=== PATIENT | female | born 1955 | race Caucasian/White ===

== ENCOUNTER 2020-03-29 10:26 | Observation (INO) ==
[2020-03-29] MEDS ORDERED: HYDROmorphone INJ 1 MG/ML SYRINGE IV STA (11:11)
[2020-03-29] MEDS ORDERED: KETOROLAC TROMETHAMINE 60 MG/2 ML VIAL IM STA (11:11)
[2020-03-29] MEDS ORDERED: ONDANSETRON 4 MG/5 ML UDP PO PRN (11:17)
[2020-03-29] MEDS ORDERED: ONDANSETRON 4 MG OD TAB PO STA (11:21)
[2020-03-29] MEDS ORDERED: HYDROmorphone INJ 1 MG/ML SYRINGE IM ONE (11:31)
[2020-03-29] MEDS ORDERED: DEXAMETHASONE SOD INJ 10 MG/ML VIAL IV ONE (12:38)
--- NOTE | 2020-03-29 13:05 | CT Scan Report ---
CT SCAN OF THE LUMBAR SPINE WITHOUT IV CONTRAST CLINICAL HISTORY: Low back pain. Sciatica. COMPARISON STUDY: No priors. TECHNIQUE: CT scan of the lumbar spine is performed from the lower thoracic spine to the sacrum. Imag es are reviewed in the axial, sagittal, coronal planes. IV contrast was not administered for this exa mination. A dose lowering technique was utilized adhering to the principles of ALARA. The examination is degraded by streak artifact from metallic spinal orthopedic hardware. CT DOSE: 672.99 mGy.cm FINDINGS: The skeletal structures are osteopenic. There is no evidence of fracture or malalignment in volving the lumbar spine. There is postoperative change from discectomy with laminectomy and posterio r fusion at L4 -L5. The orthopedic hardware appears intact. Vertebral body height is maintained thro ughout the lumbar spine. There is 8 mm of retrolisthesis at L2-L3. Minimal anterolisthesis is seen at L3-L4 and L4-L5. There is no spondylolysis. There is hyperlordosis of the lumbar spine. The transver se processes and the remaining spinous processes are intact. No lytic or blastic lesion is seen. The visualized sacrum and bony pelvis appear intact. There is moderate to advanced disc space narrowing a t L2-L3 and L3-L4 with associated endplate sclerosis. Mild to moderate disc space narrowing and endpl ate sclerosis is seen at L5-S1. Posterior disc bulge and possible disc herniation at L5-S1 likely con tributes to spinal stenosis. Facet arthropathy is seen throughout the lumbar spine. This likely contr ibutes to multilevel neural foraminal stenosis, greatest in the lower lumbar region. There is fatty a trophy of the paraspinous musculature. The retroperitoneal structures are normal as imaged. There is no retroperitoneal lymphadenopathy. IMPRESSION: 1. There is no acute bony abnormality identified involving the lumbar spine. 2. Osteopenia with postoperative and spondylotic change as above. 3. A large posterior disc bulge/possible disc herniation at L5-S1 likely contributes to central canal stenosis. ACT 112: Negative or not required by law. Electronically signed by: Larry Chang M.D. 03/29/2020 1:04 PM
[2020-03-29] MEDS ORDERED: LORazepam 1 MG TAB SL STA (13:32)
--- NOTE | 2020-03-29 14:21 | Emergency Department Note ---
History of Present Illness General Chief complaint: Back Injury/Pain Time Seen by Provider: 03/29/20 10:29 Source: patient, EMS, RN notes reviewed and old records reviewed Mode of arrival: EMS Limitations: no limitations History of Present Illness Provider complaint: Backk pain Onset (ago): day(s) 4 Location: back Radiation: extremity Severity: severe Pain Consistency: + intermittent Maximum Pain Intensity: 10 Current Pain Intensity: 10 Quality: + aching Relieved By: + other (Benading knees) Exacerbated By: + movement Associated symptoms: + other (No loss of bowel or bladder; No saddle anesthesia); no cough, no diaphoresis, no fever/chills, no headaches, no loss of appetite, no malaise, no nausea/vomiting, no rash and no seizure Treatments prior to arrival: other (Oxycodone, percocet ) This is a 64-year-old female who presents emergency department with back pain that has been increasing since Wednesday. 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 She reports that the pain has gotten much worse and is only relieved by bending her knees. She has a history of lumbar fusion done in [place] approximately 10 years ago she has been taking oxycodone as well as Percocet which are her 's without relief of the pain. She reports twisting and turning makes the pain much worse. She denies any loss of bowel or bladder control. Home Medications Medication Instructions Recorded Confirmed Type acetaminophen [Tylenol Extra 2,000 mg PO Q6H PRN 03/29/20 03/29/20 History Strength] aspirin 81 mg PO PM 03/29/20 03/29/20 History bumetanide 1 mg PO DIRECTED PRN 03/29/20 03/29/20 History cyclobenzaprine 10 mg PO Q8H #30 tab 03/29/20 Rx docusate sodium [Colace] 100 mg PO BID #60 cap 03/29/20 Rx ibuprofen [Motrin IB] 800 mg PO Q6H PRN 03/29/20 03/29/20 History levothyroxine [Synthroid] 175 mcg PO PM 03/29/20 03/29/20 History lidocaine [Lidoderm] 1 patch TOPICAL DAILY #15 ea 03/29/20 Rx losartan 50 mg PO QAM 03/29/20 03/29/20 History oxycodone 5 mg PO Q6H PRN #14 tab 03/29/20 Rx oxycodone 10 mg PO Q6H PRN 03/29/20 03/29/20 History oxycodone-acetaminophen [Percocet] 1 tab PO Q8H PRN 03/29/20 03/29/20 History sennosides [Senokot] 8.6 mg PO HS #30 tab 03/29/20 Rx sertraline 50 mg PO PM 03/29/20 03/29/20 History Allergies Allergy/AdvReac Type Severity Reaction Status Date / Time No Known Allergies Allergy Unverified 03/29/20 11:32 Past Med/Surg History Social History Smoking Status: Never smoker Second Hand Exposure: No; Hx Alcohol Use: Yes Alcohol type: wine Hx Substance Use: No Preferred Language: Albanian Communication Ability: Effective Abstracter Required: No Beliefs That Will Affect Care: None Current Living Situation: Spouse Feels Safe at Home: Yes Assistive Devices: Glasses and Walker Review of Systems A total of 10 systems reviewed and were otherwise negative Physical Exam Vital Signs Vital Signs - 24 hr 03/29/20 10:36 03/29/20 12:18 03/29/20 12:35 Temperature 36.5 C Temperature Source Oral Pulse Rate 70 Pulse Rate [Apical] 80 Respiratory Rate 18 18 Blood Pressure 185/97 H Blood Pressure [Left Arm] 207/91 H Blood Pressure Mean 126 Blood Pressure Mean [Left Arm] 129 Pulse Oximetry 96 98 87 L Oxygen Delivery Method Room Air Nasal Cannula Room Air Nasal Cannula Oxygen Flow Rate 2 0 Sepsis Recent Fever Within 48 Hours No Sepsis New/Unexplained Change in Mental Status No Sepsis Action Taken by Nursing No Action Required Oxygen Flow Rate - Titration 2 Pulse Oximetry Post Tiitration 98 VITAL SIGNS - Vital signs and nursing notes were reviewed. GENERAL - 64-year-old female appearing stated age who is in no acute distress. Communicates well with provider and answers questions appropriately. SKIN - Without rashes. HEAD - NC/AT. EYES - PERRL with EOMI bilaterally. Sclera anicteric. Palpebral conjunctiva pink and moist with no injection noted. EARS - No deformities of external structures noted on gross examination bilaterally. No pain elicited with palpation of the tragus bilaterally. External auditory canals without discharge or otorrhea. Tympanic membranes pearly castle without retraction or bulging. No fluid or purulent material visualized behind the TM. Handle of malleus, umbo, cone of light, pars tensa/flaccid all easily visualized. NOSE - Midline and without cyanosis. No epistaxis or purulent drainage noted. Septum midline without deviation or septal hematoma noted. MOUTH/OROPHARYNX - Without perioral cyanosis. Buccal mucosa pink and moist and without leukoplakia. Tongue midline with equal elevation of palate bilaterally. No tonsillar hypertrophy, erythema, or exudates noted. dentition noted. NECK - Neck with FROM. Supple to palpation. lymphadenopathy noted. No nuchal rigidity. LUNGS - Chest wall symmetric without accessory muscle use, intercostals retract ions, or central cyanosis. Normal vesicular breath sounds CTA B/L. No wheezes, rales, or rhonchi appreciated. CARDIAC - RRR with S1/S2. No murmur, rubs, or gallops appreciated. ABDOMEN - Abdominal contour without pulsations or visible masses. BS normoactive all four quadrants. No tenderness, palpable masses, hepatosplenomegaly, or ascites noted. EXTREMITIES - No clubbing or peripheral cyanosis. No pretibial edema present. +3/5 radial, posterior tibial, and dorsalis pedis pulses palpated throughout. +5/5 strength noted in UE/LE bilaterally. NEUROLOGIC - Cranial nerves II through XII grossly intact. Sensory intact to light touch throughout. Patellar reflexes +2/4. PSYCH - A&Ox3 and cooperates fully with examiner. Pt is very pleasant and interacts well with examiner. Course Administered Medications Aspirin (Aspirin 81 Mg Ectab) 81 mg PO PM SHADI Stop: 04/28/20 20:59 Last Admin: 03/30/20 22:09 Dose: 81 mg Documented by: [id number] Admin: 03/29/20 20:36 Dose: 81 mg Documented by: [id number] Enoxaparin Sodium (Enoxaparin Inj 40 Mg/0.4 Ml Syr) 40 mg SQ QAM SHADI Stop: 04/30/20 13:59 Last Admin: 03/31/20 14:53 Dose: 40 mg Documented by: [id number] Dexamethasone Sodium Phosphate (10 mg/ Syringe) 2.5 mls @ 1 mls/min IV DAILY SHADI Stop: 04/29/20 08:59 Last Admin: 03/31/20 09:31 Dose: 1 mls/min Documented by: [id number] Admin: 03/30/20 21:02 Dose: Not Given Documented by: [id number] Levothyroxine Sodium (Levothyroxine Sodium 175 Mcg Tablet) 175 mcg PO PM SHADI Stop: 04/28/20 20:59 Last Admin: 03/31/20 20:14 Dose: 175 mcg Documented by: [id number] Admin: 03/30/20 22:08 Dose: 175 mcg Documented by: [id number] Admin: 03/29/20 20:36 Dose: 175 mcg Documented by: [id number] Losartan Potassium (Losartan Potassium 50 Mg Tab) 50 mg PO QAM SHADI Stop: 04/29/20 08:59 Last Admin: 03/31/20 09:31 Dose: 50 mg Documented by: [id number] Admin: 03/30/20 21:01 Dose: Not Given Documented by: [id number] Melatonin (Melatonin 3 Mg Tab) 3 mg PO HS PRN PRN Reason: Sleep Stop: 04/29/20 18:20 Last Admin: 03/30/20 22:16 Dose: 3 mg Documented by: [id number] Oxycodone HCl (Oxycodone Hcl Ir 5 Mg Tab (Immediate Release)) 10 mg PO Q6H PRN PRN Reason: Pain Stop: 04/12/20 19:36 Last Admin: 04/01/20 06:19 Dose: 10 mg Documented by: [id number] Admin: 03/31/20 23:46 Dose: 10 mg Documented by: [id number] Admin: 03/31/20 18:07 Dose: 10 mg Documented by: [id number] Admin: 03/31/20 11:45 Dose: 10 mg Documented by: [id number] Admin: 03/31/20 05:08 Dose: 10 mg Documented by: [id number] Admin: 03/30/20 22:16 Dose: 10 mg Documented by: [id number] Admin: 03/30/20 16:15 Dose: 10 mg Documented by: [id number] Admin: 03/30/20 08:44 Dose: 10 mg Documented by: [id number] Admin: 03/30/20 01:13 Dose: 10 mg Documented by: [id number] Sertraline HCl (Sertraline Hcl 50 Mg Tablet) 50 mg PO PM SHADI Stop: 04/28/20 20:59 Last Admin: 03/31/20 20:15 Dose: 50 mg Documented by: [id number] Admin: 03/30/20 22:08 Dose: 50 mg Documented by: [id number] Admin: 03/29/20 20:37 Dose: 50 mg Documented by: [id number] Discontinued Medications Dexamethasone (Dexamethasone Sod Inj 10 Mg/Ml Vial) 10 mg IV NOW ONE Stop: 03/29/20 12:39 Last Admin: 03/29/20 13:35 Dose: 10 mg Documented by: [id number] Hydromorphone HCl (Hydromorphone Inj 1 Mg/Ml Syringe) 1 mg IV NOW STA Stop: 03/29/20 11:12 Last Admin: 03/29/20 11:43 Dose: Not Given Documented by: [id number] Hydromorphone HCl (Hydromorphone Inj 1 Mg/Ml Syringe) 1 mg IM NOW ONE Stop: 03/29/20 11:32 Last Admin: 03/29/20 11:34 Dose: 1 mg Documented by: [id number] Ketorolac Tromethamine (Ketorolac Tromethamine 60 Mg/2 Ml Vial) 60 mg IM NOW STA Stop: 03/29/20 11:12 Last Admin: 03/29/20 11:33 Dose: 60 mg Documented by: [id number] Lorazepam (Lorazepam 1 Mg Tab) 1 mg SL NOW STA Stop: 03/29/20 13:33 Last Admin: 03/29/20 14:40 Dose: 1 mg Documented by: [id number] Ondansetron HCl (Ondansetron 4 Mg Od Tab) 4 mg PO NOW STA Stop: 03/29/20 11:22 Last Admin: 03/29/20 11:33 Dose: 4 mg Documented by: [id number] Ondansetron HCl (Ondansetron Inj 2 Mg/Ml 2 Ml Vial) 4 mg IV NOW STA Stop: 03/29/20 16:32 Last Admin: 03/30/20 21:09 Dose: Not Given Documented by: [id number] Medical Decision Making Differential Diagnosis Fracture, subluxation, dislocation, contusion, ligamentous injury, neurovascular, compartment syndrome, rhabdomyolysis, as well as other pathologies. Medical Records Attestation: I reviewed the patient's medical records. Home Medications Current Medication List: was personally reviewed by me Laboratory Data Attestation: I reviewed the patient's lab results. Result diagrams: 03/29/20 16:36 03/29/20 16:36 Lab Results 03/29/20 03/29/20 Range/Units 16:36 16:36 WBC 5.36 (4.8-10.8) K/uL RBC 5.09 (4.2-5.4) M/uL Hgb 15.3 (12.0-16.0) g/dL Hct 45.8 (37-47) % MCV 90.0 (80-100) fL MCH 30.1 (25-34) pg MCHC 33.4 (32-36) g/dL RDW Std Deviation 43.8 (36.4-46.3) fL RDW Coeff of Kye 13.2 (11.5-14.5) % Plt Count 182 (130-400) K/uL MPV 9.5 (7.4-10.4) fL Immature Gran % (Auto) 0.2 % Neut % (Auto) 88.8 % Lymph % (Auto) 9.7 % [place] % (Auto) 1.3 % Eos % (Auto) 0.0 % Baso % (Auto) 0.0 % Neut # (Auto) 4.76 (1.4-6.5) K/uL Lymph # (Auto) 0.52 L (1.2-3.4) K/uL H[place] # (Auto) 0.07 L (0.11-0.59) K/uL Eos # (Auto) 0.00 (0-0.5) K/uL Baso # (Auto) 0.00 (0-0.2) K/uL Immature Gran # (Auto) 0.01 (0.00-0.02) K/uL Sodium 137 (136-145) mmol/L Potassium 4.3 (3.5-5.1) mmol/L Chloride 105 (98-107) mmol/L Carbon Dioxide 27 (21-32) mmol/L Anion Gap 5.0 (3-11) BUN 20 H (7-18) mg/dl Creatinine 0.78 (0.6-1.2) mg/dl Est Cr Clr Drug Dosing 96.2 ml/min Est GFR ( Amer) 93.8 Est GFR (Non-Af Amer) 80.9 BUN/Creatinine Ratio 25.1 H (10-20) Glucose 119 H (70-99) mg/dl Calcium 9.9 (8.5-10.1) mg/dl Total Bilirubin 0.5 (0.2-1) mg/dl AST 19 (15-37) U/L ALT 41 (12-78) U/L Alkaline Phosphatase 70 (45-117) U/L Total Protein 8.2 (6.4-8.2) gm/dl Albumin 4.4 (3.4-5.0) gm/dl Globulin 3.8 (2.5-4.0) gm/dl Albumin/Globulin Ratio 1.2 (0.9-2) Lipase 110 (73-393) U/L Imaging Data Radiologist's Impression: [facility], [phone] CT Scan Report Patient: Criss GARCIA Date: 03/29/20#: [id number]: [address] [facility]:[id number]: Date: [address] [place] [address] Zip: [place], [place] [address]Qbl: 64Location: EDSex: FRoom/Bed:Att Phy:Diagnosis: BACK INJRUYPri Phy: PCP,NOService Date: 03/29/20Fa Phy:Interpreting Phy: Larry Chang MDAdmit Phy: Ordering Phy: Ran Leone MD cc: ~ CT SCAN OF THE LUMBAR SPINE WITHOUT IV CONTRAST CLINICAL HISTORY: Low back pain. Sciatica. COMPARISON STUDY: No priors. TECHNIQUE: CT scan of the lumbar spine is performed from the lower thoracic spine to the sacrum. Images are reviewed in the axial, sagittal, coronal planes. IV contrast was not administered for this examination. A dose lowering technique was utilized adhering to the principles of ALARA. The examination is degraded by streak artifact from metallic spinal orthopedic hardware. CT DOSE: 672.99 mGy.cm FINDINGS: The skeletal structures are osteopenic. There is no evidence of fracture or malalignment involving the lumbar spine. There is postoperative change from discectomy with laminectomy and posterior fusion at L4 -L5. The orthopedic hardware appears intact. Vertebral body height is maintained throu ghout the lumbar spine. There is 8 mm of retrolisthesis at L2-L3. Minimal anterolisthesis is seen at L3-L4 and L4-L5. There is no spondylolysis. There is hyperlordosis of the lumbar spine. The transverse processes and the remaining spinous processes are intact. No lytic or blastic lesion is seen. The visualized sacrum and bony pelvis appear intact. There is moderate to advanced disc space narrowing at L2-L3 and L3-L4 with associated endplate sclerosis. Mild to moderate disc space narrowing and endplate sclerosis is seen at L5-S1. Posterior disc bulge and possible disc herniation at L5-S1 likely contributes to spinal stenosis. Facet arthropathy is seen throughout the lumbar spine. This likely contributes to multilevel neural foraminal stenosis, greatest in the lower lumbar region. There is fatty atrophy of the paraspinous musculature. The retroperitoneal structures are normal as imaged. There is no retroperitoneal lymphadenopathy. IMPRESSION: 1. There is no acute bony abnormality identified involving the lumbar spine. 2. Osteopenia with postoperative and spondylotic change as above. 3. A large posterior disc bulge/possible disc herniation at L5-S1 likely contributes to central canal stenosis. ACT 112: Negative or not required by law. Electronically signed by: Larry Chang M.D. 03/29/2020 1:04 PM Dictated: 03/29/20 1213Transcribed: 03/29/20 1213 [facility], [phone] Magnetic Resonance Report Patient: Criss GARCIA Date: 03/29/20#: [id number]: [address] [facility]:[id number]: Date: [address] [place] [address] Zip: [place], [place] [address]Bpv: 64Location: EDSex: FRoom/Bed:Att Phy:Diagnosis: BACK INJRUYPri Phy: PCP,NOService Date: 03/29/20Fa Phy:Interpreting Phy: Arthur Choe MDAdmit Phy: Ordering Phy: Kenny Vargas MD cc: ~ LUMBAR SPINE MRI HISTORY: Severe low back pain. Pt c/o slipped disc TECHNIQUE: Multiplanar multisequence MRI of the lumbar spine was performed without the use of contrast. COMPARISON: Lumbar spine CT 03/29/2020. FINDINGS: For the purpose of the report the L5-S1 disc space will be located on axial image 25 of 28. Mild dextroscoliosis of the lumbar spine. Severe disc space narrowing with fluid signal at L2-L3 and L3-L4. There is L4-L5 posterior decompression fusion with pedicle screws and rods. There is complete fusion of the vertebral bodies. There is mild disc space narrowing at L5-S1. Severe facet osteoarthritis throughout the majority of the lumbar spine. The conus terminates at the L1-L2 disc space level. Mild presacral edema. L1-L2: No significant central canal or neural foraminal narrowing. L2-L3: Moderate to severe central canal narrowing due to a broad-based posterior disc bulge and ligamentum flavum and facet hypertrophy. There is also severe left and moderate right neural foraminal narrowing. There is a small right jonatan inal disc extrusion measuring 8 mm. This abuts the exiting right L2 nerve root. L3-L4: Small broad-based posterior disc bulge with severe facet hypertrophy resulting in severe central canal and severe bilateral neural foraminal narrowing. L4-L5: There is severe central canal narrowing immediately proximal to the posterior decompression. This is posterior to the L4 vertebral body. This is secondary to the severe facet hypertrophy. There is no significant central canal narrowing at the L4-5 disc space level due to the posterior decompression. No significant central canal narrowing. L5-S1: Severe stenosis due to a large central disc extrusion measuring 12 x 10 mm. The central canal measures 2.3 mm in diameter. Therefore, the nerve roots at this location are likely compressed. There is also broad-based posterior disc bulge resulting in severe right and moderate to severe left neural foraminal narrowing. IMPRESSION: 1. There is a large central disc extrusion at L5-S1 resulting in severe central canal narrowing. The nerve roots at this location are likely compressed. 2. There is also severe central canal narrowing at L3-L4 and posterior to the L4 vertebral body. 3. Posterior decompression and fusion at L4-L5 with pedicle screws and rods. 4. No fractures within the lumbar spine. 5. Advanced facet degenerative changes within the lumbar spine. 6. Mild presacral edema. ACT 112: Negative or not required by law. Electronically signed by: Arthur Choe M.D. 03/29/2020 4:14 PM Dictated: 03/29/201558Transcribed: 03/29/201558 [facility] Narrative Patient was seen and evaluated as above in room C8. Review was performed of nurs ing notes and vital signs. I did review pertinent previous visits and patient history. After obtaining a thorough history and physical examination the above work up was performed. This 64-year-old female who presents emergency department complaining of severe back pain that radiates into her legs anytime the patient walks. Patient reports that the pain started Wednesday and became so severe she was unable to walk for the past 2 days. She was given IM Dilaudid here in the emergency department as well as Decadron however she still is not ambulating as well. Based on all these findings she was sent for CAT scan of the lower spine as well as an MRI of the lower spine. I did discuss my findings with the orthopedic surgeon who asked that the patient be admitted to the medicine service. Patient is in agreement with the treatment plan. An order was placed for continuous cardiac monitoring. The monitor shows a rate of 87 with Normal Sinus rhythm. The patient was evaluated during a period of high volume and high acuity while the hospital was at overcapacity during the global COVID-19 pandemic, and that diagnosis was suspected/considered upon their initial presentation. Their evaluation, treatment and testing was consistent with current guidelines for patients who present with complaints or symptoms that may be related to COVID- 19. Impression & Plan Back pain, Slipped intervertebral disc Discharge Plan Visit Data Chief Complaint: Back Injury/Pain ED Provider: Kneny Vargas ED Midlevel Provider: Ran Leone Discharge Problem: Back pain, Slipped intervertebral disc Patient Disposition: Admitted As Inpatient Discharge Instructions Interventions: ED Discharge Assessment Last Done: 03/29/20 18:40 Discharge Problem: Back pain Qualifiers: Back pain location: low back pain Chronicity: acute Back pain laterality: unspecified Sciatica presence: with sciatica Sciatica laterality: bilateral sciatica Qualified Code(s): M54.42 - Lumbago with sciatica, left side Slipped intervertebral disc Qualifiers: Spinal region: lumbosacral Qualified Code(s): M51.27 - Other intervertebral disc displacement, lumbosacral region
--- NOTE | 2020-03-29 14:33 | Emergency Department Note ---
ED Visit Note I saw this patient today and discussed my findings w/ Dr. Vargas who has examined the patient independently. Please see his documentation for assessment and plan. : Back pain Qualifiers: Back pain location: low back pain Chronicity: acute Back pain laterality: unspecified Sciatica presence: with sciatica Sciatica laterality: bilateral sciatica Qualified Code(s): M54.42 - Lumbago with sciatica, left side Slipped intervertebral disc Qualifiers: Spinal region: lumbosacral Qualified Code(s): M51.27 - Other intervertebral disc displacement, lumbosacral region
--- NOTE | 2020-03-29 16:15 | Magnetic Resonance Report ---
LUMBAR SPINE MRI HISTORY: Severe low back pain. Pt c/o slipped disc TECHNIQUE: Multiplanar multisequence MRI of the lumbar spine was performed without the use of contras t. COMPARISON: Lumbar spine CT 03/29/2020. FINDINGS: For the purpose of the report the L5-S1 disc space will be located on axial image 25 of 28. Mild dextroscoliosis of the lumbar spine. Severe disc space narrowing with fluid signal at L2-L3 and L3-L4. There is L4-L5 posterior decompression fusion with pedicle screws and rods. There is complete fusion of the vertebral bodies. There is mild disc space narrowing at L5-S1. Severe facet osteoarthri tis throughout the majority of the lumbar spine. The conus terminates at the L1-L2 disc space level. Mild presacral edema. L1-L2: No significant central canal or neural foraminal narrowing. L2-L3: Moderate to severe central canal narrowing due to a broad-based posterior disc bulge and ligam entum flavum and facet hypertrophy. There is also severe left and moderate right neural foraminal nelly rowing. There is a small right foraminal disc extrusion measuring 8 mm. This abuts the exiting right L2 nerve root. L3-L4: Small broad-based posterior disc bulge with severe facet hypertrophy resulting in severe centr al canal and severe bilateral neural foraminal narrowing. L4-L5: There is severe central canal narrowing immediately proximal to the posterior decompression. T his is posterior to the L4 vertebral body. This is secondary to the severe facet hypertrophy. There i s no significant central canal narrowing at the L4-5 disc space level due to the posterior decompress ion. No significant central canal narrowing. L5-S1: Severe stenosis due to a large central disc extrusion measuring 12 x 10 mm. The central canal measures 2.3 mm in diameter. Therefore, the nerve roots at this location are likely compressed. There is also broad-based posterior disc bulge resulting in severe right and moderate to severe left neura l foraminal narrowing. IMPRESSION: 1. There is a large central disc extrusion at L5-S1 resulting in severe central canal narrowing. The nerve roots at this location are likely compressed. 2. There is also severe central canal narrowing at L3-L4 and posterior to the L4 vertebral body. 3. Posterior decompression and fusion at L4-L5 with pedicle screws and rods. 4. No fractures within the lumbar spine. 5. Advanced facet degenerative changes within the lumbar spine. 6. Mild presacral edema. ACT 112: Negative or not required by law. Electronically signed by: Arthur Choe M.D. 03/29/2020 4:14 PM
[2020-03-29] MEDS ORDERED: ONDANSETRON INJ 2 MG/ML 2 ML VIAL IV STA (16:31)
[2020-03-29] MEDS ORDERED: HYDROmorphone INJ 1 MG/ML SYRINGE IV PRN (16:31)
[2020-03-29 16:48] LABS: Hematocrit (blood only) 45.8 % (37-47); Hemoglobin 15.3 g/dL (12.0-16.0); Immature Granulocytes # (auto) 0.01 K/uL (0.00-0.02); Immature Granulocytes % (auto) 0.2 %; Lymphocytes # (auto) 0.52 K/uL (1.2-3.4); Lymphocytes % (auto) 9.7 %; Mean Corpuscular Hemoglobin 30.1 pg (25-34); Mean Corpuscular Hgb Conc 33.4 g/dL (32-36); Mean Platelet Volume 9.5 fL (7.4-10.4); Monocytes # (auto) 0.07 K/uL (0.11-0.59); Monocytes % (auto) 1.3 %; Neutrophils # (auto) 4.76 K/uL (1.4-6.5); Neutrophils % (auto) 88.8 %; Platelet Count 182 K/uL (130-400); RDW Coefficient of Variation 13.2 % (11.5-14.5); RDW Standard Deviation 43.8 fL (36.4-46.3); Red Blood Count 5.09 M/uL (4.2-5.4); White Blood Count 5.36 K/uL (4.8-10.8)
[2020-03-29 17:06] LABS: Albumin Level 4.4 gm/dl (3.4-5.0); BUN Creatinine Ratio 25.1 (10-20); Calcium 9.9 mg/dl (8.5-10.1); Creatinine Clr Calc Pharmacy 96.2 ml/min; Est GFR (African American) 93.8; Est GFR (Non-African American) 80.9; Potassium 4.3 mmol/L (3.5-5.1)
--- NOTE | 2020-03-29 17:06 | History & Physical Report ---
Date of Service March 29, 2020 Assessment & Plan (1) Lumbar radiculopathy: intractable pain - now appears improved, although with considerable amount of medications -PT/OT eval and treat -decadron -pain control (home meds and a number of prns) -ortho eval -- although hopefully won't need to have surgery but that way if pain remains intractable or if she were to go home and then worsen she is established --->hopefully if continues to do better, home on steroids w outpt pain management eval for ?injections and probable referral for decompression (2) Hypoxia: no symptoms, no lung findings - ?spurious reading follow clinically, wean O2 (3) Hypertension: current readings likely markedly elevated due to uncontrolled pain. continue home meds for now and follow (4) Hyperlipidemia: lipids from february noted - definitely needs outpt management - she ntoes difficulty tolerating meds - this will need to be evaluated further and in more depth as outpt (5) Hypothyroid: synthroid (6) Impaired glucose tolerance: will need educated on lifestyle change as outpt (7) DVT prophylaxis: scds (8) Discharge planning issues: obs medical, home once pain more tolerable and able to ambulate History of Present Illness Chief Complaint: back pain down L leg Primary Care Provider: NO PCP last week or so worsening of back pain going down L leg. last few days barely able to walk. today severity so intense she had to be brought by ambulance due to inability to ambulate and uncontrolled pain. no loss of bowel or bladder, no saddle anesthesia. here in ER got 10mg decadron, 1mg ativan, 1mg dilauded x2 and feels surprisingly better. no sob at all - notes O2 was put on to help with nausea and she notes that it helped a lot. cherelle notes that she's been in her baseline state of health - moved here from [place] about a year ago and has yet to establish w PCP because she's been busy and felt like she was doing well med hx -htn, hyperlipid (can't tolerate meds per pt), hypothyroid surg -lumbar surgery about 10yrs ago fam -CAD but notes that it was heavily lifestyle induced and not till fairly old soc -nonsmoker meds see list Allergies Allergy/AdvReac Type Severity Reaction Status Date / Time No Known Allergies Allergy Unverified 03/29/20 11:32 Home Medications Medication Instructions Recorded Confirmed Type acetaminophen [Tylenol Extra 2,000 mg PO Q6H PRN 03/29/20 03/29/20 History Strength] aspirin 81 mg PO PM 03/29/20 03/29/20 History bumetanide 1 mg PO DIRECTED PRN 03/29/20 03/29/20 History cyclobenzaprine 10 mg PO Q8H #30 tab 03/29/20 Rx docusate sodium [Colace] 100 mg PO BID #60 cap 03/29/20 Rx ibuprofen [Motrin IB] 800 mg PO Q6H PRN 03/29/20 03/29/20 History levothyroxine [Synthroid] 175 mcg PO PM 03/29/20 03/29/20 History lidocaine [Lidoderm] 1 patch TOPICAL DAILY #15 ea 03/29/20 Rx losartan 50 mg PO QAM 03/29/20 03/29/20 History oxycodone 5 mg PO Q6H PRN #14 tab 03/29/20 Rx oxycodone 10 mg PO Q6H PRN 03/29/20 03/29/20 History oxycodone-acetaminophen [Percocet] 1 tab PO Q8H PRN 03/29/20 03/29/20 History sennosides [Senokot] 8.6 mg PO HS #30 tab 03/29/20 Rx sertraline 50 mg PO PM 03/29/20 03/29/20 History Past Med/Surg History Social History Smoking Status: Never smoker Review of Systems Review of Systems: All systems reviewed & are unremarkable except as noted in HPI & below Physical Exam Physical Exam: gen aaox3 pleasant nad heent nc at mmm neck full rom cardio reg no r/m/g lungs cta b/l no r/r/w good effort abd soft nd nt no masses or organomegaly no guarding/rebond ext no c/c/e no calf tenderness neuro - cn 2-12 grossly intact, at the time i see her no focal sensory or motor deficits, neg straight leg raise LLE msk/ost - no tightness L piriformis region skin - no rashes no pallor or icterus mental good recent and remote recall normal mood and affect Results & Data Results & Data ([facility]) Vital Signs (Past 12 Hours) Vital Signs Temp Pulse Pulse Resp BP BP Pulse Ox 03/29/20 12:35 87 L 03/29/20 12:18 80 18 207/91 H 98 03/29/20 10:36 97.7 F 70 18 185/97 H 96 Code Status & VTE Plan VTE Prophylaxis Plan VTE Prophylaxis will be ordered: Yes PG Care Time/CCT Total # of Minutes Spent Total Time Spent with Patient: Total time spent is greater than 50% in coordination of care (as documented) at patient's floor/unit and/or counseling patient: Coding Level of Care Code 96945 OBS Care - Level 3 Diagnoses Lumbar radiculopathy M54.16 Hypoxia R09.02 Hypertension I10 Hyperlipidemia E78.5 Hypothyroid E03.9 Impaired glucose tolerance R73.02 DVT prophylaxis Z29.9 Discharge planning issues Z02.9
[2020-03-29 17:09] LABS: Albumin Globulin Ratio 1.2 (0.9-2); Bilirubin,Total 0.5 mg/dl (0.2-1); Globulin 3.8 gm/dl (2.5-4.0); Total Protein 8.2 gm/dl (6.4-8.2)
[2020-03-29] MEDS ORDERED: ALUMINUM/MAGNESIUM SUSP 30 ML UDC PO PRN (19:37)
[2020-03-29] MEDS ORDERED: oxyCODONE/ACETAMINOPHEN 5mg/325mg TAB PO PRN (19:37)
[2020-03-29] MEDS ORDERED: ONDANSETRON INJ 2 MG/ML 2 ML VIAL IV PRN (19:37)
[2020-03-29] MEDS ORDERED: ACETAMINOPHEN 325 MG TAB PO PRN (19:37)
[2020-03-29] MEDS ORDERED: BUMETANIDE 1 MG TAB PO PRN (19:37)
[2020-03-29] MEDS ORDERED: MoRPHine SULFATE 4 MG/ML 1 ML CARP\\VIAL IV PRN (19:37)
[2020-03-29] MEDS ORDERED: MAGNESIUM HYDROXIDE SUSP 30 ML UDC PO PRN (19:37)
[2020-03-29] MEDS ORDERED: IBUPROFEN 200 MG TAB PO PRN (19:40)
[2020-03-29] MEDS: LEVOTHYROXINE SODIUM 175 MCG TABLET PO SCH (20:36)
[2020-03-29] MEDS: ASPIRIN 81 MG ECTAB PO SCH (20:36)
[2020-03-29] MEDS: SERTRALINE HCL 50 MG TABLET PO SCH (20:37)
[2020-03-30] MEDS: oxyCODONE HCL IR 5 MG TAB (IMMEDIATE RELEASE) PO PRN ×4 (01:13→22:16)
[2020-03-30] MEDS ORDERED: DEXAMETHASONE SOD INJ 10 MG/ML VIAL IV SCH (09:00)
[2020-03-30 17:51] LABS: Appearance Urine Clear (Clear); Bacteria Urine Automated Negative (Negative); Bilirubin Urine Negative (Negative); Blood Urine Negative (Negative); Color Urine Dark Yellow; Epithelial Cell Urine Auto >30 /lpf (0-5); Glucose Urine UA Negative (Negative); Ketones Urine Trace (Negative); Leukocyte Esterase Urine 1+ (Negative); Nitrite Urine Negative (Negative); Protein Urine Trace (Negative); RBC Urine Automated 0-4 /hpf (0-4); Specific Gravity Urine 1.026 (1.000-1.030); Urobilinogen Urine Negative (Negative)
[2020-03-30 17:55] LABS: Renal Epithelial Cells Urine 0-5 /lpf (0-5)
[2020-03-30] MEDS ORDERED: MELATONIN 3 MG TAB PO PRN (18:21)
[2020-03-30 19:24] LABS: Thyroid Stimulating Hormone 0.975 uIu/ml (0.300-4.500)
[2020-03-30] MEDS: LOSARTAN POTASSIUM 50 MG TAB PO SCH (21:01)
[2020-03-30] MEDS: DEXAMETHASONE SOD PHOSPHATE 10 MG in SYRINGE 0 ML IV SCH (21:02)
[2020-03-30] MEDS: SERTRALINE HCL 50 MG TABLET PO SCH (22:08)
[2020-03-30] MEDS: LEVOTHYROXINE SODIUM 175 MCG TABLET PO SCH (22:08)
[2020-03-30] MEDS: ASPIRIN 81 MG ECTAB PO SCH (22:09)
[2020-03-31] MEDS: oxyCODONE HCL IR 5 MG TAB (IMMEDIATE RELEASE) PO PRN ×4 (05:08→23:46)
[2020-03-31 06:54] LABS: Estimated Average Glucose 131 mg/dl; Hemoglobin A1C 6.2 % (4.5-5.6)
[2020-03-31] MEDS: LOSARTAN POTASSIUM 50 MG TAB PO SCH (09:31)
[2020-03-31] MEDS: DEXAMETHASONE SOD PHOSPHATE 10 MG in SYRINGE 0 ML IV SCH (09:31)
--- NOTE | 2020-03-31 11:28 | Orthopedic Consultation ---
Date of Consultation March 31, 2020 Assessment & Plan (1) Spinal stenosis of lumbar region with radiculopathy: A CAT scan and MRI were obtained of the patient's lumbar spine. These demonstrate instrumented fusion L4-L5 with anterolisthesis severe facet appear to be in stenosis L3-4 and 2 some degree L2-3. She exhibits a vacuum phenomenon L5-S1 with a massive central disc herniation with severe spinal stenosis. I reviewed these films with the patient and treatment plan. She has a history of previous existing neurogenic claudication secondary to spinal stenosis now with an acute disc herniation. She is in significant distress would like to consider surgical invention. Would require a lumbar decompression and fusion L5-S1, L3- L4 and L2-L3. It would require removal instrumentation L4-5. Risk benefits pros cons and alternatives were outlined in detail. Risk include but not limited to from anesthesia blindness stroke paralysis nerve damage blood loss requiring transfusion infection requiring reoperation. Benefits marked improvement of her back and leg symptoms and return of her ability to ambulate. This time we will plan for surgery as soon as possible in light of her pain and inability to ambulate. Present on Admission?: Yes History of Present Illness Reason for Consultation: Severe back and bilateral leg pain with weakness Attending Physician: Car Pimentel MD History of Present Illness This is a very pleasant 64-year-old female that presents with severe decline in status to the emergency room on Wednesday. She notes the inability to ambulate. She does have a history of lumbar decompression fusion several years ago at L4- L5. She been doing very nicely but over the past year has noted marked decrease ability to ambulate any distance. She would note significant neurogenic claudicatory complaints. She limited her activity. However the past week the symptoms became markedly severe with pain in the bilateral buttocks posterior thighs. The point that she was unable to walk. She was bedridden for several days before coming to the emergency room. She denies any loss of bowel bladder control. She does have pain and numbness extending down the bilateral lower extremities. She denies any precipitating trauma fall or event. 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 Allergies Allergy/AdvReac Type Severity Reaction Status Date / Time No Known Allergies Allergy Unverified 03/29/20 11:32 Home Medications Medication Instructions Recorded Confirmed Type acetaminophen [Tylenol Extra 2,000 mg PO Q6H PRN 03/29/20 03/29/20 History Strength] aspirin 81 mg PO PM 03/29/20 03/29/20 History bumetanide 1 mg PO DIRECTED PRN 03/29/20 03/29/20 History cyclobenzaprine 10 mg PO Q8H #30 tab 03/29/20 Rx docusate sodium [Colace] 100 mg PO BID #60 cap 03/29/20 Rx ibuprofen [Motrin IB] 800 mg PO Q6H PRN 03/29/20 03/29/20 History levothyroxine [Synthroid] 175 mcg PO PM 03/29/20 03/29/20 History lidocaine [Lidoderm] 1 patch TOPICAL DAILY #15 ea 03/29/20 Rx losartan 50 mg PO QAM 03/29/20 03/29/20 History oxycodone 5 mg PO Q6H PRN #14 tab 03/29/20 Rx oxycodone 10 mg PO Q6H PRN 03/29/20 03/29/20 History oxycodone-acetaminophen [Percocet] 1 tab PO Q8H PRN 03/29/20 03/29/20 History sennosides [Senokot] 8.6 mg PO HS #30 tab 03/29/20 Rx sertraline 50 mg PO PM 03/29/20 03/29/20 History Patient History Social History Smoking Status: Never smoker Second Hand Exposure: No; Hx Alcohol Use: Yes Alcohol type: wine Hx Substance Use: No Preferred Language: Greenlandic Communication Ability: Effective [employer] 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 She exhibits severe bilateral tension signs with straight leg raising. Reasonable strength to bilateral plantar flexion dorsiflexion quadriceps. As she is only able to stand and ambulate for short distance before she must sit down next secondary to excruciating pain. Results & Data ([facility]) Vital Signs (Past 12 Hours) Vital Signs Temp Pulse Resp BP Pulse Ox 03/31/20 07:23 36.8 C 81 16 153/76 H 93 03/30/20 23:30 37.1 C 81 16 149/72 H 93
--- NOTE | 2020-03-31 11:45 | Electrocardiogram Report ---
Test Reason : Blood Pressure : / mmHG Vent. Rate : 061 BPM Atrial Rate : 061 BPM P-R Int : 178 ms QRS Dur : 088 ms QT Int : 442 ms P-R-T Axes : 053 031 096 degrees QTc Int : 444 ms Poor data quality, interpretation may be adversely affected Normal sinus rhythm Nonspecific ST and T wave abnormality Abnormal ECG No previous ECGs available Confirmed by Hayden Avila ([id number]) on 03/31/2020 11:45:04 AM Referred By: REFERRED SELF Confirmed By:Hayden Avila
--- NOTE | 2020-03-31 11:46 | Hospitalist Progress Note ---
Date of Service March 31, 2020 Assessment & Plan (1) Spinal stenosis of lumbar region with radiculopathy: Madelaine is a 64 yo woman with a PMHx of lumbar spinal stenosis, s/p L4-L5 fusion 10 years ago, who presented with worsening low back pain with bilateral radicular symptoms. Orthopedics was consulted and plan to take patient to the OR on 04/01/20 for lumbar decompression and fusion of L2-L3, L3-L4, L5-S1. Primary team to manage pain control and optimize for surgery. - MRI of lumbar spine on admission showing large central disc herniation at L5- S1 with several central canal narrowing; several narrowing also visualized at L3-L4 and posterior to the L4 body; advanced facet degenerative changes within lumbar spine; instrumented fusion L4-L5 with pedicle screws and rods. - pain control regimen with decadron 10mg, IV daily, oxycodone 10mg, q6h, tylenol and ibuprofen prn - ortho consulted, plan for decompression as above. Anticipate surgery date of 04/01/20 pending insurance approval/surgery schedule - RCRI score of 0, placing patient at class I risk - 3.9% 30 day risk of IL/cardiac arrest/. Chavarria score of 0.1% risk of IL/cardiac arrest intraoperatively and up to 30 days post-op - daily baby ASA on hold. Patient not on a blood thinner, beta martin or chroni c steroids - EKG on 03/31 without evidence of prior ischemia, arrhythmia or elongated QTc (patient is on sertraline). - Caprini score for venous thromboembolism is 5, placing her in the high risk category. Will start Lovenox for DVT ppx, recommend continuing for 7-10 days total (2) Hyperlipidemia: - uncontrolled - lipid panel showing total cholesterol of 374, LDL of 301, HDL of 56, ratio of 7 - patient reports longstanding history of statin intolerance (Lipitor, crestor, and at least one other) - recommend patient address this with outpatient PCP- recommend trial with Zetia (3) Hypothyroid: - TSH at 0.9 on admission - continue home dose synthroid (4) Impaired glucose tolerance: - HbA1c elevated to 6.2, placing patient in prediabetic range - patient did not want diet order to be changed to "carb consistent" - we briefly discussed dietary/lifestyle restrictions - recommend continued outpatient follow up for the above (5) Hypertension: - continue home losartan Diet: Heart Healthy, NPO after midnight in anticipation of possible procedure DVT ppx: SCDs, Lovenox 40mg SQ daily Dispo: Med/Surg Code: Full Admission and Anticipated Discharge Date Admission Date: March 29, 2020 Supervising Physician Co-Signing Physician Notes Attending attestation Pt seen and examined in concert with Dr. Alas. In agreement with the documented findings as noted in the resident documentation with any exceptions or additions as noted here. 64 y/o female h/o IFG, HLD, HTN presents w/ bilateral LE neuropathy for decompression and fusion upcoming Pain is well controlled at rest, recurrent with ambulation requiring walker support and significantly limiting activity. On examination, S1/S2 nl RRR no MCG. CTAB. Abd NT/ND BS+ve. b/l foot/ankle str 5/5. Sensation grossly intact Bilateral lower extremity neuropathy - orthopedics consultation - pending OR on modnay. holding ASA. Risk stratification as noted above. HLD - Statin intolerant, likely to require PSK-9, but would benefit from trial of Zetia prior to IFG - A1c 6.2% - counseling and precautions as noted. Else see resident documentation as noted. Subjective No acute events overnight. Patient reports pain increasing overnight in back of left thigh. She is comfortable laying supine, pain is worse when sitting up and with ambulation. She denies any bladder/bowel dysfunction. She denies saddle anesthesia Review of Systems Review of Systems: All systems reviewed & are unremarkable except as noted in HPI & below Physical Exam Constitutional: + obese and cooperative; no acute distress Eyes: + anicteric sclerae ENMT: external ear and nose normal, oropharynx normal Neck: normal visual inspection and trachea midline Respiratory: normal respiratory effort, lungs clear to auscultation Cardiovascular: RRR, no murmur, no edema Heart Sounds: normal S1 and normal S2 Extremities: no pedal edema Gastrointestinal (Abdomen): normal bowel sounds, soft, nontender, no hepatosplenomegaly Musculoskeletal: Back: Lumbar spinous processes non-tender. Paraspinal muscles non-tender. Straight leg raise + on L. Extremities: No IT band tenderness, b/l. Sensate to light touch in saddle region. Strength 5/5 with ankle dorsi and plantarflexion. Skin: no rashes, warm and dry Psychiatric: A+Ox3, euthymic affect Results & Data Results & Data ([facility]) Vital Signs (Past 12 Hours) Vital Signs Temp Pulse Resp BP Pulse Ox 03/31/20 07:23 36.8 C 81 16 153/76 H 93 Resident Activity Tracking Resident Involvement: Resident Care Provided Care Provided: Adult Hospital Medicine
[2020-03-31] MEDS: ENOXAPARIN INJ 40 MG/0.4 ML SYR SQ SCH (14:53)
[2020-03-31] MEDS: LEVOTHYROXINE SODIUM 175 MCG TABLET PO SCH (20:14)
[2020-03-31] MEDS: SERTRALINE HCL 50 MG TABLET PO SCH (20:15)
[2020-04-01] MEDS: oxyCODONE HCL IR 5 MG TAB (IMMEDIATE RELEASE) PO PRN ×3 (06:19→19:40)
--- NOTE | 2020-04-01 08:14 | Anesthesiology Consultation ---
Date of Service April 01, 2020 Covid 19 negative on 03/29/20. Assessment & Plan (1) Encounter for pre-operative examination: Chart Review Chart Review: Acceptable Risk for Surgery and Patient NOT seen in Pre Admission Testing Consults Requested none History Surgery Operation Date: 04/01/20 12:15 Proposed Procedures p Decompression and fusion L2-S1. Removal Hardware L4-5 - Jairon Brice, Height/Weight Height: 5 ft 7 in Weight: 104.95 kg Allergies Allergy/AdvReac Type Severity Reaction Status Date / Time No Known Allergies Allergy Unverified 03/29/20 11:32 Medications Home Medications Medication Instructions Recorded Confirmed Last Taken acetaminophen [Tylenol Extra 2,000 mg PO Q6H PRN 03/29/20 03/29/20 03/29/20 Strength] 2000 mg aspirin 81 mg PO PM 03/29/20 03/29/20 03/28/20 bumetanide 1 mg PO DIRECTED PRN 03/29/20 03/29/20 Unknown cyclobenzaprine 10 mg PO Q8H #30 tab 03/29/20 Unknown docusate sodium [Colace] 100 mg PO BID #60 cap 03/29/20 Unknown ibuprofen [Motrin IB] 800 mg PO Q6H PRN 03/29/20 03/29/20 03/28/20 levothyroxine [Synthroid] 175 mcg PO PM 03/29/20 03/29/20 03/28/20 lidocaine [Lidoderm] 1 patch TOPICAL DAILY #15 ea 03/29/20 Unknown losartan 50 mg PO QAM 03/29/20 03/29/20 03/29/20 oxycodone 5 mg PO Q6H PRN #14 tab 03/29/20 Unknown oxycodone 10 mg PO Q6H PRN 03/29/20 03/29/20 03/28/20 2 tabs oxycodone-acetaminophen [Percocet] 1 tab PO Q8H PRN 03/29/20 03/29/20 03/28/20 sennosides [Senokot] 8.6 mg PO HS #30 tab 03/29/20 Unknown sertraline 50 mg PO PM 03/29/20 03/29/20 03/28/20 Active Medications Generic Name Dose Route Start Last Admin Trade Name Freq PRN Reason Stop Dose Admin Aspirin 81 mg 03/29/20 21:00 03/30/20 22:09 Aspirin 81 Mg Ectab PO 04/28/20 20:59 81 mg PM SHADI Administration Enoxaparin Sodium 40 mg 03/31/20 14:00 03/31/20 14:53 Enoxaparin Inj 40 Mg/0.4 Ml Syr SQ 04/30/20 13:59 40 mg QAM SHADI Administration Dexamethasone Sodium Phosphate 2.5 mls @ 1 mls/min 03/30/20 09:00 03/31/20 09:31 10 mg/ Syringe IV 04/29/20 08:59 1 mls/min DAILY SHADI Administration Levothyroxine Sodium 175 mcg 03/29/20 21:00 03/31/20 20:14 Levothyroxine Sodium 175 Mcg Tablet PO 04/28/20 20:59 175 mcg PM SHADI Administration Losartan Potassium 50 mg 03/30/20 09:00 03/31/20 09:31 Losartan Potassium 50 Mg Tab PO 04/29/20 08:59 50 mg QAM SHADI Administration Melatonin 3 mg 03/30/20 18:21 03/30/20 22:16 Melatonin 3 Mg Tab PO 04/29/20 18:20 3 mg HS PRN Administration Sleep Oxycodone HCl 10 mg 03/29/20 19:37 04/01/20 06:19 Oxycodone Hcl Ir 5 Mg Tab (Immediate Release) PO 04/12/20 19:36 10 mg Q6H PRN Administration Pain Sertraline HCl 50 mg 03/29/20 21:00 03/31/20 20:15 Sertraline Hcl 50 Mg Tablet PO 04/28/20 20:59 50 mg PM SHADI Administration NPO Date Last Intake of Fluids: 03/31/20 Time Last Intake of Fluids: 23:55 Date Last Intake of Solids: 03/31/20 Time Last Intake of Solids: 23:45 Past Medical History Medical History Hyperlipidemia Hypertension Hypothyroid Impaired glucose tolerance Lumbar radiculopathy Obesity Social History Smoking Status: Never smoker Do You Dip or Chew Tobacco: No Hx Alcohol Use: Yes Alcohol type: wine alcohol intake frequency: a few times a month Hx Substance Use: No Physical Exam Vital Signs Last Vital Signs Temp 36.6 C 04/01/20 07:08 Pulse 65 04/01/20 07:08 Resp 16 04/01/20 07:08 BP 159/84 H 04/01/20 07:08 Pulse Ox 92 04/01/20 07:08 Testing Laboratory Results 03/29/20 16:36 03/29/20 16:36 Hemoglobin A1c 6.2 % (4.5-5.6) H 03/30/20 16:01 Urine Color Dark Yellow 03/30/20 04:59 Urine Appearance Clear (Clear) 03/30/20 04:59 Urine pH 5.0 (4.5-7.5) 03/30/20 04:59 Ur Specific [place] 1.026 (1.000-1.030) 03/30/20 04:59 Urine Protein Trace (Negative) H 03/30/20 04:59 Urine Glucose (UA) Negative (Negative) 03/30/20 04:59 Urine Ketones Trace (Negative) H 03/30/20 04:59 Urine Nitrite Negative (Negative) 03/30/20 04:59 Ur Leukocyte Esterase 1+ (Negative) H 03/30/20 04:59 Urine WBC (Auto) 10-30 /hpf (0-5) H 03/30/20 04:59 Urine RBC (Auto) 0-4 /hpf (0-4) 03/30/20 04:59 U Hyaline Cast (Auto) 5-10 /lpf (0-5) H 03/30/20 04:59 U Epithel Cells (Auto) >30 /lpf (0-5) H 03/30/20 04:59 Urine Bacteria (Auto) Negative (Negative) 03/30/20 04:59 Electrocardiogram Date: 03/31/20 Findings: + NSR @ (63)
[2020-04-01] MEDS: LOSARTAN POTASSIUM 50 MG TAB PO SCH (08:17)
[2020-04-01] MEDS: DEXAMETHASONE SOD PHOSPHATE 10 MG in SYRINGE 0 ML IV SCH (08:18)
[2020-04-01] MEDS: ENOXAPARIN INJ 40 MG/0.4 ML SYR SQ SCH (08:18)
--- NOTE | 2020-04-01 09:02 | Electrocardiogram Report ---
Test Reason : Blood Pressure : / mmHG Vent. Rate : 063 BPM Atrial Rate : 063 BPM P-R Int : 158 ms QRS Dur : 106 ms QT Int : 434 ms P-R-T Axes : 056 043 092 degrees QTc Int : 444 ms Normal sinus rhythm Normal ECG When compared with ECG of 31-MAR-2020 10:20, No significant change was found Confirmed by Hayden Avila ([id number]) on 04/01/2020 9:02:17 AM Referred By: REFERRED SELF Confirmed By:Hayden Avila
--- NOTE | 2020-04-01 10:29 | Hospitalist Progress Note ---
Date of Service April 01, 2020 Assessment & Plan (1) Spinal stenosis of lumbar region with radiculopathy: Ms. Pa is a 64y/o female with PMH significant for lumbar spinal stenosis, s/p L4-L5 fusion 10 years ago, who presented with worsening low back pain with bilateral radicular symptoms. Orthopedics was consulted and plan to take patient to the OR on 04/01/20 for lumbar decompression and fusion of L2-L3, L3-L4, L5-S1. Primary team to manage pain control and optimize for chen rgery. Spinal stenosis with radiculopathy: - MRI of lumbar spine on admission showing large central disc herniation at L5- S1 with several central canal narrowing; several narrowing also visualized at L3-L4 and posterior to the L4 body; advanced facet degenerative changes within lumbar spine; instrumented fusion L4-L5 with pedicle screws and rods. - pain control regimen with Decadron 10mg, Oxycodone 10mg q6h, Tylenol and ibuprofen - ortho consulted, plan for decompression; continuing to work with insurance to address the need for surgery Hypertension: - HTN improved since admission, but potentially continually poorly controlled - potential contributions from pain causing elevated blood pressure - potential for need for increase of Cozaar from 50 if no continued improvement Hyperlipidemia: - lipid panel showing total cholesterol of 374, LDL of 301, HDL of 56 - patient reports longstanding history of statin intolerance - recommend trial with Zetia Hypothyroidism: - TSH 0.9 on admission - continue home Synthroid regimen Impaired glucose tolerance: - A1c 6.2 on admission (2) Hyperlipidemia: (3) Hypothyroid: (4) Impaired glucose tolerance: (5) Hypertension: Admission and Anticipated Discharge Date Admission Date: March 29, 2020 Supervising Physician Co-Signing Physician Notes I personally examined the patient and verified all mendoza points of history and exam, discussed case, and agree with decision making with Dr Howard. pain ok when laying, still can barely walk without severe pain / using walker / very limited vitals noted nad heent nc at mmm breathing unlabored no accessory muscles good effort skin no rashes no pallor or icterus acute lumbar radiculopathy/intractable pain - unfortunately did not respond to conservative treatment and appears to require surgery. case management working w insurance. otherwise as above Subjective Patient continues to have large amount of pain in low back, is able to move minimally in bed and around room with assistance prior to increased back pain, with radiation down back of her legs. Has not had any bowel or bladder incontinence at this time. Was set to have surgery today to correct spinal compression generating problem, however, procedure was denied due to concern that this was a prior existing condition despite the patient having an acute development of pain and limited mobility over the last week and this is what ultimately led her to being brought to the hospital. Review of Systems Review of Systems: All systems reviewed & are unremarkable except as noted in Subjective Physical Exam Constitutional: well developed and well nourished Eyes: PERRL, conjunctivae normal, anicteric sclerae Respiratory: normal respiratory effort, lungs clear to auscultation Cardiovascular: Rate/Rhythm: regular rate and regular rhythm Heart Sounds: no gallop, no murmur and no cardiac rub Vessels: normal peripheral pulses Gastrointestinal (Abdomen): normal bowel sounds, soft, nontender, no hepatosplenomegaly Skin: no rashes, warm and dry Neurologic: deep tendon reflexes 2+ bilaterally and moves all extremities Psychiatric: Orientation: alert and oriented x 3 Results & Data Results & Data ([facility]) Vital Signs (Past 12 Hours) Vital Signs Temp Pulse Resp BP Pulse Ox 04/01/20 07:08 36.6 C 65 16 159/84 H 92 03/31/20 23:47 36.8 C 68 16 157/80 H 92 Medications Administered Current Inpatient Medications Acetaminophen (Acetaminophen 325 Mg Tab) 650 mg PO Q6H PRN PRN Reason: Pain Stop: 04/28/20 19:36 Al Hydrox/Mg Hydrox/Simethicone (Aluminum/Magnesium Susp 30 Ml Udc) 30 ml PO Q6H PRN PRN Reason: Dyspepsia Stop: 04/28/20 19:36 Aspirin (Aspirin 81 Mg Ectab) 81 mg PO PM SHADI Stop: 04/28/20 20:59 Last Admin: 03/30/20 22:09 Dose: 81 mg Documented by: Bumetanide (Bumetanide 1 Mg Tab) 1 mg PO DAILY PRN PRN Reason: swelling Stop: 04/28/20 19:36 Enoxaparin Sodium (Enoxaparin Inj 40 Mg/0.4 Ml Syr) 40 mg SQ QAM SHADI Stop: 04/30/20 13:59 Last Admin: 04/01/20 08:18 Dose: 40 mg Documented by: Dexamethasone Sodium Phosphate (10 mg/ Syringe) 2.5 mls @ 1 mls/min IV DAILY SHADI Stop: 04/29/20 08:59 Last Admin: 04/01/20 08:18 Dose: 1 mls/min Documented by: Ibuprofen (Ibuprofen 200 Mg Tab) 800 mg PO Q6H PRN PRN Reason: Pain Stop: 04/28/20 19:39 Levothyroxine Sodium (Levothyroxine Sodium 175 Mcg Tablet) 175 mcg PO PM SHADI Stop: 04/28/20 20:59 Last Admin: 03/31/20 20:14 Dose: 175 mcg Documented by: Losartan Potassium (Losartan Potassium 50 Mg Tab) 50 mg PO QAM SHADI Stop: 04/29/20 08:59 Last Admin: 04/01/20 08:17 Dose: 50 mg Documented by: Magnesium Hydroxide (Magnesium Hydroxide Susp 30 Ml Udc) 30 ml PO Q6H PRN PRN Reason: Constipation Stop: 04/28/20 19:36 Melatonin (Melatonin 3 Mg Tab) 3 mg PO HS PRN PRN Reason: Sleep Stop: 04/29/20 18:20 Last Admin: 03/30/20 22:16 Dose: 3 mg Documented by: Morphine Sulfate (Morphine Sulfate 4 Mg/Ml 1 Ml Carp\Vial) 4 mg IV Q4 PRN PRN Reason: Pain Stop: 04/12/20 19:36 Ondansetron HCl (Ondansetron Inj 2 Mg/Ml 2 Ml Vial) 4 mg IV Q6H PRN PRN Reason: Nausea Stop: 04/28/20 19:36 Oxycodone HCl (Oxycodone Hcl Ir 5 Mg Tab (Immediate Release)) 10 mg PO Q6H PRN PRN Reason: Pain Stop: 04/12/20 19:36 Last Admin: 04/01/20 12:51 Dose: 10 mg Documented by: Polyethylene Glycol (Polyethylene (Miralax) 17 Gm Pack) 17 gm PO DAILY PRN PRN Reason: Constipation Stop: 04/28/20 19:36 Sertraline HCl (Sertraline Hcl 50 Mg Tablet) 50 mg PO PM SHADI Stop: 04/28/20 20:59 Last Admin: 03/31/20 20:15 Dose: 50 mg Documented by: Resident Activity Tracking Resident Involvement: Resident Care Provided Care Provided: Adult [facility] Medicine
--- NOTE | 2020-04-01 13:39 | Orthopedic Progress Note ---
Date of Service April 01, 2020 Assessment & Plan (1) Spinal stenosis of lumbar region with radiculopathy: Admission and Anticipated Discharge Date Admission Date: March 29, 2020 We will plan for surgery today but to have issues with the patient's insurance. She understands this is an extensive procedure and would be unreasonable for her to assume full responsibility. This process is being worked out. We are planning to hopefully pursue surgery as soon as Wednesday or Wednesday pending results of insurance inquiry. Subjective Patient continues to have severe back and bilateral leg pain with inability to ambulate. Physical Exam Physical Exam: On exam she is comfortable lying supine continues to have tension signs bilaterally. Results & Data ([facility]) Vital Signs (Past 12 Hours) Vital Signs Temp Pulse Resp BP Pulse Ox 04/01/20 07:08 36.6 C 65 16 159/84 H 92
--- NOTE | 2020-04-01 18:01 | Billing Data ---
Date of Service April 01, 2020 Coding Level of Care Code 11083 Subseq Obs Care Lvl 2
[2020-04-01] MEDS: SERTRALINE HCL 50 MG TABLET PO SCH (21:19)
[2020-04-01] MEDS: LEVOTHYROXINE SODIUM 175 MCG TABLET PO SCH (21:19)
[2020-04-02] MEDS: oxyCODONE HCL IR 5 MG TAB (IMMEDIATE RELEASE) PO PRN ×4 (01:48→21:19)
[2020-04-02 07:02] LABS: Basophils # (auto) 0.01 K/uL (0-0.2); Basophils % (auto) 0.2 %; Hematocrit (blood only) 43.3 % (37-47); Hemoglobin 13.9 g/dL (12.0-16.0); Immature Granulocytes # (auto) 0.02 K/uL (0.00-0.02); Immature Granulocytes % (auto) 0.3 %; Lymphocytes # (auto) 2.41 K/uL (1.2-3.4); Lymphocytes % (auto) 37.4 %; Mean Corpuscular Hgb Conc 32.1 g/dL (32-36); Mean Corpuscular Volume 90.4 fL (80-100); Mean Platelet Volume 9.8 fL (7.4-10.4); Monocytes # (auto) 0.58 K/uL (0.11-0.59); Neutrophils # (auto) 3.43 K/uL (1.4-6.5); Neutrophils % (auto) 53.1 %; Platelet Count 209 K/uL (130-400); RDW Coefficient of Variation 13.3 % (11.5-14.5); Red Blood Count 4.79 M/uL (4.2-5.4); White Blood Count 6.45 K/uL (4.8-10.8)
[2020-04-02 07:34] LABS: BUN Creatinine Ratio 32.1 (10-20); Calcium 8.6 mg/dl (8.5-10.1); Creatinine Clr Calc Pharmacy 99.7 ml/min; Est GFR (African American) 103.3; Est GFR (Non-African American) 89.1; Potassium 3.8 mmol/L (3.5-5.1)
[2020-04-02] MEDS: LOSARTAN POTASSIUM 50 MG TAB PO SCH (07:45)
[2020-04-02] MEDS: DEXAMETHASONE SOD PHOSPHATE 10 MG in SYRINGE 0 ML IV SCH (07:46)
[2020-04-02] MEDS: ENOXAPARIN INJ 40 MG/0.4 ML SYR SQ SCH (07:46)
--- NOTE | 2020-04-02 08:50 | Orthopedic Progress Note ---
Date of Service April 02, 2020 Assessment & Plan (1) Spinal stenosis of lumbar region with radiculopathy: Admission and Anticipated Discharge Date Admission Date: March 29, 2020 At this time would like to proceed with surgical intervention however there is c onsiderable insurance issues holding up the process. Services are certainly available at any time as soon as we have been given the clearance to go. Subjective Patient continues have severe back and leg pain with any ambulation. She is relatively comfortable in a supine position. Physical Exam Physical Exam: Patient is resolved plantarflexion dorsiflexion and is comfortable in bed. Results & Data ([facility]) Vital Signs (Past 12 Hours) Vital Signs Temp Pulse Resp BP Pulse Ox 04/02/20 07:38 36.9 C 67 18 170/79 H 95 04/01/20 23:05 36.9 C 67 16 159/81 H 92
--- NOTE | 2020-04-02 09:40 | Hospitalist Progress Note ---
Date of Service April 02, 2020 Assessment & Plan (1) Spinal stenosis of lumbar region with radiculopathy: Ms. Pa is a 64y/o female with PMH significant for lumbar spinal stenosis, s/p L4-L5 fusion 10 years ago, who presented with worsening low back pain with bilateral radicular symptoms. Orthopedics was consulted and plan to take patient to the OR on 04/01/20 for lumbar decompression and fusion of L2-L3, L3-L4, L5-S1. Spinal stenosis with radiculopathy: - MRI of lumbar spine on admission showing large central disc herniation at L5- S1 with several central canal narrowing; several narrowing also visualized at L3-L4 and posterior to the L4 body; advanced facet degenerative changes within lumbar spine; instrumented fusion L4-L5 with pedicle screws and rods. - pain control regimen with Decadron 10mg, Oxycodone 10mg q6h, Tylenol and ibuprofen - Patient currently in gap coverage where she will have to be medically optimized to be able to handle outpatient evaluation until surgery can be arranged following insurance authorization - Ortho consulted, plan for decompression; continuing to work with insurance to address the need for surgery - Pain management consulted Hypertension: - HTN improved since admission, but potentially continually poorly controlled - potential contributions from pain causing elevated blood pressure - increase of Cozaar to 100mg Hyperlipidemia: - lipid panel showing total cholesterol of 374, LDL of 301, HDL of 56 - patient reports longstanding history of statin intolerance - recommend trial of Zetia as outpatient Hypothyroidism: - TSH 0.9 on admission - continue home Synthroid regimen Impaired glucose tolerance: - A1c 6.2 on admission Admission and Anticipated Discharge Date Admission Date: March 29, 2020 Supervising Physician Co-Signing Physician Notes I personally examined the patient and verified all mendoza points of history and exam, discussed case, and agree with decision making with Dr Howard. resting. case management still working on issues w insurance. ortho input appreciated and awaiting pain input. vitals noted nad heent nc at mmm breathing unlabored no accessory muscles good effort skin no rashes no pallor or icterus acute lumbar radiculopathy/intractable pain - with costs and coverage issues associated w surgery, may need pain control as best as possible then close outpt f/u until details can be laid out. pain consult pending - while anatomically appears surgery will be needed, it's possible that injections and decompression/traction might still be of help in at least providing some relief until able to have surgery. otherwise as above Subjective Patient continues to have large amount of pain in low back, is able to move minimally in bed and around room with assistance prior to increased back pain, with radiation down back of her legs. Has not had any bowel or bladder incontinence at this time. Continues to be in a very complex insurance situation that is limiting her potential for surgical intervention at this time. Review of Systems Review of Systems: All systems reviewed & are unremarkable except as noted in Subjective Physical Exam Constitutional: well developed and well nourished Eyes: PERRL, conjunctivae normal, anicteric sclerae Respiratory: normal respiratory effort; no respiratory distress and no labored breathing Gastrointestinal (Abdomen): normal bowel sounds, soft, nontender, no hepatosplenomegaly Skin: no rashes, warm and dry Neurologic: deep tendon reflexes 2+ bilaterally and moves all extremities Psychiatric: Orientation: alert and oriented x 3 Results & Data Results & Data ([facility]) Vital Signs (Past 12 Hours) Vital Signs Temp Pulse Resp BP Pulse Ox 04/02/20 07:38 36.9 C 67 18 170/79 H 95 04/01/20 23:05 36.9 C 67 16 159/81 H 92 Laboratory Results 04/02/20 04/02/20 Range/Units 06:26 06:26 WBC 6.45 (4.8-10.8) K/uL RBC 4.79 (4.2-5.4) M/uL Hgb 13.9 (12.0-16.0) g/dL Hct 43.3 (37-47) % MCV 90.4 (80-100) fL MCH 29.0 (25-34) pg MCHC 32.1 (32-36) g/dL RDW Std Deviation 44.0 (36.4-46.3) fL RDW Coeff of Kye 13.3 (11.5-14.5) % Plt Count 209 (130-400) K/uL MPV 9.8 (7.4-10.4) fL Immature Gran % (Auto) 0.3 % Neut % (Auto) 53.1 % Lymph % (Auto) 37.4 % [place] % (Auto) 9.0 % Eos % (Auto) 0.0 % Baso % (Auto) 0.2 % Neut # (Auto) 3.43 (1.4-6.5) K/uL Lymph # (Auto) 2.41 (1.2-3.4) K/uL [place] # (Auto) 0.58 (0.11-0.59) K/uL Eos # (Auto) 0.00 (0-0.5) K/uL Baso # (Auto) 0.01 (0-0.2) K/uL Immature Gran # (Auto) 0.02 (0.00-0.02) K/uL Sodium 136 (136-145) mmol/L Potassium 3.8 (3.5-5.1) mmol/L Chloride 104 (98-107) mmol/L Carbon Dioxide 27 (21-32) mmol/L Anion Gap 5.0 (3-11) BUN 23 H (7-18) mg/dl Creatinine 0.72 (0.6-1.2) mg/dl Est Cr Clr Drug Dosing 99.7 ml/min Est GFR ( Amer) 103.3 Est GFR (Non-Af Amer) 89.1 BUN/Creatinine Ratio 32.1 H (10-20) Glucose 113 H (70-99) mg/dl Calcium 8.6 (8.5-10.1) mg/dl Medications Administered Current Inpatient Medications Acetaminophen (Acetaminophen 325 Mg Tab) 650 mg PO Q6H PRN PRN Reason: Pain Stop: 04/28/20 19:36 Al Hydrox/Mg Hydrox/Simethicone (Aluminum/Magnesium Susp 30 Ml Udc) 30 ml PO Q6H PRN PRN Reason: Dyspepsia Stop: 04/28/20 19:36 Aspirin (Aspirin 81 Mg Ectab) 81 mg PO PM [facility] Stop: 04/28/20 20:59 Last Admin: 03/30/20 22:09 Dose: 81 mg Documented by: Bumetanide (Bumetanide 1 Mg Tab) 1 mg PO DAILY PRN PRN Reason: swelling Stop: 04/28/20 19:36 Enoxaparin Sodium (Enoxaparin Inj 40 Mg/0.4 Ml Syr) 40 mg SQ QAM [facility] Stop: 04/30/20 13:59 Last Admin: 04/02/20 07:46 Dose: 40 mg Documented by: Dexamethasone Sodium Phosphate (10 mg/ Syringe) 2.5 mls @ 1 mls/min IV DAILY [facility] Stop: 04/29/20 08:59 Last Admin: 04/02/20 07:46 Dose: 1 mls/min Documented by: Ibuprofen (Ibuprofen 200 Mg Tab) 800 mg PO Q6H PRN PRN Reason: Pain Stop: 04/28/20 19:39 Levothyroxine Sodium (Levothyroxine Sodium 175 Mcg Tablet) 175 mcg PO PM SHADI Stop: 04/28/20 20:59 Last Admin: 04/01/20 21:19 Dose: 175 mcg Documented by: Losartan Potassium (Losartan Potassium 50 Mg Tab) 50 mg PO QAM SHAID Stop: 04/29/20 08:59 Last Admin: 04/02/20 07:45 Dose: 50 mg Documented by: Magnesium Hydroxide (Magnesium Hydroxide Susp 30 Ml Udc) 30 ml PO Q6H PRN PRN Reason: Constipation Stop: 04/28/20 19:36 Melatonin (Melatonin 3 Mg Tab) 3 mg PO HS PRN PRN Reason: Sleep Stop: 04/29/20 18:20 Last Admin: 03/30/20 22:16 Dose: 3 mg Documented by: Morphine Sulfate (Morphine Sulfate 4 Mg/Ml 1 Ml Carp\Vial) 4 mg IV Q4 PRN PRN Reason: Pain Stop: 04/12/20 19:36 Ondansetron HCl (Ondansetron Inj 2 Mg/Ml 2 Ml Vial) 4 mg IV Q6H PRN PRN Reason: Nausea Stop: 04/28/20 19:36 Oxycodone HCl (Oxycodone Hcl Ir 5 Mg Tab (Immediate Release)) 10 mg PO Q6H PRN PRN Reason: Pain Stop: 04/12/20 19:36 Last Admin: 04/02/20 07:46 Dose: 10 mg Documented by: Polyethylene Glycol (Polyethylene (Miralax) 17 Gm Pack) 17 gm PO DAILY PRN PRN Reason: Constipation Stop: 04/28/20 19:36 Sertraline HCl (Sertraline Hcl 50 Mg Tablet) 50 mg PO PM SHADI Stop: 04/28/20 20:59 Last Admin: 04/01/20 21:19 Dose: 50 mg Documented by: Resident Activity Tracking Resident Involvement: Resident Care Provided Care Provided: Adult [facility] Medicine
[2020-04-02] MEDS ORDERED: LOSARTAN POTASSIUM 50 MG TAB PO ONE (11:45)
[2020-04-02] MEDS: POLYETHYLENE (MIRALAX) 17 GM PACK PO PRN (17:48)
--- NOTE | 2020-04-02 18:38 | Billing Data ---
Date of Service April 02, 2020 Coding Level of Care Code 60802 Subseq Hosp Care Lvl 1
--- NOTE | 2020-04-02 18:38 | Billing Data ---
Date of Service April 02, 2020 Coding Level of Care Code 76282 Subseq Obs Care Lvl 1 Comment disregard 231
[2020-04-02] MEDS: SERTRALINE HCL 50 MG TABLET PO SCH (20:12)
[2020-04-02] MEDS: LEVOTHYROXINE SODIUM 175 MCG TABLET PO SCH (20:12)
[2020-04-03] MEDS: oxyCODONE HCL IR 5 MG TAB (IMMEDIATE RELEASE) PO PRN ×4 (03:18→22:23)
[2020-04-03] MEDS: LOSARTAN POTASSIUM 50 MG TAB PO SCH (08:27)
[2020-04-03] MEDS: ENOXAPARIN INJ 40 MG/0.4 ML SYR SQ SCH (08:28)
[2020-04-03] MEDS: DEXAMETHASONE SOD PHOSPHATE 10 MG in SYRINGE 0 ML IV SCH (08:28)
--- NOTE | 2020-04-03 08:52 | Pain Management Consultation ---
Date of Consultation April 03, 2020 Assessment & Plan (1) Lumbar radiculopathy: Present on Admission?: Yes (2) Extrusion of intervertebral disc: Present on Admission?: Yes (3) Spinal stenosis of lumbar region with radiculopathy: * Patient has severe central canal stenosis secondary to a large central disc extrusion with central canal measuring 2.3 mm in diameter at L5-S1. We discussed safety concerns over pursuing interventional treatment and therefore would not recommend pursuing EULA. It appears that surgical intervention is necessary at this time-defer to primary orthopedic surgical team * We discussed a trial of gabapentin therapy. Patient would like to consider and further discuss with hospitalist team prior to initiation. Would recommend starting gabapentin 300 mg nightly progressing to 3 times daily * Patient may continue with oxycodone 10 mg every 4 hours as needed breakthrough pain * Continue with bowel regimen * Thank you for allowing us to participate in the care of Mrs. Garcia. Please contact pain service for reevaluation as needed. Present on Admission?: Yes History of Present Illness Reason for Consultation: Intractable lumbar radicular pain Requesting Physician: Ricardo Howard MD Attending Physician: Bernardo Blake DO History of Present Illness Mrs. Garcia is a 64-year-old white female who was admitted with a 1 week history of acute onset of low back and lower extremity radicular pain traveling in an S1 distribution to the mid calf and occasionally ankle region. She had no known injury at time of onset. Patient reports her pain is aching, sharp and shooting in characteristic. Pain is 90% radicular and 10% in the gluteal region. Her symptoms are minimal while lying still and supine at a 2/10 but can escalate to a 6-8/10 with any extended standing or minimal ambulatory activities. Upon this admission she been found to have a large central disc herniation at L5-S1 with severe central canal narrowing and surgical intervention has been recommended but denied by her insurance provider. She does have prior history of an L4-5 fusion approximately 12 years ago. She had failed epidural steroid injections at that time as well as conservative management which led to her surgical intervention. Patient is reporting pain relief is effective with oxycodone 10 mg every 4-6 hours upon this admission. She denies any notable side effects and has experienced only 1 bowel movement upon this admission. She denies abdominal pain or fullness. She is passing gas. She denies bowel or bladder incontinence or saddle anesthesias. Patient has no further constitutional complaints at this time. Plan of care discussed with Dr. Emerson. Pain Assessment Full Body Front + Back: 1. S1 radicular pain 2. S1 radicular pain Pain scale - at its best (0-10): 2 Pain scale - at its worst (0-10): 6 Allergies Allergy/AdvReac Type Severity Reaction Status Date / Time No Known Allergies Allergy Unverified 03/29/20 11:32 Home Medications Medication Instructions Recorded Confirmed Type acetaminophen [Tylenol Extra 2,000 mg PO Q6H PRN 03/29/20 03/29/20 History Strength] aspirin 81 mg PO PM 03/29/20 03/29/20 History bumetanide 1 mg PO DIRECTED PRN 03/29/20 03/29/20 History cyclobenzaprine 10 mg PO Q8H #30 tab 03/29/20 Rx docusate sodium [Colace] 100 mg PO BID #60 cap 03/29/20 Rx ibuprofen [Motrin IB] 800 mg PO Q6H PRN 03/29/20 03/29/20 History levothyroxine [Synthroid] 175 mcg PO PM 03/29/20 03/29/20 History lidocaine [Lidoderm] 1 patch TOPICAL DAILY #15 ea 03/29/20 Rx losartan 50 mg PO QAM 03/29/20 03/29/20 History oxycodone 5 mg PO Q6H PRN #14 tab 03/29/20 Rx oxycodone 10 mg PO Q6H PRN 03/29/20 03/29/20 History oxycodone-acetaminophen [Percocet] 1 tab PO Q8H PRN 03/29/20 03/29/20 History sennosides [Senokot] 8.6 mg PO HS #30 tab 03/29/20 Rx sertraline 50 mg PO PM 03/29/20 03/29/20 History Pain History Pain Intensity Pain scale - at its best (0-10): 2 Pain scale - at its worst (0-10): 6 Patient History Medical History Hyperlipidemia Hypertension Hypothyroid Impaired glucose tolerance Lumbar radiculopathy Obesity Social History Smoking Status: Never smoker Second Hand Exposure: No; Hx Alcohol Use: Yes Alcohol type: wine Hx Substance Use: No Preferred Language: Malagasy Communication Ability: Effective Ear Muff Assembler Required: No Beliefs That Will Affect Care: None Current Living Situation: Spouse Feels Safe at Home: Yes Assistive Devices: Walker Physical Exam Physical Exam: General: Patient sitting quietly in exam room in no acute distress. Speech and thought process appropriate. Mood and affect appropriate. Cognition intact. Patient overweight and physically deconditioned. Head: Normocephalic and atraumatic. ENT: No evidence of nasal or oral mucosal lesions. Mucous membranes are moist. Eyes: Pupils equal round reactive to light. Neck: Supple without adenopathy and full range of motion. Chest: Nontender to palpation of the costosternal junction. Abdomen: Soft and nondistended. No organomegaly. Bowel sounds active. Back/spine: Loss of lumbar lordosis. Well-healed midline surgical incision over the mid and lower lumbar spine. Nontender over the midline. No focal facet or SI joint tenderness. Nontender in the paravertebral, quadratus lumborum or gluteal musculature. Patient able to logroll towards her right side for visual inspection. Lower extremities: SLR positive on the left at approximately 10-15 degrees and positive on the right at approximately 45 degrees. Strength testing was 5/5 and equal with dorsi flexion, plantar flexion, EHL testing and hip fle xion/extension. Sensation intact without deficit. No evidence of edema, erythema or skin breakdown. Neurologic: Cranial nerves grossly intact. Ambulatory function not witnessed. Results ([facility]) Diagnostic Review MRI: non enhanced and reports reviewed MRI Findings: [facility], [id number] Magnetic Resonance Report Patient: Criss GARCIA Date: 03/29/20#: [id number]: [address] ID:[id number]: [facility] Zip: [place], [place] [address]Txf: 64Location: EDSex: FRoom/Bed:Att Phy:Diagnosis: BACK INJRUYPri Phy: Cinthya AGUILARrvice Date: 03/29/20Fa Phy:Interpreting Phy: Arthur Choe [facility] Phy: Ordering Phy: Kenny Vargas MD cc: ~ LUMBAR SPINE MRI HISTORY: Severe low back pain. Pt c/o slipped disc TECHNIQUE: Multiplanar multisequence MRI of the lumbar spine was performed without the use of contrast. COMPARISON: Lumbar spine CT 03/29/2020. FINDINGS: For the purpose of the report the L5-S1 disc space will be located on axial image 25 of 28. Mild dextroscoliosis of the lumbar spine. Severe disc space narrowing with fluid signal at L2-L3 and L3-L4. There is L4-L5 posterior decompression fusion with pedicle screws and rods. There is complete fusion of the vertebral bodies. There is mild disc space narrowing at L5-S1. Severe facet osteoarthritis throughout the majority of the lumbar spine. The conus terminates at the L1-L2 disc space level. Mild presacral edema. L1-L2: No significant central canal or neural foraminal narrowing. L2-L3: Moderate to severe central canal narrowing due to a broad-based posterior disc bulge and ligamentum flavum and facet hypertrophy. There is also severe left and moderate right neural foraminal narrowing. There is a small right foraminal disc extrusion measuring 8 mm. This abuts the exiting right L2 nerve root. L3-L4: Small broad-based posterior disc bulge with severe facet hypertrophy resulting in severe central canal and severe bilateral neural foraminal narrowing. L4-L5: There is severe central canal narrowing immediately proximal to the posterior decompression. This is posterior to the L4 vertebral body. This is secondary to the severe facet hypertrophy. There is no significant central canal narrowing at the L4-5 disc space level due to the posterior decompression. No significant central canal narrowing. L5-S1: Severe stenosis due to a large central disc extrusion measuring 12 x 10 mm. The central canal measures 2.3 mm in diameter. Therefore, the nerve roots at this location are likely compressed. There is also broad-based posterior disc bulge resulting in severe right and moderate to severe left neural foraminal narrowing. IMPRESSION: 1. There is a large central disc extrusion at L5-S1 resulting in severe central canal narrowing. The nerve roots at this location are likely compressed. 2. There is also severe central canal narrowing at L3-L4 and posterior to the L4 vertebral body. 3. Posterior decompression and fusion at L4-L5 with pedicle screws and rods. 4. No fractures within the lumbar spine. 5. Advanced facet degenerative changes within the lumbar spine. 6. Mild presacral edema. ACT 112: Negative or not required by law. Electronically signed by: Arthur Choe M.D. 03/29/2020 4:14 PM Dictated: 03/29/201558Transcribed: 03/29/201558 CT: non enhanced and reports reviewed CT Findings: [facility], [phone] CT Scan Report Patient: Criss GARCIA Date: 03/29/20#: [id number]: [address]Ac[address] ID:[id number]: Date: 1955[facility] Zip: [place], [place] [address]Ica: 64Location: EDSex: FRoom/Bed:Att Phy:Diagnosis: BACK INJRUYPri Phy: PCP,NOService Date: 03/29/20Fa Phy:Interpreting Phy: Larry Chang MDAdmit Phy: Ordering Phy: Ran Leone MD cc: ~ CT SCAN OF THE LUMBAR SPINE WITHOUT IV CONTRAST CLINICAL HISTORY: Low back pain. Sciatica. COMPARISON STUDY: No priors. TECHNIQUE: CT scan of the lumbar spine is performed from the lower thoracic spine to the sacrum. Images are reviewed in the axial, sagittal, coronal planes. IV contrast was not administered for this examination. A dose lowering techniqu e was utilized adhering to the principles of ALARA. The examination is degraded by streak artifact from metallic spinal orthopedic hardware. CT DOSE: 672.99 mGy.cm FINDINGS: The skeletal structures are osteopenic. There is no evidence of fracture or malalignment involving the lumbar spine. There is postoperative change from discectomy with laminectomy and posterior fusion at L4 -L5. The orthopedic hardware appears intact. Vertebral body height is maintained throughout the lumbar spine. There is 8 mm of retrolisthesis at L2-L3. Minimal anterolisthesis is seen at L3-L4 and L4-L5. There is no spondylolysis. There is hyperlordosis of the lumbar spine. The transverse processes and the remaining spinous processes are intact. No lytic or blastic lesion is seen. The visualized sacrum and bony pelvis appear intact. There is moderate to advanced disc space narrowing at L2-L3 and L3-L4 with associated endplate sclerosis. Mild to moderate disc space narrowing and endplate sclerosis is seen at L5-S1. Posterior disc bulge and possible disc herniation at L5-S1 likely contributes to spinal stenosis. Facet arthropathy is seen throughout the lumbar spine. This likely contributes to multilevel neural foraminal stenosis, greatest in the lower lumbar region. There is fatty atrophy of the paraspinous musculature. The retroperitoneal structures are normal as imaged. There is no retroperitoneal lym phadenopathy. IMPRESSION: 1. There is no acute bony abnormality identified involving the lumbar spine. 2. Osteopenia with postoperative and spondylotic change as above. 3. A large posterior disc bulge/possible disc herniation at L5-S1 likely contributes to central canal stenosis. ACT 112: Negative or not required by law. Electronically signed by: Larry Chang M.D. 03/29/2020 1:04 PM Dictated: 03/29/20 1213Transcribed: 03/29/20 1213
--- NOTE | 2020-04-03 09:57 | Orthopedic Progress Note ---
Date of Service April 03, 2020 Assessment & Plan (1) Extrusion of intervertebral disc: Admission and Anticipated Discharge Date Admission Date: March 29, 2020 At this time awaiting authorization from her insurance carrier to proceed with a much-needed surgery. Subjective Patient continues to have severe back and bilateral leg pain with limitation of standing and walking. Physical Exam Physical Exam: Patient is reasonable plantar flexion dorsiflexion. Results & Data ([facility]) Vital Signs (Past 12 Hours) Vital Signs Temp Pulse Resp BP Pulse Ox 04/03/20 08:15 37.0 C 69 18 164/78 H 93 04/02/20 23:11 36.6 C 69 16 152/81 H 93
--- NOTE | 2020-04-03 10:50 | Hospitalist Progress Note ---
Date of Service April 03, 2020 Assessment & Plan (1) Spinal stenosis of lumbar region with radiculopathy: Ms. Pa is a 64y/o female with PMH significant for lumbar spinal stenosis, s/p L4-L5 fusion 10 years ago, who presented with worsening low back pain with bilateral radicular symptoms. Orthopedics was consulted and plan to take patient to the OR on 04/01/20 for lumbar decompression and fusion of L2-L3, L3-L4, L5-S1. Spinal stenosis with radiculopathy: - MRI of lumbar spine on admission showing large central disc herniation at L5- S1 with several central canal narrowing; several narrowing also visualized at L3-L4 and posterior to the L4 body; advanced facet degenerative changes within lumbar spine; instrumented fusion L4-L5 with pedicle screws and rods. - pain control regimen with Decadron 10mg, Oxycodone 10mg q6h, Tylenol and ibuprofen - Patient currently in gap coverage where she will have to be medically optimized to be able to handle outpatient evaluation until surgery can be arranged following insurance authorization - Ortho consulted, plan for decompression; continuing to work with insurance to address the need for surgery - started Gabapentin 300mg; tolerated well without sufficient improvement, will increase to 300mg BID Hypertension: - HTN improved since admission, but potentially continually poorly controlled - potential contributions from pain causing elevated blood pressure - increase of Cozaar to 100mg Hyperlipidemia: - lipid panel showing total cholesterol of 374, LDL of 301, HDL of 56 - patient reports longstanding history of statin intolerance - recommend trial of Zetia as outpatient Hypothyroidism: - TSH 0.9 on admission - continue home Synthroid regimen Impaired glucose tolerance: - A1c 6.2 on admission Admission and Anticipated Discharge Date Admission Date: March 29, 2020 Supervising Physician Co-Signing Physician Notes I personally examined the patient and verified all mendoza points of history and exam, discussed case, and agree with decision making with Dr Howard. still getting around poorly. still a lot of pain with much of any movment. fortuntaely minimal pain at rest. vitals noted nad heent nc at mmm breathing unlabored no accessory muscles good effort skin no rashes no pallor or icterus acute lumbar radiculopathy/intractable pain - working on pain control. surgery once possible. no cauda equina sx at this time - red flags outlined to pt. PT/OT eval and treat. escalate gabapentin since no grogginess otherwise as above Subjective Patient continues to have large amount of pain in low back, is able to move minimally in bed and around room with assistance prior to increased back pain, with radiation down back of her legs. Has not had any bowel or bladder incontinence at this time. Continues to be in a very complex insurance situation that is limiting her potential for surgical intervention at this time. Worked with PT and OT today. Tolerated the gabapentin somewhat with improvement in her symptoms but they returned upon standing and trying to move around with assistance of a rolling walker. Review of Systems Review of Systems: All systems reviewed & are unremarkable except as noted in Subjective Physical Exam Constitutional: well developed and well nourished Eyes: PERRL, conjunctivae normal, anicteric sclerae Respiratory: normal respiratory effort; no respiratory distress and no labored breathing Neurologic: moves all extremities Psychiatric: Orientation: alert and oriented x 3 Results & Data Results & Data ([facility]) Vital Signs (Past 12 Hours) Vital Signs Temp Pulse Resp BP Pulse Ox 04/03/20 08:15 37.0 C 69 18 164/78 H 93 04/02/20 23:11 36.6 C 69 16 152/81 H 93 Laboratory Results 04/02/20 04/02/20 Range/Units 16:28 06:26 Blood Type A Positive Blood Type Recheck A Positive Antibody Screen NEGATIVE Crossmatch See Detail Medications Administered Current Inpatient Medications Acetaminophen (Acetaminophen 325 Mg Tab) 650 mg PO Q6H PRN PRN Reason: Pain Stop: 04/28/20 19:36 Al Hydrox/Mg Hydrox/Simethicone (Aluminum/Magnesium Susp 30 Ml Udc) 30 ml PO Q6H PRN PRN Reason: Dyspepsia Stop: 04/28/20 19:36 Aspirin (Aspirin 81 Mg Ectab) 81 mg PO PM SHADI Stop: 04/28/20 20:59 Last Admin: 03/30/20 22:09 Dose: 81 mg Documented by: Bumetanide (Bumetanide 1 Mg Tab) 1 mg PO DAILY PRN PRN Reason: swelling Stop: 04/28/20 19:36 Enoxaparin Sodium (Enoxaparin Inj 40 Mg/0.4 Ml Syr) 40 mg SQ QAM SHADI Stop: 04/30/20 13:59 Last Admin: 04/03/20 08:28 Dose: 40 mg Documented by: Gabapentin (Gabapentin 300 Mg Cap) 300 mg PO DAILY SHADI Stop: 05/03/20 11:59 Dexamethasone Sodium Phosphate (10 mg/ Syringe) 2.5 mls @ 1 mls/min IV DAILY SHADI Stop: 04/29/20 08:59 Last Admin: 04/03/20 08:28 Dose: 1 mls/min Documented by: Ibuprofen (Ibuprofen 200 Mg Tab) 800 mg PO Q6H PRN PRN Reason: Pain Stop: 04/28/20 19:39 Levothyroxine Sodium (Levothyroxine Sodium 175 Mcg Tablet) 175 mcg PO PM SHADI Stop: 04/28/20 20:59 Last Admin: 04/02/20 20:12 Dose: 175 mcg Documented by: Losartan Potassium (Losartan Potassium 50 Mg Tab) 100 mg PO QAM SHADI Stop: 05/03/20 08:59 Last Admin: 04/03/20 08:27 Dose: 100 mg Documented by: Magnesium Hydroxide (Magnesium Hydroxide Susp 30 Ml Udc) 30 ml PO Q6H PRN PRN Reason: Constipation Stop: 04/28/20 19:36 Melatonin (Melatonin 3 Mg Tab) 3 mg PO HS PRN PRN Reason: Sleep Stop: 04/29/20 18:20 Last Admin: 03/30/20 22:16 Dose: 3 mg Documented by: Morphine Sulfate (Morphine Sulfate 4 Mg/Ml 1 Ml Carp\Vial) 4 mg IV Q4 PRN PRN Reason: Pain Stop: 04/12/20 19:36 Ondansetron HCl (Ondansetron Inj 2 Mg/Ml 2 Ml Vial) 4 mg IV Q6H PRN PRN Reason: Nausea Stop: 04/28/20 19:36 Oxycodone HCl (Oxycodone Hcl Ir 5 Mg Tab (Immediate Release)) 10 mg PO Q6H PRN PRN Reason: Pain Stop: 04/12/20 19:36 Last Admin: 04/03/20 09:29 Dose: 10 mg Documented by: Polyethylene Glycol (Polyethylene (Miralax) 17 Gm Pack) 17 gm PO DAILY PRN PRN Reason: Constipation Stop: 04/28/20 19:36 Last Admin: 04/02/20 17:48 Dose: 17 gm Documented by: Sertraline HCl (Sertraline Hcl 50 Mg Tablet) 50 mg PO PM SHADI Stop: 04/28/20 20:59 Last Admin: 04/02/20 20:12 Dose: 50 mg Documented by: Resident Activity Tracking Resident Involvement: Resident Care Provided Care Provided: Adult Hospital Medicine
[2020-04-03] MEDS: GABAPENTIN 300 MG CAP PO SCH ×2 (11:16→21:07)
[2020-04-03] MEDS: POLYETHYLENE (MIRALAX) 17 GM PACK PO PRN (13:40)
--- NOTE | 2020-04-03 18:49 | Billing Data ---
Date of Service April 03, 2020 Coding Level of Care Code 57455 Subseq Hosp Care Lvl 2
[2020-04-03] MEDS: SERTRALINE HCL 50 MG TABLET PO SCH (21:07)
[2020-04-03] MEDS: LEVOTHYROXINE SODIUM 175 MCG TABLET PO SCH (21:07)
[2020-04-04] MEDS: oxyCODONE HCL IR 5 MG TAB (IMMEDIATE RELEASE) PO PRN ×3 (04:28→17:15)
[2020-04-04] MEDS: DEXAMETHASONE SOD PHOSPHATE 10 MG in SYRINGE 0 ML IV SCH (07:17)
[2020-04-04] MEDS: GABAPENTIN 300 MG CAP PO SCH ×3 (09:26→10:05)
[2020-04-04] MEDS: LOSARTAN POTASSIUM 50 MG TAB PO SCH (09:27)
[2020-04-04] MEDS: ENOXAPARIN INJ 40 MG/0.4 ML SYR SQ SCH (09:27)
[2020-04-04] MEDS: POLYETHYLENE (MIRALAX) 17 GM PACK PO PRN (09:27)
[2020-04-04] MEDS ORDERED: GABAPENTIN 300 MG CAP PO SCH (12:00)
--- NOTE | 2020-04-04 13:59 | Discharge Summary ---
Date of Service April 04, 2020 Admission HPI Per Admitting Provider last week or so worsening of back pain going down L leg. last few days barely able to walk. today severity so intense she had to be brought by ambulance due to inability to ambulate and uncontrolled pain. no loss of bowel or bladder, no saddle anesthesia. here in ER got 10mg decadron, 1mg ativan, 1mg dilauded x2 and feels surprisingly better. no sob at all - notes O2 was put on to help with nausea and she notes that it helped a lot. cherelle notes that she's been in her baseline state of health - moved here from [place] about a year ago and has yet to establish w PCP because she's been busy and felt like she was doing well med hx -htn, hyperlipid (can't tolerate meds per pt), hypothyroid surg -lumbar surgery about 10yrs ago fam -CAD but notes that it was heavily lifestyle induced and not till fairly old soc -nonsmoker meds see list Principal Diagnosis Spinal stenosis with radiculopathy Discharge Exam Constitutional well developed and well nourished Eyes PERRL, conjunctivae normal, anicteric sclerae Respiratory normal respiratory effort; no respiratory distress and no labored breathing Neurologic moves all extremities Psychiatric Orientation: alert and oriented x 3 Discharge Data Allergies Allergy/AdvReac Type Severity Reaction Status Date / Time No Known Allergies Allergy Unverified 03/29/20 11:32 Consultations 03/29/20 15:04 Consult Orthopedic Surgery Stat 03/29/20 15:11 ED Decision to Admit Stat 03/29/20 16:35 ED Decision to Admit Stat 03/29/20 19:37 Consult Orthopedic Surgery Routine 04/02/20 11:23 Consult Pain Management Routine Procedures Performed Operation Date: 04/03/20 11:35 <No data on this case meets the specified criteria> Ordered Studies 03/29/20 11:30 CT lumbar spine wo con Stat 03/29/20 13:32 MR lumbar spine wo con Stat Hospital Course (1) Spinal stenosis of lumbar region with radiculopathy: Ms. Pa is a 64y/o female with PMH significant for lumbar spinal stenosis, s/p L4-L5 fusion 10 years ago, who presented with worsening low back pain with bilateral radicular symptoms. Orthopedics was consulted and plan to take patient to the OR on 04/01/20 for lumbar decompression and fusion of L2-L3, L3-L4, L5-S1. Spinal stenosis with radiculopathy: - MRI of lumbar spine on admission showing large central disc herniation at L5- S1 with several central canal narrowing; several narrowing also visualized at L3-L4 and posterior to the L4 body; advanced facet degenerative changes within lumbar spine; instrumented fusion L4-L5 with pedicle screws and rods. - Patient currently in gap coverage where she will have to be medically optimized to be able to handle outpatient evaluation until surgery can be arranged following insurance authorization - Ortho consulted, plan for decompression; continuing to work with insurance to address the need for surgery - continue Gabapentin 300mg TID, Decadron (daily taper), Oxycodone 10mg Q6h PRN Hypertension: - HTN improved since admission, but potentially continually poorly controlled - potential contributions from pain causing elevated blood pressure - continue Cozaar 100mg Hyperlipidemia: - lipid panel showing total cholesterol of 374, LDL of 301, HDL of 56 - patient reports longstanding history of statin intolerance - recommend trial of Zetia as outpatient Hypothyroidism: - TSH 0.9 on admission - continue home Synthroid regimen Impaired glucose tolerance: - A1c 6.2 on admission Total Time Total Time Spent Total Time Spent (In Minutes): <30 Discharge Plan Discharge Items Patient Disposition: Home - Self-Care Reason For Visit: LUMBAR RADICULOPATHY Discharge Diagnosis: spinal stenosis Activity: Per Instructions section Non-emergency contact: Primary Care Provider and Surgeon Call non-emergency contact if: you have any medication questions, your symptoms worsen, your pain is not controlled and your pain is worsening Follow-up/Referrals: Jairon Brice DO [Surgeon] - (within 1 week) Ricardo Bland MD [Resident] - 04/08/20 5:30 pm PCP,NO [Primary Care Provider] - Diet: Regular Addtl Attending Provider Instructions: Now that you are being discharged it is important that you keep your follow-up with your primary care provider (Dr. Ricardo Bland), and your Spine Surgeon (Dr. Royce Brice). Your appointment with Dr. Bland is on 04/08 at 5:30pm at [address] [facility] [address]. You should continue to take the Gabapentin 300mg three times a day consistently; while using the Oxycodone as needed up to four times a day for breakthrough pain. It is important that if you develop concerning symptoms, you should present to the emergency department for evaluation. Concerning symptoms would be development of: numbness or tingling in your groin, loss of bowel or bladder control, inability to move your leg(s). You will have an appointment with Dr. Brice in the coming week; his group will be seeking authorization for the surgery needed to correct the source of your symptoms once your insurance has become active. Pending Studies at Discharge: No Stand-Alone Forms: My [facility], Opioid Pain Management, Smoking Cessation Medications and DC Order Prescriptions: New sennosides [Senokot] 8.6 mg tablet 8.6 mg PO HS Qty: 30 RF: 0 docusate sodium [Colace] 100 mg capsule 100 mg PO BID Qty: 60 RF: 0 lidocaine [Lidoderm] 5 % adhesive patch,medicated 1 patch topical DAILY Qty: 15 RF: 0 losartan 50 mg Tablet 100 mg PO QAM 30 Days Qty: 60 RF: 0 gabapentin 300 mg Capsule 300 mg PO TID 30 Days Qty: 90 RF: 0 dexamethasone [Decadron] 4 mg tablet See Taper mg PO DAILY Qty: 5 RF: 0 oxycodone 5 mg Tablet 10 mg PO Q6H PRN (Reason: pain) Qty: 20 RF: 0 Continued levothyroxine [Synthroid] 175 mcg tablet 175 mcg PO PM RF: 0 aspirin 81 mg Tablet,Delayed Release (Dr/Ec) 81 mg PO PM RF: 0 acetaminophen [Tylenol Extra Strength] 500 mg Tablet 2,000 mg PO Q6H PRN (Reason: Pain) RF: 0 ibuprofen [Motrin IB] 200 mg Tablet 800 mg PO Q6H PRN (Reason: Pain) RF: 0 bumetanide 1 mg tablet 1 mg PO DIRECTED PRN (Reason: swelling) RF: 0 sertraline 50 mg tablet 50 mg PO PM RF: 0 Discontinued losartan 50 mg tablet 50 mg PO QAM RF: 0 oxycodone-acetaminophen [Percocet] 5-325 mg Tablet 1 tab PO Q8H PRN (Reason: Pain) RF: 0 oxycodone 10 mg Tablet 10 mg PO Q6H PRN (Reason: Pain) RF: 0 Discharge Orders: Discharge Order (Routine); Ordered 04/04/20 Ordered By: Ricardo Ramirez/Other Patient Handouts: 5 Steps for Eating Healthier, Oxycodone tablets or capsules, A1C Admission Data Admit Date/Time: 03/29/20 16:54 Attending Provider: Bernardo Blake Admit Provider: Bernardo Blake Primary Care Provider: PCP,NO Other Providers: Jairon Brice ; Marilynn Tellez ; Salvador Agrawal ; Car Pimentel ; Mark Emerson Other Interventions: Discharge Summary Assessment (RN) Last Done: 04/04/20 13:37 Supervising Physician Co-Signing Physician Notes I personally examined the patient and verified all mendoza points of history and exam, discussed case, and agree with decision making with Dr Bland. bad bad and getting around slowly but still well enough that she thinks she can do ok at home. discussed med management and f/u. vitals noted nad heent nc at mmm breathing unlabored no accessory muscles good effort skin no rashes no pallor or icterus acute lumbar radiculopathy/intractable pain - working on pain control. surgery once possible. no cauda equina sx at this time - red flags outlined to pt. home on gabapentin (outpt titration further if needed), tapering decadron, oxycodone prn (discussed risks/benefits and goals to minimize use but that right now appears necessary); has f/u w dr bland wednesday. otherwise as above Resident Activity Tracking Resident Involvement: Resident Care Provided Care Provided: Adult Hospital Medicine
--- NOTE | 2020-04-04 19:50 | Billing Data ---
Date of Service April 04, 2020 Coding Level of Care Code D/C Day Management <30 mins
== END 2020-04-04 19:26 | disposition home or self-care (01) ==
LOC: ED 10:26 → 3W 10:26 → SUATTDRO 16:54 → 3W 18:40

== ENCOUNTER 2020-04-16 13:13 | Inpatient (IN) ==
[2020-04-16] MEDS ORDERED: HYDROmorphone INJ 1 MG/ML SYRINGE IV PRN ×2 (14:11→17:12)
[2020-04-16] MEDS ORDERED: DEXAMETHASONE SOD INJ 10 MG/ML VIAL IV ONE (14:11)
[2020-04-16] MEDS ORDERED: ACETAMINOPHEN 1,000 MG/100 ML VIAL IV STA (14:12)
[2020-04-16] MEDS ORDERED: ONDANSETRON INJ 2 MG/ML 2 ML VIAL IV STA (14:13)
[2020-04-16 14:36] LABS: Basophils # (auto) 0.01 K/uL (0-0.2); Basophils % (auto) 0.2 %; Hematocrit (blood only) 40.2 % (37-47); Hemoglobin 13.2 g/dL (12.0-16.0); Immature Granulocytes # (auto) 0.01 K/uL (0.00-0.02); Immature Granulocytes % (auto) 0.2 %; Lymphocytes # (auto) 1.17 K/uL (1.2-3.4); Mean Corpuscular Hemoglobin 29.9 pg (25-34); Mean Corpuscular Hgb Conc 32.8 g/dL (32-36); Mean Platelet Volume 9.3 fL (7.4-10.4); Monocytes # (auto) 0.38 K/uL (0.11-0.59); Monocytes % (auto) 7.5 %; Neutrophils # (auto) 3.51 K/uL (1.4-6.5); Neutrophils % (auto) 69.1 %; Platelet Count 164 K/uL (130-400); RDW Coefficient of Variation 13.6 % (11.5-14.5); RDW Standard Deviation 45.3 fL (36.4-46.3); Red Blood Count 4.42 M/uL (4.2-5.4); White Blood Count 5.08 K/uL (4.8-10.8)
[2020-04-16 15:01] LABS: Albumin Globulin Ratio 1.1 (0.9-2); Albumin Level 3.5 gm/dl (3.4-5.0); BUN Creatinine Ratio 27.2 (10-20); Bilirubin,Total 0.3 mg/dl (0.2-1); Calcium 9.1 mg/dl (8.5-10.1); Creatinine Clr Calc Pharmacy 94.6 ml/min; Est GFR (African American) 96.1; Est GFR (Non-African American) 82.9; Globulin 3.3 gm/dl (2.5-4.0); Potassium 4.2 mmol/L (3.5-5.1); Total Protein 6.8 gm/dl (6.4-8.2)
--- NOTE | 2020-04-16 15:44 | History & Physical Report ---
Date of Service April 16, 2020 Assessment & Plan (1) Spinal stenosis of lumbar region with radiculopathy: Patient be admitted to our facility for parenteral opiate therapy continuing oral dexamethasone at 4 gabapentin 300 3 times daily scheduled Tylenol 1000 3 times daily oxycodone 10 every 6 as needed and consideration of adding a nonsteroidal to the mix. Concern for GI upset with the steroids will be combative with Pepcid twice daily. Consultation with orthospine surgery once again and assistance of case management would be greatly appreciated will also continue when appropriate with physical therapy and Occupational Therapy (2) Hypertension: Patient to continue her Cozaar 100 (3) Hypothyroid: Patient maintains her Synthroid at 175 mcg (4) DVT prophylaxis: Currently DVT prevention will be SCDs and with surgery is once again ruled out. Patient kept n.p.o. after midnight in case surgery is able to be performed on 17 April. History of Present Illness Primary Care Provider: Ricardo Howard MD 65-year-old female discharged from our facility on 04 April when she was diagnosed with significant lumbar spinal stenosis status post L4-5 fusion 10 years ago MRI of the lumbar spine on admission showing a large central disc herniation at the L5-S1 with several central canal narrowing levels. Severe narrowing also visualized at the L3-4 and posterior to the L4 body, advanced facet degenerative changes within the lumbar spine and previously mentioned pedicle screws and rods. Her last hospital stay there was difficulty with prior authorization for surgical intervention and the patient was discharged with attempted pain control with gabapentin Decadron and oxycodone. This proved to be suboptimal and the patient was unable to perform activities of daily living presents with her family physician referred to the ER and once again is admitted for pain control for lumbar radiculopathy. Allergies Allergy/AdvReac Type Severity Reaction Status Date / Time No Known Allergies Allergy Unverified 04/16/20 16:46 Home Medications Medication Instructions Recorded Confirmed Type aspirin 81 mg PO PM 03/29/20 04/16/20 History bumetanide 1 mg PO DIRECTED PRN 03/29/20 04/16/20 History docusate sodium [Colace] 100 mg PO BID #60 cap 03/29/20 04/16/20 Rx ibuprofen [Motrin IB] 800 mg PO Q6H PRN 03/29/20 04/16/20 History levothyroxine [Synthroid] 175 mcg PO PM 03/29/20 04/16/20 History lidocaine [Lidoderm] 1 patch TOPICAL DAILY #15 ea 03/29/20 04/16/20 Rx sennosides [Senokot] 8.6 mg PO HS #30 tab 03/29/20 04/16/20 Rx sertraline 50 mg PO PM 03/29/20 04/16/20 History losartan 100 mg PO QAM 30 Days #60 tab 04/04/20 04/16/20 Rx oxycodone 10 mg PO Q6H PRN #20 tab 04/04/20 04/16/20 Rx cetirizine [Zyrtec] 10 mg PO DAILY PRN 04/16/20 04/16/20 History gabapentin 600 mg PO TID 04/16/20 04/16/20 History Past Med/Surg History Medical History (Updated 04/16/20 @ 15:42 by Salvador Agrawal MD) Extrusion of intervertebral disc Hyperlipidemia Hypertension Hypothyroid Impaired glucose tolerance Lumbar radiculopathy Obesity Social History Smoking Status: Never smoker Second Hand Exposure: No; Hx Alcohol Use: Yes Alcohol type: wine Hx Substance Use: No Preferred Language: Portuguese Communication Ability: Effective Window Shade Cutter Required: No Beliefs That Will Affect Care: None Current Living Situation: Spouse Other Information That Helps Us Care for You: No Feels Safe at Home: Yes Safety Concerns: Feels Safe At This Time Assistive Devices: Glasses and Walker Review of Systems Review of Systems: Mild distress and fatigue no headache, blurry or double vision no speech or swallowing issues no chest pain, pressure or palpitations no shortness of breath, cough or wheezes no abdominal pain, nausea or vomiting, diarrhea or constipation no dysuria, hematuria or frequency no focal joint pain or swelling no back pain, CVA tenderness or radicular pain no bruising, bleeding or rashes no focal signs of weakness or numbness or altered sensation no complaints of anxiety or depression.. Physical Exam Physical Exam: The patient appeared well nourished and normally developed. Vital signs as documented. Head exam is normocephalic atraumatic no scleral icterus Neck is without JVD, thyromegaly, or carotid bruits. Lungs are clear to auscultation, no focal loss of breath sounds Cardiac exam, Rhythm is regular.. No murmurs, rubs or gallops. Abdominal exam reveals normal bowel sounds, soft non tender, no masses Extremities are nonedematous and both pedal pulses are present Neurologic exam is alert and oriented, no focal loss of strength or sensation Skin is without bruises or rashes Psychologically is without concerns for anxiety or depression. Results & Data Results & Data ([facility]) Vital Signs (Past 12 Hours) Vital Signs Temp Pulse Resp BP Pulse Ox 04/16/20 13:22 98.4 F 102 H 24 151/75 H 93 Code Status & VTE Plan VTE Prophylaxis Plan VTE Prophylaxis will be ordered: Yes PG Care Time/CCT Total # of Minutes Spent Total Time Spent with Patient: Total time spent is greater than 50% in coordination of care (as documented) at patient's floor/unit and/or counseling patient: Coding Level of Care Code 85354 Initial Inpt Care Lvl 3 Diagnoses Spinal stenosis of lumbar region with radiculopathy M48.061; M54.16 Hypertension I10 Hypothyroid E03.9 DVT prophylaxis Z29.9
[2020-04-16] MEDS ORDERED: hydrALAZINE HCL 20 MG/ML VIAL IV PRN (17:12)
[2020-04-16] MEDS ORDERED: HYDROmorphone INJ 0.5 MG/0.5 ML SYR IV PRN (17:12)
[2020-04-16] MEDS ORDERED: LORazepam 0.5 MG TAB PO PRN (17:12)
[2020-04-16 17:45] LABS: Appearance Urine Clear (Clear); Bacteria Urine Automated 1+ (Negative); Bilirubin Urine Negative (Negative); Blood Urine Negative (Negative); Color Urine Yellow; Glucose Urine UA Negative (Negative); Ketones Urine Negative (Negative); Leukocyte Esterase Urine 2+ (Negative); Nitrite Urine Negative (Negative); Protein Urine Negative (Negative); RBC Urine Automated 0-4 /hpf (0-4); Specific Gravity Urine 1.023 (1.000-1.030); Urobilinogen Urine Positive (Negative); WBC Urine Automated >30 /hpf (0-5)
[2020-04-16] MEDS: FAMOTIDINE 40 MG TABLET PO SCH (17:58)
--- NOTE | 2020-04-16 18:48 | Emergency Department Note ---
History of Present Illness General Chief complaint: Back Injury/Pain Stated complaint: SPINE COLLAPSED Time Seen by Provider: 04/16/20 14:04 Source: patient, RN notes reviewed and old records reviewed Mode of arrival: ambulatory Limitations: no limitations History of Present Illness Provider complaint: back pain Onset (ago): week(s) 3 Location: back, lower extremity, left and right Radiation: extremity Severity: moderate Pain Consistency: + intermittent Maximum Pain Intensity: 2 Current Pain Intensity: 7 Quality: + aching Relieved By: + immobilization and + rest Exacerbated By: + movement Associated symptoms: no chest pain, no cough, no fever/chills, no headaches, no loss of appetite, no nausea/vomiting and no shortness of breath Treatments prior to arrival: other (gabapentin, oxycodone) This is a 65-year-old female who presents emergency department complaining of severe back pain. The patient was recently admitted to the hospital and was to have back surgery done but she reports it was not done due to insurance issues. Patient reports her pain in her back is gotten much worse. She only has taken oxycodone as well as gabapentin for the pain however she has been unable to get up off her couch. It takes everything in her effort to go to her doctor's appointment today. She was sent to the emergency department for pain control. Home Medications Medication Instructions Recorded Confirmed Type aspirin 81 mg PO PM 03/29/20 04/16/20 History bumetanide 1 mg PO DIRECTED PRN 03/29/20 04/16/20 History docusate sodium [Colace] 100 mg PO BID #60 cap 03/29/20 04/16/20 Rx ibuprofen [Motrin IB] 800 mg PO Q6H PRN 03/29/20 04/16/20 History levothyroxine [Synthroid] 175 mcg PO PM 03/29/20 04/16/20 History lidocaine [Lidoderm] 1 patch TOPICAL DAILY #15 ea 03/29/20 04/16/20 Rx sennosides [Senokot] 8.6 mg PO HS #30 tab 03/29/20 04/16/20 Rx sertraline 50 mg PO PM 03/29/20 04/16/20 History losartan 100 mg PO QAM 30 Days #60 tab 04/04/20 04/16/20 Rx oxycodone 10 mg PO Q6H PRN #20 tab 04/04/20 04/16/20 Rx cetirizine [Zyrtec] 10 mg PO DAILY PRN 04/16/20 04/16/20 History gabapentin 600 mg PO TID 04/16/20 04/16/20 History Allergies Allergy/AdvReac Type Severity Reaction Status Date / Time No Known Allergies Allergy Unverified 04/16/20 16:46 Past Med/Surg History Medical History Extrusion of intervertebral disc Hyperlipidemia Hypertension Hypothyroid Impaired glucose tolerance Lumbar radiculopathy Obesity Social History Smoking Status: Never smoker Second Hand Exposure: No; Hx Alcohol Use: Yes Alcohol type: wine Hx Substance Use: No Preferred Language: Turkish Communication Ability: Effective Top Frame Fitter Required: No Beliefs That Will Affect Care: None Current Living Situation: Spouse Other Information That Helps Us Care for You: No Feels Safe at Home: Yes Safety Concerns: Feels Safe At This Time Assistive Devices: Glasses and Walker Review of Systems A total of 10 systems reviewed and were otherwise negative Physical Exam Vital Signs Vital Signs - 24 hr 04/16/20 13:22 04/16/20 15:00 Temperature 36.9 C Temperature Source Temporal Artery Scan Pulse Rate 102 H Respiratory Rate 24 Respiratory Effort / Characteristics Non-Labored Spontaneous Respiratory Depth Normal Blood Pressure 151/75 H Blood Pressure Mean 100 Blood Pressure Position Sitting Pulse Oximetry 93 94 Oxygen Delivery Method Room Air Room Air Sepsis Recent Fever Within 48 Hours No Sepsis New/Unexplained Change in Mental Status N/A Sepsis Action Taken by Nursing No Action Required VITAL SIGNS - Vital signs and nursing notes were reviewed. GENERAL - 65-year-old female appearing stated age who is in moderate distress. Communicates well with provider and answers questions appropriately. SKIN - Without rashes. HEAD - NC/AT. EYES - PERRL with EOMI bilaterally. Sclera anicteric. Palpebral conjunctiva pink and moist with no injection noted. EARS - No deformities of external structures noted on gross examination bilaterally. No pain elicited with palpation of the tragus bilaterally. External auditory canals without discharge or otorrhea. Tympanic membranes pearly castle without retraction or bulging. No fluid or purulent material visualized behind the TM. Handle of malleus, umbo, cone of light, pars tensa/flaccid all easily visualized. NOSE - Midline and without cyanosis. No epistaxis or purulent drainage noted. Septum midline without deviation or septal hematoma noted. MOUTH/OROPHARYNX - Without perioral cyanosis. Buccal mucosa pink and moist and without leukoplakia. Tongue midline with equal elevation of palate bilaterally. No tonsillar hypertrophy, erythema, or exudates noted. dentition noted. NECK - Neck with FROM. Supple to palpation. lymphadenopathy noted. No nuchal rigidity. LUNGS - Chest wall symmetric without accessory muscle use, intercostals retractions, or central cyanosis. Normal vesicular breath sounds CTA B/L. No wheezes, rales, or rhonchi appreciated. CARDIAC - RRR with S1/S2. No murmur, rubs, or gallops appreciated. ABDOMEN - Abdominal contour without pulsations or visible masses. BS normoactive all four quadrants. No tenderness, palpable masses, hepatospl enomegaly, or ascites noted. EXTREMITIES - No clubbing or peripheral cyanosis. No pretibial edema present. +3/5 radial, posterior tibial, and dorsalis pedis pulses palpated throughout. +5/5 strength noted in UE/LE bilaterally. NEUROLOGIC - Cranial nerves II through XII grossly intact. Sensory intact to light touch throughout. Patellar reflexes +2/4. PSYCH - A&Ox3 and cooperates fully with examiner. Pt is very pleasant and interacts well with examiner. Course Administered Medications Famotidine (Famotidine 40 Mg Tablet) 40 mg PO QAM SHADI Stop: 05/16/20 17:44 Last Admin: 04/16/20 17:58 Dose: 40 mg Documented by: [id number] Hydromorphone HCl (Hydromorphone Inj 1 Mg/Ml Syringe) 1 mg IV Q15M PRN PRN Reason: Pain Stop: 04/30/20 14:10 Last Admin: 04/16/20 14:31 Dose: 1 mg Documented by: [id number] Discontinued Medications Dexamethasone (Dexamethasone Sod Inj 10 Mg/Ml Vial) 10 mg IV NOW ONE Stop: 04/16/20 14:12 Last Admin: 04/16/20 14:31 Dose: 10 mg Documented by: [id number] Acetaminophen (Ofirmev) 1,000 mg in 100 mls @ 400 mls/hr IV NOW STA Stop: 04/16/20 14:26 Last Infusion: 04/16/20 14:50 Dose: 0 mls/hr Documented by: [id number] Admin: 04/16/20 14:35 Dose: 400 mls/hr Documented by: [id number] Ondansetron HCl (Ondansetron Inj 2 Mg/Ml 2 Ml Vial) 4 mg IV NOW STA Stop: 04/16/20 14:14 Last Admin: 04/16/20 14:31 Dose: 4 mg Documented by: [id number] Medical Decision Making Differential Diagnosis Fracture, subluxation, dislocation, contusion, ligamentous injury, neurovascular, compartment syndrome, rhabdomyolysis, as well as other pathologies. Medical Records Attestation: I reviewed the patient's medical records. Home Medications Current Medication List: was personally reviewed by me Laboratory Data Attestation: I reviewed the patient's lab results. Result diagrams: 04/16/20 14:24 04/16/20 14:24 Lab Results 04/16/20 04/16/20 04/16/20 Range/Units 14:24 14:24 14:49 WBC 5.08 (4.8-10.8) K/uL RBC 4.42 (4.2-5.4) M/uL Hgb 13.2 (12.0-16.0) g/dL Hct 40.2 (37-47) % MCV 91.0 (80-100) fL MCH 29.9 (25-34) pg MCHC 32.8 (32-36) g/dL RDW Std Deviation 45.3 (36.4-46.3) fL RDW Coeff of Kye 13.6 (11.5-14.5) % Plt Count 164 (130-400) K/uL MPV 9.3 (7.4-10.4) fL Immature Gran % (Auto) 0.2 % Neut % (Auto) 69.1 % Lymph % (Auto) 23.0 % [place] % (Auto) 7.5 % Eos % (Auto) 0.0 % Baso % (Auto) 0.2 % Neut # (Auto) 3.51 (1.4-6.5) K/uL Lymph # (Auto) 1.17 L (1.2-3.4) K/uL [place] # (Auto) 0.38 (0.11-0.59) K/uL Eos # (Auto) 0.00 (0-0.5) K/uL Baso # (Auto) 0.01 (0-0.2) K/uL Immature Gran # (Auto) 0.01 (0.00-0.02) K/uL Sodium 140 (136-145) mmol/L Potassium 4.2 (3.5-5.1) mmol/L Chloride 105 (98-107) mmol/L Carbon Dioxide 32 (21-32) mmol/L Anion Gap 3.0 (3-11) BUN 21 H (7-18) mg/dl Creatinine 0.76 (0.6-1.2) mg/dl Est Cr Clr Drug Dosing 94.6 ml/min Est GFR ( Amer) 96.1 Est GFR (Non-Af Amer) 82.9 BUN/Creatinine Ratio 27.2 H (10-20) Glucose 107 H (70-99) mg/dl Calcium 9.1 (8.5-10.1) mg/dl Total Bilirubin 0.3 (0.2-1) mg/dl AST 21 (15-37) U/L ALT 42 (12-78) U/L Alkaline Phosphatase 64 (45-117) U/L Total Protein 6.8 (6.4-8.2) gm/dl Albumin 3.5 (3.4-5.0) gm/dl Globulin 3.3 (2.5-4.0) gm/dl Albumin/Globulin Ratio 1.1 (0.9-2) Lipase 71 L (73-393) U/L Specimen Hemolysis SARS-CoV-2 Ag (Rapid) Negative (Negative) MDM Narrative Patient was seen and evaluated as above in room B10. Review was performed of nursing notes and vital signs. I did review pertinent previous visits and patient history. After obtaining a thorough history and physical examination the above work up was performed. This is a 65-year-old female who presents emergency department complaining of back pain that has been out of control. The patient was given Dilaudid as well as acetaminophen here in the emergency department. She was also given Zofran. I did discuss the case with case management as well as Dr. Molina and Dr. Brice. They asked that the patient be admitted to the medicine service. Laboratory work does not show any elevation in white blood cell count. An order was placed for continuous cardiac monitoring. The monitor shows a rate of 85 with Normal SInus rhythm. The patient was evaluated during a period of high volume and high acuity while the hospital was at overcapacity during the global COVID-19 pandemic, and that diagnosis was suspected/considered upon their initial presentation. Their evaluation, treatment and testing was consistent with current guidelines for patients who present with complaints or symptoms that may be related to COVID- 19. Impression & Plan Back pain, Slipped intervertebral disc, Spinal stenosis of lumbar region with radiculopathy Discharge Plan Visit Data Chief Complaint: Back Injury/Pain Stated Complaint: SPINE COLLAPSED ED Provider: Kenny Vargas Discharge Problem: Back pain, Slipped intervertebral disc, Spinal stenosis of lumbar region with radiculopathy Patient Disposition: Admitted As Inpatient Discharge Instructions Interventions: ED Discharge Assessment Last Done: 04/16/20 16:36 Discharge Problem: Back pain Qualifiers: Back pain location: back pain in unspecified location Chronicity: acute Back pain laterality: midline Qualified Code(s): M54.9 - Dorsalgia, unspecified Slipped intervertebral disc Qualifiers: Spinal region: lumbosacral Qualified Code(s): M51.27 - Other intervertebral disc displacement, lumbosacral region
[2020-04-16] MEDS: DOCUSATE SODIUM 100 MG CAP PO SCH (20:32)
[2020-04-16] MEDS: GABAPENTIN 300 MG CAP PO SCH (20:32)
[2020-04-16] MEDS: ACETAMINOPHEN 500 MG TAB PO SCH (20:32)
[2020-04-16] MEDS: SENNA 8.6 MG TAB PO SCH (20:32)
[2020-04-16] MEDS: LEVOTHYROXINE SODIUM 175 MCG TABLET PO SCH (20:32)
[2020-04-16] MEDS: SERTRALINE HCL 50 MG TABLET PO SCH (20:33)
[2020-04-16] MEDS: oxyCODONE HCL IR 5 MG TAB (IMMEDIATE RELEASE) PO PRN (21:50)
[2020-04-17] MEDS: oxyCODONE HCL IR 5 MG TAB (IMMEDIATE RELEASE) PO PRN ×3 (05:45→20:43)
[2020-04-17] MEDS: LOSARTAN POTASSIUM 50 MG TAB PO SCH (08:04)
[2020-04-17] MEDS: DOCUSATE SODIUM 100 MG CAP PO SCH ×2 (08:04→20:42)
[2020-04-17] MEDS: dexAMETHasone 4 MG TAB PO SCH (08:04)
[2020-04-17] MEDS: ACETAMINOPHEN 500 MG TAB PO SCH ×3 (08:05→20:41)
[2020-04-17] MEDS: GABAPENTIN 300 MG CAP PO SCH ×4 (08:05→20:43)
[2020-04-17] MEDS: FAMOTIDINE 40 MG TABLET PO SCH (08:06)
[2020-04-17] MEDS: LIDOCAINE 5% 1 PATCH TD SCH (08:06)
[2020-04-17] MEDS ORDERED: ONDANSETRON INJ 2 MG/ML 2 ML VIAL ONE (11:42)
[2020-04-17] MEDS ORDERED: PROPOFOL IV EMULSION 10 MG/ML 20 ML VIAL IV ONE (11:42)
[2020-04-17] MEDS ORDERED: GLYCOPYRROLATE 0.2 MG/ML VIAL ONE (11:42)
[2020-04-17] MEDS ORDERED: NEOSTIGMINE METHYLSULFATE 1 MG/ML 10ML VIAL ONE (11:42)
[2020-04-17] MEDS ORDERED: MIDAZOLAM HCL 1 MG/ML 2ML VIAL ONE (11:42)
[2020-04-17] MEDS ORDERED: DEXAMETHASONE SOD INJ 4 MG/ML VIAL ONE (11:42)
[2020-04-17] MEDS ORDERED: LIDOCAINE HCL 2% 2 ML VIAL/AMP(20MG/ML) INFIL ONE (11:42)
[2020-04-17] MEDS ORDERED: HYDROmorphone INJ 2 MG/ML SYR/VIAL ONE (11:43)
[2020-04-17] MEDS ORDERED: fentaNYL citrate 100 MCG/2 ML VIAL ONE (11:43)
[2020-04-17] MEDS ORDERED: ONDANSETRON INJ 2 MG/ML 2 ML VIAL IV PRN ×2 (12:18→18:11)
[2020-04-17] MEDS ORDERED: ATROPINE SULFATE 0.1 MG/ML 10ML SYR IV PRN (12:18)
[2020-04-17] MEDS ORDERED: HYDROmorphone INJ 2 MG/ML SYR/VIAL IV PRN (12:18)
[2020-04-17] MEDS ORDERED: ePHEDrine sulfate 50 MG/ML AMP IV PRN (12:18)
--- NOTE | 2020-04-17 12:21 | Orthopedic Consultation ---
Date of Consultation April 17, 2020 Assessment & Plan (1) Spinal stenosis of lumbar region with radiculopathy: Patient does require a lumbar decompression and fusion L2-3, L3-4 and L5- S1 with removal of instrumentation L4-5. Present on Admission?: Yes History of Present Illness Reason for Consultation: Back and bilateral leg pain Attending Physician: Bernardo Blake, DO History of Present Illness This is a 65-year-old female well-known to me the presents with worsening back and bilateral leg pain. After having continued decline in status inability to ambulate she is here for decompression and fusion. Allergies Allergy/AdvReac Type Severity Reaction Status Date / Time No Known Allergies Allergy Unverified 04/16/20 16:46 Home Medications Medication Instructions Recorded Confirmed Type aspirin 81 mg PO PM 03/29/20 04/16/20 History bumetanide 1 mg PO DIRECTED PRN 03/29/20 04/16/20 History docusate sodium [Colace] 100 mg PO BID #60 cap 03/29/20 04/16/20 Rx ibuprofen [Motrin IB] 800 mg PO Q6H PRN 03/29/20 04/16/20 History levothyroxine [Synthroid] 175 mcg PO PM 03/29/20 04/16/20 History lidocaine [Lidoderm] 1 patch TOPICAL DAILY #15 ea 03/29/20 04/16/20 Rx sennosides [Senokot] 8.6 mg PO HS #30 tab 03/29/20 04/16/20 Rx sertraline 50 mg PO PM 03/29/20 04/16/20 History losartan 100 mg PO QAM 30 Days #60 tab 04/04/20 04/16/20 Rx oxycodone 10 mg PO Q6H PRN #20 tab 04/04/20 04/16/20 Rx cetirizine [Zyrtec] 10 mg PO DAILY PRN 04/16/20 04/16/20 History gabapentin 600 mg PO TID 04/16/20 04/16/20 History Patient History Medical History Extrusion of intervertebral disc Hyperlipidemia Hypertension Hypothyroid Impaired glucose tolerance Lumbar radiculopathy Obesity Social History Smoking Status: Never smoker Second Hand Exposure: No; Hx Alcohol Use: Yes Alcohol type: wine Hx Substance Use: No Preferred Language: Portuguese Communication Ability: Effective Cardiac Tech Required: No Beliefs That Will Affect Care: None marital status: Current Living Situation: Spouse Other Information That Helps Us Care for You: No Feels Safe at Home: Yes Safety Concerns: Feels Safe At This Time Assistive Devices: Glasses Physical Exam Physical Exam: Patient is alert and oriented Heart regular in rhythm Lungs clear to auscultation Results & Data ([facility]) Vital Signs (Past 12 Hours) Vital Signs Temp Pulse Resp BP BP Pulse Ox 04/17/20 12:04 37.2 C 85 18 160/73 H 94 04/17/20 07:46 36.8 C 81 20 139/76 96
--- NOTE | 2020-04-17 12:22 | Anesthesiology Consultation ---
Date of Service April 17, 2020 Assessment & Plan ASA ASA3 Proposed Anesthesia Anesthesia Type: General Risk / Benefits Reviewed With: PT / POA / Parent / Guardian, Accepts Plan and Informed Consent Obtained Additional Comments: ok to proceed. Pt has a vague history of problems after an esthesia, but she is unsure of cause. Pt does not have any current symptoms that may suggest a cardiac issue. We will monitor and place a second IV History Surgery Operation Date: 04/17/20 07:00 Proposed Procedures p L2-L3 Decompression Fusion, L5-S1 - Jairon Brice, Height/Weight Height: 5 ft 7 in Weight: 107.5 kg Allergies Allergy/AdvReac Type Severity Reaction Status Date / Time No Known Allergies Allergy Unverified 04/16/20 16:46 Medications Home Medications Medication Instructions Recorded Confirmed Last Taken aspirin 81 mg PO PM 03/29/20 04/16/20 03/28/20 bumetanide 1 mg PO DIRECTED PRN 03/29/20 04/16/20 Unknown docusate sodium [Colace] 100 mg PO BID #60 cap 03/29/20 04/16/20 Unknown ibuprofen [Motrin IB] 800 mg PO Q6H PRN 03/29/20 04/16/20 03/28/20 levothyroxine [Synthroid] 175 mcg PO PM 03/29/20 04/16/20 03/28/20 lidocaine [Lidoderm] 1 patch TOPICAL DAILY #15 ea 03/29/20 04/16/20 Unknown sennosides [Senokot] 8.6 mg PO HS #30 tab 03/29/20 04/16/20 Unknown sertraline 50 mg PO PM 03/29/20 04/16/20 03/28/20 losartan 100 mg PO QAM 30 Days #60 tab 04/04/20 04/16/20 Unknown oxycodone 10 mg PO Q6H PRN #20 tab 04/04/20 04/16/20 Unknown cetirizine [Zyrtec] 10 mg PO DAILY PRN 04/16/20 04/16/20 Unknown gabapentin 600 mg PO TID 04/16/20 04/16/20 Unknown Active Medications Generic Name Dose Route Start Last Admin Trade Name Freq PRN Reason Stop Dose Admin Acetaminophen 1,000 mg 04/16/20 21:00 04/17/20 08:05 Acetaminophen 500 Mg Tab PO 05/16/20 20:59 1,000 mg TID SHADI Administration Dexamethasone 4 mg 04/17/20 09:00 04/17/20 08:04 Dexamethasone 4 Mg Tab PO 05/17/20 08:59 4 mg DAILY SHADI Administration Docusate Sodium 100 mg 04/16/20 21:00 04/17/20 08:04 Docusate Sodium 100 Mg Cap PO 05/16/20 20:59 100 mg BID SHADI Administration Famotidine 40 mg 04/16/20 17:45 04/17/20 08:06 Famotidine 40 Mg Tablet PO 05/16/20 17:44 40 mg QAM SHADI Administration Gabapentin 300 mg 04/16/20 21:00 04/17/20 08:05 Gabapentin 300 Mg Cap PO 05/16/20 20:59 300 mg TID SHADI Administration Hydromorphone HCl 1 mg 04/16/20 14:11 04/16/20 14:31 Hydromorphone Inj 1 Mg/Ml Syringe IV 04/30/20 14:10 1 mg Q15M PRN Administration Pain Levothyroxine Sodium 175 mcg 04/16/20 21:00 04/16/20 20:32 Levothyroxine Sodium 175 Mcg Tablet PO 05/16/20 20:59 175 mcg PM SHADI Administration Lidocaine 1 patch 04/17/20 09:00 04/17/20 08:06 Lidocaine 5% 1 Patch TD 05/17/20 08:59 1 patch DAILY SHADI Administration Losartan Potassium 100 mg 04/17/20 09:00 04/17/20 08:04 Losartan Potassium 50 Mg Tab PO 05/17/20 08:59 100 mg QAM SHADI Administration Miscellaneous 1 ea 04/16/20 21:00 04/16/20 20:33 Remove Lidoderm Patch N/A 05/16/20 20:59 Not Given DAILY@2100 SHADI Oxycodone HCl 10 mg 04/16/20 17:12 04/17/20 05:45 Oxycodone Hcl Ir 5 Mg Tab (Immediate Release) PO 04/30/20 17:11 10 mg Q6H PRN Administration Moderate Pain Sennosides 17.2 mg 04/16/20 21:00 04/16/20 20:32 Senna 8.6 Mg Tab PO 05/16/20 20:59 17.2 mg HS SHADI Administration Sertraline HCl 50 mg 04/16/20 21:00 04/16/20 20:33 Sertraline Hcl 50 Mg Tablet PO 05/16/20 20:59 50 mg PM SHADI Administration NPO Date Last Intake of Fluids: 04/16/20 Time Last Intake of Fluids: 23:55 Last Intake of Fluids Comment: sip with AM medication Date Last Intake of Solids: 04/16/20 Time Last Intake of Solids: 23:55 Past Medical History Medical History Extrusion of intervertebral disc Hyperlipidemia Hypertension Hypothyroid Impaired glucose tolerance Lumbar radiculopathy Obesity Exercise / Class Metabolic Activity III < 4 Walking/Shop/Light housework Past Anesthesia History No Family Hx of Anesthesia Complications and Other pt with vague history of her last two surgeries 12 yrs ago in [place] where she woke up in ICU after. Does not know why. She says maybe because she woke up poorly History of PONV No Hx of PONV and No Hx of Motion Sickness Social History Smoking Status: Never smoker Hx Alcohol Use: Yes Alcohol type: wine alcohol intake frequency: a few times a month Hx Substance Use: No Review of Systems denies fever/cough/ colds/ chest pain/ SOB/ KADE denies KADE Physical Exam Vital Signs Last Vital Signs Temp 37.2 C 04/17/20 12:04 Pulse 85 04/17/20 12:04 Resp 18 04/17/20 12:04 BP 160/73 H 04/17/20 12:04 Pulse Ox 94 04/17/20 12:04 ENMT Mouth: no TMJ abnormality and no dentition abnormality Thyromental Distance: < 3.5 Finger Breadths Mallampati Class: II Neck + thick neck; neck extension not limited Respiratory normal respiratory effort; no respiratory distress Auscultation: lungs clear to auscultation bilaterally Cardiovascular Rate/Rhythm: regular rate and regular rhythm Neurologic moves all extremities Psychiatric Orientation: alert and oriented x 3 Testing Laboratory Results 04/16/20 14:24 04/16/20 14:24 Urine Color Yellow 04/16/20 17:15 Urine Appearance Clear (Clear) 04/16/20 17:15 Urine pH 6.0 (4.5-7.5) 04/16/20 17:15 Ur Specific Buckner 1.023 (1.000-1.030) 04/16/20 17:15 Urine Protein Negative (Negative) 04/16/20 17:15 Urine Glucose (UA) Negative (Negative) 04/16/20 17:15 Urine Ketones Negative (Negative) 04/16/20 17:15 Urine Nitrite Negative (Negative) 04/16/20 17:15 Ur Leukocyte Esterase 2+ (Negative) H 04/16/20 17:15 Urine WBC (Auto) >30 /hpf (0-5) H 04/16/20 17:15 Urine RBC (Auto) 0-4 /hpf (0-4) 04/16/20 17:15 U Hyaline Cast (Auto) 1-5 /lpf (0-5) 04/16/20 17:15 U Epithel Cells (Auto) 10-20 /lpf (0-5) H 04/16/20 17:15 Urine Bacteria (Auto) 1+ (Negative) H 04/16/20 17:15
[2020-04-17] MEDS ORDERED: BACITRACIN INJ 50,000 UNIT VIAL ONE (12:39)
[2020-04-17] MEDS ORDERED: BUPIVACAINE/EPINEPHRINE 0.5% MPF 1:200,000 30 ML VIAL ONE (12:39)
[2020-04-17] MEDS ORDERED: ceFAZolin 2000MG 2,000 MG/15 ML SYR IV ONE (13:01)
[2020-04-17] MEDS ORDERED: ceFAZolin 2,000 MG/15 ML IV PUSH IV ONE (13:02)
[2020-04-17] MEDS ORDERED: FLOSEAL HEMOSTATIC MATRIX 10ML TOP ONE (13:54)
--- NOTE | 2020-04-17 16:25 | Operative Report ---
Post Operative Report Pre & Post Diagnosis Operation Date: 04/17/20 07:00 Pre-Op Diagnosis: Spinal stenosis of lumbar region with radiculopathy Post-Op Diagnosis: Spinal stenosis of lumbar region with radiculopathy I identified the patient and participated in the time-out.: Yes Procedure Operation Date: 04/17/20 07:00 Actual Procedures #1 removal of posterior instrumentation L4-5. #2 exploration of fusion L4-5 per #3 lumbar decompression with bilateral medial facetectomies and foraminotomies L5-S1 peer #4 posterior spinal fusion L2-3, L3-4 and L5-S1. #5 placement posterior segmental instrumentation L2-S1. #6 interbody fusion L5-S1. #7 placement peek cage 12 x 26 mm L5-S1. #8 placement of locally harvested morselized autograft in the posterior lateral gutters per #9 placement infuse collagen sponge, master graft in the posterior lateral gutters and ostial amp interbody space. Surgeon Jairon Brice, DO Home Health Attendant Jose Portillo Estimated Blood Loss 400 Findings See Below The patient is 5 foot 7 inches tall weighing over 107 kg with a BMI in excess of 31. The patient's body habitus did create significant technical difficulty requiring her deepest retractors and longus instruments in order to perform her procedure. This added at least 50% increase to the operative time. Specimens None Indications This is a 65-year-old female that presents with severe spinal stenosis secondary discrimination and to space collapse L5-S1 with advanced spondylosis and stenosis L2-L3. She subsequently here for urgent decompression fusion. Description of Procedure Patient was met with properly case cussed all questions were addressed. That p oint patient was taken back to operative suite underwent an patient placed in a prone position the Iain table on top of the Marin frame. All bony prominences well-padded eyes inspected to ensure no external pressure placed upon them. This point the lumbar spine was prepped and draped in the normal sterile fashion. Sharp dissection with the assistance of Bovie cautery was performed down to and exposing the lamina and transverse processes of L2-L3 instrumentation at L4 and L5 and the sacral ala bilaterally. And then proceeded to remove the hardware at L4 and L5 bilaterally explored the fusion mass noting it to be intact. Informed complete laminectomy of L5 including bilateral medial facetectomies and foraminotomies addressing severe spinal stenosis. Pedicle screws were then placed in L2 L3-L4-L5 and S1 levels bilaterally with assistance of fluoroscopy and appropriately sized henry placed. Believe a transforaminal portion left complete discectomy L5-S1 was performed endplates curetted to subcortically bone and a 12 x 26 mm peek cage filled with osteobone graft tapped position. Of note there was a mass amount of disc material within the canal that was also identified and removed. Rods were then locked in final position bilaterally. The transverse processes of L2 L3-L4-L5 and sacral ala burred to subcortical bleeding bone. Infuse collagen sponge master graft local autograft was placed in the posterior gutters. 15 round JUANCHO drain inserted. The incision was then closed with 1 Vicryl in the fascia 2-0 Vicryl subcutaneously and 4 Monocryl for final skin closure. Steri-Strip sterile dressings placed. Patient waken taken to PACU in a stable condition. Please note spinal cord monitoring was utilized at the procedure no changes noted. Sandy Portillo was pr esent for the entire surgery involved in patient positioning complex portions of the surgery and final skin closure. I attest to the content of the Intraoperative Record and any orders documented therein. Any exceptions are noted below.
--- NOTE | 2020-04-17 16:37 | Fluoroscopy Report ---
INTRAOPERATIVE RADIOGRAPHS CLINICAL HISTORY: Lumbar spinal fusion. Fluoroscopy time: 44 seconds. FINDINGS: 4 spot fluoroscopic views of the lumbar spine are presented. There has been discectomy at L 4-L5 and L5-S1 with evidence of laminectomy and posterior fusion from L2-S1. Interpedicular screws ar e present at all levels. The orthopedic hardware appears intact. Minimal retrolisthesis is noted at L 2-L3. IMPRESSION: Intraoperative images from L2-S1 spinal fusion as above. Electronically signed by: Larry Chang M.D. 04/17/2020 4:35 PM
[2020-04-17] MEDS: fentaNYL citrate 100 MCG/2 ML VIAL IV PRN ×2 (17:05→17:11)
--- NOTE | 2020-04-17 17:56 | Anesthesiology Progress Note ---
Date of Service April 17, 2020 Anesthesia Post Procedure Vital Signs Vital Signs: Temp Pulse Pulse Resp BP BP Pulse Ox 04/17/20 17:50 79 18 121/82 93 04/17/20 17:40 98.1 F 76 23 133/63 95 04/17/20 17:30 70 18 124/59 L 97 04/17/20 17:20 75 13 123/62 97 04/17/20 17:10 72 14 124/71 99 04/17/20 17:00 76 12 100/64 98 04/17/20 16:54 97.9 F 87 13 136/77 98 04/17/20 12:04 99.0 F 85 18 160/73 H 94 04/17/20 07:46 98.2 F 81 20 139/76 96 04/16/20 23:26 97.7 F 91 H 20 145/76 H 90 Pain Intensity Back: Pain Intensity: 0 Left Buttock: Pain Intensity: 2 Transfer of Care Handoff Completed per policy Notes Mental Status: alert / awake / arousable and participated in evaluation Patient Amnestic to Procedure: Yes Nausea / Vomiting: adequately controlled Pain: adequately controlled Airway Patency, RR, SpO2: stable & adequate BP & HR: stable & adequate Hydration State: stable & adequate Anesthetic Complications: no major complications apparent and Pt Satisfied with anesthetic care
[2020-04-17] MEDS ORDERED: LORazepam 0.5 MG TAB PO PRN (18:11)
[2020-04-17] MEDS ORDERED: bisacodyL 10 MG SUPP PR PRN (18:11)
[2020-04-17] MEDS ORDERED: DO NOT ADMINISTER PNEUMOCOCCAL VACCINE PRN (18:11)
[2020-04-17] MEDS ORDERED: ACETAMINOPHEN 1,000 MG/100 ML VIAL IV PRN (18:11)
[2020-04-17] MEDS ORDERED: traMADol HCL 50 MG TABLET PO PRN (18:11)
[2020-04-17] MEDS ORDERED: ALUMINUM/MAGNESIUM SUSP 30 ML UDC PO PRN (18:11)
[2020-04-17] MEDS ORDERED: FAMOTIDINE 20 MG TAB PO PRN (18:11)
[2020-04-17] MEDS ORDERED: LACTATED RINGER'S 1,000 ML IV SCH (18:11)
[2020-04-17] MEDS ORDERED: HYDROmorphone INJ 0.5 MG/0.5 ML SYR IV PRN (18:11)
[2020-04-17] MEDS ORDERED: ONDANSETRON 4 MG OD TAB PO PRN (18:11)
[2020-04-17] MEDS ORDERED: hydrOXYzine HCl 25 MG TAB PO PRN (18:11)
[2020-04-17] MEDS ORDERED: SOD PHOSPHATE/SOD BIPHOSPHATE ENEMA 132 ML BTL PR PRN (18:11)
[2020-04-17] MEDS ORDERED: oxyCODONE HCL IR 5 MG TAB (IMMEDIATE RELEASE) PO PRN (18:11)
[2020-04-17] MEDS ORDERED: PROMETHAZINE HCL 12.5 MG in SODIUM CHLORIDE 0.9% 50 ML IV PRN (18:11)
[2020-04-17] MEDS ORDERED: METOCLOPRAMIDE HCL INJ 5 MG/ML 2 ML VIAL IV PRN (18:11)
[2020-04-17] MEDS ORDERED: IBUPROFEN 800 MG TAB PO PRN (18:11)
[2020-04-17] MEDS ORDERED: NALOXONE HCL 0.4 MG/1 ML VIAL/CARP IV PRN (18:11)
[2020-04-17] MEDS ORDERED: BUMETANIDE 1 MG TAB PO PRN (18:11)
[2020-04-17] MEDS ORDERED: MAGNESIUM HYDROXIDE SUSP 30 ML UDC PO PRN (18:11)
[2020-04-17] MEDS ORDERED: DO NOT ADMINISTER FLU VACCINE PRN (18:11)
[2020-04-17] MEDS ORDERED: CETIRIZINE HCL 10 MG TABLET PO PRN (18:11)
[2020-04-17] MEDS ORDERED: LORazepam 0.5 MG/1 ML VIAL IV PRN (18:11)
[2020-04-17] MEDS ORDERED: diphenhydrAMINE Capsule 25 MG CAP PO PRN (18:11)
--- NOTE | 2020-04-17 18:30 | Hospitalist Progress Note ---
Date of Service April 17, 2020 Assessment & Plan (1) Spinal stenosis of lumbar region with radiculopathy: now post op - doing well -pain control -PT/OT eval and treat (2) Hypertension: BP acceptable continue current meds and follow (3) Hypothyroid: synthroid (4) DVT prophylaxis: compression Admission and Anticipated Discharge Date Admission Date: April 16, 2020 Subjective seen post op. "i feel great, i'm the happiest person in [employer] right now" -- notes just some soreness in her back, but nerve pain/leg pain better/essentially gone Review of Systems Review of Systems: All systems reviewed & are unremarkable except as noted in HPI & below Physical Exam Physical Exam: gen [id number] pleasant nad heent nc at mmm breathing unlabored no accessory muscles good effort skin no rashes no pallor or icterus neuro no focal deficits Results & Data Results & Data ([facility]) Vital Signs (Past 12 Hours) Vital Signs Temp Pulse Pulse Resp BP BP Pulse Ox 04/17/20 18:12 98.4 F 72 16 132/66 97 04/17/20 17:50 79 18 121/82 93 04/17/20 17:40 98.1 F 76 23 133/63 95 04/17/20 17:30 70 18 124/59 L 97 04/17/20 17:20 75 13 123/62 97 04/17/20 17:10 72 14 124/71 99 04/17/20 17:00 76 12 100/64 98 04/17/20 16:54 97.9 F 87 13 136/77 98 04/17/20 12:04 99.0 F 85 18 160/73 H 94 04/17/20 07:46 98.2 F 81 20 139/76 96 PG Care Time/CCT Total # of Minutes Spent Total Time Spent with Patient: Total time spent is greater than 50% in coordination of care (as documented) at patient's floor/unit and/or counseling patient: Coding Level of Care Code 97646 Subseq Hosp Care Lvl 2 Diagnoses Spinal stenosis of lumbar region with radiculopathy M48.061; M54.16 Hypertension I10 Hypothyroid E03.9 DVT prophylaxis Z29.9
[2020-04-17] MEDS: ASPIRIN 81 MG ECTAB PO SCH (20:42)
[2020-04-17] MEDS: LEVOTHYROXINE SODIUM 175 MCG TABLET PO SCH (20:42)
[2020-04-17] MEDS: SERTRALINE HCL 50 MG TABLET PO SCH (20:42)
[2020-04-17] MEDS: DOCUSATE SODIUM/SENNA 50/8.6MG TAB PO SCH (20:42)
[2020-04-17] MEDS: ceFAZolin 2000MG 2,000 MG/15 ML SYR IV SCH (20:42)
[2020-04-17] MEDS: SENNA 8.6 MG TAB PO SCH (20:43)
[2020-04-18] MEDS: GABAPENTIN 300 MG CAP PO SCH ×7 (00:05→20:14)
[2020-04-18] MEDS: oxyCODONE HCL IR 5 MG TAB (IMMEDIATE RELEASE) PO PRN ×6 (00:45→23:58)
[2020-04-18] MEDS: POLYETHYLENE (MIRALAX) 17 GM PACK PO SCH ×4 (05:38→23:58)
[2020-04-18] MEDS: ceFAZolin 2000MG 2,000 MG/15 ML SYR IV SCH (05:39)
[2020-04-18 06:06] LABS: Basophils # (auto) 0.01 K/uL (0-0.2); Basophils % (auto) 0.1 %; Hematocrit (blood only) 33.8 % (37-47); Immature Granulocytes # (auto) 0.03 K/uL (0.00-0.02); Immature Granulocytes % (auto) 0.3 %; Lymphocytes # (auto) 1.23 K/uL (1.2-3.4); Lymphocytes % (auto) 12.3 %; Mean Corpuscular Hemoglobin 29.6 pg (25-34); Mean Corpuscular Hgb Conc 32.5 g/dL (32-36); Mean Corpuscular Volume 90.9 fL (80-100); Mean Platelet Volume 9.5 fL (7.4-10.4); Monocytes # (auto) 0.67 K/uL (0.11-0.59); Monocytes % (auto) 6.7 %; Neutrophils # (auto) 8.06 K/uL (1.4-6.5); Neutrophils % (auto) 80.6 %; Platelet Count 169 K/uL (130-400); RDW Coefficient of Variation 13.5 % (11.5-14.5); RDW Standard Deviation 43.9 fL (36.4-46.3); Red Blood Count 3.72 M/uL (4.2-5.4)
[2020-04-18 06:39] LABS: BUN Creatinine Ratio 19.8 (10-20); Calcium 8.6 mg/dl (8.5-10.1); Creatinine Clr Calc Pharmacy 98.3 ml/min; Est GFR (African American) 100.9; Potassium 4.1 mmol/L (3.5-5.1)
[2020-04-18] MEDS: FAMOTIDINE 40 MG TABLET PO SCH (09:07)
[2020-04-18] MEDS: LOSARTAN POTASSIUM 50 MG TAB PO SCH (09:07)
[2020-04-18] MEDS: dexAMETHasone 4 MG TAB PO SCH (09:07)
[2020-04-18] MEDS: LIDOCAINE 5% 1 PATCH TD SCH (09:08)
[2020-04-18] MEDS: DOCUSATE SODIUM 100 MG CAP PO SCH ×2 (09:10→20:18)
[2020-04-18] MEDS: ACETAMINOPHEN 500 MG TAB PO SCH ×3 (09:11→20:19)
--- NOTE | 2020-04-18 09:38 | Orthopedic Progress Note ---
Date of Service April 18, 2020 Assessment & Plan (1) Spinal stenosis of lumbar region with radiculopathy: Admission and Anticipated Discharge Date Admission Date: April 16, 2020 This time continue physical therapy monitor JUANCHO output hopefully discharge home in next few days. Subjective Patient's back pain is controlled leg symptoms are markedly improved. Physical Exam Physical Exam: On exam she does appear comfortable is excellent strength testing. Results & Data ([facility]) Vital Signs (Past 12 Hours) Vital Signs Temp Pulse Resp BP Pulse Ox 04/18/20 07:00 37.0 C 79 20 143/67 H 95 04/18/20 02:48 37.2 C 86 19 127/62 93 04/17/20 23:05 36.9 C 77 16 120/62 92 04/17/20 21:58 36.8 C 70 16 142/75 H 92
--- NOTE | 2020-04-18 12:41 | Hospitalist Progress Note ---
Date of Service April 18, 2020 Assessment & Plan (1) Spinal stenosis of lumbar region with radiculopathy: Madelaine is a 65-year-old female with a notable past medical history of hypertension, hyperlipidemia, and spinal stenosis of the lumbar region with radiculopathy who is now postop from lumbar decompression and posterior spinal fusion. She is doing well and hemodynamically stable. Spinal Stenosis of Lumbar Region with Radiculopathy - Clinically, patient presented with several week h/o severe back pain and radicular symptoms extending down her lower extremities that was refractory to analgesia therapy - Now s/p lumbar decompression and fusion on 04/[address] Brice, who continues to actively follow - Pain has significantly improved from prior both in the back and in the legs - Continue pain control regimen: gabapentin, Decadron, PRN: Dilaudid, Oxycodone - PT/OT following, appreciate insight and recommendations moving forward - Orthopedics following HTN - BPs continue to fluctuate between 120/60s >> 140s/70s. Given situation, well controlled at present - Losartan 100mg PO qAM - Continue to monitor Hypothyroidism - Continue home levothyroxine Dispo: Med/surg Diet: Regular PPX: SCDs Code: Full code (2) Hypertension: (3) Hypothyroid: Admission and Anticipated Discharge Date Admission Date: April 16, 2020 Supervising Physician Co-Signing Physician Notes I personally examined the patient and verified all mendoza points of history and exam, discussed case, and agree with decision making with Dr Snow feeling ok pain controlled walked in the [place] pleased with progress vitals noted nad heent nc at mmm breathing unlabored no accessory muscles good effort skin no rashes no pallor or icterus lumbar radiculopathy/intractable pain/severe DJD/DDD - now improved post op. pain control, PT/OT Subjective Acute events overnight. At the bedside this morning, patient reports feeling well overall. Some mild soreness in her back extending to her left hip, but she says this is to be expected given the surgery. She denies any lightheadedness or dizziness throughout the night into this morning. Does endorse that she has been able to walk around the floor a couple times with her walker, which is gone okaysays that making sharp turns is certainly tough, as is getting out of bed and getting back into bed. But she says that her neurologic symptoms which previously prevailed have since disappeared. She is very happy about this and says that even with her current pain, it is significantly better than before. She denies any bowel or bladder incontinence. She denies any numbness or t ingling down either leg. She denies any weakness in her legs. She further denies any chest pains, palpitations, shortness of breath. She endorses a good appetite, denies abdominal pain nausea or vomiting. Review of Systems Review of Systems: As per HPI Physical Exam Constitutional: Well-appearing 65-year-old female who is lying back in her hospital bed watching TV upon my arrival. Throughout her discussion she is alert and interactive, fully oriented. No acute distress. Respiratory: Good respiratory effort with symmetric expansion of the chest. Lungs are clear to auscultation bilaterally without crackles or wheezes. Cardiovascular: Normal rate and regular rhythm. S1 and S2 are present without murmurs rubs or gallops. Musculoskeletal: SCDs in place on the lower extremities bilaterally. Patient is able to lift up both of her legs from the bed. Strength was not assessed. Results & Data Results & Data ([facility]) Vital Signs (Past 12 Hours) Vital Signs Temp Pulse Resp BP Pulse Ox 04/18/20 07:00 37.0 C 79 20 143/67 H 95 04/18/20 02:48 37.2 C 86 19 127/62 93 Resident Activity Tracking Resident Involvement: Resident Care Provided Care Provided: Adult Hospital Medicine
--- NOTE | 2020-04-18 14:37 | Billing Data ---
Date of Service April 18, 2020 Coding Level of Care Code 41986 Subseq Hosp Care Lvl 2
[2020-04-18] MEDS: ACETAMINOPHEN 500 MG TAB PO PRN (18:40)
[2020-04-18] MEDS: ASPIRIN 81 MG ECTAB PO SCH (20:13)
[2020-04-18] MEDS: SERTRALINE HCL 50 MG TABLET PO SCH (20:14)
[2020-04-18] MEDS: LEVOTHYROXINE SODIUM 175 MCG TABLET PO SCH (20:15)
[2020-04-18] MEDS: SENNA 8.6 MG TAB PO SCH (20:15)
[2020-04-18] MEDS: DOCUSATE SODIUM/SENNA 50/8.6MG TAB PO SCH (20:15)
[2020-04-19] MEDS ORDERED: LIDOCAINE 5% 1 PATCH TD PRN ×2 (00:58→01:17)
[2020-04-19] MEDS: ACETAMINOPHEN 500 MG TAB PO PRN (03:30)
[2020-04-19] MEDS: oxyCODONE HCL IR 5 MG TAB (IMMEDIATE RELEASE) PO PRN ×5 (03:52→22:12)
[2020-04-19] MEDS: HYDROmorphone INJ 1 MG/ML SYRINGE IV PRN ×3 (05:04→20:50)
[2020-04-19] MEDS: POLYETHYLENE (MIRALAX) 17 GM PACK PO SCH ×3 (05:04→17:17)
--- NOTE | 2020-04-19 06:39 | Hospitalist Progress Note ---
Date of Service April 19, 2020 Assessment & Plan (1) Spinal stenosis of lumbar region with radiculopathy: Madelaine is a 65-year-old female with a notable past medical history of hypertension, hyperlipidemia, and spinal stenosis of the lumbar region with radiculopathy who is now postop from lumbar decompression and posterior spinal fusion. She is doing well and hemodynamically stable. Spinal Stenosis of Lumbar Region with Radiculopathy - Clinically, patient presented with several week h/o severe back pain and radicular symptoms extending down her lower extremities that was refractory to analgesia therapy - Now s/p lumbar decompression and fusion on 04/[address] Brice, who continues to actively follow - Pain has significantly improved from prior both in the back and in the legs - Continue pain control regimen: gabapentin, Decadron, lidocaine patches ; PRN: Dilaudid, Oxycodone -- working and tolerating well - PT/OT following, appreciate insight and recommendations moving forward - Orthopedics following HTN - BPs continue to fluctuate between 120/60s >> 140s/70s. Given situation, well controlled at present - Losartan 100mg PO qAM - Continue to monitor -- can consider increasing therapy if this continues over the next day or two, then f/u as outpatient Hypothyroidism - Continue home levothyroxine Dispo: Med/surg Diet: Regular PPX: SCDs Code: Full code (2) Hypertension: (3) Hypothyroid: Admission and Anticipated Discharge Date Admission Date: April 16, 2020 Supervising Physician Co-Signing Physician Notes I personally examined the patient and verified all mendoza points of history and exam, discussed case, and agree with decision making with Dr Snow feeling ok pain controlled walked in the [place] pleased with progress vitals noted nad heent nc at mmm breathing unlabored no accessory muscles good effort skin no rashes no pallor or icterus lumbar radiculopathy/intractable pain/severe DJD/DDD - doing well post op. pain control, PT/OT Subjective No acute events overnight. At the bedside this morning, reports feeling well overall. No some pain on left side, but nothing compared to before. Has been able to walk around for couple times without difficulty. Does feel like she is regaining her strength. She denies chest pain, palpitations, or shortness of breath. She denies abdominal pain, nausea or vomiting. No numbness or tingling down either leg. No urinary or bowel incontinence. Review of Systems Review of Systems: Per HPI Physical Exam Constitutional: Well-appearing 65-year-old female who is lying back in her hospital bed watching TV upon my arrival. Alert, oriented, and engaged throughout our conversation. In no acute distress. Respiratory: Good respiratory effort with symmetric expansion of the chest. Lungs are clear to auscultation bilaterally without crackles or wheezes. Cardiovascular: Normal rate and regular rhythm. S1 and S2 are present without murmurs rubs or gallops. Gastrointestinal (Abdomen): Normoactive bowel sounds. Abdomen soft, nontender, nondistended to palpation. Musculoskeletal: Strength is 4-5 bilaterally in the lower extremities. Sensation to light touch is grossly intact throughout lower extremities. No clonus bilaterally. Skin: There is a 1 x 1 cm very mildly exfoliated lesion very mild erythema adjacent to the left scapula. Results & Data Results & Data ([facility]) Vital Signs (Past 12 Hours) Vital Signs Temp Pulse Resp BP Pulse Ox 04/19/20 04:59 76 145/73 H 04/18/20 23:38 36.9 C 77 18 145/72 H 91 Resident Activity Tracking Resident Involvement: Resident Care Provided Care Provided: Adult Hospital Medicine
[2020-04-19] MEDS ORDERED: LIDOCAINE 5% 1 PATCH TD SCH (09:00)
[2020-04-19] MEDS: LOSARTAN POTASSIUM 50 MG TAB PO SCH (09:08)
[2020-04-19] MEDS: FAMOTIDINE 40 MG TABLET PO SCH (09:09)
[2020-04-19] MEDS: DEXAMETHASONE SOD PHOSPHATE 8 MG in SYRINGE 0 ML IV SCH (09:09)
[2020-04-19] MEDS: GABAPENTIN 300 MG CAP PO SCH ×6 (09:11→20:48)
[2020-04-19] MEDS: LIDOCAINE 5% 1 PATCH TD SCH (09:12)
[2020-04-19] MEDS: ACETAMINOPHEN 500 MG TAB PO SCH ×3 (09:13→20:47)
--- NOTE | 2020-04-19 10:51 | Orthopedic Progress Note ---
Date of Service April 19, 2020 Assessment & Plan (1) Spinal stenosis of lumbar region with radiculopathy: Admission and Anticipated Discharge Date Admission Date: April 16, 2020 This time continue physical therapy monitor JUANCHO output anticipate discharge in the next day or so. Subjective Back pain controlled leg symptoms improved Physical Exam Physical Exam: Patient has good strength testing appears comfortable Results & Data ([facility]) Vital Signs (Past 12 Hours) Vital Signs Temp Pulse Resp BP Pulse Ox 04/19/20 06:43 36.8 C 78 16 170/77 H 91 04/19/20 04:59 76 145/73 H 04/18/20 23:38 36.9 C 77 18 145/72 H 91
[2020-04-19] MEDS: DOCUSATE SODIUM 100 MG CAP PO SCH ×2 (12:06→20:47)
--- NOTE | 2020-04-19 15:02 | Billing Data ---
Date of Service April 19, 2020 Coding Level of Care Code 96747 Subseq Hosp Care Lvl 2
[2020-04-19] MEDS: SERTRALINE HCL 50 MG TABLET PO SCH (20:47)
[2020-04-19] MEDS: ASPIRIN 81 MG ECTAB PO SCH (20:48)
[2020-04-19] MEDS: SENNA 8.6 MG TAB PO SCH (20:49)
[2020-04-19] MEDS: DOCUSATE SODIUM/SENNA 50/8.6MG TAB PO SCH (20:49)
[2020-04-19] MEDS: LEVOTHYROXINE SODIUM 175 MCG TABLET PO SCH (20:49)
[2020-04-20] MEDS: POLYETHYLENE (MIRALAX) 17 GM PACK PO SCH ×3 (00:22→13:38)
[2020-04-20] MEDS: oxyCODONE HCL IR 5 MG TAB (IMMEDIATE RELEASE) PO PRN ×4 (02:47→17:41)
[2020-04-20] MEDS: ACETAMINOPHEN 500 MG TAB PO PRN (06:01)
[2020-04-20] MEDS: HYDROmorphone INJ 1 MG/ML SYRINGE IV PRN (07:19)
[2020-04-20 07:31] LABS: Hematocrit (blood only) 34.7 % (37-47); Hemoglobin 11.5 g/dL (12.0-16.0); Mean Corpuscular Hemoglobin 29.4 pg (25-34); Mean Corpuscular Hgb Conc 33.1 g/dL (32-36); Mean Corpuscular Volume 88.7 fL (80-100); Mean Platelet Volume 9.3 fL (7.4-10.4); Platelet Count 176 K/uL (130-400); RDW Coefficient of Variation 13.6 % (11.5-14.5); RDW Standard Deviation 44.1 fL (36.4-46.3); Red Blood Count 3.91 M/uL (4.2-5.4); White Blood Count 6.79 K/uL (4.8-10.8)
[2020-04-20 07:50] LABS: BUN Creatinine Ratio 19.3 (10-20); Calcium 8.8 mg/dl (8.5-10.1); Creatinine Clr Calc Pharmacy 98.3 ml/min; Est GFR (African American) 100.9
[2020-04-20] MEDS: LOSARTAN POTASSIUM 50 MG TAB PO SCH (09:35)
[2020-04-20] MEDS: DEXAMETHASONE SOD PHOSPHATE 8 MG in SYRINGE 0 ML IV SCH (09:36)
[2020-04-20] MEDS: LIDOCAINE 5% 1 PATCH TD SCH (09:36)
[2020-04-20] MEDS: GABAPENTIN 300 MG CAP PO SCH ×4 (09:38→13:40)
[2020-04-20] MEDS: FAMOTIDINE 40 MG TABLET PO SCH (09:39)
[2020-04-20] MEDS: DOCUSATE SODIUM 100 MG CAP PO SCH (09:48)
[2020-04-20] MEDS: ACETAMINOPHEN 500 MG TAB PO SCH ×2 (09:48→13:43)
--- NOTE | 2020-04-20 10:38 | Discharge Summary ---
Date of Service April 20, 2020 Admission HPI Per Admitting Provider 65-year-old female discharged from our facility on 04 April when she was diagnosed with significant lumbar spinal stenosis status post L4-5 fusion 10 years ago MRI of the lumbar spine on admission showing a large central disc herniation at the L5-S1 with several central canal narrowing levels. Severe narrowing also visualized at the L3-4 and posterior to the L4 body, advanced facet degenerative changes within the lumbar spine and previously mentioned pedicle screws and rods. Her last hospital stay there was difficulty with prior authorization for surgical intervention and the patient was discharged with attempted pain control with gabapentin Decadron and oxycodone. This proved to be suboptimal and the patient was unable to perform activities of daily living presents with her family physician referred to the ER and once again is admitted for pain control for lumbar radiculopathy. Principal Diagnosis Lumbar spinal stenosis with neurogenic claudication Discharge Data Allergies Allergy/AdvReac Type Severity Reaction Status Date / Time No Known Allergies Allergy Unverified 04/16/20 16:46 Consultations 04/16/20 15:28 ED Decision to Admit Stat 04/16/20 17:12 Consult Orthopedic Surgery Routine 04/17/20 18:11 Consult Case Management - Discharge Planning Routine Procedures Performed Operation Date: 04/17/20 07:00 Actual Procedures p L2-L4 and L5-S1 Decompression and Fusion; Fusion of L4-L5; Application of Infuse and Osteoamp; Interbody cage at L5-S1(Not Applicable) - Jairon Brice DO s Removal of Hardware L4-L5(Not Applicable) - Jairon Brice DO Ordered Studies 04/17/20 12:30 FL fluoroscopy <1hr Routine FL lumbar spine 2-3V Routine Hospital Course (1) Spinal stenosis of lumbar region with radiculopathy: Patient underwent lumbar decompression fusion tolerated this well was taken to orthopedic floor postoperatively postop day 1 she was up and ambulating leg symptoms markedly improved. She progressed to postop day #2 and 3. We did discharge her home with the drain in place. Discharge orders instructions from the chart for further review. Total Time Total Time Spent Total Time Spent (In Minutes): 20 minutes Discharge Plan Discharge Items Patient Disposition: Home - Self-Care Reason For Visit: INTRACTABLE BACK PAIN Discharge Diagnosis: Lumbar disc herniation with radiculopathy Activity: As commented below Non-emergency contact: Primary Care Provider Call non-emergency contact if: you have any medication questions Follow-up/Referrals: Ricardo Howard MD [Primary Care Provider] - Diet: Regular Addtl Attending Provider Instructions: ACTIVITY RECOMMENDATIONS: SELF CARE INSTRUCTIONS AFTER THORACIC/LUMBAR FUSIONS 1. You may walk to your tolerance. It is good exercise for your legs and back. Expect some back and intermittent leg aches and pains. 2. You may perform "counter-top" level activities (make a sandwich, laura with a project, etc.). 3. No bending or lifting of more than 10 pounds or back twisting of any nature (roll like a log when turning in bed). 4. You may ride in a car for 20-30 minutes at a time. No driving until after your first visit with your doctor. 5. Frequent changes of position and restricting sitting to 30 minutes at a time will help limit the amount of back spasms and stiffness you may experience. 6. You may discontinue the use of ambulatory aids (cane, crutches, etc.) once your strength and confidence allow. 7. You may joint special operations the shower and let water strike your incision when you arrive home at least once daily. Do not take a tub bath, sit in a hot tub or go into a swimming pool until after your first recheck in the office. SPECIAL CARE INSTRUCTIONS: VERY IMPORTANT TO READ AND REVIEW A. Your surgical incision has been closed with a cosmetic suture under the skin that will dissolve in about 6 weeks. In 14 days, you can use a pair of clean scissors and cut the suture that is left outside of the skin at the ends of your incision. 1. The small skin tapes can be removed 7 days after surgery if they have not fallen off by that point. 2. You may keep the wound open to air as much as possible to promote healing after post-op day number 5 unless told otherwise by your doctor. 3. If you think the wound looks like it is becoming infected (redness or worsening drainage) and/or you are experiencing fever, chill or worsening back pain and muscle spasms, contact the office so that we may evaluate you as soon as possible. B. Complications are uncommon, but please contact us if you have any signs or symptoms of: 1. wound infection (fever higher than 102.5 degrees F, redness, separation of wound, drainage, or increasing pain from the incision) 2. blood clots in legs (pain, swelling, redness and warmth in legs) 3. urinary tract infection (fever higher than 102.5 degrees F, burning upon urination or increased frequency of urination) 4. nerve problems (inability to walk on your toes or heels, numbness, loss of bowel or bladder control) 5. any other symptoms that concern you C. Please call the office at if you have any concerns or questions about your operation or recovery. D. No smoking! Smoking drastically decreases the chance of a solid fusion. E. Do not take any anti-inflammatory medications (Indocin, Advil, Motrin, Aspirin, Naprosyn, etc.) as these may inhibit the chance of a solid fusion. Tylenol is okay to take for pain. MANAGING PAIN AFTER SPINAL SURGERY 1. Narcotic medication is intended for short-term use and will be provided for surgical pain. Surgical pain usually lasts for a period of 4-6 weeks. Narcotic medication includes Percocet, Vicodin, Darvocet, Tylenol #3 or Lortab. 2. Longer-term pain is more appropriately treated with non-narcotic medication such as Tylenol ES. 3. Muscle spasm is not appropriately treated with narcotics. Muscle relaxers such as Soma, Flexeril or Skelaxin can be used along with Tylenol ES. 4. Remember that we all live with some "aches and pains". This is not unusual or uncommon after an injury or as we get older. a. Back pain is expected and may include muscle spasms for 4 to 6 weeks after surgery. The pain should gradually improve. If the pain worsens for no apparent reason, please contact the office. b. Intermittent leg pain may also be experienced and should not be concerned about unless it worsens for no apparent reason. If so, please contact the office. 5. We will provide appropriate medication within the normal guidelines of their prescribed use. We will also be very cautious and aware of potential abuse and extended duration of patients' medication needs. a. Pain medications are for your comfort and to assist with sleep and rest so that the tissue can heal. They are not provided in order to return to normal activity and should not be used through the day. To do so or worsening pain at night can result from ongoing tissue damage and development of tolerance to the prescribed medicine. 6. Please allow 2-3 days to process refills. Prescriptions will not be mailed but must be picked up at the office. FOLLOW UP VISIT: Keep your scheduled follow-up appointment. Any questions, please call the office at . Pending Studies at Discharge: No Stand-Alone Forms: [facility], Smoking Cessation Medications and DC Order Prescriptions: New oxycodone 5 mg tablet 5 mg PO Q6H PRN (Reason: pain, severe) Qty: 30 RF: 0 tramadol 50 mg tablet 50 mg PO Q6H PRN (Reason: pain, moderate) Qty: 30 RF: 0 Continued levothyroxine [Synthroid] 175 mcg tablet 175 mcg PO PM RF: 0 aspirin 81 mg Tablet,Delayed Release (Dr/Ec) 81 mg PO PM RF: 0 ibuprofen [Motrin IB] 200 mg Tablet 800 mg PO Q6H PRN (Reason: Pain) RF: 0 bumetanide 1 mg tablet 1 mg PO DIRECTED PRN (Reason: swelling) RF: 0 sertraline 50 mg tablet 50 mg PO PM RF: 0 sennosides [Senokot] 8.6 mg tablet 8.6 mg PO HS Qty: 30 RF: 0 docusate sodium [Colace] 100 mg capsule 100 mg PO BID Qty: 60 RF: 0 lidocaine [Lidoderm] 5 % adhesive patch,medicated 1 patch topical DAILY Qty: 15 RF: 0 losartan 50 mg Tablet 100 mg PO QAM 30 Days Qty: 60 RF: 0 oxycodone 5 mg Tablet 10 mg PO Q6H PRN (Reason: pain) Qty: 20 RF: 0 gabapentin 300 mg capsule 600 mg PO TID RF: 0 cetirizine [Zyrtec] 10 mg Tablet 10 mg PO DAILY PRN (Reason: allergies) RF: 0 Discharge Orders: Discharge Order (Routine); Ordered 04/20/20 Ordered By: Jairon Brice Admission Data Admit Date/Time: 04/16/20 15:38 Attending Provider: Cheng Burton Admit Provider: Salvador Agrawal Primary Care Provider: Ricardo Howard Other Providers: Salvador Agrawal ; Jairon Brice
--- NOTE | 2020-04-20 14:22 | Hospitalist Progress Note ---
Date of Service April 20, 2020 Assessment & Plan (1) Spinal stenosis of lumbar region with radiculopathy: Madelaine is a 65-year-old female with a notable past medical history of hypertension, hyperlipidemia, and spinal stenosis of the lumbar region with radiculopathy who is now postop from lumbar decompression and posterior spinal fusion. She is doing well and hemodynamically stable. Spinal Stenosis of Lumbar Region with Radiculopathy - Clinically, patient presented with several week h/o severe back pain and radicular symptoms extending down her lower extremities that was refractory to analgesia therapy - Now s/p lumbar decompression and fusion on 04/[address] Brice, who continues to actively follow - Pain has significantly improved from prior both in the back and in the legs -- continues to demonstrate great recovery with stable ambulation, independence, and significant decrease in pain - Continue pain control regimen: gabapentin, Decadron, lidocaine patches ; PRN: Dilaudid, Oxycodone -- working and tolerating well - PT/OT following -- continue into the outpatient while recovering as indicated - Orthopedics following -- will require regular follow-ups in outpatient setting HTN - BPs continue to fluctuate between 120/60s >> 140-170s/70s - All part of these pressures may represent pain in the immediate postoperative period, do suspect that patient would be above-goal even outside of this period - Losartan 100mg PO qAM - Upon discharge, patient has been instructed to use her blood pressure cuff at home once daily in the morning and to record them to bring to her PCP - We will hold off on adding new medications at this time/at d/c. However should strongly be considered in outpatient settingpatient does report using Bumex in the past for occasional LE edema, HCTZ may be a good choice Hypothyroidism - Continue home levothyroxine Dispo: Discharge home today per Ortho; will require PCP management for BP, pain regimen. [facility] Clinic Phone # and address provided. Diet: Regular PPX: SCDs Code: Full code (2) Hypertension: (3) Hypothyroid: Admission and Anticipated Discharge Date Admission Date: April 16, 2020 Supervising Physician Co-Signing Physician Notes Attending Attestation: Pt seen/examined, chart reviewed, care plan d/w PGY1 Dr Bernardo Snow. I agree w/ the mendoza components of his documentation. Of note - d/c summary was completed by Dr Royce Brice from orthopedics. Pt to d/c home today as approved by Dr Brice. She is POD #3 s/p --- #1 removal of posterior instrumentation L4-5. #2 exploration of fusion L4-5 per #3 lumbar decompression with bilateral medial facetectomies and foraminotomies L5-S1 peer #4 posterior spinal fusion L2-3, L3-4 and L5-S1. #5 placement posterior segmental instrumentation L2-S1. #6 interbody fusion L5-S1. Patient's pre-op radicular pain is resolved. She only reports lower lumbar surgical pain. No dyspnea. No chest pain. No abd pain. Eating well. +flatus. ambulating. VSS, no fever gen - NAD, very pleasant heart - RRR, s1 s2 lungs - CTA b/l abd - soft NT BS+ ext - no edema neuro - strength 5/5 x b/l LEs skin - lumbar incision without drainage or bleeding A/P: 1. lumbar spinal stenosis with radiculopathy - POD#3 s/p decompression/fusion by Dr Brice 2. uncontrolled HTN - uncertain if elevated BPs are due to pain, anxiety, etc vs poorly controlled HTN. Cont losartan. Keep BP log at home. f/u PCP and if BPs still high then add additional meds. 3. acute blood loss anemia - 2nd to #1 - about 2 gm drop. No Rx. 4. hypothyroidism ok for d/c home from medical standpoint f/u Dr Brice in ortho clinic per his instructions f/u PCP within 1 week for BPs, etc. Cheng Burton MD Subjective No acute events overnight. At the bedside this morning, patient does report that she had some mild pain in her left upper thigh this morning, which subsequently resolved with Dilaudid. She said that this pain is localized to her hip area and did not extend down her leg. No redness or swelling. Otherwise says she has been able to ambulate to the bathroom around the floor without any difficulties. She is looking forward to leaving the hospital. She denies any urinary bowel incontinence. She denies any weakness in either leg, other than the expected postoperative changes. Denies any sensory disturbances. Further denies chest pain, palpitations, shortness of breath, nausea, vomiting endorses good appetite Review of Systems Review of Systems: As per HPI Physical Exam Constitutional: Well-appearing 65-year-old female who is lying back in her hospital bed, watching TV upon my arrival. Upon her interaction, she is freely engaged in a conversation, makes good eye contact, and is completely alert and oriented. No acute distress. Respiratory: Good respiratory effort with symmetric expansion of the chest. Lungs are clear to auscultation bilaterally without crackles or wheezes. Cardiovascular: Normal rate and regular rhythm. S1 And S2 are present without murmurs rubs or gallops. Gastrointestinal (Abdomen): Abdomen is soft, nontender, nondistended to palpation.Normoactive bowel sounds. Musculoskeletal: Dressings are clean, dry, and intact on the lower back. Drain is in place. Hip flexion is 4 out of 5 bilaterally.Sensation to light touch down both extremities is grossly intact. No clonus. Results & Data Results & Data ([facility]) Vital Signs (Past 12 Hours) Vital Signs Temp Pulse Pulse Resp BP Pulse Ox 04/20/20 11:53 36.6 C 71 82 16 178/76 H 95 04/20/20 08:19 36.6 C 71 16 178/76 H 95 Resident Activity Tracking Resident Involvement: Resident Care Provided Care Provided: Adult Hospital Medicine
--- NOTE | 2020-04-20 20:51 | Billing Data ---
Date of Service April 20, 2020 Coding Level of Care Code 16745 Subseq Hosp Care Lvl 2
== END 2020-04-20 18:35 | disposition home or self-care (01) | DRG 454 ==
LOC: ED 13:13 → SUATTDRO 15:38 → 3N 15:38

== ENCOUNTER 2020-08-01 15:45 | Inpatient (IN) ==
--- NOTE | 2020-08-01 17:02 | Emergency Department Note ---
Impression & Plan Elevated troponin, Back pain, ASECNCION (acute kidney injury), Thrombocytopenia ED Provider Note NAME: WILTON GARCIA AGE: 65 SEX: F : 1955 ARRIVES VIA: Walk-In INFORMANT: patient, ED PROVIDER(S): Joe Karimi MD Chief Complaint: Headache HPI: Patient does present with concern for headache and body aches. Patient states that this is been ongoing for the last several days. The patient describes the headache as frontal and global sharp and achy in nature. The patient does have some hip type discomfort in the lower back but not at the midline. The patient states it does cause some shooting pains down the leg more prominent on the right side. The patient denies any recent heavy lifting twisting or turning. The patient denies any recent falls or trauma. Patient denies any LOC. Patient did try [id number] medications at home but without improvement in her symptoms. The patient denies any nausea vomiting chest pains or shortness of breath. Patient denies any alcohol or tobacco use. Patient denies any known sick contacts or recent travel. No prior history of DVT or PE or lower extremity swelling. Patient has been vaccinated for Covid. ROS: See HPI for pertinent positives and negatives. A total of 10 systems were reviewed and otherwise negative. Past medical history: See below Surgical history: See below Social history: See below Physical Exam: GENERAL: Wearing glasses and a mask. NAD, non-toxic. EYE EXAM: Normal conjunctiva. PERRL, no anisocoria and EOM's grossly intact w/o pain. NECK: Supple, no nuchal rigidity, no adenopathy, non-tender. No signs of meningismus. LUNGS: Clear to auscultation. Normal chest wall mechanics. HEART: NSR, no MRG. ABDOMEN: Abdomen soft, non-tender, normo-active bowel sounds, no masses, no rebound or guarding. BACK: No CVA TTP. SKIN: No rashes and no bruising. UPPER EXTREMITIES: Upper extremities are grossly normal. LOWER EXTREMITIES: Grossly normal, no edema. Negative Homans' sign bilaterally. NEURO EXAM: A&O x3, cranial nerves II-XII grossly intact, normal speech, moves all 4 extremities on command w/o issue. Differential diagnoses: Infection, dehydration, metabolic abnormality, hypo/hyperglycemia, electrolyte disturbance, anemia, hypoxia, cardiac sources, intracerebral event, toxicologic, neurologic, as well as other pathologies. Course: Patient was seen and evaluated the bedside. Full history physical exam was performed. EKG: Indication: Weakness Normal sinus rhythm, rate of 91, normal intervals, normal axis, Q-wave in lead III, T WI anteriorly. Imaging Studies: See below Cardiac monitoring: An order was placed for continuous cardiac monitoring. The monitor shows a rate of 82 with sinus rhythm. MDM: Patient did present with concern for headache and viral type illness. The patient denies any recent travel and has been vaccinated for Covid. Blood work is obtained along with an EKG. Patient reportedly was hypoxic so Covid was also ordered. The patient denies any chest pains or shortness of breath. Patient has a normal white count mild anemia with hemoglobin 11.9. Platelet count slightly low at 116. Patient does not complain of any spontaneous bleeding or easy bruising. The patient does have ASCENCION baseline creatinine 0.7 today 1.3. Patient's troponin is 0.1. EKG does show T WI anteriorly. Patient denies any chest pains or shortness of breath but the patient did have oxygen saturation to 88-89% per nursing. Patient does have mild ASCENCION. Covid flu and RSV negative. Given the patient's positive troponin and back pain I did order CT PE study and angiography of the abdomen and pelvis. Patient CT angiography negative for PE. No obvious sign of pneumonia. The patient CT angiography of the abdomen pelvis. No evidence of bowel obstruction appendicitis or diverticulitis. The patient has no evidence of AAA or dissection. I did speak with the on-call hospitalist Dr. Gambino and the patient was admitted to the medicine service. Past Med/Surg History Medical History Extrusion of intervertebral disc Hyperlipidemia Hypertension Hypothyroid Impaired glucose tolerance Lumbar radiculopathy Obesity Social History Smoking Status: Never smoker Second Hand Exposure: No; Hx Alcohol Use: Yes Alcohol type: wine Hx Substance Use: No Preferred Language: Indonesian Communication Ability: Effective Recovery Specialist Required: No Beliefs That Will Affect Care: None marital status: Current Living Situation: Spouse Feels Safe at Home: Yes Assistive Devices: Walker Allergies Allergies Allergy/AdvReac Type Severity Reaction Status Date / Time No Known Allergies Allergy Unverified 08/01/20 22:26 Home Meds Home Medications Medication Instructions Recorded Confirmed aspirin 81 mg PO PM 03/29/20 08/01/20 bumetanide 1 mg PO DIRECTED PRN 03/29/20 08/01/20 ibuprofen [Motrin IB] 800 mg PO Q6H PRN 03/29/20 08/01/20 levothyroxine [Synthroid] 175 mcg PO PM 03/29/20 08/01/20 sertraline 50 mg PO PM 03/29/20 08/01/20 cetirizine [Zyrtec] 10 mg PO DAILY PRN 04/16/20 08/01/20 gabapentin 600 mg PO TID 04/16/20 08/01/20 Results & Data (ED) Vital Signs Vital Signs - 24 hr 08/01/20 16:20 08/01/20 17:04 08/01/20 17:16 Temperature 37.5 C Temperature Source Temporal Artery Scan Pulse Rate 117 H 104 H 105 H Pulse Rate from SpO2 Sensor 103 H 105 H Respiratory Rate 20 29 H 24 Respiratory Effort / Characteristics Non-Labored Spontaneous Respiratory Depth Normal Blood Pressure 100/52 L 111/64 Blood Pressure Mean 68 79 Pulse Oximetry 92 92 93 Oxygen Delivery Method Room Air Sepsis Recent Fever Within 48 Hours No Sepsis New/Unexplained Change in Mental Status Yes Sepsis Action Taken by Nursing Physician Notified 08/01/20 17:20 08/01/20 17:30 08/01/20 17:31 Temperature Temperature Source Pulse Rate 101 H 110 H 104 H Pulse Rate from SpO2 Sensor 102 H 110 H 105 H Respiratory Rate 24 21 19 Respiratory Effort / Characteristics Respiratory Depth Blood Pressure 106/41 L Blood Pressure Mean 62 Pulse Oximetry 91 95 94 Oxygen Delivery Method Sepsis Recent Fever Within 48 Hours Sepsis New/Unexplained Change in Mental Status Sepsis Action Taken by Nursing 08/01/20 17:40 08/01/20 17:50 08/01/20 18:00 Temperature Temperature Source Pulse Rate 102 H 99 H 99 H Pulse Rate from SpO2 Sensor 102 H 100 H 100 H Respiratory Rate 17 20 26 H Respiratory Effort / Characteristics Respiratory Depth Blood Pressure 97/57 L Blood Pressure Mean 70 Pulse Oximetry 95 95 95 Oxygen Delivery Method Sepsis Recent Fever Within 48 Hours Sepsis New/Unexplained Change in Mental Status Sepsis Action Taken by Nursing 08/01/20 18:10 08/01/20 18:20 08/01/20 18:30 Temperature Temperature Source Pulse Rate 96 H 98 H 92 H Pulse Rate from SpO2 Sensor 101 H 93 H Respiratory Rate 21 18 18 Respiratory Effort / Characteristics Respiratory Depth Blood Pressure 109/57 L Blood Pressure Mean 74 Pulse Oximetry 94 95 Oxygen Delivery Method Sepsis Recent Fever Within 48 Hours Sepsis New/Unexplained Change in Mental Status Sepsis Action Taken by Nursing 08/01/20 18:31 08/01/20 18:40 08/01/20 18:50 Temperature Temperature Source Pulse Rate 94 H 92 H 94 H Pulse Rate from SpO2 Sensor 94 H 92 H 91 H Respiratory Rate 23 20 14 Respiratory Effort / Characteristics Respiratory Depth Blood Pressure Blood Pressure Mean Pulse Oximetry 94 95 97 Oxygen Delivery Method Sepsis Recent Fever Within 48 Hours Sepsis New/Unexplained Change in Mental Status Sepsis Action Taken by Nursing 08/01/20 19:00 08/01/20 19:01 08/01/20 19:10 Temperature Temperature Source Pulse Rate 94 H 92 H 90 Pulse Rate from SpO2 Sensor 94 H 93 H 91 H Respiratory Rate 21 17 24 Respiratory Effort / Characteristics Respiratory Depth Blood Pressure 111/59 L Blood Pressure Mean 76 Pulse Oximetry 97 97 97 Oxygen Delivery Method Sepsis Recent Fever Within 48 Hours Sepsis New/Unexplained Change in Mental Status Sepsis Action Taken by Nursing 08/01/20 19:20 08/01/20 19:24 08/01/20 19:30 Temperature Temperature Source Pulse Rate 86 90 88 Pulse Rate from SpO2 Sensor 87 91 H 88 Respiratory Rate 18 22 20 Respiratory Effort / Characteristics Respiratory Depth Blood Pressure 111/59 L 107/61 Blood Pressure Mean 76 76 Pulse Oximetry 95 95 96 Oxygen Delivery Method Sepsis Recent Fever Within 48 Hours Sepsis New/Unexplained Change in Mental Status Sepsis Action Taken by Nursing 08/01/20 19:31 08/01/20 19:40 08/01/20 20:09 Temperature Temperature Source Pulse Rate 91 H 94 H 85 Pulse Rate from SpO2 Sensor 91 H 93 H Respiratory Rate 23 21 21 Respiratory Effort / Characteristics Respiratory Depth Blood Pressure Blood Pressure Mean Pulse Oximetry 95 95 Oxygen Delivery Method Sepsis Recent Fever Within 48 Hours Sepsis New/Unexplained Change in Mental Status Sepsis Action Taken by Nursing 08/01/20 20:10 08/01/20 20:20 08/01/20 20:30 Temperature Temperature Source Pulse Rate 82 85 81 Pulse Rate from SpO2 Sensor 82 85 81 Respiratory Rate 14 20 21 Respiratory Effort / Characteristics Respiratory Depth Blood Pressure 99/50 L Blood Pressure Mean 66 Pulse Oximetry 96 97 95 Oxygen Delivery Method Sepsis Recent Fever Within 48 Hours Sepsis New/Unexplained Change in Mental Status Sepsis Action Taken by Nursing 08/01/20 20:31 08/01/20 21:00 08/01/20 21:07 Temperature Temperature Source Pulse Rate 84 83 80 Pulse Rate from SpO2 Sensor 84 82 80 Respiratory Rate 23 19 19 Respiratory Effort / Characteristics Respiratory Depth Blood Pressure 100/52 L Blood Pressure Mean 68 Pulse Oximetry 94 95 96 Oxygen Delivery Method Sepsis Recent Fever Within 48 Hours Sepsis New/Unexplained Change in Mental Status Sepsis Action Taken by Nursing 08/01/20 21:22 08/01/20 21:30 08/01/20 21:31 Temperature Temperature Source Pulse Rate 82 76 75 Pulse Rate from SpO2 Sensor 82 76 76 Respiratory Rate 15 18 25 H Respiratory Effort / Characteristics Respiratory Depth Blood Pressure 114/60 102/52 L Blood Pressure Mean 78 68 Pulse Oximetry 99 97 97 Oxygen Delivery Method Sepsis Recent Fever Within 48 Hours Sepsis New/Unexplained Change in Mental Status Sepsis Action Taken by Nursing 08/01/20 22:00 08/01/20 22:01 Temperature Temperature Source Pulse Rate 79 82 Pulse Rate from SpO2 Sensor 79 81 Respiratory Rate 19 20 Respiratory Effort / Characteristics Respiratory Depth Blood Pressure 98/51 L Blood Pressure Mean 66 Pulse Oximetry 97 96 Oxygen Delivery Method Sepsis Recent Fever Within 48 Hours Sepsis New/Unexplained Change in Mental Status Sepsis Action Taken by Alf Medications Current Medication List: was personally reviewed by me Laboratory Data Attestation: I reviewed the patient's lab results. Result diagrams: 08/01/20 18:10 08/01/20 18:10 Lab Results 08/01/20 08/01/20 08/01/20 Range/Units 18:10 18:10 Unknown WBC 7.52 (4.8-10.8) K/uL RBC 4.21 (4.2-5.4) M/uL Hgb 11.9 L (12.0-16.0) g/dL Hct 36.0 L (37-47) % MCV 85.5 (80-100) fL MCH 28.3 (25-34) pg MCHC 33.1 (32-36) g/dL RDW Std Deviation 44.6 (36.4-46.3) fL RDW Coeff of Kye 14.4 (11.5-14.5) % Plt Count 116 L (130-400) K/uL MPV 9.4 (7.4-10.4) fL Immature Gran % (Auto) 2.1 % Neut % (Auto) 85.3 % Lymph % (Auto) 3.6 % Christian % (Auto) 8.9 % Eos % (Auto) 0.0 % Baso % (Auto) 0.1 % Neut # (Auto) 6.41 (1.4-6.5) K/uL Lymph # (Auto) 0.27 L (1.2-3.4) K/uL Christian # (Auto) 0.67 H (0.11-0.59) K/uL Eos # (Auto) 0.00 (0-0.5) K/uL Baso # (Auto) 0.01 (0-0.2) K/uL Immature Gran # (Auto) 0.16 H (0.00-0.02) K/uL Sodium 131 L (136-145) mmol/L Potassium 3.7 (3.5-5.1) mmol/L Chloride 98 (98-107) mmol/L Carbon Dioxide 25 (21-32) mmol/L Anion Gap 8.0 (3-11) BUN 31 H (7-18) mg/dl Creatinine 1.31 H (0.6-1.2) mg/dl Est Cr Clr Drug Dosing 54.2 ml/min Est GFR ( Amer) 49.7 Est GFR (Non-Af Amer) 42.9 BUN/Creatinine Ratio 24.0 H (10-20) Glucose 119 H (70-99) mg/dl Calcium 8.9 (8.5-10.1) mg/dl Total Bilirubin 0.9 (0.2-1) mg/dl AST 20 (15-37) U/L ALT 31 (12-78) U/L Alkaline Phosphatase 104 (45-117) U/L Troponin I 0.133 H* (0-0.045) ng/ml Total Protein 6.5 (6.4-8.2) gm/dl Albumin 2.9 L (3.4-5.0) gm/dl Globulin 3.6 (2.5-4.0) gm/dl Albumin/Globulin Ratio 0.8 L (0.9-2) TSH 1.080 (0.300-4.500) uIu/ml COVID-19 Eval Order CovFluRsv at [facility] SARS-CoV-2 (PCR) (Negative) Influenza Type A (PCR) (Neg) Influenza Type B (PCR) (Neg) RSV (RT-PCR) (Neg) 08/01/20 Range/Units Unknown WBC (4.8-10.8) K/uL RBC (4.2-5.4) M/uL Hgb (12.0-16.0) g/dL Hct (37-47) % MCV (80-100) fL MCH (25-34) pg MCHC (32-36) g/dL RDW Std Deviation (36.4-46.3) fL RDW Coeff of Kye (11.5-14.5) % Plt Count (130-400) K/uL MPV (7.4-10.4) fL Immature Gran % (Auto) % Neut % (Auto) % Lymph % (Auto) % Christian % (Auto) % Eos % (Auto) % Baso % (Auto) % Neut # (Auto) (1.4-6.5) K/uL Lymph # (Auto) (1.2-3.4) K/uL Christian # (Auto) (0.11-0.59) K/uL Eos # (Auto) (0-0.5) K/uL Baso # (Auto) (0-0.2) K/uL Immature Gran # (Auto) (0.00-0.02) K/uL Sodium (136-145) mmol/L Potassium (3.5-5.1) mmol/L Chloride (98-107) mmol/L Carbon Dioxide (21-32) mmol/L Anion Gap (3-11) BUN (7-18) mg/dl Creatinine (0.6-1.2) mg/dl Est Cr Clr Drug Dosing ml/min Est GFR ( Amer) Est GFR (Non-Af Amer) BUN/Creatinine Ratio (10-20) Glucose (70-99) mg/dl Calcium (8.5-10.1) mg/dl Total Bilirubin (0.2-1) mg/dl AST (15-37) U/L ALT (12-78) U/L Alkaline Phosphatase (45-117) U/L Troponin I (0-0.045) ng/ml Total Protein (6.4-8.2) gm/dl Albumin (3.4-5.0) gm/dl Globulin (2.5-4.0) gm/dl Albumin/Globulin Ratio (0.9-2) TSH (0.300-4.500) uIu/ml COVID-19 Eval Order SARS-CoV-2 (PCR) NEGATIVE (Negative) Influenza Type A (PCR) Negative (Neg) Influenza Type B (PCR) Negative (Neg) RSV (RT-PCR) Negative (Neg) Administered Medications Discontinued Medications Acetaminophen (Acetaminophen 325 Mg Tab) 650 mg PO NOW STA Stop: 08/01/20 17:52 Last Admin: 08/01/20 18:26 Dose: 650 mg Documented by: [id number] Diphenhydramine HCl (Diphenhydramine 50 Mg/Ml Vial) 25 mg IV NOW STA Stop: 08/01/20 17:52 Last Admin: 08/01/20 18:39 Dose: 25 mg Documented by: [id number] Sodium Chloride (Nss 1000ml) 1,000 mls @ 999 mls/hr IV .Q1H1M SHADI Stop: 08/01/20 19:00 Last Infusion: 08/01/20 19:40 Dose: 0 mls/hr Documented by: [id number] Admin: 08/01/20 18:39 Dose: 999 mls/hr Documented by: [id number] Magnesium Sulfate/Dextrose (Magnesium Sulfate / D5w) 1 gm in 100 mls @ 100 mls/hr IV NOW ONE Stop: 08/01/20 18:50 Last Infusion: 08/01/20 19:39 Dose: 0 mls/hr Documented by: [id number] Admin: 08/01/20 18:39 Dose: 100 mls/hr Documented by: [id number] Sodium Chloride (Nss 1000ml) 500 mls @ 999 mls/hr IV .Q31M ONE Stop: 08/01/20 20:09 Last Infusion: 08/01/20 22:15 Dose: 0 mls/hr Documented by: [id number] Admin: 08/01/20 19:30 Dose: 999 mls/hr Documented by: [id number] Ioversol (Optiray 320 125ml) 116 ml IV ONCE ONE Stop: 08/01/20 20:10 Last Admin: 08/01/20 20:09 Dose: 116 ml Documented by: [id number] Lidocaine (Lidocaine 5% 1 Patch) 1 patch TD NOW STA Stop: 08/01/20 21:57 Last Admin: 08/01/20 22:09 Dose: 1 patch Documented by: [id number] Ondansetron HCl (Ondansetron Inj 2 Mg/Ml 2 Ml Vial) 4 mg IV NOW STA Stop: 08/01/20 17:52 Last Admin: 08/01/20 18:39 Dose: 4 mg Documented by: [id number] Tramadol HCl (Tramadol Hcl 50 Mg Tablet) 50 mg PO NOW STA Stop: 08/01/20 21:57 Last Admin: 08/01/20 22:10 Dose: 50 mg Documented by: [id number] Imaging Data Radiologist's Impression: Chest X-Ray 08/01/20 17:51 XR chest 1V portable CLINICAL HISTORY: weakness COMPARISON STUDY: No previous studies for comparison. FINDINGS: The heart is the upper limits of normal in size. There is no overt failure. There is no focal pulmonary consolidation. There are no pleural effusions. There are minor left basilar atelectatic changes.[ IMPRESSION: No active disease in the chest. ACT 112: Negative or not required by law. Electronically signed by: Ludwig Mejia M.D. 08/01/2020 6:25 PM Chest CTA 08/01/20 18:52 CT ANGIOGRAM OF THE CHEST CLINICAL HISTORY: Shortness of breath. Body aches. Possible acute pulmonary embolism. COMPARISON STUDY: Chest x-ray dated 08/01/2020 TECHNIQUE: Following the IV administration of 116 mL of Optiray-320, CT angiogram of the thorax was performed from the thoracic inlet to the lung bases utilizing the pulmonary embolus protocol. Images are reviewed in the axial, sagittal, and coronal planes. IV contrast was administered without complication. MIP imaging was performed. A dose lowering technique was utilized adhering to the principles of ALARA. CT DOSE: FINDINGS: No pathologically enlarged axillary mediastinal or hilar lymph nodes were visualized. There was no evidence of thoracic aortic dilatation. There were no pulmonary artery filling defects to indicate acute pulmonary embolism. No pleural effusions are visualized. There are lower lobe dependent airspace opacities consistent with atelectasis. There is mild cardiomegaly. There is hepatic steatosis IMPRESSION: 1. No evidence of acute pulmonary embolism 2. Mild basilar atelectatic changes 3. Hepatic steatosis ACT 112: Negative or not required by law. Electronically signed by: Ludwig Mejia M.D. 08/01/2020 8:15 PM Abdomen/Pelvis CTA 08/01/20 19:39 CT angio abdomen pelvis w con CT DOSE: 1894.30 mGy.cm CLINICAL HISTORY: back pain thigh for aneurysm/dissection. TECHNIQUE: CT angiography the abdomen and pelvis was performed in a dynamic helical fashion during intravenous administration of 116 cc of Optiray 320. MIP images were acquired. A dose lowering technique was utilized adhering to the principles of ALARA. COMPARISON STUDY: None. FINDINGS: There are basilar atelectatic changes at the lung bases. There is hepatic steatosis. No focal hepatic masses are visualized. No gallbladder abnormalities are visualized. Spleen is minimally enlarged measuring 12.4 cm. No pancreatic masses are visualized and subcutaneous of a study. There is mild low-density left adrenal gland thickening. No solid renal masses are visualized subcutaneous of a study. There is lower pole left renal cortical scarring. There are no transition zones indicate bowel obstruction. There is no evidence of acute diverticulitis. There is no evidence of abdominal aortic aneurysm or dissection. There is no free air. There is no ascites. There are no pathologic pelvic masses. There is no pathologic adenopathy. 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 The superior left renal artery demonstrates an early bifurcation with a stenosis of the inferior branch origin. There is no evidence of celiac or superior mesenteric artery stenosis. The inferior mesent kadi artery is patent. Postsurgical changes are present within the lumbar spine. There is lucency surrounding the right S1 pedicle screws suspicious for loosening. There is a tiny fat-containing umbilical hernia. There is a 32 mm fatty density with a thin rim present within the anterior peritoneum. This likely represents a area of prior fat necrosis. IMPRESSION: 1. No evidence of bowel obstruction. No evidence of free air 2. No evidence of acute appendicitis. No evidence of acute diverticulitis 3. Hepatic steatosis. Mild splenomegaly 4. No evidence of abdominal aortic aneurysm or dissection 5. No evidence of celiac artery stenosis. No evidence of superior mesenteric artery stenosis. 6. 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 The superior left renal artery demonstrates an early bifurcation with stenosis of the inferior branch origin. ACT 112: Negative or not required by law. Electronically signed by: Ludwig Mejia M.D. 08/01/2020 8:29 PM Discharge Plan Visit Data Chief Complaint: Headache Stated Complaint: HEADACHE, CHILLS ED Provider: Joe Karimi Discharge Problem: Elevated troponin, Back pain, ASCENCION (acute kidney injury), Thrombocytopenia Forms Stand Alone Forms: [facility] Prescriptions Prescriptions: No Action levothyroxine [Synthroid] 175 mcg tablet 175 mcg PO PM RF: 0 aspirin 81 mg Tablet,Delayed Release (Dr/Ec) 81 mg PO PM RF: 0 ibuprofen [Motrin IB] 200 mg Tablet 800 mg PO Q6H PRN (Reason: Pain) RF: 0 bumetanide 1 mg tablet 1 mg PO DIRECTED PRN (Reason: swelling) RF: 0 sertraline 50 mg tablet 50 mg PO PM RF: 0 gabapentin 300 mg capsule 600 mg PO TID RF: 0 cetirizine [Zyrtec] 10 mg Tablet 10 mg PO DAILY PRN (Reason: allergies) RF: 0 Discharge Problem: Back pain Qualifiers: Back pain location: low back pain Chronicity: acute Back pain laterality: bilateral Sciatica presence: with sciatica Sciatica laterality: sciatica of r ight side Qualified Code(s): M54.41 - Lumbago with sciatica, right side
[2020-08-01] MEDS ORDERED: diphenhydrAMINE 50 MG/ML VIAL IV STA (17:51)
[2020-08-01] MEDS ORDERED: ACETAMINOPHEN 325 MG TAB PO STA (17:51)
[2020-08-01] MEDS ORDERED: MAGNESIUM SULFATE / D5W 1 GM/100 ML BAG IV ONE (17:51)
[2020-08-01] MEDS ORDERED: ONDANSETRON INJ 2 MG/ML 2 ML VIAL IV STA (17:51)
[2020-08-01] MEDS ORDERED: SODIUM CHLORIDE 0.9% 1000ML 1,000 ML IV SCH (18:00)
[2020-08-01 18:24] LABS: Basophils # (auto) 0.01 K/uL (0-0.2); Basophils % (auto) 0.1 %; Hemoglobin 11.9 g/dL (12.0-16.0); Immature Granulocytes # (auto) 0.16 K/uL (0.00-0.02); Immature Granulocytes % (auto) 2.1 %; Lymphocytes # (auto) 0.27 K/uL (1.2-3.4); Lymphocytes % (auto) 3.6 %; Mean Corpuscular Hemoglobin 28.3 pg (25-34); Mean Corpuscular Hgb Conc 33.1 g/dL (32-36); Mean Corpuscular Volume 85.5 fL (80-100); Mean Platelet Volume 9.4 fL (7.4-10.4); Monocytes # (auto) 0.67 K/uL (0.11-0.59); Monocytes % (auto) 8.9 %; Neutrophils # (auto) 6.41 K/uL (1.4-6.5); Neutrophils % (auto) 85.3 %; Platelet Count 116 K/uL (130-400); RDW Coefficient of Variation 14.4 % (11.5-14.5); RDW Standard Deviation 44.6 fL (36.4-46.3); Red Blood Count 4.21 M/uL (4.2-5.4); White Blood Count 7.52 K/uL (4.8-10.8)
--- NOTE | 2020-08-01 18:26 | XRay Report ---
XR chest 1V portable CLINICAL HISTORY: weakness COMPARISON STUDY: No previous studies for comparison. FINDINGS: The heart is the upper limits of normal in size. There is no overt failure. There is no foc al pulmonary consolidation. There are no pleural effusions. There are minor left basilar atelectatic changes.[ IMPRESSION: No active disease in the chest. ACT 112: Negative or not required by law. Electronically signed by: Ludwig Mejia M.D. 08/01/2020 6:25 PM
[2020-08-01 18:40] LABS: Albumin Level 2.9 gm/dl (3.4-5.0); Calcium 8.9 mg/dl (8.5-10.1); Creatinine Clr Calc Pharmacy 54.2 ml/min; Est GFR (African American) 49.7; Est GFR (Non-African American) 42.9; Potassium 3.7 mmol/L (3.5-5.1)
[2020-08-01 19:03] LABS: Albumin Globulin Ratio 0.8 (0.9-2); Bilirubin,Total 0.9 mg/dl (0.2-1); Globulin 3.6 gm/dl (2.5-4.0); Thyroid Stimulating Hormone 1.08 uIu/ml (0.300-4.500); Total Protein 6.5 gm/dl (6.4-8.2); Troponin I 0.133 ng/ml (0-0.045)
[2020-08-01] MEDS ORDERED: MoRPHine SULFATE 4 MG/ML 1 ML CARP\\VIAL IV STA (19:39)
[2020-08-01] MEDS ORDERED: SODIUM CHLORIDE 0.9% 1000ML 500 ML IV ONE (19:39)
[2020-08-01] MEDS ORDERED: OPTIRAY 320 125ml IV ONE (20:09)
--- NOTE | 2020-08-01 20:16 | CT Scan Report ---
CT ANGIOGRAM OF THE CHEST CLINICAL HISTORY: Shortness of breath. Body aches. Possible acute pulmonary embolism. COMPARISON STUDY: Chest x-ray dated 08/01/2020 TECHNIQUE: Following the IV administration of 116 mL of Optiray-320, CT angiogram of the thorax was p erformed from the thoracic inlet to the lung bases utilizing the pulmonary embolus protocol. Images a re reviewed in the axial, sagittal, and coronal planes. IV contrast was administered without complica tion. MIP imaging was performed. A dose lowering technique was utilized adhering to the principles o f ALARA. CT DOSE: FINDINGS: No pathologically enlarged axillary mediastinal or hilar lymph nodes were visualized. There was no evidence of thoracic aortic dilatation. There were no pulmonary artery filling defects to indicate acute pulmonary embolism. No pleural effusions are visualized. There are lower lobe dependent airspace opacities consistent with atelectasis. There is mild cardiomegaly. There is hepatic steatosis IMPRESSION: 1. No evidence of acute pulmonary embolism 2. Mild basilar atelectatic changes 3. Hepatic steatosis ACT 112: Negative or not required by law. Electronically signed by: Ludwig Mejia M.D. 08/01/2020 8:15 PM
--- NOTE | 2020-08-01 20:31 | CT Scan Report ---
CT angio abdomen pelvis w con CT DOSE: 1894.30 mGy.cm CLINICAL HISTORY: back pain thigh for aneurysm/dissection. TECHNIQUE: CT angiography the abdomen and pelvis was performed in a dynamic helical fashion during in travenous administration of 116 cc of Optiray 320. MIP images were acquired. A dose lowering techniq ue was utilized adhering to the principles of ALARA. COMPARISON STUDY: None. FINDINGS: There are basilar atelectatic changes at the lung bases. There is hepatic steatosis. No focal hepatic masses are visualized. No gallbladder abnormalities are visualized. Spleen is minimally enlarged measuring 12.4 cm. No pancreatic masses are visualized and subcutaneous of a study. There is mild low-density left adrenal gland thickening. No solid renal masses are visualized subcutaneous of a study. There is lower pole left renal cortical scarring. There are no transition zones indicate bowel obstruction. There is no evidence of acute diverticuliti s. There is no evidence of abdominal aortic aneurysm or dissection. There is no free air. There is no ascites. There are no pathologic pelvic masses. There is no pathologic adenopathy. 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 The superior left renal artery demonstrates an early bifurcation wit h a stenosis of the inferior branch origin. There is no evidence of celiac or superior mesenteric art mary stenosis. The inferior mesenteric artery is patent. Postsurgical changes are present within the lumbar spine. There is lucency surrounding the right S1 p edicle screws suspicious for loosening. There is a tiny fat-containing umbilical hernia. There is a 32 mm fatty density with a thin rim present within the anterior peritoneum. This likely re presents a area of prior fat necrosis. IMPRESSION: 1. No evidence of bowel obstruction. No evidence of free air 2. No evidence of acute appendicitis. No evidence of acute diverticulitis 3. Hepatic steatosis. Mild splenomegaly 4. No evidence of abdominal aortic aneurysm or dissection 5. No evidence of celiac artery stenosis. No evidence of superior mesenteric artery stenosis. 6. 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 The superior left renal artery demonstrates an early bifurcation with stenosis of the inferior branch origin. ACT 112: Negative or not required by law. Electronically signed by: Ludwig Mejia M.D. 08/01/2020 8:29 PM
[2020-08-01 20:44] LABS: Influenza A virus by PCR Negative (Neg); Influenza B virus by PCR Negative (Neg); RSV by PCR Negative (Neg); SARS CoV2 RNA(COVID-19) InHosp NEGATIVE (Negative)
[2020-08-01] MEDS ORDERED: LIDOCAINE 5% 1 PATCH TD STA (21:56)
[2020-08-01] MEDS ORDERED: traMADol HCL 50 MG TABLET PO STA (21:56)
[2020-08-01 23:16] LABS: Appearance Urine Clear (Clear); Bacteria Urine Automated Negative (Negative); Bilirubin Urine Negative (Negative); Blood Urine Negative (Negative); Color Urine Yellow; Epithelial Cell Urine Auto 20-30 /lpf (0-5); Glucose Urine UA Negative (Negative); Ketones Urine Negative (Negative); Leukocyte Esterase Urine Negative (Negative); Nitrite Urine Negative (Negative); Protein Urine Trace (Negative); RBC Urine Automated 0-4 /hpf (0-4); Specific Gravity Urine 1.031 (1.000-1.030); Urobilinogen Urine Negative (Negative)
[2020-08-01] MEDS ORDERED: ONDANSETRON INJ 2 MG/ML 2 ML VIAL IV PRN (23:19)
[2020-08-01] MEDS ORDERED: ACETAMINOPHEN 325 MG TAB PO PRN (23:19)
[2020-08-01] MEDS ORDERED: NITROGLYCERIN SL 0.4 MG/TAB TAB SL PRN (23:19)
--- NOTE | 2020-08-01 23:21 | History & Physical Report ---
Date of Service August 01, 2020 Assessment & Plan (1) Elevated troponin: Patient is a 65 year old female with PMHx Anxiety, Hypothyroidism, Spinal fusion L2-S1, that presents for worsening sciatica-like pain of her R hip, worsening fatigue, increased thirst, and headache, found to have a mildly elevated troponin and slight EKG changes concerning for NSTEMI. ?NSTEMI -No current symptoms of chest pain, though with desaturation, EKG changes, and elevated trop will admit for NSTEMI r/o -Concern in ED for possible PE due to patients desaturations, CTA Chest negative. -Troponin mildly elevated at 0.133 on admission, recheck 8 hours after at 0.044 -EKG with t-wave inversions of V1, V2 - will repeat EKG in AM or with any onset of chest pain -Patient already on ASA 81mg, will continue -Echo ordered for AM -Fasting Lipids, HgbA1C ordered for AM -Cardiology consulted ASCENCION -Creatinine mildly elevated 1.31 -With elevated trop, there was concern for renal vasculature pathology, though Ab/Pelv CTA negative -NSS+20meq KCl x100ml/hr x2L R hip pain/Sciatica -Due to severity of pain, will give Oxycodone 5-10mg PRN for pain -Will also give short burst of prednisone 40mg x5 days daily -Ice pack PRN Hypothyroidism -Continue home levothyroxine -TSH 1.080 Anxiety -Continue home Sertraline Hx LE Edema -Per patient takes Bumetanide PRN for LE edema -Will hold at this time -Echo in AM, no history of heart failure Dispo: Med/Surg Telemetry for cardiac monitoring FEN: NPO after midnight for fasting labs, NSS+20meq KCl 100ml/hr x2L DVT: Heparin TID Code: Full (2) ASCENCION (acute kidney injury): (3) Lumbar radiculopathy: History of Present Illness Chief Complaint: R hip pain Primary Care Provider: Ricardo Howard MD Patient is a 65 year old female with PMHx Anxiety, Hypothyroidism, Spinal fusion L2-S1, that presents for worsening sciatica-like pain of her R hip, worsening fatigue, increased thirst, and headache, found to have a mildly elevated troponin and slight EKG changes concerning for NSTEMI. Patient notes that her symptoms started roughly 5-6 days ago on weekend when she had noticed increasing and debilitating R hip pain similar to her prior sciatica. She notes that this is the first time she has really experienced it again since her spinal fusion in March 2020. She notes at this time she also had a headache that felt tension like in nature. Throughout the week she has noted a day where she had diarrhea x3, but has been taking loperimide since and has not had a BM in 3 days time. She also notes feeling very thirsty, has lack of appetite, chills followed by sweats, and worsening fatigue. She had called into her PCPs office today who had noted concerns of COVID-19 infection based on patients complaints alone and recommend they be tested. 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 In the ED patient was found to be COVID-19 negative, however, she was noted to have a slight elevation in her tropoinin of 0.133 and t-wave inversions of V1 and V2 on EKG, concerning for NSTEMI. She also had slight hypoxia to 88% on RA while in the ED. Throughout this process patient has denied any chest pain, chest pressure, SOB at rest. Currently, patient notes that her biggest concern is her R hip pain and sciatica like pain. Med Hx: Anxiety, Hypothyroidism Surg Hx: Spinal fusion L2-S1 Soc Hx: No tobacco or illicit drug use. Has roughly 10 glasses of wine weekly Fam Hx: Significant family history of AMATO no mothers side of family. Mother age 40, maternal uncle x2 in 40 and 50's, maternal Grandfather age unknown. Allergies Allergy/AdvReac Type Severity Reaction Status Date / Time No Known Allergies Allergy Unverified 08/01/20 22:26 Home Medications Medication Instructions Recorded Confirmed Type aspirin 81 mg PO PM 03/29/20 08/01/20 History bumetanide 1 mg PO DIRECTED PRN 03/29/20 08/01/20 History ibuprofen [Motrin IB] 800 mg PO Q6H PRN 03/29/20 08/01/20 History levothyroxine [Synthroid] 175 mcg PO PM 03/29/20 08/01/20 History sertraline 50 mg PO PM 03/29/20 08/01/20 History cetirizine [Zyrtec] 10 mg PO DAILY PRN 04/16/20 08/01/20 History gabapentin 600 mg PO TID 04/16/20 08/01/20 History Past Med/Surg History Medical History Extrusion of intervertebral disc Hyperlipidemia Hypertension Hypothyroid Impaired glucose tolerance Lumbar radiculopathy Obesity Social History Smoking Status: Never smoker Second Hand Exposure: No; Hx Alcohol Use: Yes Alcohol type: wine Hx Substance Use: No Preferred Language: Yoruba Communication Ability: Effective Legal Investigator Required: No Beliefs That Will Affect Care: None marital status: Current Living Situation: Spouse Feels Safe at Home: Yes Assistive Devices: Glasses Review of Systems Review of Systems: All systems reviewed & are unremarkable except as noted in Subjective Physical Exam Constitutional: well developed, well nourished and cooperative Eyes: PERRL, conjunctivae normal, anicteric sclerae ENMT: external ear and nose normal, oropharynx normal Neck: trachea midline, no thyromegaly Respiratory: normal respiratory effort, lungs clear to auscultation Cardiovascular: RRR, no murmur, no edema Gastrointestinal (Abdomen): normal bowel sounds, soft, nontender, no hepatosplenomegaly Musculoskeletal: Head/Neck/Chest: normocephalic and head atraumatic Well healed surgical scar on back from prior L2-S1 fusion Able to move all extremities with strength 5/5, though pain elicited with flexion of R hip Skin: no rashes, warm and dry Neurologic: PERRL, EOMI, accommodation nl, no face palsy, no dysarthria Psychiatric: A+Ox3, euthymic affect Results & Data Results & Data ([facility]) Vital Signs (Past 12 Hours) Vital Signs Temp Pulse Resp BP Pulse Ox 08/01/20 23:16 77 21 93/50 L 94 08/01/20 23:01 77 22 104/49 L 08/01/20 22:30 77 22 104/57 L 98 08/01/20 22:16 74 17 98/53 L 98 08/01/20 22:01 82 20 96 08/01/20 22:00 79 19 98/51 L 97 04/08/21 21:31 75 25 H 97 08/01/20 21:30 76 18 102/52 L 97 08/01/20 21:22 82 15 114/60 99 08/01/20 21:07 80 19 100/52 L 96 08/01/20 21:00 83 19 95 08/01/20 20:31 84 23 94 08/01/20 20:30 81 21 99/50 L 95 08/01/20 20:20 85 20 97 08/01/20 20:10 82 14 96 08/01/20 20:09 85 21 08/01/20 19:40 94 H 21 95 08/01/20 19:31 91 H 23 95 08/01/20 19:30 88 20 107/61 96 08/01/20 19:24 90 22 111/59 L 95 08/01/20 19:20 86 18 95 08/01/20 19:10 90 24 97 08/01/20 19:01 92 H 17 111/59 L 97 08/01/20 19:00 94 H 21 97 08/01/20 18:50 94 H 14 97 08/01/20 18:40 92 H 20 95 08/01/20 18:31 94 H 23 94 08/01/20 18:30 92 H 18 109/57 L 95 08/01/20 18:20 98 H 18 94 08/01/20 18:10 96 H 21 08/01/20 18:00 99 H 26 H 97/57 L 95 08/01/20 17:50 99 H 20 95 08/01/20 17:40 102 H 17 95 08/01/20 17:31 104 H 19 106/41 L 94 08/01/20 17:30 110 H 21 95 08/01/20 17:20 101 H 24 91 08/01/20 17:16 105 H 24 93 08/01/20 17:04 104 H 29 H 111/64 92 08/01/20 16:20 37.5 C 117 H 20 100/52 L 92 Code Status & VTE Plan VTE Prophylaxis Plan VTE Prophylaxis will be ordered: Yes Supervising Physician Co-Signing Physician Notes Patient seen and examined, chart reviewed, case discussed with Dr. Storey and I agree with his assessment and plan as above Worsening back pain. Found with minimally elevated troponin No chest pain, palpitations, dizziness or SOB Afebrile, HD stable, NAD Skin - intact, no rash HEENT - NC/AT, PERRL, EOMI Heart - +S1/S2, regular, no m/r/g Lungs - CTA Abd - +BS, soft, NT/ND Ext- No edema Labs and images reviewed Trop 0.133 on arrival now 0.044 Assessment/Plan -Continue ASA -Trend troponin -Check 2D echo -Remainder of plan as above Resident Activity Tracking Resident Involvement: Resident Care Provided Care Provided: Adult Hospital Medicine
[2020-08-02] MEDS: oxyCODONE HCL IR 5 MG TAB (IMMEDIATE RELEASE) PO PRN ×3 (00:03→22:20)
[2020-08-02] MEDS: predniSONE 20 MG TAB PO SCH ×2 (00:05→09:22)
[2020-08-02] MEDS ORDERED: LACTATED RINGER'S 500 ML IV STA (01:57)
[2020-08-02 03:20] LABS: Hematocrit (blood only) 35.2 % (37-47); Hemoglobin 11.6 g/dL (12.0-16.0); Immature Granulocytes # (auto) 0.05 K/uL (0.00-0.02); Lymphocytes # (auto) 0.21 K/uL (1.2-3.4); Lymphocytes % (auto) 4.1 %; Mean Corpuscular Hemoglobin 28.4 pg (25-34); Mean Corpuscular Volume 86.1 fL (80-100); Mean Platelet Volume 10.1 fL (7.4-10.4); Monocytes # (auto) 0.41 K/uL (0.11-0.59); Monocytes % (auto) 7.9 %; Platelet Count 111 K/uL (130-400); RDW Coefficient of Variation 14.5 % (11.5-14.5); RDW Standard Deviation 45.6 fL (36.4-46.3); Red Blood Count 4.09 M/uL (4.2-5.4); White Blood Count 5.17 K/uL (4.8-10.8)
[2020-08-02 03:36] LABS: BUN Creatinine Ratio 25.4 (10-20); Calcium 8.2 mg/dl (8.5-10.1); Creatinine Clr Calc Pharmacy 62.8 ml/min; Est GFR (African American) 59.5; Est GFR (Non-African American) 51.3; Magnesium 2.4 mg/dl (1.8-2.4); Potassium 3.9 mmol/L (3.5-5.1)
[2020-08-02 03:41] LABS: Troponin I 0.044 ng/ml (0-0.045)
[2020-08-02] MEDS: NSS + 20MEQ KCL 20 MEQ/1,000 ML BAG IV SCH ×2 (04:02→15:42)
--- NOTE | 2020-08-02 05:35 | Billing Data ---
Date of Service August 01, 2020 Coding Level of Care Code 71728 OBS Care - Level 3
[2020-08-02 05:59] LABS: Estimated Average Glucose 128 mg/dl; Hemoglobin A1C 6.1 % (4.5-5.6)
[2020-08-02 06:02] LABS: Hematocrit (blood only) 37.3 % (37-47); Hemoglobin 12.2 g/dL (12.0-16.0); Immature Granulocytes # (auto) 0.06 K/uL (0.00-0.02); Immature Granulocytes % (auto) 1.2 %; Lymphocytes # (auto) 0.13 K/uL (1.2-3.4); Lymphocytes % (auto) 2.5 %; Mean Corpuscular Hgb Conc 32.7 g/dL (32-36); Mean Corpuscular Volume 85.7 fL (80-100); Mean Platelet Volume 9.5 fL (7.4-10.4); Monocytes # (auto) 0.31 K/uL (0.11-0.59); Neutrophils # (auto) 4.69 K/uL (1.4-6.5); Neutrophils % (auto) 90.3 %; Platelet Count 130 K/uL (130-400); RDW Coefficient of Variation 14.7 % (11.5-14.5); RDW Standard Deviation 46.4 fL (36.4-46.3); Red Blood Count 4.35 M/uL (4.2-5.4); White Blood Count 5.19 K/uL (4.8-10.8)
[2020-08-02 06:39] LABS: BUN Creatinine Ratio 25.1 (10-20); Calcium 8.5 mg/dl (8.5-10.1); Creatinine Clr Calc Pharmacy 62.3 ml/min; Est GFR (African American) 58.9; Est GFR (Non-African American) 50.8; Magnesium 2.7 mg/dl (1.8-2.4); Potassium 3.8 mmol/L (3.5-5.1)
[2020-08-02] MEDS: HEPARIN SOD 5,000 UNIT/0.5 ML VIAL SQ SCH ×3 (06:41→22:14)
[2020-08-02] MEDS: ACETAMINOPHEN 500 MG TAB PO PRN (08:00)
--- NOTE | 2020-08-02 08:42 | Hospitalist Progress Note ---
Date of Service August 02, 2020 Assessment & Plan (1) Elevated troponin: Patient is a 65 year old female with PMHx Anxiety, Hypothyroidism, Spinal fusion L2-S1, that presents for worsening sciatica-like pain of her R hip, worsening fatigue, increased thirst, and headache, found to have a mildly elevated troponin and slight EKG changes concerning for NSTEMI. ?NSTEMI stent to LAD -Patient already on ASA 81mg,plavix statin and b martin Atrial Fibrillaiton started in the [facility] cath lab converted at 1648, will not pursue full anticoagulation ASCENCION -Creatinine mildly elevated 1.31 improved with hydration R hip pain/Sciatica -Oxycodone 5-10mg PRN for pain - prednisone 40mg x5 days daily -previous back surgery -Ice pack PRN Hypothyroidism -Continue home levothyroxine -TSH 1.080 Anxiety -Continue home Sertraline Hx LE Edema -Per patient takes Bumetanide PRN for LE edema -Will hold at this time -Echo normal normal LV size and function no regional wall motion abnormalities EF 55 to 60% left atrium severely dilated not well visualized Dispo: Med/Surg Telemetry for cardiac monitoring DVT: Heparin TID Code: Full (2) ASCENCION (acute kidney injury): (3) Lumbar radiculopathy: Admission and Anticipated Discharge Date Admission Date: August 02, 2020 Subjective Pt presented with fatigue and concern for covid infection, she initially had an abnormal troponin and negative covid test, negative CTA and minor ECG changes, taken to the [facility] and found to have LAD lesion s/p pci. incidentally went into afib during the procedure with rate in low 100's-120's Review of Systems Review of Systems: Mild distress and fatigue no headache, blurry or double vision no speech or swallowing issues no chest pain, pressure or palpitations Dyspnea on exertion,no cough or wheezes no abdominal pain, nausea or vomiting, diarrhea or constipation no dysuria, hematuria or frequency no focal joint pain or swelling no back pain, CVA tenderness or radicular pain no bruising, bleeding or rashes no focal signs of weakness or numbness or altered sensation no complaints of anxiety or depression.. Physical Exam Physical Exam: The patient appeared well nourished and normally developed. Vital signs as documented. Head exam is normocephalic atraumatic no scleral icterus Neck is without JVD, thyromegaly, or carotid bruits. Lungs are clear to auscultation, no focal loss of breath sounds Cardiac exam, Rhythm is irregular.rate controls in 100 110. No murmurs, rubs or gallops. Abdominal exam reveals normal bowel sounds, soft non tender, no masses Extremities right wrist is with T band in place Neurologic exam is alert and oriented, no focal loss of strength or sensation Skin is without bruises or rashes Psychologically is without concerns for anxiety or depression Results & Data Results & Data ([facility]) Vital Signs (Past 12 Hours) Vital Signs Temp Pulse Pulse Resp BP BP Pulse Ox 08/02/20 08:04 97.9 F 76 18 92/50 L 94 08/02/20 02:36 79 08/02/20 02:00 78 16 104/52 L 96 08/02/20 01:45 84 17 89/61 L 91 08/02/20 01:15 81 16 103/52 L 95 08/02/20 01:00 79 19 95/49 L 96 08/02/20 00:45 74 15 96/49 L 95 08/02/20 00:30 79 22 111/52 L 95 08/02/20 00:15 75 19 98/50 L 95 08/02/20 00:00 76 22 102/48 L 95 08/01/20 23:45 77 18 100/48 L 93 08/01/20 23:30 78 19 105/53 L 96 08/01/20 23:16 77 21 93/50 L 94 08/01/20 23:01 77 22 104/49 L 08/01/20 22:30 77 22 104/57 L 98 08/01/20 22:16 74 17 98/53 L 98 08/01/20 22:01 82 20 96 08/01/20 22:00 79 19 98/51 L 97 08/01/20 21:31 75 25 H 97 08/01/20 21:30 76 18 102/52 L 97 08/01/20 21:22 82 15 114/60 99 08/01/20 21:07 80 19 100/52 L 96 08/01/20 21:00 83 19 95 PG Care Time/CCT Total # of Minutes Spent Total Time Spent with Patient: Total time spent is greater than 50% in coordination of care (as documented) at patient's floor/unit and/or counseling patient: Coding Level of Care Code 17399 Subseq Hosp Care Lvl 3 Diagnoses Elevated troponin R77.8 ASCENCION (acute kidney injury) N17.9 Lumbar radiculopathy M54.16
--- NOTE | 2020-08-02 09:59 | Cardiology Consultation ---
Date of Consultation August 02, 2020 Assessment & Plan (1) Elevated troponin: Ms. Pa presents for what sounds like noncardiac symptoms, but her initial troponin was slightly elevated and her electrocardiogram is clearly different than it was in March 2020 when she had her back surgery. Her troponin subsequently is normal, electrocardiographic changes have remained and are suggestive of anteroseptal injury or ischemia. One possibility is that she had an interim infarction on number of days ago and we are catching the tail end of it with the declining enzymes, versus demand ischemia from the stress of her recent illness in the setting of underlying coronary artery disease. I suspect it is not demand ischemia without some underlying disease although it is possible. I think we should do a catheterization to define her anatomy, with thoughts of intervention if indicated. I discussed this with her and she is agreeable. We have that planned for midday today. History of Present Illness Reason for Consultation: Positive troponin, ECG changes Attending Physician: Salvador Agrawal MD History of Present Illness This is a 65-year-old woman who has a history of hypothyroidism and spinal arthritis for which she had spinal fusion from L2-S1 in March 2020. That has affected her exercise ability for some time before that and certainly afterwards. She has not had a history of known coronary disease and I could not elicit symptoms of angina but since her activity is limited and she has back and hip pain we could miss anginal symptoms. Her current presentation is due to having hip and back pain, primarily sciatica by her description, as well as a constellation of other symptoms which include headache, diarrhea, fever and chills and thirst. The symptoms have been going on since Wednesday which is 5 days, it sounds as though they have not worsened lately although they did after the first day or 2. Evaluation in the emergency room was notable for her routine electrocardiogram on August 01, 2020 at 1838 showing sinus rhythm at [address] some [address]-T abnormalities but no ST elevation. She did have an electrocardiogram done March 31, 2020 which showed some very minor T wave abnormalities in V2 but the electrocardiogram was essentially normal at that time. Of note her troponin was also elevated on arrival at 0.133, 5 hours later that had dropped to 0.044 (her last measurement). Her electrocardiogram this morning shows sinus rhythm at 85 bpm with clear anterior T wave inversion which appears progressive from yesterday. At the time of my evaluation this morning she was feeling better in general it seems, she is laying supine in bed and confirmed the history outlined above. She confirms that she does not have exertional chest pain but has not been able to exert herself for some time, even preceding her back surgery in March and also subsequent to that. She does not have any upper back discomfort to suggest referred pain to that area. She does have the headache which she points to the right side, that would be unusual but conceivably could be a referred pain. She does not have shortness of breath, orthopnea. She does have mild chronic edema which has not worsened lately. Her creatinine was minimally elevated at 1.31 on arrival however has dropped to the normal range (1.1) subsequently although historically her creatinine was around 0.7-0.8. Allergies Allergy/AdvReac Type Severity Reaction Status Date / Time No Known Allergies Allergy Unverified 08/01/20 22:26 Home Medications Medication Instructions Recorded Confirmed Type aspirin 81 mg PO PM 03/29/20 08/01/20 History bumetanide 1 mg PO DIRECTED PRN 03/29/20 08/01/20 History ibuprofen [Motrin IB] 800 mg PO Q6H PRN 03/29/20 08/01/20 History levothyroxine [Synthroid] 175 mcg PO PM 03/29/20 08/01/20 History sertraline 50 mg PO PM 03/29/20 08/01/20 History cetirizine [Zyrtec] 10 mg PO DAILY PRN 04/16/20 08/01/20 History gabapentin 600 mg PO TID 04/16/20 08/01/20 History Patient History Medical History Extrusion of intervertebral disc Hyperlipidemia Hypertension Hypothyroid Impaired glucose tolerance Lumbar radiculopathy Obesity Social History Smoking Status: Never smoker Second Hand Exposure: No; Hx Alcohol Use: Yes Alcohol type: wine Hx Substance Use: No Preferred Language: Sinhala Communication Ability: Effective Solar Design Engineer Required: No Beliefs That Will Affect Care: None marital status: Current Living Situation: Spouse Feels Safe at Home: Yes Assistive Devices: Glasses Review of Systems Review of Systems: All systems reviewed & are unremarkable except as noted in HPI & below Physical Exam Physical Exam: Constitutional: Alert, cooperative and in no distress. HEENT: Unremarkable Neck: No jugular venous distention, carotid pulses are normal and equal bilaterally without bruits. Pulmonary: Clear to auscultation bilaterally. Cardiac: Regular rhythm with no murmur, gallop or rub. Abdomen: Soft, nontender with normal bowel sounds. Extremities: No edema. Distal pulses intact. Neurologic: No focal findings. Gait is steady. Skin: No rash, ecchymoses or petechiae. Results & Data ([facility]) Vital Signs (Past 12 Hours) Vital Signs Temp Pulse Pulse Resp BP BP Pulse Ox 08/02/20 08:04 36.6 C 76 18 92/50 L 94 08/02/20 08:00 83 08/02/20 02:36 79 08/02/20 02:00 78 16 104/52 L 96 08/02/20 01:45 84 17 89/61 L 91 08/02/20 01:15 81 16 103/52 L 95 08/02/20 01:00 79 19 95/49 L 96 08/02/20 00:45 74 15 96/49 L 95 08/02/20 00:30 79 22 111/52 L 95 08/02/20 00:15 75 19 98/50 L 95 08/02/20 00:00 76 22 102/48 L 95 08/01/20 23:45 77 18 100/48 L 93 08/01/20 23:30 78 19 105/53 L 96 08/01/20 23:16 77 21 93/50 L 94 08/01/20 23:01 77 22 104/49 L 08/01/20 22:30 77 22 104/57 L 98 08/01/20 22:16 74 17 98/53 L 98 08/01/20 22:01 82 20 96 08/01/20 22:00 79 19 98/51 L 97 Laboratory Results Cardiac Enzymes 08/01/20 08/02/20 Range/Units 18:10 03:10 AST 20 (15-37) U/L Troponin I 0.133 H* 0.044 (0-0.045) ng/ml Lipids 08/02/20 Range/Units 03:10 Triglycerides 283 H (0-150) mg/dl Cholesterol 170 (0-200) mg/dl HDL Cholesterol 12 mg/dl Cholesterol/HDL Ratio 14 CBC 08/01/20 08/02/20 08/02/20 Range/Units 18:10 03:10 05:40 WBC 7.52 5.17 5.19 (4.8-10.8) K/uL RBC 4.21 4.09 L 4.35 (4.2-5.4) M/uL Hgb 11.9 L 11.6 L 12.2 (12.0-16.0) g/dL Hct 36.0 L 35.2 L 37.3 (37-47) % Plt Count 116 L 111 L 130 (130-400) K/uL Neut # (Auto) 6.41 4.50 4.69 (1.4-6.5) K/uL Lymph # (Auto) 0.27 L 0.21 L 0.13 L (1.2-3.4) K/uL [place] # (Auto) 0.67 H 0.41 0.31 (0.11-0.59) K/uL Eos # (Auto) 0.00 0.00 0.00 (0-0.5) K/uL Baso # (Auto) 0.01 0.00 0.00 (0-0.2) K/uL Comprehensive Metabolic Panel 08/01/20 08/02/20 08/02/20 Range/Units 18:10 03:10 05:40 Sodium 131 L 135 L 134 L (136-145) mmol/L Potassium 3.7 3.9 3.8 (3.5-5.1) mmol/L Chloride 98 103 102 (98-107) mmol/L Carbon Dioxide 25 26 27 (21-32) mmol/L BUN 31 H 29 H 29 H (7-18) mg/dl Creatinine 1.31 H 1.13 1.14 (0.6-1.2) mg/dl Glucose 119 H 117 H 130 H (70-99) mg/dl Calcium 8.9 8.2 L 8.5 (8.5-10.1) mg/dl AST 20 (15-37) U/L ALT 31 (12-78) U/L Alkaline Phosphatase 104 (45-117) U/L Total Protein 6.5 (6.4-8.2) gm/dl Albumin 2.9 L (3.4-5.0) gm/dl Intake and Output 08/01/20 08/02/20 08/02/20 22:59 06:59 14:59 Intake Total 1600 / 2100 500 / 2100 Output Total 500 / 500 400 / 400 Balance 1600 / 1600 0 / 1600 -400 / -400 Intake: IV 1600 / 2100 500 / 2100 Lr 500 ml @ 999 mls/hr IV .Q31M 500 / 500 STA Rx#:[id number] MAGNESIUM SULFATE / D5W 1 gm In 100 / 100 100 ml @ 100 mls/hr IV NOW ONE Rx#:[id number] Nss 1000ML 500 ml @ 999 mls/hr 1500 / 1500 IV .Q31M ONE Rx#:[id number] Output: Urine 500 / 500 400 / 400 Other: Other Intake Source sips # Unmeasured Voids 1 Weight 105.4 kg 106.4 kg Weight Measurement Method Chair Scale Standing Scale Diagnostic Findings Telemetry: Sinus rhythm, rate generally 80 to 90 bpm PG Care Time/CCT Total # of Minutes Spent Total Time Spent with Patient: Total time spent is greater than 50% in coordination of care (as documented) at patient's floor/unit and/or counseling patient: Coding Level of Care Code 82639 Office/OBS Consult Lvl 4 Diagnoses Elevated troponin R77.8 Time Spent (min) 65
[2020-08-02] MEDS ORDERED: MIDAZOLAM HCL 1 MG/ML 2ML VIAL ONE ×2 (12:09→12:31)
[2020-08-02] MEDS ORDERED: niCARdipine HCL INJ 2.5 MG/ML 10 ML AMP ONE (12:09)
[2020-08-02] MEDS ORDERED: HEPARIN (PORCINE) 1000 UNIT/ML 10 ML (CATH LAB USE ONLY) ONE ×2 (12:09→12:42)
[2020-08-02] MEDS ORDERED: NITROGLYCERIN/D5W 100MCG/ML 20ML SYR ONE (12:10)
[2020-08-02] MEDS ORDERED: fentaNYL citrate 100 MCG/2 ML VIAL ONE (12:10)
--- NOTE | 2020-08-02 12:10 | Pre Anesthesia Assessment ---
Date of Service August 02, 2020 Pre Sedation Assessment Vital Signs Temp Pulse Pulse Resp BP BP Pulse Ox 08/02/20 11:18 16 117/65 97 08/02/20 08:04 36.6 C 76 18 92/50 L 94 08/02/20 08:00 83 08/02/20 02:36 79 08/02/20 02:00 78 16 104/52 L 96 08/02/20 01:45 84 17 89/61 L 91 08/02/20 01:15 81 16 103/52 L 95 08/02/20 01:00 79 19 95/49 L 96 08/02/20 00:45 74 15 96/49 L 95 08/02/20 00:30 79 22 111/52 L 95 08/02/20 00:15 75 19 98/50 L 95 08/02/20 00:00 76 22 102/48 L 95 08/01/20 23:45 77 18 100/48 L 93 08/01/20 23:30 78 19 105/53 L 96 08/01/20 23:16 77 21 93/50 L 94 08/01/20 23:01 77 22 104/49 L 08/01/20 22:30 77 22 104/57 L 98 08/01/20 22:16 74 17 98/53 L 98 08/01/20 22:01 82 20 96 08/01/20 22:00 79 19 98/51 L 97 08/01/20 21:31 75 25 H 97 08/01/20 21:30 76 18 102/52 L 97 08/01/20 21:22 82 15 114/60 99 08/01/20 21:07 80 19 100/52 L 96 08/01/20 21:00 83 19 95 08/01/20 20:31 84 23 94 08/01/20 20:30 81 21 99/50 L 95 08/01/20 20:20 85 20 97 08/01/20 20:10 82 14 96 08/01/20 20:09 85 21 08/01/20 19:40 94 H 21 95 08/01/20 19:31 91 H 23 95 08/01/20 19:30 88 20 107/61 96 08/01/20 19:24 90 22 111/59 L 95 08/01/20 19:20 86 18 95 04/08/21 19:10 90 24 97 08/01/20 19:01 92 H 17 111/59 L 97 08/01/20 19:00 94 H 21 97 08/01/20 18:50 94 H 14 97 08/01/20 18:40 92 H 20 95 08/01/20 18:31 94 H 23 94 08/01/20 18:30 92 H 18 109/57 L 95 08/01/20 18:20 98 H 18 94 08/01/20 18:10 96 H 21 08/01/20 18:00 99 H 26 H 97/57 L 95 08/01/20 17:50 99 H 20 95 08/01/20 17:40 102 H 17 95 08/01/20 17:31 104 H 19 106/41 L 94 08/01/20 17:30 110 H 21 95 08/01/20 17:20 101 H 24 91 08/01/20 17:16 105 H 24 93 08/01/20 17:04 104 H 29 H 111/64 92 08/01/20 16:20 37.5 C 117 H 20 100/52 L 92 Cardiovascular + regular rate Respiratory normal respiratory effort, lungs clear to auscultation Pre-Sedation Airway Assessment Smoking Status: Never smoker Thyromental Distance: > or= 3.5 Finger Breadths Oral Cavity: + WNL Mallampati Class: IV ASA: ASA3 NPO Status Date of Last Intake of Fluids: 08/02/20 Time of Last Intake of Fluids: 06:30 Date of Last Intake of Solid Food: 07/31/20 Time of Last Intake of Solid Foods: 23:00 Procedure Planning Contraindications for Sedation: none Current Medications Reviewed: Yes Notes The planned sedation has been discussed with the patient. Informed Consent was obtained. I have identified the patient, determined the appropriateness of sedation and have assessed the patient immediately prior to the procedure. All medicine(s) and interventions are by my order.
--- NOTE | 2020-08-02 12:25 | XCELERA ---
[id number]
[2020-08-02] MEDS ORDERED: METOPROLOL TARTRATE 1 MG/ML VIAL IV ONE (12:53)
--- NOTE | 2020-08-02 13:17 | Cardiac Catheterization ---
[facility] Data: Collaborative Physician Cardiac Status Clinical evaluation leading to the procedure CAD Presenation: No Sxs, No angina Anginal Classification: No Symptoms Heart Failure: No Cardiogenic Shock within 24 Hours: No Cardiac Arrest within 24 Hours: No Imaging Studies Past 6 Months: Yes Stress Studies Past 6 Months: No Standard Exercise Test: No Stress Echocardiogram: No Stress Testing w/SPECT MPI: No Cardiac CTA: No Coronary Anatomy Dominant: Right Left Ventricular Angiography EF (%): n/a Diagnostic Physicians Name: Iggy Ramos MD Status: Elective Closure Device Percutaneous Entry Location: Radial Closure Device: Radial Band Recommendations: Management Recommendatons (as above) Cardiac Cath Procedure Full Procedure Date August 02, 2020 Pre-Procedure Diagnosis Pre-Procedure Diagnosis: Cardiothoracic Symptom (Dyspnea on exertion, abnormal ECG and elevated troponin) AUC Score AUC Score: 7 Post-Procedure Diagnosis Post-Procedure Diagnosis: Severe CAD and Normal Intracardiac Pressures Procedure(s) Performed Procedure(s) Performed: Coronary Angiography and Left Heart Cath Construction Helper Iggy Ramos MD Building Attendant(s) Jadiel Estimated Blood Loss Estimated Blood Loss: < 20 ml Medication(s) Medication(s): Fentanyl, Heparin, Lidocaine 1%, Metoprolol, Nicardipine and Versed Summary of Findings Procedures: 1. Coronary angiography 2. Left heart catheterization 3. Moderate sedation Indication: 1. Patient presented with multiple symptoms but from a cardiac perspective, has had significant dyspnea with exertion with daily activities, low level troponin elevation on presentation, and anteroseptal T wave abnormalities. She was referred to cardiac catheterization by Dr. Leon. Coronary angiography: 1. Left main coronary artery: No significant CAD. 2. Left anterior descending: LAD is a large-caliber vessel that wraps around the apex. Early mid LAD 70-80%. TAYLOR-3 flow. Small D1, D2, D3 vessels. 3. Circumflex: Large caliber vessel. Circumflex gives rise to a large OM1 and small OM 2. No significant CAD within the circumflex system. 4. Right coronary artery: RCA is large and dominant. No significant CAD within the RCA, PDA, PL branches. Left heart catheterization: 1. Left ventriculography was not performed. 2. No significant aortic stenosis. Peak to peak gradient across the aortic valve is 0. 3. Normal LVEDP. LVEDP approximately 11 mmHg (atrial fibrillation). Moderate sedation: 1. Sedation start time: 12:30 PM 2. Sedation end time: 12:55 PM Procedural notes: 1. During left heart catheterization, there was significant ventricular ectopy and therefore the catheter was removed prior to recording measurements. The resultant rhythm was atrial fibrillation with rapid ventricular response. Her blood pressure was initially mildly depressed and she was given 250 cc bolus of normal saline. When blood pressure was normalized, she was given metoprolol 5 mg IV x1 and her heart rate improved to the 70s to 90s for the most part in her blood pressure remained stable based on interarterial measurement. 2. Left heart catheterization was then later completed. Impression: 1. Severe early mid LAD CAD. 2. Otherwise, no significant CAD. 3. Normal left-sided filling pressure. 4. Atrial fibrillation developed during the procedure. 5. No significant aortic stenosis. Plan: 1. Images will be reviewed by Dr. Buckley of interventional cardiology given her significant dyspnea with exertion, elevated troponin, ECG abnormalities, and now LAD CAD. 2. Optimize medical therapy/risk factor modification. 3. Optimize his therapy for atrial fibrillation and consider cardioversion if she does not convert to sinus. Would recommend anticoagulation therapy at least during hospitalization with consideration of long-term given the fact that her left atrium is significantly dilated on echo. Hemodynamics Rest Ao:: 96/50 Final Ao: 105/60 LV: 92/17/11 Recommendations Recommendations: Management Recommendatons (as above) Specimens Specimens: None Radiation Exposure (mGy) 1204 mGy. Fluoro time 7.3 min. Contrast (mls) 65 ml Procedural Complication(s) None Disposition remains in laboratory asst for interventional cardiology I attest to the content of the Intraoperative Record and any orders documented therein. Any exceptions are noted below. [facility] Card Cath Procedure Codes Cardiac Catheterization Procedure 1: Cardiovascular Cath Procedures: 02793 Coronaries and LHC (+/-LV) Moderate Sedation Procedure 1: Sedation/Anesthesia: 34965 Mod Sedation by the same physician;Init15 Min Child Age 5 & Up Procedure 2: Sedation/Anesthesia: 80725 Mod Sedation by the same physician; Ea [id number] Minutes PG Care Time/CCT Total # of Minutes Spent Total Time Spent with Patient: Total time spent is greater than 50% in coor dination of care (as documented) at patient's floor/unit and/or counseling patient:
--- NOTE | 2020-08-02 14:16 | Post Anesthesia Assessment ---
Date of Service August 02, 2020 Post Sedation Assessment Vital Signs Temp Pulse Pulse Resp BP BP Pulse Ox 08/02/20 11:18 16 117/65 97 08/02/20 08:04 97.9 F 76 18 92/50 L 94 08/02/20 08:00 83 08/02/20 02:36 79 08/02/20 02:00 78 16 104/52 L 96 08/02/20 01:45 84 17 89/61 L 91 08/02/20 01:15 81 16 103/52 L 95 08/02/20 01:00 79 19 95/49 L 96 08/02/20 00:45 74 15 96/49 L 95 08/02/20 00:30 79 22 111/52 L 95 08/02/20 00:15 75 19 98/50 L 95 08/02/20 00:00 76 22 102/48 L 95 08/01/20 23:45 77 18 100/48 L 93 08/01/20 23:30 78 19 105/53 L 96 08/01/20 23:16 77 21 93/50 L 94 08/01/20 23:01 77 22 104/49 L 08/01/20 22:30 77 22 104/57 L 98 08/01/20 22:16 74 17 98/53 L 98 08/01/20 22:01 82 20 96 08/01/20 22:00 79 19 98/51 L 97 08/01/20 21:31 75 25 H 97 08/01/20 21:30 76 18 102/52 L 97 08/01/20 21:22 82 15 114/60 99 08/01/20 21:07 80 19 100/52 L 96 08/01/20 21:00 83 19 95 08/01/20 20:31 84 23 94 08/01/20 20:30 81 21 99/50 L 95 08/01/20 20:20 85 20 97 08/01/20 20:10 82 14 96 08/01/20 20:09 85 21 08/01/20 19:40 94 H 21 95 08/01/20 19:31 91 H 23 95 08/01/20 19:30 88 20 107/61 96 08/01/20 19:24 90 22 111/59 L 95 08/01/20 19:20 86 18 95 04/08/21 19:10 90 24 97 08/01/20 19:01 92 H 17 111/59 L 97 08/01/20 19:00 94 H 21 97 08/01/20 18:50 94 H 14 97 08/01/20 18:40 92 H 20 95 08/01/20 18:31 94 H 23 94 08/01/20 18:30 92 H 18 109/57 L 95 08/01/20 18:20 98 H 18 94 08/01/20 18:10 96 H 21 08/01/20 18:00 99 H 26 H 97/57 L 95 08/01/20 17:50 99 H 20 95 08/01/20 17:40 102 H 17 95 08/01/20 17:31 104 H 19 106/41 L 94 08/01/20 17:30 110 H 21 95 08/01/20 17:20 101 H 24 91 08/01/20 17:16 105 H 24 93 08/01/20 17:04 104 H 29 H 111/64 92 08/01/20 16:20 99.5 F 117 H 20 100/52 L 92 Recovery Score Activity: Moves 4 extremities Respiration: Deep Breath/Cough Circulation: +/-20% PreAnes Value Consciousness: Fully Awake Oxygen Saturation: O2 needed for >90% Discharge Sedation Level of Care: Fast Track Phase II Post Sedation Plan On clinical assessment, the patient appears to have tolerated the sedation without complications. Patient is recovering as anticipated. Patient will continue to be monitored by nursing and may be discharged when sedation discharge criteria are met per below protocol. Upon Completions of procedure up to 15 minutes continue every 5 minute vital signs and the P.A.R. score; then discharge to a Phase I or Fast Track to Phase II per the following guidelines: * Discharge Patient to appropriate Phase II area if PAR is 8 or greater or return to pre- procedure baseline. The post - procedure orders will be as directed. * If PAR score is less than 8 or not return to pre-procedure baseline then patient will follow Phase I monitoring till PAR is reached for Phase II. The Phase I may be done in procedure room or may call to secure a Phase I area. * If naloxone or flumazenil are used for reversal, hold in Phase I for continued monitoring from when last reversal dose was given for a minimum of 60 minutes or longer pending the nurse and/or physician discretion of patient condition before discharge to Phase II. Please call the Sedation Physician to re-evaluate and complete post-note for discharge to Phase II area. Do NOT discharge from procedure sedation or Phase 1 until post- sedation evaluation note is complete by procedure /sedation MD Sedation Discharge Instructions to be given to the patient at discharge to home.
--- NOTE | 2020-08-02 14:17 | Post Operative Brief Note ---
Cardiology Brief Post Op Date of Surgery August 02, 2020 Pre & Post Diagnosis CAD Procedure -- Cupola Worker Faheem Buckley MD Gameroom Technician Jadiel Estimated Blood Loss 15 Findings Consistent with Post-Op Diagnosis PCI to proximal LAD with 3.5 x 15 [place]. Anesthesia Type RN Sedation Complications none Disposition Accompanied Patient To Recovery: No Disposition: PCU Overlapping Procedure I was present for: the critical portions of procedure. I was immediately available: during the entire case. Back up surgeon: was not required during procedure.
[2020-08-02] MEDS ORDERED: CLOPIDOGREL BISULFATE 300 MG TAB ONE (14:18)
--- NOTE | 2020-08-02 14:23 | Electrocardiogram Report ---
Test Reason : Blood Pressure : / mmHG Vent. Rate : 091 BPM Atrial Rate : 091 BPM P-R Int : 146 ms QRS Dur : 098 ms QT Int : 386 ms P-R-T Axes : 032 054 052 degrees QTc Int : 474 ms Normal sinus rhythm T wave abnormality, consider anterior ischemia Abnormal ECG When compared with ECG of 31-MAR-2020 11:20, Inverted T waves have replaced nonspecific T wave abnormality in Anterior leads Nonspecific T wave abnormality no longer evident in Lateral leads Confirmed by Hank Leon ([id number]) on 08/02/2020 2:23:30 PM Referred By: REFERRED SELF Confirmed By:Hank Leon
--- NOTE | 2020-08-02 14:24 | Electrocardiogram Report ---
Test Reason : Blood Pressure : / mmHG Vent. Rate : 091 BPM Atrial Rate : 091 BPM P-R Int : 148 ms QRS Dur : 104 ms QT Int : 398 ms P-R-T Axes : 029 064 060 degrees QTc Int : 489 ms Normal sinus rhythm Low voltage QRS T wave abnormality, consider anterior ischemia Abnormal ECG When compared with ECG of 01-AUG-2020 18:38, (unconfirmed) No significant change was found Confirmed by Hank Leon ([id number]) on 08/02/2020 2:23:43 PM Referred By: REFERRED SELF Confirmed By:Hank Leon
[2020-08-02] MEDS ORDERED: SODIUM CHLORIDE 0.9% 1000ML 1,000 ML IV SCH (14:30)
[2020-08-02] MEDS ORDERED: METOPROLOL TARTRATE 1 MG/ML VIAL IV PRN (15:39)
[2020-08-02] MEDS ORDERED: MAGNESIUM SULFATE / D5W 1 GM/100 ML BAG IV ONE (16:00)
[2020-08-02] MEDS: METOPROLOL TARTRATE 25 MG TAB PO SCH (20:18)
[2020-08-02] MEDS: LEVOTHYROXINE SODIUM 175 MCG TABLET PO SCH (20:21)
[2020-08-02] MEDS: SERTRALINE HCL 50 MG TABLET PO SCH (20:21)
[2020-08-02] MEDS: ASPIRIN 81 MG ECTAB PO SCH (20:21)
--- NOTE | 2020-08-03 01:41 | Cardiac Catheterization ---
[facility] Data: Horse Racer Cardiac Status Clinical evaluation leading to the procedure CAD Presenation: Non STEMI Anginal Classification: CCS III Heart Failure: No Cardiogenic Shock within 24 Hours: No Cardiac Arrest within 24 Hours: No Imaging Studies Past 6 Months: Yes Stress Studies Past 6 Months: No Diagnostic Physicians Name: Faheem Buckley MD Status: Elective Closure Device Percutaneous Entry Location: Radial Closure Device: Radial Band Recommendations: PCI without planned CABG Lesion Segment Name: Proximal to mid LAD Culprit Artery: Yes Stenosis Prior to Rx (%): 75 Chronic Total Occlusion: No IVUS: No FFR: No Pre-Procedure TAYLOR Flow: 3 Previously Treated Lesion: No Lesion Complexity: Non-High/Non-C Thrombus Present: No Bifurcation Lesion: No Guidewire Across Lesion: Stenosis Post-Procedure (%): 0 Post-Procedure TAYLOR Flow: 3 Devices(s) Deployed: Yes Yes Intraprocedure Events Significant Disection: No Perforation: No Cardiac Cath Procedure Full Procedure Date August 03, 2020 Pre-Procedure Diagnosis Pre-Procedure Diagnosis: Cardiothoracic Symptom (Dyspnea on exertion, abnormal ECG and elevated troponin) AUC Score AUC Score: 7 Post-Procedure Diagnosis Post-Procedure Diagnosis: Severe CAD and Successful PCI Procedure(s) Performed Procedure(s) Performed: Coronary Angiography and Drug Eluting Stent Waistline Joiner Overlock Faheem Buckley MD Driller Hand(s) Jadiel Estimated Blood Loss Estimated Blood Loss: < 20 ml Medication(s) Medication(s): Clopidogrel, Fentanyl, Heparin, Lidocaine 1%, Metoprolol, Nicardipine and Versed Summary of Findings Indication: ACS Access: 6 Fr right radial artery Catheters: EBU 3.5 guide Findings: For full details of patient's coronary angiography please see cath report dictated by Dr. Ramos. Briefly, patient found to have severe single vessel disease with a 70 to 80% earlymid LAD stenosis. Decision to proceed with PCI. -- PCI -- Antithrombotic therapy: Heparin, clopidogrel Procedure: Left main cannulated with EBU 3.5 guide BMW wire passed across lesion into distal vessel Earlymid LAD lesion predilated with 3.0 compliant balloon Dilated lesion stented with 3.5 x 15 mm [place] Stent post-dilated with 3.5 noncompliant balloon IC vasodilators administered for spasm Post procedure TAYLOR 3 flow, stent well expanded with minimal residual stenosis and no apparent cardiac complications. Arterial Closure: TR band Summary: 1. Successful PCI of proximal to mid LAD with single drug-eluting stent (3.5 x 15 mm Lovilia). Recommendations: To PCU for continued monitoring Loaded with clopidogrel 600 mg in Horse Racer Continue dual-antiplatelet therapy for at least 1 year Consult cardiac Rehab Hemodynamics Rest Ao:: 104/61/76 Final Ao: 105/60/79 LV: 92/20 Recommendations Recommendations: PCI without planned CABG Specimens Specimens: None Radiation Exposure (mGy) 2116 Contrast (mls) 100 Fluids (cc crystalloids) Fluids (cc crystalloids): 100 Drains Drains: none Anesthesia moderate 3060-3557 Procedural Complication(s) None Disposition PCU I attest to the content of the Intraoperative Record and any orders documented therein. Any exceptions are noted below. [facility] Card Cath Procedure Codes Moderate Sedation Procedure 1: Sedation/Anesthesia: 08387 Mod Sedation by the same physician; Ea [id number] Minutes Stenting Procedure 1: Cardiovascular Stent Procedures: 03830 Perc transcatheter placement of intracoronary stent(s), with ang PG Care Time/CCT Total # of Minutes Spent Total Time Spent with Patient: Total time spent is greater than 50% in coordination of care (as documented) at patient's floor/unit and/or counseling patient:
[2020-08-03] MEDS: oxyCODONE HCL IR 5 MG TAB (IMMEDIATE RELEASE) PO PRN ×3 (03:13→19:18)
[2020-08-03] MEDS: HEPARIN SOD 5,000 UNIT/0.5 ML VIAL SQ SCH ×3 (05:41→22:27)
[2020-08-03 06:20] LABS: Hematocrit (blood only) 39.2 % (37-47); Mean Corpuscular Hemoglobin 28.4 pg (25-34); Mean Corpuscular Volume 85.8 fL (80-100); Mean Platelet Volume 9.7 fL (7.4-10.4); Platelet Count 168 K/uL (130-400); RDW Standard Deviation 47.7 fL (36.4-46.3); Red Blood Count 4.57 M/uL (4.2-5.4); White Blood Count 9.31 K/uL (4.8-10.8)
[2020-08-03 06:23] LABS: Base Excess VBG -0.5 mEq/L; pH VBG 7.34 (7.36-7.41)
[2020-08-03 06:24] LABS: Mean Corpuscular Hgb Conc 33.2 g/dL (32-36)
[2020-08-03 06:37] LABS: Albumin Level 2.6 gm/dl (3.4-5.0); BUN Creatinine Ratio 31.6 (10-20); Calcium 8.4 mg/dl (8.5-10.1); Creatinine Clr Calc Pharmacy 79.3 ml/min; Est GFR (African American) 78.3; Est GFR (Non-African American) 67.6; Magnesium 2.7 mg/dl (1.8-2.4); Potassium 3.9 mmol/L (3.5-5.1)
[2020-08-03 06:41] LABS: Basophils # (auto) 0.01 K/uL (0-0.2); Basophils % (auto) 0.1 %; Echinocytes 1+; Immature Granulocytes # (auto) 0.61 K/uL (0.00-0.02); Immature Granulocytes % (auto) 6.6 %; Lymphocytes # (auto) 1.05 K/uL (1.2-3.4); Lymphocytes % (auto) 11.3 %; Monocytes # (auto) 0.49 K/uL (0.11-0.59); Monocytes % (auto) 5.3 %; Neutrophils # (auto) 7.15 K/uL (1.4-6.5); Neutrophils % (auto) 76.7 %; Toxic Vacuolation 1+
[2020-08-03 06:48] LABS: Albumin Globulin Ratio 0.6 (0.9-2); Bilirubin,Total 0.5 mg/dl (0.2-1); Globulin 4.1 gm/dl (2.5-4.0); Phosphorus 2.6 mg/dl (2.5-4.9); Total Protein 6.7 gm/dl (6.4-8.2); Troponin I 0.294 ng/ml (0-0.045)
--- NOTE | 2020-08-03 07:18 | Electrocardiogram Report ---
Test Reason : Blood Pressure : / mmHG Vent. Rate : 085 BPM Atrial Rate : 085 BPM P-R Int : 158 ms QRS Dur : 110 ms QT Int : 402 ms P-R-T Axes : 057 068 059 degrees QTc Int : 478 ms Normal sinus rhythm T wave abnormality, consider anterior ischemia Abnormal ECG When compared with ECG of 01-AUG-2020 18:50, (unconfirmed) No significant change was found Confirmed by Hank Leon ([id number]) on 08/03/2020 7:17:45 AM Referred By: REFERRED SELF Confirmed By:Hank Leon
--- NOTE | 2020-08-03 07:33 | Electrocardiogram Report ---
Test Reason : Blood Pressure : / mmHG Vent. Rate : 098 BPM Atrial Rate : 178 BPM P-R Int : 000 ms QRS Dur : 108 ms QT Int : 376 ms P-R-T Axes : 000 054 036 degrees QTc Int : 480 ms Atrial fibrillation T wave abnormality, consider anterior ischemia Prolonged QT Abnormal ECG When compared with ECG of 02-AUG-2020 05:19, (unconfirmed) Atrial fibrillation has replaced Sinus rhythm Confirmed by Hank Leon ([id number]) on 08/03/2020 7:33:08 AM Referred By: REFERRED SELF Confirmed By:Hank Leon
[2020-08-03] MEDS: METOPROLOL TARTRATE 25 MG TAB PO SCH ×2 (08:19→19:18)
[2020-08-03] MEDS: predniSONE 20 MG TAB PO SCH (08:19)
[2020-08-03] MEDS: CLOPIDOGREL BISULFATE 75 MG TAB PO SCH (08:19)
[2020-08-03] MEDS ORDERED: LORazepam 0.5 MG/1 ML VIAL IV PRN (09:29)
[2020-08-03] MEDS ORDERED: LORazepam 0.5 MG TAB PO PRN (09:29)
--- NOTE | 2020-08-03 10:42 | Electrocardiogram Report ---
Test Reason : Blood Pressure : / mmHG Vent. Rate : 106 BPM Atrial Rate : 106 BPM P-R Int : 144 ms QRS Dur : 104 ms QT Int : 326 ms P-R-T Axes : 041 059 050 degrees QTc Int : 433 ms Sinus tachycardia Otherwise normal ECG When compared with ECG of 03-AUG-2020 04:57, (unconfirmed) No significant change was found Confirmed by Rodrigo Viera ([id number]) on 08/03/2020 10:41:44 AM Referred By: REFERRED SELF Confirmed By:Rodrigo Viera
--- NOTE | 2020-08-03 10:55 | CT Scan Report ---
HEAD CT NONCONTRAST CT DOSE: 601.98 mGy.cm HISTORY: post cardiac cath confusion TECHNIQUE: Multiaxial CT images of the head were performed without the use of intravenous contrast. A utomated exposure control was utilized for this study. A dose lowering technique was utilized adheri ng to the principles of ALARA. Comparison: None. Findings: The paranasal sinuses and mastoid air cells are clear. The calvarium and skull base are int act. The ventricles and sulci are within normal limits. There is no mass, hematoma, midline shift, or acute infarct. Impression: No acute intracranial abnormality. ACT 112: Negative or not required by law. Electronically signed by: Arthur Choe M.D. 08/03/2020 10:54 AM
--- NOTE | 2020-08-03 13:16 | Cardiology Progress Note ---
Date of Service August 03, 2020 Assessment & Plan (1) CAD (coronary artery disease): NSTEMI PCI to LAD with single IOANA on 08/02 2. Spinal stenosis, lumbar radiculopathy 3. Dyslipidemia 4. Hypertension 5. Periprocedure A. fib Patient post PCI to LAD yesterday. Procedure uncomplicated. Chest pain-free. Converted back to sinus rhythm yesterday afternoon No apparent access site complications Continue DAPT with aspirin, clopidogrel. No need for anticoagulation for brief self terminating A. fib. Titrate up metoprolol post [place]. Add KALYAN Start high intensity statin From a cardiac standpoint okay for discharge when other medical issues resolved. Can follow-up with Dr. Leon in 2 weeks Admission and Anticipated Discharge Date Admission Date: August 01, 2020 Subjective Patient chest pain-free. Continues to endorse severe back pain. Received oxycodone 10 mg twice overnight. This morning very sleepy. Difficulty staying awake to have a conversation. Per nursing report had an event earlier this morning where was difficult to get patient off toilet after going to the bathroom. Patient denies any chest pain or palpitations around time of event. Telemetry unremarkable that time. ECG this morning shows sinus rhythm without ST changes. Telemetry reviewedconverted from atrial fibrillation to sinus rhythm around 430 yesterday afternoon. Review of Systems Review of Systems: All systems reviewed & are unremarkable except as noted in HPI & below Physical Exam Physical Exam: General: Sleepy, difficulty keeping eyes open Lungs: Clear to auscultation anteriorly Cardiac: Regular rate and rhythm, no murmurs. Abdomen: Soft, nontender Extremities: Warm, well perfused, right radial artery access site with no ecchymosis, hematoma. Distal pulse and sensation intact. Skin: Flushed Neuro: Nonfocal Psych: Alert orient x3 Results & Data ([facility]) Vital Signs (Past 12 Hours) Vital Signs Temp Pulse Pulse Pulse Resp BP Pulse Ox 08/03/20 12:52 98.2 F 100 H 20 149/77 H 95 08/03/20 08:00 99 H 08/03/20 06:24 98.6 F 108 H 32 H 158/87 H 94 08/03/20 02:57 98.8 F 79 20 133/67 92 08/03/20 01:32 75 PG Care Time/CCT Total # of Minutes Spent Total Time Spent with Patient: Total time spent is greater than 50% in coordination of care (as documented) at patient's floor/unit and/or counseling patient: Coding Level of Care Code 30454 Subseq Hosp Care Lvl 3 Diagnoses CAD (coronary artery disease) I25.10
[2020-08-03] MEDS: cefTRIAXone SODIUM 2,000 MG in DEXTROSE 5% 50 ML IV SCH (14:29)
--- NOTE | 2020-08-03 17:19 | Hospitalist Progress Note ---
Date of Service August 03, 2020 Assessment & Plan (1) Elevated troponin: Patient is a 65 year old female with PMHx Anxiety, Hypothyroidism, Spinal fusion L2-S1, that presents for worsening sciatica-like pain of her R hip, worsening fatigue, increased thirst, and headache, found to have a mildly elevated troponin and slight EKG changes concerning for NSTEMI. did have IOANA, now concern for back pain escalating will image back as also has had chills for the last week ?NSTEMI IOANA to stent to LAD -Patient already on ASA 81mg, plavix statin and b martin Atrial Fibrillaiton started in the laboratory aide converted at 1648, will not pursue full anticoagulation R hip pain/Sciatica previous spine surgery 04/17/20, was also put on steroids, these may cause confusion, so were stopped, also did have oxycodone and will continue cautiously, no radiating neurologic deficits, will consider to image back. ASCENCION -resolved Hypothyroidism -Continue home levothyroxine -TSH 1.080 Anxiety -Continue home Sertraline Hx LE Edema -Per patient takes Bumetanide PRN for LE edema -Will hold at this time -Echo normal normal LV size and function no regional wall motion abnormalities EF 55 to 60% left atrium severely dilated not well visualized DVT: Heparin TID Code: Full (2) ASCENCION (acute kidney injury): (3) Lumbar radiculopathy: Admission and Anticipated Discharge Date Admission Date: August 01, 2020 Subjective Patient chest pain-free. Continues to endorse severe back pain. Received oxycodone 10 mg twice overnight. This morning very sleepy. Difficulty staying awake to have a conversation. Per nursing report had an event earlier this morning where was difficult to get patient off toilet after going to the bathroom. Patient denies any chest pain or palpitations around time of event. Telemetry unremarkable that time. ECG this morning shows sinus rhythm without ST changes. Telemetry reviewedconverted from atrial fibrillation to sinus rhythm around 430 yesterday afternoon. this pt had lumbar back surgery 04/17/21 L2-S1, currently did have negative CT head, wbc normal lactic normal, currently procalc esr and crp pending , will image back but will hernan for ortho spine surgery to weigh in Review of Systems Review of Systems: Mild distress and fatigue, at times confused but did have oxycodone no headache, blurry or double vision no speech or swallowing issues no chest pain, pressure or palpitations Dyspnea on exertion,no cough or wheezes no abdominal pain, nausea or vomiting, diarrhea or constipation no dysuria, hematuria or frequency no focal joint pain or swelling back pain with radiation to right hip and leg no bruising, bleeding or rashes no focal signs of weakness or numbness or altered sensation no complaints of anxiety or depression.. Physical Exam Physical Exam: The patient appeared well nourished and normally developed. Vital signs as documented. Head exam is normocephalic atraumatic no scleral icterus Neck is without JVD, thyromegaly, or carotid bruits. Lungs are clear to auscultation, no focal loss of breath sounds Cardiac exam, Rhythm is irregular.rate controls in 100 110. No murmurs, rubs or gallops. Abdominal exam reveals normal bowel sounds, soft non tender, no masses Extremities right wrist is with T band in place Neurologic exam is alert and oriented but at times confused , no focal loss of strength or sensation Skin is without bruises or rashes, did have some facial blushing Psychologically is without concerns for anxiety or depression Results & Data Results & Data ([facility]) Vital Signs (Past 12 Hours) Vital Signs Temp Pulse Pulse Pulse Resp BP Pulse Ox 08/03/20 16:52 98.2 F 94 H 18 122/76 99 08/03/20 16:00 96 H 08/03/20 12:52 98.2 F 100 H 20 149/77 H 95 08/03/20 08:00 99 H 08/03/20 06:24 98.6 F 108 H 32 H 158/87 H 94 PG Care Time/CCT Total # of Minutes Spent Total Time Spent with Patient: Total time spent is greater than 50% in coordination of care (as documented) at patient's floor/unit and/or counseling patient: Coding Level of Care Code 76801 Subseq Hosp Care Lvl 3 Diagnoses Elevated troponin R77.8 ASCENCION (acute kidney injury) N17.9 Lumbar radiculopathy M54.16
[2020-08-03] MEDS: SERTRALINE HCL 50 MG TABLET PO SCH (19:18)
[2020-08-03] MEDS: LEVOTHYROXINE SODIUM 175 MCG TABLET PO SCH (19:18)
[2020-08-03] MEDS: ASPIRIN 81 MG ECTAB PO SCH (19:18)
[2020-08-03] MEDS ORDERED: VANCOMYCIN CONSULT ACTIVE PRN (19:28)
[2020-08-03] MEDS ORDERED: VANCOMYCIN HCL 2,500 MG in SODIUM CHLORIDE 0.9% 500 ML IV ONE (20:00)
[2020-08-03] MEDS: ACETAMINOPHEN 500 MG TAB PO PRN (21:27)
[2020-08-03] MEDS ORDERED: OPTIRAY 320 125ml IV ONE (21:50)
[2020-08-04] MEDS: oxyCODONE HCL IR 5 MG TAB (IMMEDIATE RELEASE) PO PRN (04:43)
--- NOTE | 2020-08-04 05:53 | Communication Note ---
Date of Service: August 04, 2020 Night team was notified by nursing of the following: patient developed a fever of 38.4 celsius, an increasing oxygen requirement (3L to maintain 90%), and questionable change in mentation. Patient underwent a heart cath on 08/02/20 and is on dual anti-platelet therapy as well as DVT prophylaxis with Heparin. I did order a CTA to assess for both possible pulmonary embolism as well as an aspiration PNA. Fortunately, this study was negative for both. Upon chart review, patient has had mentation changes throughout hospital stay since steroid use. Nursing administered Tylenol and fever resolved. O2 sat improved to 96% on 3L.
[2020-08-04] MEDS ORDERED: DOCUSATE SODIUM 100 MG CAP PO ONE (06:20)
[2020-08-04] MEDS ORDERED: POLYETHYLENE (MIRALAX) 17 GM PACK PO PRN (06:20)
[2020-08-04] MEDS: HEPARIN SOD 5,000 UNIT/0.5 ML VIAL SQ SCH ×3 (06:42→22:26)
[2020-08-04 06:58] LABS: BUN Creatinine Ratio 25.9 (10-20); Calcium 8.8 mg/dl (8.5-10.1); Creatinine Clr Calc Pharmacy 90.1 ml/min; Est GFR (African American) 93.1; Est GFR (Non-African American) 80.3; Magnesium 2.5 mg/dl (1.8-2.4); Potassium 3.9 mmol/L (3.5-5.1)
--- NOTE | 2020-08-04 07:38 | Hospitalist Progress Note ---
Date of Service August 04, 2020 Assessment & Plan (1) Lumbar radiculopathy: Pt has had back surgery in March, now with staph vasu in 2/2 blood cultures, markedly eleveated ESR/CRP and back pain, on vancomycin for concern of epidural abscess or discitis/transverse myelitis MRI back 08/04/20 IMPRESSION: 1. Exam significantly compromised by susceptibility artifact from surgical hardware and motion artifact. 2. Status post L5-S1 posterior decompression with bilateral pedicle screw fusion and L4-L5 and L5-S1 discectomies. Complex rim-enhancing 5.7 x 4.7 x 2.8 cm fluid collection within the left laminectomy bed adjacent to several left-sided pedicle screws. This is nonspecific in the postoperative setting. Material within this collection could be purulent or hemorrhagic. Additional multiple fluid collections adjacent to right sided pedicle screws. These may reflect seromas however superimposed infection cannot be excluded. 3. Increased fluid signal within the L5-S1 disc space and diminished T1 marrow signal within the adjacent vertebral bodies. These findings are nonspec ific and may be postsurgical however discitis/osteomyelitis cannot be excluded. 4. Right paracentral anterior epidural fluid collection at the L5-S1 level that measures 1.7 x 0.8 cm. This is adjacent to the discectomy site and is probably postsurgical however a small epidural abscess could appear similar. 5. Nearly nondiagnostic evaluation of the central canal given artifact. Suspected moderate to severe multilevel central canal and neural foraminal narrowing. previous spine surgery 04/17/20, was initially put on steroids, these may cause confusion, so were stopped, also did have oxycodone and will continue cautiouslyat lower doses, no radiating neurologic deficits, since 2/2 blood cultures are staph aureus keep on Vancomycin (2) Elevated troponin: Patient is a 65 year old female with PMHx Anxiety, Hypothyroidism, Spinal fusion L2-S1, that presents for worsening sciatica-like pain of her R hip, worsening fatigue, increased thirst, and headache, found to have a mildly elevated troponin and slight EKG changes concerning for NSTEMI. did have IOANA in LAD placed on 08/02/20, now concern for back pain escalating will image back as also has had chills for the last week ?NSTEMI IOANA to stent to LAD -Patient already on ASA 81mg, plavix statin and b martin Atrial Fibrillaiton started in the label stitcher converted at 1648, will not pursue full anticoagulation ASCENCION -resolved Hypothyroidism -Continue home levothyroxine -TSH 1.080 Anxiety -Continue home Sertraline Hx LE Edema -Per patient takes Bumetanide PRN for LE edema -Will hold at this time -Echo normal normal LV size and function no regional wall motion abnormalities EF 55 to 60% left atrium severely dilated not well visualized DVT: Heparin TID hold for surgery Code: Full (3) ASCENCION (acute kidney injury): Admission and Anticipated Discharge Date Admission Date: August 01, 2020 Subjective Patient chest pain-free. Continues to endorse severe back pain. this pt had lumbar back surgery 04/17/21 L2-S1, currently did have negative CT head, wbc normal lactic normal, currently procalc esr and crp all elevated MRI suggests fluid collection near surgical bed on left of laminectomy. Will be npo overnight and possible surgery overnight remains on vancomycin Telemetry reviewedconverted from atrial fibrillation to sinus rhythm around 430 yesterday afternoon. Review of Systems Review of Systems: Mild distress and fatigue, at times confused but did have oxycodone no headache, blurry or double vision no speech or swallowing issues no chest pain, pressure or palpitations Dyspnea on exertion,no cough or wheezes no abdominal pain, nausea or vomiting, diarrhea or constipation no dysuria, hematuria or frequency no focal joint pain or swelling back pain with radiation to right hip and leg no bruising, bleeding or rashes no focal signs of weakness or numbness or altered sensation no complaints of anxiety or depression.. Physical Exam Physical Exam: The patient appeared well nourished and normally developed. Vital signs as documented. Head exam is normocephalic atraumatic no scleral icterus Neck is without JVD, thyromegaly, or carotid bruits. Lungs are clear to auscultation, no focal loss of breath sounds Cardiac exam, Rhythm is regular No murmurs, rubs or gallops. Abdominal exam reveals normal bowel sounds, soft non tender, no masses Extremities right wrist is with T band in place Neurologic exam is alert and oriented but at times confused , no focal loss of strength or sensation Skin is without bruises or rashes, back incision site looks ok, did have some facial blushing Psychologically is without concerns for anxiety or depression Results & Data Results & Data ([facility]) Vital Signs (Past 12 Hours) Vital Signs Temp Pulse Pulse Pulse Resp BP Pulse Ox 04/11/21 06:17 99.5 F 93 H 21 142/76 H 93 08/04/20 04:38 98.8 F 83 20 137/72 96 08/04/20 03:06 97.7 F 81 18 123/70 92 08/04/20 00:02 99.0 F 79 19 124/72 93 08/03/20 22:35 99.5 F 08/03/20 22:30 64 08/03/20 21:15 101.1 F H 90 20 143/77 H 91 PG Care Time/CCT Total # of Minutes Spent Total Time Spent with Patient: Total time spent is greater than 50% in coordination of care (as documented) at patient's floor/unit and/or counseling patient: Coding Level of Care Code 74585 Subseq Hosp Care Lvl 3 Diagnoses Lumbar radiculopathy M54.16 Elevated troponin R77.8 ASCENCION (acute kidney injury) N17.9
--- NOTE | 2020-08-04 08:39 | CT Scan Report ---
CHEST CTA for PULMONARY ARTERIES CT DOSE: 687.28 mGy.cm HISTORY: Right-sided chest pain. Fever. TECHNIQUE: Multiaxial CT images of the chest were performed following the intravenous administration of contrast to evaluate the pulmonary arteries. Maximal intensity projection images were also obtaine d. A dose lowering technique was utilized adhering to the principles of ALARA. COMPARISON STUDY: Chest CTA 08/01/2020. FINDINGS: Normal caliber thoracic aorta with no evidence for dissection. No filling defects within th e pulmonary arteries to suggest pulmonary embolus. There are trace bilateral pleural effusions. No me diastinal hilar lymphadenopathy. The heart is mildly enlarged. Limited views the upper abdomen demons trate mild hepatomegaly and hepatic steatosis. This remains unchanged. The visualized spleen is unrem arkable. Normal esophagus. The central airways are patent. No pneumothorax. Small bibasilar densities favor atelectasis. IMPRESSION: 1. No evidence for pulmonary embolus. 2. Trace bilateral pleural effusions. 3. Mild cardiomegaly, unchanged. 4. Hepatic steatosis. 5. Bibasilar densities favor atelectasis. ACT 112: Negative or not required by law. Electronically signed by: Arthur Choe M.D. 08/04/2020 8:37 AM
--- NOTE | 2020-08-04 09:06 | Pharmacy Report ---
Pharmacy Abx Initial Consult - Date of Service August 04, 2020 - Pharmacy Dosing Scope Date of Consult: 08/03/20 Consultation requested by: Dr. Agrawal Pharmacy is consulted to initiate Vancomycin IV dosing therapy, order appropriate labs and adjust drug dose/frequency. - Subjective The patient is a 65 year old F admitted on 08/01/20 08:14 with possible NSTEMI, s/p cardiac cath, now with possible infected hardware in spine, s/p sinal surgery 04/17/20.Staph + blood cultures, markedly elevated ESR/CRP and back pain, started on vancomycin last night, MRI back ordered, ortho consult. - Objective Height: 5 ft 7 in Weight: 103.4 kg Vital Signs (Past 12hrs): Vital Signs Temp Pulse Pulse Pulse Resp BP Pulse Ox 08/04/20 06:17 37.5 C 93 H 21 142/76 H 93 08/04/20 04:38 37.1 C 83 20 137/72 96 08/04/20 03:06 36.5 C 81 18 123/70 92 08/04/20 00:02 37.2 C 79 19 124/72 93 08/03/20 22:35 37.5 C 08/03/20 22:30 64 08/03/20 21:15 38.4 C H 90 20 143/77 H 91 Lab Results (24hrs): Laboratory Tests (24 Hours) 08/04/20 08/03/20 08/03/20 05:52 09:37 06:10 ESR Creatinine 0.78 Est Cr Clr Drug Dosing 90.1 C-Reactive Protein 24.50 H Procalcitonin 4.36 H 08/03/20 06:10 ESR > 90 H Creatinine Est Cr Clr Drug Dosing C-Reactive Protein Procalcitonin Micro Results: 08/03/20 10:37 Urine Culture - Final Urine,Clean Catch More than three types of organisms present, all high counts mixed probable skin dwayne - No further identifications or sensitivities to follow. 08/01/20 Unknown Urine Culture - Final Urine,Clean Catch More than three types of organisms present, all low counts mixed probable skin dwayne. No further identifications or sensitivities to follow. - Assessment & Plan Assessment 65 year old F with possible infected hardware of spine, s/p surgery 04/17/20, + staph in blood cx Elevated temp, ESR, procal, CRP Plan IV Vancomycin + Ceftriaxone for treatment of staph bacteremia and possible spinal hardware infection Vancomycin IV * Estimated PK Parameters: Vd 0.7 L/kg, Gordon 0.08 hr-1, t1/2 8.6hr * Loading dose: 2500 mg (24.3 mg/kg) at 2130 on 08/03 * Maintenance dose: 1500 mg IV (14.6 mg/kg) every 12 hours * Goal trough level : 15 to 20 mcg/mL * Trough level ordered for 08/05/20 prior to 0900 dose, this will be slightly before steady state and patient's BMI of 35.7kg/m2 - concern for accumulation which will all be considered in evaluation Ceftriaxone 2g IV Q24h Pharmacy will continue to follow and will adjust dose/frequency as necessary. Thank you.
[2020-08-04] MEDS: CLOPIDOGREL BISULFATE 75 MG TAB PO SCH (09:15)
[2020-08-04] MEDS: cefTRIAXone SODIUM 2,000 MG in DEXTROSE 5% 50 ML IV SCH (09:15)
[2020-08-04] MEDS: METOPROLOL TARTRATE 25 MG TAB PO SCH ×2 (09:15→22:03)
[2020-08-04] MEDS: VANCOMYCIN HCL 1,500 MG in SODIUM CHLORIDE 0.9% 500 ML IV SCH ×2 (09:22→22:00)
[2020-08-04] MEDS ORDERED: VANCOMYCIN HCL 1,500 MG in SODIUM CHLORIDE 0.9% 500 ML IV SCH (10:00)
--- NOTE | 2020-08-04 10:40 | Orthopedic Consultation ---
Date of Consultation August 04, 2020 Assessment & Plan (1) Back pain: At this time she is scheduled for an MRI lumbar spine. I be concerned about her having developed an epidural abscess or discitis. Will await these findings make further conditions. She may ultimately require I&D of the lumbar spine pending results. This of course is complicated by her recent cardiac procedure and anticoagulation. She is currently on appropriate antibiotics. Present on Admission?: Yes History of Present Illness Reason for Consultation: Back pain with bilateral leg pain Attending Physician: Salvador Agrawal MD History of Present Illness This is a very pleasant 65-year-old female well-known to me the presents the emergency room this week with chest pain and underwent stent placement for coronary artery disease. She also began experiencing evidence of sepsis and noted a marked worsening in her back pain. She also describes symptoms involving bilateral buttocks and posterior thighs. She states this began shortly after Easter. She denies any trauma fall or event. She denied having any previous fevers or chills until her admission. Prior to this time she was progressing appropriately after undergoing an extensive revision decompression fusion late last year. Allergies Allergy/AdvReac Type Severity Reaction Status Date / Time No Known Allergies Allergy Unverified 08/01/20 22:26 Home Medications Medication Instructions Recorded Confirmed Type aspirin 81 mg PO PM 03/29/20 08/01/20 History bumetanide 1 mg PO DIRECTED PRN 03/29/20 08/01/20 History ibuprofen [Motrin IB] 800 mg PO Q6H PRN 03/29/20 08/01/20 History levothyroxine [Synthroid] 175 mcg PO PM 03/29/20 08/01/20 History sertraline 50 mg PO PM 03/29/20 08/01/20 History cetirizine [Zyrtec] 10 mg PO DAILY PRN 04/16/20 08/01/20 History gabapentin 600 mg PO TID 04/16/20 08/01/20 History Patient History Medical History Extrusion of intervertebral disc Hyperlipidemia Hypertension Hypothyroid Impaired glucose tolerance Lumbar radiculopathy Obesity Social History Smoking Status: Never smoker Second Hand Exposure: No; Hx Alcohol Use: Yes Alcohol type: wine Hx Substance Use: No Preferred Language: Nepalese Communication Ability: Effective Family Preservation Officer Required: No Beliefs That Will Affect Care: None marital status: Current Living Situation: Spouse Feels Safe at Home: Yes Assistive Devices: Oxygen - Continuous and Walker Physical Exam Physical Exam: On exam she is in obvious distress. She exhibits reasonable +5-5 strength plantar flexion dorsiflexion quadriceps. Sensory intact. Her incision does appear to be well-healed. There is no erythema no drainage. She is nontender to palpation of the paravertebral musculature. Results & Data ([facility]) Vital Signs (Past 12 Hours) Vital Signs Temp Pulse Pulse Resp BP Pulse Ox 08/04/20 06:17 37.5 C 93 H 21 142/76 H 93 08/04/20 04:38 37.1 C 83 20 137/72 96 08/04/20 03:06 36.5 C 81 18 123/70 92 08/04/20 00:02 37.2 C 79 19 124/72 93 (1) Back pain Back pain laterality: bilateral Back pain location: low back pain Chronicity: acute Sciatica laterality: sciatica of right side Sciatica presence: with sciatica Qualified Code(s): M54.41 - Lumbago with sciatica, right side
[2020-08-04] MEDS ORDERED: GADOBUTROL 30ML VIAL IV ONE (11:23)
--- NOTE | 2020-08-04 12:22 | Magnetic Resonance Report ---
MRI OF THE LUMBAR SPINE WITH AND WITHOUT CONTRAST CLINICAL HISTORY: Worsening back pain. Previous L2-S1 surgery, evaluate for infection. COMPARISON STUDY: Lumbar spine MRI March 29, 2020. Lumbar spine fluoroscopic images April 17. TECHNIQUE: Utilizing a 1.5 Rosalva magnet and dedicated coil, multiplanar, multiecho imaging of the [facility] spine was performed before and after uneventful IV administration of 10.5 mL of Gadavist. FINDINGS: For purposes of numbering on this exam, the L5-S1 disc space is assigned to axial image 39 of 48. Thi s exam is compromised by motion artifact and susceptibility artifact from surgical hardware. Note is made of a posterior decompression with bilateral pedicle screw fusion from L2 through S1. L4-L5 and L 5-S1 discectomies are noted. There is increased fluid signal within the L5-S1 disc space. There is di minished T1 marrow signal within the L5 and S1 vertebral bodies. However, there is not significant in creased T2 signal within these vertebral bodies on the STIR sequence. Note is made of a 1.7 x 0.8 cm right paracentral anterior epidural fluid collection at the L5-S1 level. This is probably postsurgica l. Note is made of a complex fluid collection within the left laminectomy bed at the L4-S1 level that measures 4.7 x 5.7 x 2.8 cm. This contains T2 hyperintense, T1 hypointense material. This demonstrat es peripheral enhancement on the postcontrast images. Note is also made of a fluid collection adjacen t to right-sided surgical hardware. The largest fluid collection measures 5 x 4 cm. Increased T2 sign al within the operative bed is noted. The conus terminates at the L1-L2 level. Evaluation of the cent ral canal and neural foramen is nearly nondiagnostic given artifact. There is suspected moderate to s evere multilevel central canal and neural foraminal stenosis. IMPRESSION: 1. Exam significantly compromised by susceptibility artifact from surgical hardware and motion artifa ct. 2. Status post L5-S1 posterior decompression with bilateral pedicle screw fusion and L4-L5 and L5-S1 discectomies. Complex rim-enhancing 5.7 x 4.7 x 2.8 cm fluid collection within the left laminectomy b ed adjacent to several left-sided pedicle screws. This is nonspecific in the postoperative setting. M aterial within this collection could be purulent or hemorrhagic. Additional multiple fluid collection s adjacent to right sided pedicle screws. These may reflect seromas however superimposed infection ca nnot be excluded. 3. Increased fluid signal within the L5-S1 disc space and diminished T1 marrow signal within the mirela cent vertebral bodies. These findings are nonspecific and may be postsurgical however discitis/osteom yelitis cannot be excluded. 4. Right paracentral anterior epidural fluid collection at the L5-S1 level that measures 1.7 x 0.8 cm . This is adjacent to the discectomy site and is probably postsurgical however a small epidural absce ss could appear similar. 5. Nearly nondiagnostic evaluation of the central canal given artifact. Suspected moderate to severe multilevel central canal and neural foraminal narrowing. ACT 112: Negative or not required by law. Electronically signed by: Roge Parkinson M.D. 08/04/2020 12:21 PM
[2020-08-04] MEDS: ACETAMINOPHEN 500 MG TAB PO PRN (19:11)
[2020-08-04] MEDS: SERTRALINE HCL 50 MG TABLET PO SCH (22:00)
[2020-08-04] MEDS: LEVOTHYROXINE SODIUM 175 MCG TABLET PO SCH (22:00)
[2020-08-04] MEDS: ASPIRIN 81 MG ECTAB PO SCH (22:26)
[2020-08-05] MEDS ORDERED: POLYETHYLENE (MIRALAX) 17 GM PACK PO ONE (00:47)
--- NOTE | 2020-08-05 06:08 | Electrocardiogram Report ---
Test Reason : Blood Pressure : / mmHG Vent. Rate : 102 BPM Atrial Rate : 102 BPM P-R Int : 164 ms QRS Dur : 082 ms QT Int : 324 ms P-R-T Axes : 047 069 059 degrees QTc Int : 422 ms Poor data quality, interpretation may be adversely affected Sinus tachycardia Possible Left atrial enlargement Abnormal ECG When compared with ECG of 02-AUG-2020 14:12, Sinus rhythm has replaced Atrial fibrillation QT has shortened Confirmed by Iggy Ramos ([id number]) on 08/05/2020 6:08:13 AM Referred By: REFERRED SELF Confirmed By:Iggy Ramos
[2020-08-05 08:00] LABS: Hemoglobin 11.9 g/dL (12.0-16.0); Mean Corpuscular Hemoglobin 28.3 pg (25-34); Mean Corpuscular Volume 83.3 fL (80-100); Mean Platelet Volume 9.7 fL (7.4-10.4); Platelet Count 182 K/uL (130-400); RDW Coefficient of Variation 15.2 % (11.5-14.5); RDW Standard Deviation 46.6 fL (36.4-46.3); White Blood Count 11.86 K/uL (4.8-10.8)
[2020-08-05 08:12] LABS: Partial Thromboplastin Ratio 0.9; Partial Thromboplastin Time 22.5 Seconds (21.0-31.0); Prothrombin Time 10.5 Seconds (9.0-12.0)
--- NOTE | 2020-08-05 08:22 | Anesthesiology Consultation ---
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 Surgery Operation Date: 08/02/20 12:00 Proposed Procedures p Cardiac Cath Procedure - Iggy Ramos MD Operation Date: 08/05/20 13:45 Proposed Procedures p Incision and Drainage Lumbar Spine - Jairon Brice DO Height/Weight Height: 5 ft 7 in Weight: 108.5 kg Allergies Allergy/AdvReac Type Severity Reaction Status Date / Time No Known Allergies Allergy Unverified 08/01/20 22:26 Medications Home Medications Medication Instructions Recorded Confirmed Last Taken aspirin 81 mg PO PM 03/29/20 08/01/20 03/28/20 bumetanide 1 mg PO DIRECTED PRN 03/29/20 08/01/20 Unknown ibuprofen [Motrin IB] 800 mg PO Q6H PRN 03/29/20 08/01/20 03/28/20 levothyroxine [Synthroid] 175 mcg PO PM 03/29/20 08/01/20 03/28/20 sertraline 50 mg PO PM 03/29/20 08/01/20 03/28/20 cetirizine [Zyrtec] 10 mg PO DAILY PRN 04/16/20 08/01/20 Unknown gabapentin 600 mg PO TID 04/16/20 08/01/20 Unknown Active Medications Generic Name Dose Route Start Last Admin Trade Name Freq PRN Reason Stop Dose Admin Acetaminophen 1,000 mg 08/02/20 08:00 08/04/20 19:11 Acetaminophen 500 Mg Tab PO 09/01/20 07:59 1,000 mg Q8H PRN Administration Pain or Fever Aspirin 81 mg 08/02/20 21:00 08/04/20 22:26 Aspirin 81 Mg Ectab PO 09/01/20 20:59 81 mg PM SHADI Administration Clopidogrel Bisulfate 75 mg 08/03/20 09:00 08/04/20 09:15 Clopidogrel Bisulfate 75 Mg Tab PO 09/02/20 08:59 75 mg QAM SHADI Administration Heparin Sodium (Porcine) 7,500 units 08/02/20 06:00 08/04/20 22:26 Heparin Sod 5,000 Unit/0.5 Ml Vial SQ 09/01/20 05:59 7,500 units Q8 SHADI Administration Vancomycin HCl 1,500 mg/ 530 mls @ 200 mls/hr 08/04/20 09:00 08/05/20 00:39 Sodium Chloride IV 08/05/20 20:59 Infused Q12H SHADI Infusion Levothyroxine Sodium 175 mcg 08/02/20 21:00 08/04/20 22:00 Levothyroxine Sodium 175 Mcg Tablet PO 09/01/20 20:59 175 mcg PM SHADI Administration Metoprolol Tartrate 12.5 mg 08/02/20 21:00 08/04/20 22:03 Metoprolol Tartrate 25 Mg Tab PO 09/01/20 20:59 12.5 mg BID SHADI Administration Polyethylene Glycol 17 gm 08/04/20 06:20 08/04/20 06:41 Polyethylene (Miralax) 17 Gm Pack PO 09/03/20 06:19 17 gm DAILY PRN Administration Constipation Sertraline HCl 50 mg 08/02/20 21:00 08/04/20 22:00 Sertraline Hcl 50 Mg Tablet PO 09/01/20 20:59 50 mg PM SHADI Administration Past Medical History Medical History Extrusion of intervertebral disc Hyperlipidemia Hypertension Hypothyroid Impaired glucose tolerance Lumbar radiculopathy Obesity Social History Smoking Status: Never smoker Hx Alcohol Use: Yes Alcohol type: wine alcohol intake frequency: 0-2 drinks per day Hx Substance Use: No substance use type: does not use Physical Exam Vital Signs Last Vital Signs Temp 97.5 F L 08/05/20 08:00 Pulse 87 08/05/20 08:00 Resp 20 08/05/20 08:00 BP 148/76 H 08/05/20 08:00 Pulse Ox 91 08/05/20 08:00 Testing Laboratory Results 08/05/20 07:41 PT 10.5 Seconds (9.0-12.0) 08/05/20 07:41 INR 1.0 (0.9-1.1) 08/05/20 07:41 APTT 22.5 Seconds (21.0-31.0) 08/05/20 07:41 Hemoglobin A1c 6.1 % (4.5-5.6) H 08/02/20 03:10 Urine Color Yellow 08/01/20 Unknown Urine Appearance Clear (Clear) 08/01/20 Unknown Urine pH 5.0 (4.5-7.5) 08/01/20 Unknown Ur Specific [place] 1.031 (1.000-1.030) H 08/01/20 Unknown Urine Protein Trace (Negative) H 08/01/20 Unknown Urine Glucose (UA) Negative (Negative) 08/01/20 Unknown Urine Ketones Negative (Negative) 08/01/20 Unknown Urine Nitrite Negative (Negative) 08/01/20 Unknown Ur Leukocyte Esterase Negative (Negative) 08/01/20 Unknown Urine WBC (Auto) 1-5 /hpf (0-5) 08/01/20 Unknown Urine RBC (Auto) 0-4 /hpf (0-4) 08/01/20 Unknown U Hyaline Cast (Auto) 5-10 /lpf (0-5) H 08/01/20 Unknown U Epithel Cells (Auto) 20-30 /lpf (0-5) H 08/01/20 Unknown Urine Bacteria (Auto) Negative (Negative) 08/01/20 Unknown 08/03/20 09:26 Aerobic Blood Culture - Preliminary Blood Gram positive cocci clusters Anaerobic Blood Culture - Preliminary Staphylococcus aureus 08/03/20 09:51 Aerobic Blood Culture - Preliminary Blood Gram positive cocci clusters Anaerobic Blood Culture - Preliminary Staphylococcus species 08/03/20 10:37 Urine Culture - Final Urine,Clean Catch More than three types of organisms present, all high counts mixed probable skin dwayne - No further identifications or sensitivities to follow. 08/01/20 Unknown Urine Culture - Final Urine,Clean Catch More than three types of organisms present, all low counts mixed probable skin dwayne. No further identifications or sensitivities to follow. Electrocardiogram Date: 08/03/20 Sinus tachycardia, rate 106 bpm Otherwise normal ECG When compared with ECG of 03-AUG-2020 04:57, (unconfirmed) No significant change was found Confirmed by Rodrigo Viera ([id number]) on 08/03/2020 10:41:44 AM Chest X-Ray Date: 08/01/20 Findings: + NAD Echocardiogram Date: 08/02/20 Normal LV size and systolic function. EF 55-60%. No regional wall motion abnormalities. No LVH. No significant diastolic dysfunction. LA appears severely dilated, however not well visualized No significant valvular abnormalities Cardiac Catheterization Date: 08/02/20 Summary: 1. Successful PCI of proximal to mid LAD with single drug-eluting stent (3.5 x 15 mm Livan). Recommendations: To PCU for continued monitoring Loaded with clopidogrel 600 mg in Pit Boss Continue dual-antiplatelet therapy for at least 1 year Consult cardiac Rehab
[2020-08-05] MEDS ORDERED: VANCOMYCIN TROUGH ONE (08:30)
[2020-08-05 08:31] LABS: BUN Creatinine Ratio 28.6 (10-20); Calcium 8.6 mg/dl (8.5-10.1); Creatinine Clr Calc Pharmacy 150.2 ml/min; Est GFR (African American) 120.1; Est GFR (Non-African American) 103.7; Magnesium 2.2 mg/dl (1.8-2.4); Potassium 3.8 mmol/L (3.5-5.1)
[2020-08-05] MEDS: METOPROLOL TARTRATE 25 MG TAB PO SCH ×2 (09:22→21:12)
[2020-08-05] MEDS: CLOPIDOGREL BISULFATE 75 MG TAB PO SCH (09:23)
[2020-08-05] MEDS: VANCOMYCIN HCL 1,500 MG in SODIUM CHLORIDE 0.9% 500 ML IV SCH ×2 (09:24→09:28)
[2020-08-05] MEDS: NAFCILLIN SODIUM 2,000 MG in DEXTROSE 5% 100 ML IV SCH ×3 (10:12→20:56)
--- NOTE | 2020-08-05 12:03 | Cardiology Progress Note ---
Date of Service August 05, 2020 Assessment & Plan (1) CAD (coronary artery disease): (2) S/P coronary artery stent placement: (3) Paroxysmal atrial fibrillation: (4) Hypertension: (5) Hyperlipidemia: ASSESSMENT/PLAN: 1. CAD s/p LAD PCI: No angina. Her most likely cardiac symptom free hospital with significant dyspnea with exertion. Continue aspirin 81 mg daily indefinitely. Continue Plavix 75 mg daily for 1 year without interruption. Continue beta-martin. Recommend high-intensity statin therapy. 2. Paroxysmal atrial fibrillation: Atrial fibrillation occurred during the left heart catheterization and was self limited, spontaneously resolving later the same day. Does not require long-term anticoagulation therapy unless she is found to have recurrent issues. 3. Hypertension: Blood pressure has been mostly hypertensive but she is in pain. Will increase metoprolol to 25 mg twice daily. 4. Dyslipidemia: High-intensity statin therapy recommended and started in the form of atorvastatin 40 mg q.h.s.. 5. Bacteremia/possible spine infection: She has been seen by orthopedics. Awaiting final recommendations. If she requires orthopedic surgical intervention, would remain on dual anti-platelet therapy if possible to help reduce the risk of InStent thrombosis on recently placed LAD stent. Can maintain previously started beta-martin therapy throughout the perioperative period. Defer treatment to primary service, Orthopedics, and infectious disease services. 6. Disposition: Please call with any other questions or concerns. Admission and Anticipated Discharge Date Admission Date: August 04, 2020 Subjective She was seen earlier this morning. She denies chest pain, shortness of breath, syncope, near-syncope, palpitations, or bleeding. She admits that she has developed some swelling throughout her body, including upper extremities and lower extremities. She continues to have back pain, especially with any movement such as using the bedside commode. She was alone in her hospital room. Review of systems: As above. Physical Exam Physical Exam: Gen.: No acute distress. Alert and oriented. HEENT: Anicteric sclera. Neck: No appreciable JVD. Cardiac: Regular. Normal S1-S2. No murmurs, rubs, or gallops. Pulmonary: Clear to auscultation bilaterally without wheezes, rales, or rhonchi. Abdomen: Soft, nontender, nondistended, with normoactive bowel sounds. No bruits noted. Extremities: 2+ radial pulses bilaterally. Right radial cath site is clean, dry, and intact without erythema or discharge. 2+ posterior tibialis pulses bilaterally. No cyanosis. Mild bilateral upper extremity and bilateral lower extremity nonpitting edema. Psychiatric: Affect appears appropriate. Results & Data ([facility]) Vital Signs (Past 12 Hours) Vital Signs Temp Pulse Pulse Resp BP Pulse Ox 08/05/20 11:39 36.8 C 86 19 146/72 H 93 08/05/20 08:00 36.4 C L 87 20 148/76 H 91 08/05/20 07:00 92 H 08/05/20 03:55 37.2 C 85 18 147/73 H 95 08/05/20 01:38 75 Laboratory Results Laboratory Results - last 24 hr 08/05/20 08/05/20 08/05/20 07:41 07:41 07:41 WBC 11.86 H RBC 4.20 Hgb 11.9 L Hct 35.0 L MCV 83.3 MCH 28.3 MCHC 34.0 RDW Std Deviation 46.6 H RDW Coeff of Kye 15.2 H Plt Count 182 MPV 9.7 PT 10.5 INR 1.0 APTT 22.5 PTT Ratio 0.9 Sodium 133 L Potassium 3.8 Chloride 102 Carbon Dioxide 25 Anion Gap 6.0 BUN 14 Creatinine 0.48 L D Est Cr Clr Drug Dosing 150.2 Est GFR ( Amer) 120.1 Est GFR (Non-Af Amer) 103.7 BUN/Creatinine Ratio 28.6 H Glucose 119 H Calcium 8.6 Magnesium 2.2 Vancomycin Trough 08/05/20 09:07 WBC RBC Hgb Hct MCV MCH MCHC RDW Std Deviation RDW Coeff of Kye Plt Count MPV PT INR APTT PTT Ratio Sodium Potassium Chloride Carbon Dioxide Anion Gap BUN Creatinine Est Cr Clr Drug Dosing Est GFR ( Amer) Est GFR (Non-Af Amer) BUN/Creatinine Ratio Glucose Calcium Magnesium Vancomycin Trough 14.4 Diagnostic Findings Lumbar spine MRI 08/03/2020: A complex rim enhancing 5.7 x 4.7 x 2.8 cm fluid c ollection within the left laminectomy adjacent to several left-sided pedicle screws. There were additional multiple fluid collections adjacent to the right- sided pedicle screws. Increased fluid signal within L5-S1 disc space and diminished T1 marrow signal within adjacent vertebral bodies may be nonspecific however diskitis/osteomyelitis could not be excluded per Radiology. Right paracentral anterior epidural fluid collection at the L5-S1 level may be postsurgical versus small epidural abscess. Telemetry personally reviewed: Sinus rhythm. No arrhythmia. Medications Administered Current Inpatient Medications Acetaminophen (Acetaminophen 500 Mg Tab) 1,000 mg PO Q8H PRN PRN Reason: Pain or Fever Stop: 09/01/20 07:59 Last Admin: 08/04/20 19:11 Dose: 1,000 mg Documented by: Aspirin (Aspirin 81 Mg Ectab) 81 mg PO PM SHADI Stop: 09/01/20 20:59 Last Admin: 08/04/20 22:26 Dose: 81 mg Documented by: Clopidogrel Bisulfate (Clopidogrel Bisulfate 75 Mg Tab) 75 mg PO QAM SHADI Stop: 09/02/20 08:59 Last Admin: 08/05/20 09:23 Dose: 75 mg Documented by: Heparin Sodium (Porcine) (Heparin Sod 5,000 Unit/0.5 Ml Vial) 7,500 units SQ Q8 SHADI Stop: 09/01/20 05:59 Last Admin: 08/04/20 22:26 Dose: 7,500 units Documented by: Lorazepam (Ativan) 0.5 mg in 1 mls @ 1 mls/min IV Q4H PRN PRN Reason: Agitation Stop: 09/02/20 09:28 Nafcillin Sodium 2,000 mg/ (Dextrose) 100 mls @ 100 mls/hr IV Q4H SHADI; Protocol Stop: 08/19/20 09:59 Last Infusion: 08/05/20 11:22 Dose: Infused Documented by: Levothyroxine Sodium (Levothyroxine Sodium 175 Mcg Tablet) 175 mcg PO PM SHADI Stop: 09/01/20 20:59 Last Admin: 08/04/20 22:00 Dose: 175 mcg Documented by: Lorazepam (Lorazepam 0.5 Mg Tab) 0.5 mg PO Q6H PRN PRN Reason: Anxiety Stop: 09/02/20 09:28 Metoprolol Tartrate (Metoprolol Tartrate 1 Mg/Ml Vial) 5 mg IV Q4 PRN PRN Reason: sbp> 185, dbp >95, HR >120 Stop: 09/01/20 15:38 Metoprolol Tartrate (Metoprolol Tartrate 25 Mg Tab) 12.5 mg PO BID [facility] Stop: 09/01/20 20:59 Last Admin: 08/05/20 09:22 Dose: 12.5 mg Documented by: Nitroglycerin (Nitroglycerin Sl 0.4 Mg/Tab Tab) 0.4 mg SL UD PRN PRN Reason: Chest Pain Stop: 08/31/20 23:18 Ondansetron HCl (Ondansetron Inj 2 Mg/Ml 2 Ml Vial) 4 mg IV Q6H PRN PRN Reason: Nausea Stop: 08/31/20 23:18 Oxycodone HCl (Oxycodone Hcl Ir 5 Mg Tab (Immediate Release)) 5 mg PO Q4H PRN PRN Reason: MODERATE Pain (4,5,6) & Pre PT Stop: 08/15/20 23:18 Polyethylene Glycol (Polyethylene (Miralax) 17 Gm Pack) 17 gm PO DAILY PRN PRN Reason: Constipation Stop: 09/03/20 06:19 Last Admin: 08/04/20 06:41 Dose: 17 gm Documented by: Sertraline HCl (Sertraline Hcl 50 Mg Tablet) 50 mg PO PM SHADI Stop: 09/01/20 20:59 Last Admin: 08/04/20 22:00 Dose: 50 mg Documented by: PG Care Time/CCT Total # of Minutes Spent Total Time Spent with Patient: Total time spent is greater than 50% in coordination of care (as documented) at patient's floor/unit and/or counseling patient: Coding Level of Care Code 89674 Subseq Hosp Care Lvl 3 Diagnoses CAD (coronary artery disease) I25.10 S/P coronary artery stent placement Z95.5 Paroxysmal atrial fibrillation I48.0 Hypertension I10 Hyperlipidemia E78.5
--- NOTE | 2020-08-05 12:04 | Hospitalist Progress Note ---
Date of Service August 05, 2020 Assessment & Plan (1) Abscess in epidural space of lumbar spine: Pt has had back surgery in March, now with zachary leone in 2/2 blood cultures, markedly eleveated ESR/CRP and back pain, on vancomycin for concern of epidural abscess or discitis/transverse myelitis MRI back 08/04/20 IMPRESSION: 1. Exam significantly compromised by susceptibility artifact from surgical hardware and motion artifact. 2. Status post L5-S1 posterior decompression with bilateral pedicle screw fusion and L4-L5 and L5-S1 discectomies. Complex rim-enhancing 5.7 x 4.7 x 2.8 cm fluid collection within the left laminectomy bed adjacent to several left- sided pedicle screws. This is nonspecific in the postoperative setting. Material within this collection could be purulent or hemorrhagic. Additional multiple fluid collections adjacent to right sided pedicle screws. These may reflect seromas however superimposed infection cannot be excluded. Patient to be taken to the OR today by Dr. Brice Await surgical results for further planning (2) CAD (coronary artery disease): History of PCI with drug-eluting stent Currently on clopidogrel Continue clopidogrel even though patient may require surgery today Also continue aspirin 81 mg as well as a statin and beta-martin No arrhythmias on telemetry Hemodynamically stable (3) Hypothyroid: Continue levothyroxine (4) Anxiety: Continue sertraline at home dose Continue positive reinforcement with patient at bedside (5) Lower extremity edema: No evidence of clinical congestive heart failure Home medications include bumetanide We will hold out at this time pending surgery Echocardiogram with normal left ventricular size and function. Preserved left ventricular ejection fraction of 55 to 60%. No regional wall motion abnormalities noted (6) DVT prophylaxis: Continue clopidogrel Hold heparin 3 times daily per surgery Admission and Anticipated Discharge Date Admission Date: August 04, 2020 Subjective Attending: Dr. Franco Patient seen and examined at bedside. She is having significant amount of back pain. She also has weakness of her left leg. She is status post PCI with stent to LAD and is currently on clopidogrel. Prior to that she was admitted for L2- S1 decompression and fusion and removal of previous hardware from L4-L5. This admission she had an MRI which is concerning for fluid collection in that region. She is going the operating room today with Dr. Brice for exploration. Patient denies any fever or chills. She has no sweats or rigors. She is having difficulty rolling and is having difficulty sitting up as well. She has good sensation to her fingers and toes. Neurological examination shows weakness to the left leg. Toes are downgoing bilaterally. She also has generalized weakness. Strength to the upper extremities and hands is equal but diminished. Cerebellar function appears to be intact. Patient has no other acute complaints. Review of Systems Review of Systems: All systems reviewed & are unremarkable except as noted in Subjective Physical Exam Physical Exam: GENERAL : Moderate stress over concern of surgery for her back. EYES: No icterus, gaze conjugate. Pupils equal round and reactive to light NOSE: No evidence of epistaxis MOUTH: No lesions or candidiasis. Mucosa dry NECK: Supple LUNGS: CTA B/L, no wheezes, rales or rhonchi HEART: Regular, rate controlled ABDOMEN: Soft, NT, ND, BS Present EXTREMITIES: Trace lateral LE edema, pedal pulses intact and equal bilaterally NEURO: A&OX3. Strength is equal on the upper extremities but is 3/5. Straight leg raises not evaluated secondary to possibility of epidural hematoma. Toes are downgoing bilaterally. Sensation is intact to all digits equally and appropriately. Results & Data Results & Data ([facility]) Vital Signs (Past 12 Hours) Vital Signs Temp Pulse Pulse Resp BP Pulse Ox 08/05/20 11:39 36.8 C 86 19 146/72 H 93 08/05/20 08:00 36.4 C L 87 20 148/76 H 91 08/05/20 07:00 92 H 08/05/20 03:55 37.2 C 85 18 147/73 H 95 08/05/20 01:38 75 Laboratory Results 08/05/20 07:41 08/05/20 07:41 INR 1.0 (0.9-1.1) 08/05/20 07:41 Diagnostic Findings MRI OF THE LUMBAR SPINE WITH AND WITHOUT CONTRAST CLINICAL HISTORY: Worsening back pain. Previous L2-S1 surgery, evaluate for infection. COMPARISON STUDY: Lumbar spine MRI March 29, 2020. Lumbar spine fluoroscopic images April 17, 2020. TECHNIQUE: Utilizing a 1.5 Rosalva magnet and dedicated coil, multiplanar, multiecho imaging of the lumbar spine was performed before and after uneventful IV administration of 10.5 mL of Gadavist. FINDINGS: For purposes of numbering on this exam, the L5-S1 disc space is assigned to axial image 39 of 48. This exam is compromised by motion artifact and susceptibility artifact from surgical hardware. Note is made of a posterior decompression with bilateral pedicle screw fusion from L2 through S1. L4-L5 and L5-S1 discectomies are noted. There is increased fluid signal within the L5-S1 disc space. There is diminished T1 marrow signal within the L5 and S1 vertebral bodies. However, there is not significant increased T2 signal within these vertebral bodies on the STIR sequence. Note is made of a 1.7 x 0.8 cm right paracentral anterior epidural fluid collection at the L5-S1 level. This is probably postsurgical. Note is made of a complex fluid collection within the left laminectomy bed at the L4-S1 level that measures 4.7 x 5.7 x 2.8 cm. This c ontains T2 hyperintense, T1 hypointense material. This demonstrates peripheral enhancement on the postcontrast images. Note is also made of a fluid collection adjacent to right-sided surgical hardware. The largest fluid collection measures 5 x 4 cm. Increased T2 signal within the operative bed is noted. The conus terminates at the L1-L2 level. Evaluation of the central canal and neural foramen is nearly nondiagnostic given artifact. There is suspected moderate to severe multilevel central canal and neural foraminal stenosis. IMPRESSION: 1. Exam significantly compromised by susceptibility artifact from surgical hardware and motion artifact. 2. Status post L5-S1 posterior decompression with bilateral pedicle screw fusion and L4-L5 and L5-S1 discectomies. Complex rim-enhancing 5.7 x 4.7 x 2.8 cm fluid collection within the left laminectomy bed adjacent to several left-sided pedicle screws. This is nonspecific in the postoperative setting. Material within this collection could be purulent or hemorrhagic. Additional multiple fluid collections adjacent to right sided pedicle screws. These may reflect seromas however superimposed infection cannot be excluded. 3. Increased fluid signal within the L5-S1 disc space and diminished T1 marrow signal within the adjacent vertebral bodies. These findings are nonspecific and may be postsurgical however discitis/osteomyelitis cannot be excluded. 4. Right paracentral anterior epidural fluid collection at the L5-S1 level that measures 1.7 x 0.8 cm. This is adjacent to the discectomy site and is probably postsurgical however a small epidural abscess could appear similar. 5. Nearly nondiagnostic evaluation of the central canal given artifact. Suspected moderate to severe multilevel central canal and neural foraminal narrowing. Electronically signed by: Roge Parkinson M.D. 08/04/2020 12:21 PM PG Care Time/CCT Total # of Minutes Spent Total Time Spent with Patient: Total time spent is greater than 50% in coordination of care (as documented) at patient's floor/unit and/or counseling patient: Coding Level of Care Code 73233 Subseq Hosp Care Lvl 2 Diagnoses Abscess in epidural space of lumbar spine G06.1 CAD (coronary artery disease) I25.10 Hypothyroid E03.9 Anxiety F41.9 Lower extremity edema R60.0 DVT prophylaxis Z29.9
[2020-08-05] MEDS ORDERED: NEOSTIGMINE METHYLSULFATE 1 MG/ML 10ML VIAL ONE (12:38)
[2020-08-05] MEDS ORDERED: fentaNYL citrate 100 MCG/2 ML VIAL ONE (12:38)
[2020-08-05] MEDS ORDERED: MIDAZOLAM HCL 1 MG/ML 2ML VIAL ONE (12:38)
[2020-08-05] MEDS ORDERED: GLYCOPYRROLATE 0.2 MG/ML VIAL ONE (12:38)
[2020-08-05] MEDS ORDERED: PROPOFOL IV EMULSION 10 MG/ML 20 ML VIAL IV ONE (12:38)
[2020-08-05] MEDS ORDERED: ONDANSETRON INJ 2 MG/ML 2 ML VIAL ONE (12:38)
[2020-08-05] MEDS ORDERED: LIDOCAINE HCL 2% 2 ML VIAL/AMP(20MG/ML) INFIL ONE (12:38)
[2020-08-05] MEDS ORDERED: DEXAMETHASONE SOD INJ 4 MG/ML VIAL ONE (12:38)
--- NOTE | 2020-08-05 12:47 | History & Physical Bridge Note ---
Date of Service August 05, 2020 History & Physical Bridge Note I have examined the patient, reviewed the History & Physical and in the interval since the performance of the History & Physical I have noted the following changes of clinical significance: no changes noted Irrigation and debridement lumbar spine
[2020-08-05] MEDS ORDERED: BUPIVACAINE/EPINEPHRINE 0.5% MPF 1:200,000 30 ML VIAL ONE (13:10)
[2020-08-05] MEDS ORDERED: BACITRACIN INJ 50,000 UNIT VIAL ONE (13:10)
[2020-08-05] MEDS ORDERED: GENTAMICIN SULFATE 40 MG/ML 2 ML VIAL ONE (13:10)
[2020-08-05] MEDS ORDERED: VANCOMYCIN HCL 1000MG/20ML VIAL ONE (13:10)
[2020-08-05] MEDS ORDERED: fentaNYL citrate 100 MCG/2 ML VIAL IV PRN (13:20)
[2020-08-05] MEDS ORDERED: ONDANSETRON INJ 2 MG/ML 2 ML VIAL IV PRN ×2 (13:20→16:03)
[2020-08-05] MEDS ORDERED: ATROPINE SULFATE 0.1 MG/ML 10ML SYR IV PRN (13:20)
[2020-08-05] MEDS ORDERED: ePHEDrine sulfate 50 MG/ML AMP IV PRN (13:20)
[2020-08-05] MEDS ORDERED: FLOSEAL HEMOSTATIC MATRIX 10ML TOP ONE (14:05)
--- NOTE | 2020-08-05 14:32 | Operative Report ---
Post Operative Report Pre & Post Diagnosis Operation Date: 08/02/20 12:00 <No data on this case meets the specified criteria> Operation Date: 08/05/20 13:45 Pre-Op Diagnosis: Back pain Post-Op Diagnosis: #1 epidural abscess lumbar spine. #2 loosening of hardware L5-S1 on the left. I identified the patient and participated in the time-out.: Yes Procedure Operation Date: 08/02/20 12:00 Actual Procedures p Drug Eluting Stent SGl Vessel - Car Buckley MD s Cineradiography w/Routine Exam - Car Buckley MD s Cath, Left with Cors and Vent - Iggy Ramos MD Operation Date: 08/05/20 13:45 Actual Procedures #1 irrigation debridement lumbar spine spine epidural space. #2 removal of posterior instrumentation. #3 exploration of fusion. #4 posterior spinal fusion L4-5 L5-S1. #5 placement of I factor with cement in the posterior gutters L4-S1. #6 placement of Stumilan beads impregnated with vancomycin gentamicin throughout the epidural and posterior lateral spaces lumbar spine. Surgeon Jairon Brice, DO Driver Medic Evy Anderson Estimated Blood Loss 250 Findings See Below Evidence of gross purulence throughout the lumbar spine L2-S1 with evidence of loosening instrumentation L4-L5 pedicle screws on the left. Specimens Epidural space cultures Indications This is a 65-year-old female known to me the presents with worsening back pain evidence of gross infection and an MRI worrisome for epidural abscess. Subsequently we elected to go urgent irrigation debridement. Description of Procedure Patient was met with identified informed consent obtained. Patient was then taken to the operative suite underwent a patient placed in a prone position Iain table top Marin frame. All bony prominences well-padded eyes inspected to ensure no external pressure placed upon the bed at this point lumbar spine was prepped and draped in a sterile fashion. Sharp dissection with the assistance of Bovie cautery was performed down to and exposing the epidural s pace. Gross pockets of purulence were noted involving the right lateral recesses as well as the left lateral recess and epidural space. Cultures were obtained. I did remove all purulent material and necrotic looking tissue. I did explore the L5-S1 disc space by way of a transforaminal approach on the left. I found no evidence of abscess in this region. I did note loosening of the left S1 endcap. Subsequently I did remove the left henry from L2-S1. At this time several liters of antibiotic solution were irrigated throughout the incision. This demonstrated loosening of the L5 and S1 pedicle screws these were subsequently removed and replaced. A new henry was contoured and locked in position. I elected to place new bone graft in the posterior gutters L4-S1 bilaterally in light of the evidence of loosening hardware and failed fusion. 2 15 round JUANCHO drains were then inserted. Approximately 10 cc of stimulant beads impregnated with gentamicin and vancomycin were then placed throughout the posterior gutters and epidural space. Incision was then closed with subcutaneous Vicryl and kris for final skin closure. Sterile dressings placed. Patient awakened taken to PACU stable condition. Please note Evy Anderson was present at the entire procedure involved the patient positioning complex portions of the surgery and final skin closure. I attest to the content of the Intraoperative Record and any orders documented therein. Any exceptions are noted below.
--- NOTE | 2020-08-05 14:55 | Fluoroscopy Report ---
FL lumbar spine 2-3V CLINICAL HISTORY: I and D of lumbar spine. COMPARISON STUDY: Lumbar spine MRI August 04, 2020. FLUOROSCOPY TIME: 6 seconds. FLUOROSCOPIC IMAGES: 2 FINDINGS: Fluoroscopy was provided during during irrigation and debridement of the lumbar spine. Surg ical drains are in place. Lumbar spine hardware is partially imaged. L5-S1 discectomies and interbody spacer is noted. Note is made of impregnated beads. IMPRESSION: Fluoroscopy provided during irrigation and debridement of the lumbar spine, as described above. ACT 112: Negative or not required by law. Electronically signed by: Roge Parkinson M.D. 08/05/2020 2:53 PM
--- NOTE | 2020-08-05 15:42 | Anesthesiology Progress Note ---
Date of Service August 05, 2020 Anesthesia Post Procedure Vital Signs Vital Signs: Temp Pulse Pulse Pulse Pulse Resp BP 08/05/20 15:30 98 H 20 140/96 08/05/20 15:20 87 20 130/72 08/05/20 15:10 90 20 144/78 H 08/05/20 15:00 95 H 20 147/70 H 08/05/20 14:51 99.0 F 108 H 22 133/69 08/05/20 12:40 98.4 F 85 20 08/05/20 11:39 98.2 F 86 19 146/72 H 08/05/20 08:00 97.5 F L 87 20 148/76 H 08/05/20 07:00 92 H 08/05/20 03:55 99.0 F 85 18 147/73 H 08/05/20 01:38 75 08/04/20 23:51 98.2 F 70 18 08/04/20 22:02 98.2 F 85 18 136/70 08/04/20 19:40 99.3 F 08/04/20 19:07 101.1 F H 103 H 18 154/71 H 08/04/20 16:03 100.2 F H 102 H 17 BP Pulse Ox 08/05/20 15:30 95 08/05/20 15:20 95 08/05/20 15:10 98 08/05/20 15:00 96 08/05/20 14:51 97 08/05/20 12:40 145/69 H 96 08/05/20 11:39 93 08/05/20 08:00 91 08/05/20 07:00 08/05/20 03:55 95 08/05/20 01:38 08/04/20 23:51 129/69 96 08/04/20 22:02 94 08/04/20 19:40 08/04/20 19:07 92 08/04/20 16:03 163/76 H 93 Pain Intensity Back: Pain Intensity: 7 Generalized: Pain Intensity: 8 Transfer of Care Handoff Completed per policy Notes Mental Status: alert / awake / arousable and participated in evaluation Patient Amnestic to Procedure: Yes Nausea / Vomiting: adequately controlled Pain: adequately controlled Airway Patency, RR, SpO2: stable & adequate BP & HR: stable & adequate Hydration State: stable & adequate Anesthetic Complications: no major complications apparent and Pt Satisfied with anesthetic care
[2020-08-05] MEDS ORDERED: MAGNESIUM HYDROXIDE SUSP 30 ML UDC PO PRN (16:03)
[2020-08-05] MEDS ORDERED: PROMETHAZINE HCL 12.5 MG in SODIUM CHLORIDE 0.9% 50 ML IV PRN (16:03)
[2020-08-05] MEDS ORDERED: hydrOXYzine HCl 25 MG TAB PO PRN (16:03)
[2020-08-05] MEDS ORDERED: DO NOT ADMINISTER PNEUMOCOCCAL VACCINE PRN (16:03)
[2020-08-05] MEDS ORDERED: ALUMINUM/MAGNESIUM SUSP 30 ML UDC PO PRN (16:03)
[2020-08-05] MEDS ORDERED: LORazepam 0.5 MG/1 ML VIAL IV PRN (16:03)
[2020-08-05] MEDS ORDERED: METOCLOPRAMIDE HCL INJ 5 MG/ML 2 ML VIAL IV PRN (16:03)
[2020-08-05] MEDS ORDERED: FAMOTIDINE 20 MG TAB PO PRN (16:03)
[2020-08-05] MEDS ORDERED: SOD PHOSPHATE/SOD BIPHOSPHATE ENEMA 132 ML BTL PR PRN (16:03)
[2020-08-05] MEDS ORDERED: NALOXONE HCL 0.4 MG/1 ML VIAL/CARP IV PRN (16:03)
[2020-08-05] MEDS ORDERED: bisacodyL 10 MG SUPP PR PRN (16:03)
[2020-08-05] MEDS ORDERED: DO NOT ADMINISTER FLU VACCINE PRN (16:03)
[2020-08-05] MEDS ORDERED: ONDANSETRON 4 MG OD TAB PO PRN (16:03)
[2020-08-05] MEDS ORDERED: ACETAMINOPHEN 1,000 MG/100 ML VIAL IV PRN (16:03)
[2020-08-05] MEDS ORDERED: ACETAMINOPHEN 500 MG TAB PO PRN (16:03)
[2020-08-05] MEDS: LACTATED RINGER'S 1,000 ML IV SCH (16:26)
[2020-08-05] MEDS: SERTRALINE HCL 50 MG TABLET PO SCH (21:12)
[2020-08-05] MEDS: ATORVASTATIN 40 MG TAB PO SCH (21:12)
[2020-08-05] MEDS: LEVOTHYROXINE SODIUM 175 MCG TABLET PO SCH (21:12)
[2020-08-05] MEDS: ASPIRIN 81 MG ECTAB PO SCH (21:13)
[2020-08-05] MEDS: HEPARIN SOD 5,000 UNIT/0.5 ML VIAL SQ SCH (21:17)
[2020-08-05] MEDS: DOCUSATE SODIUM/SENNA 50/8.6MG TAB PO SCH (21:27)
[2020-08-06] MEDS: NAFCILLIN SODIUM 2,000 MG in DEXTROSE 5% 100 ML IV SCH ×6 (00:10→20:14)
[2020-08-06] MEDS: LACTATED RINGER'S 1,000 ML IV SCH ×2 (02:15→16:41)
[2020-08-06] MEDS: HEPARIN SOD 5,000 UNIT/0.5 ML VIAL SQ SCH ×3 (05:45→21:53)
[2020-08-06] MEDS: HYDROmorphone INJ 0.5 MG/0.5 ML SYR IV PRN (06:11)
[2020-08-06] MEDS: POLYETHYLENE (MIRALAX) 17 GM PACK PO SCH ×3 (06:12→17:18)
[2020-08-06 06:57] LABS: Hematocrit (blood only) 34.3 % (37-47); Hemoglobin 11.2 g/dL (12.0-16.0); Mean Corpuscular Hemoglobin 27.7 pg (25-34); Mean Corpuscular Hgb Conc 32.7 g/dL (32-36); Mean Corpuscular Volume 84.9 fL (80-100); Mean Platelet Volume 9.2 fL (7.4-10.4); Platelet Count 194 K/uL (130-400); RDW Coefficient of Variation 15.4 % (11.5-14.5); Red Blood Count 4.04 M/uL (4.2-5.4); White Blood Count 13.79 K/uL (4.8-10.8)
[2020-08-06 07:26] LABS: Basophils # (auto) 0.02 K/uL (0-0.2); Basophils % (auto) 0.1 %; Immature Granulocytes # (auto) 1.24 K/uL (0.00-0.02); Lymphocytes # (auto) 1.56 K/uL (1.2-3.4); Lymphocytes % (auto) 11.3 %; Monocytes # (auto) 0.76 K/uL (0.11-0.59); Monocytes % (auto) 5.5 %; Neutrophils # (auto) 10.21 K/uL (1.4-6.5); Neutrophils % (auto) 74.1 %
[2020-08-06 07:31] LABS: BUN Creatinine Ratio 31.2 (10-20); Calcium 7.9 mg/dl (8.5-10.1); Creatinine Clr Calc Pharmacy 134.2 ml/min; Est GFR (African American) 115.6; Est GFR (Non-African American) 99.7; Magnesium 2.5 mg/dl (1.8-2.4); Potassium 3.9 mmol/L (3.5-5.1)
[2020-08-06] MEDS: CLOPIDOGREL BISULFATE 75 MG TAB PO SCH (08:27)
[2020-08-06] MEDS: METOPROLOL TARTRATE 25 MG TAB PO SCH ×2 (08:27→20:59)
--- NOTE | 2020-08-06 08:42 | Orthopedic Progress Note ---
Date of Service August 06, 2020 Assessment & Plan (1) Abscess in epidural space of lumbar spine: Admission and Anticipated Discharge Date Admission Date: August 04, 2020 At this time we will maintain the JUANCHO drains at least for the next few days. We are arranging a PICC line placement. I suspect she will require IV antibiotics for several weeks. We will begin physical therapy as tolerated. Subjective Back pain much improved leg pain much improved. Physical Exam Physical Exam: Patient sitting up at the bedside. Is good strength testing. Appears comfortable. Results & Data ([facility]) Vital Signs (Past 12 Hours) Vital Signs Temp Pulse Pulse Resp BP Pulse Ox 08/06/20 08:00 76 08/06/20 07:56 36.6 C 75 18 112/68 91 08/06/20 05:07 65 08/06/20 03:00 36.6 C 76 19 128/75 96 08/05/20 23:42 36.6 C 59 L 18 132/79 99 08/05/20 21:10 92 H 18 137/76 94
--- NOTE | 2020-08-06 13:44 | Cardiology Progress Note ---
Date of Service August 06, 2020 Assessment & Plan (1) CAD (coronary artery disease): (2) S/P coronary artery stent placement: (3) Paroxysmal atrial fibrillation: (4) Hypertension: (5) Hyperlipidemia: ASSESSMENT/PLAN: 1. CAD s/p LAD PCI: No angina. Her most likely cardiac symptom free hospital with significant dyspnea with exertion, which has improved now that she is able to ambulate in the hallway following PCI. Continue aspirin 81 mg daily indefinitely. Continue Plavix 75 mg daily for 1 year without interruption. Continue beta-martin. Continue high-intensity statin therapy. 2. Paroxysmal atrial fibrillation: Atrial fibrillation occurred during the left heart catheterization and was self limited, spontaneously resolving later the same day. Does not require long-term anticoagulation therapy unless she is found to have recurrent issues. 3. Hypertension: Blood pressure is well controlled. Continue beta-martin. 4. Dyslipidemia: High-intensity statin therapy recommended and started in the form of atorvastatin 40 mg q.h.s. during this hospital stay. 5. Bacteremia/spine infection: She was found to have an epidural abscess and underwent orthopedic procedure on 08/05/2020. She feels much better postoperative day 1. Plans are being made for PICC line prior to discharge per hospitalist and Orthopedic Service. Will defer to hospitalist/ortho/ID Services. She 6. Disposition: Cardiology will sign off at this time. Please call with any other questions or concerns. She should follow-up in the cardiology office in 1-2 weeks. Patient care discussed with primary hospitalist service (Mr. Walsh). Admission and Anticipated Discharge Date Admission Date: August 04, 2020 Subjective She was seen earlier this morning. She feels much better today following her back/spine surgery yesterday. She was found to have abscess. She was able to ambulate around the hallway today. She denies shortness of breath, chest pain, syncope, near-syncope, palpitations. She continues to have edema. She has much less back pain. She believes that her dyspnea with exertion has improved as well following PCI. Review of systems: As above. Physical Exam Physical Exam: Gen.: No acute distress. Alert and oriented. HEENT: Anicteric sclera. Neck: No appreciable JVD. Cardiac: Regular. Normal S1-S2. No murmurs, rubs, or gallops. Pulmonary: Clear to auscultation bilaterally without wheezes, rales, or rhonchi. Abdomen: Soft, nontender, nondistended, with normoactive bowel sounds. No bruits noted. Extremities: 2+ radial pulses bilaterally. Right radial cath site is clean, dry, and intact without erythema or discharge. 2+ posterior tibialis pulses bilaterally. No cyanosis. Nonpitting lower extremity edema. Left hand with 1+ pitting edema (she states that she had infiltrated IV). Psychiatric: Affect appears appropriate. Results & Data ([facility]) Vital Signs (Past 12 Hours) Vital Signs Temp Pulse Pulse Resp BP Pulse Ox 08/06/20 11:00 36.5 C 69 18 104/56 L 97 08/06/20 08:00 76 08/06/20 07:56 36.6 C 75 18 112/68 91 08/06/20 05:07 65 08/06/20 03:00 36.6 C 76 19 128/75 96 Intake & Output 08/04/20 08/05/20 08/06/20 08/07/20 06:59 06:59 06:59 06:59 Intake Total 2306.667 / 2306.667 1630 / 1630 3481.667 / 3481.667 800 / 800 Output Total 1500 / 1500 1051 / 1051 1601 / 1601 600 / 600 Balance 806.667 / 806.667 579 / 579 1880.667 / 1880.667 200 / 200 Weight 227 lb 15.327 oz 239 lb 3.225 oz 241 lb 6.499 oz Laboratory Results Laboratory Results - last 24 hr 08/05/20 08/06/20 08/06/20 07:41 06:38 06:38 WBC 13.79 H RBC 4.04 L Hgb 11.2 L Hct 34.3 L MCV 84.9 MCH 27.7 MCHC 32.7 RDW Std Deviation 48.0 H RDW Coeff of Kye 15.4 H Plt Count 194 MPV 9.2 Immature Gran % (Auto) 9.0 Neut % (Auto) 74.1 Lymph % (Auto) 11.3 [place] % (Auto) 5.5 Eos % (Auto) 0.0 Baso % (Auto) 0.1 Neut # (Auto) 10.21 H Lymph # (Auto) 1.56 [place] # (Auto) 0.76 H Eos # (Auto) 0.00 Baso # (Auto) 0.02 Immature Gran # (Auto) 1.24 H Sodium 138 Potassium 3.9 Chloride 105 Carbon Dioxide 27 Anion Gap 6.0 BUN 17 Creatinine 0.54 L Est Cr Clr Drug Dosing 134.2 Est GFR ( Amer) 115.6 Est GFR (Non-Af Amer) 99.7 BUN/Creatinine Ratio 31.2 H Glucose 150 H Calcium 7.9 L Magnesium 2.5 H Bld Cult Staph aureus PCR Positive A Blood Culture MRSA PCR Negative Diagnostic Findings Telemetry personally reviewed: Sinus rhythm. PVCs. No arrhythmia. Operative note reviewed from 08/05/2020. Medications Administered Current Inpatient Medications Acetaminophen (Acetaminophen 500 Mg Tab) 1,000 mg PO Q8H PRN PRN Reason: Pain or Fever Stop: 09/01/20 07:59 Last Admin: 08/04/20 19:11 Dose: 1,000 mg Documented by: Al Hydrox/Mg Hydrox/Simethicone (Aluminum/Magnesium Susp 30 Ml Udc) 30 ml PO Q6H PRN PRN Reason: Dyspepsia Stop: 09/04/20 16:02 Aspirin (Aspirin 81 Mg Ectab) 81 mg PO PM SHADI Stop: 09/01/20 20:59 Last Admin: 08/05/20 21:13 Dose: 81 mg Documented by: Atorvastatin Calcium (Atorvastatin 40 Mg Tab) 40 mg PO HS [facility] Stop: 09/04/20 20:59 Last Admin: 08/05/20 21:12 Dose: 40 mg Documented by: Bisacodyl (Bisacodyl 10 Mg Supp) 10 mg [place] DAILY PRN PRN Reason: Constipation Stop: 09/04/20 16:02 Clopidogrel Bisulfate (Clopidogrel Bisulfate 75 Mg Tab) 75 mg PO QAM [facility] Stop: 09/02/20 08:59 Last Admin: 08/06/20 08:27 Dose: 75 mg Documented by: Diphenhydramine HCl (Diphenhydramine Capsule 25 Mg Cap) 25 mg PO Q6H PRN PRN Reason: Allergic Rhinitis/Insomnia Stop: 09/04/20 16:02 Famotidine (Famotidine 20 Mg Tab) 20 mg PO Q12H PRN PRN Reason: Dyspepsia Stop: 09/04/20 16:02 Heparin Sodium (Porcine) (Heparin Sod 5,000 Unit/0.5 Ml Vial) 7,500 units SQ Q8 SHADI Stop: 09/01/20 05:59 Last Admin: 08/06/20 05:45 Dose: Not Given Documented by: Hydromorphone HCl (Hydromorphone Inj 0.5 Mg/0.5 Ml Syr) 0.5 mg IV Q3H PRN PRN Reason: MOD pain (scale 4-6) & Pre PT Stop: 08/19/20 16:02 Last Admin: 08/06/20 06:11 Dose: 0.5 mg Documented by: Hydromorphone HCl (Hydromorphone Inj 1 Mg/Ml Syringe) 1 mg IV Q3H PRN PRN Reason: severe pain (scale 7-10) Stop: 08/19/20 16:02 Hydroxyzine HCl (Hydroxyzine Hcl 25 Mg Tab) 25 mg PO Q8H PRN PRN Reason: Anxiety Stop: 09/04/20 16:02 Nafcillin Sodium 2,000 mg/ (Dextrose) 100 mls @ 100 mls/hr IV Q4H SHADI; Protocol Stop: 08/19/20 09:59 Last Infusion: 08/06/20 13:35 Dose: Infused Documented by: Acetaminophen (Ofirmev) 1,000 mg in 100 mls @ 400 mls/hr IV Q8H PRN PRN Reason: MILD Pain Rating 1,2,3 Stop: 08/06/20 16:02 Lorazepam (Ativan) 0.5 mg in 1 mls @ 0.5 mls/min IV Q8H PRN PRN Reason: Sedation/Anxiety Stop: 09/04/20 16:02 Lactated Ringer's (Lr) 1,000 mls @ 100 mls/hr IV .Q10H SHADI Stop: 09/04/20 16:59 Last Infusion: 08/06/20 12:26 Dose: 100 mls/hr Documented by: Promethazine HCl 12.5 mg/ (Sodium Chloride) 50.5 mls @ 204 mls/hr IV Q6H PRN PRN Reason: Nausea &/or Vomiting Stop: 09/04/20 16:02 Influenza Virus Vaccine Quadrival (Do Not Administer Flu Vaccine) 1 ea N/A PRN PRN PRN Reason: Notification Stop: 09/04/20 16:02 Levothyroxine Sodium (Levothyroxine Sodium 175 Mcg Tablet) 175 mcg PO PM SHADI Stop: 09/01/20 20:59 Last Admin: 08/05/20 21:12 Dose: 175 mcg Documented by: Lorazepam (Lorazepam 0.5 Mg Tab) 0.5 mg PO Q8H PRN PRN Reason: Sedation/Anxiety Stop: 09/04/20 16:02 Magnesium Hydroxide (Magnesium Hydroxide Susp 30 Ml Udc) 30 ml PO DAILY PRN PRN Reason: Constipation Stop: 09/04/20 16:02 Metoclopramide HCl (Metoclopramide Hcl Inj 5 Mg/Ml 2 Ml Vial) 10 mg IV Q6H PRN PRN Reason: Nausea &/or Vomiting Stop: 09/04/20 16:02 Metoprolol Tartrate (Metoprolol Tartrate 1 Mg/Ml Vial) 5 mg IV Q4 PRN PRN Reason: sbp> 185, dbp >95, HR >120 Stop: 09/01/20 15:38 Metoprolol Tartrate (Metoprolol Tartrate 25 Mg Tab) 25 mg PO BID [facility] Stop: 09/01/20 20:59 Last Admin: 08/06/20 08:27 Dose: 25 mg Documented by: Naloxone HCl (Naloxone Hcl 0.4 Mg/1 Ml Vial/Carp) 0.1 mg IV Q5M PRN; Protocol PRN Reason: Oversedation/Resp Depression Stop: 09/04/20 16:02 Nitroglycerin (Nitroglycerin Sl 0.4 Mg/Tab Tab) 0.4 mg SL UD PRN PRN Reason: Chest Pain Stop: 08/31/20 23:18 Ondansetron HCl (Ondansetron Inj 2 Mg/Ml 2 Ml Vial) 4 mg IV Q6H PRN PRN Reason: Nausea Stop: 08/31/20 23:18 Ondansetron HCl (Ondansetron 4 Mg Od Tab) 4 mg PO Q6H PRN PRN Reason: Nausea Stop: 09/04/20 16:02 Oxycodone HCl (Oxycodone Hcl Ir 5 Mg Tab (Immediate Release)) 5 mg PO Q4H PRN PRN Reason: MODERATE Pain (4,5,6) & Pre PT Stop: 08/15/20 23:18 Pneumococcal Polyvalent Vaccine (Do Not Administer Pneumococcal Vaccine) 1 ea N/A PRN PRN PRN Reason: Notification Stop: 09/04/20 16:02 Polyethylene Glycol (Polyethylene (Miralax) 17 Gm Pack) 17 gm PO DAILY PRN PRN Reason: Constipation Stop: 09/03/20 06:19 Last Admin: 08/04/20 06:41 Dose: 17 gm Documented by: Polyethylene Glycol (Polyethylene (Miralax) 17 Gm Pack) 17 gm PO Q6 SHADI Stop: 09/05/20 05:59 Last Admin: 08/06/20 12:23 Dose: Not Given Documented by: Senna/Docusate Sodium (Docusate Sodium/Senna 50/8.6mg Tab) 2 tab PO HS SHADI Stop: 09/04/20 20:59 Last Admin: 08/05/20 21:27 Dose: Not Given Documented by: Sertraline HCl (Sertraline Hcl 50 Mg Tablet) 50 mg PO PM SHADI Stop: 09/01/20 20:59 Last Admin: 08/05/20 21:12 Dose: 50 mg Documented by: Sodium Biphosphate/Sodium Phosphate (Sod Phosphate/Sod Biphosphate Enema 132 Ml Btl) 132 ml W[place] ONE PRN PRN Reason: Constipation Stop: 09/04/20 16:02 PG Care Time/CCT Total # of Minutes Spent Total Time Spent with Patient: Total time spent is greater than 50% in coordination of care (as documented) at patient's floor/unit and/or counseling patient: Coding Level of Care Code 86035 Subseq Hosp Care Lvl 3 Diagnoses CAD (coronary artery disease) I25.10 S/P coronary artery stent placement Z95.5 Paroxysmal atrial fibrillation I48.0 Hypertension I10 Hyperlipidemia E78.5
[2020-08-06] MEDS: oxyCODONE HCL IR 5 MG TAB (IMMEDIATE RELEASE) PO PRN (20:23)
[2020-08-06] MEDS: ASPIRIN 81 MG ECTAB PO SCH (21:00)
[2020-08-06] MEDS: SERTRALINE HCL 50 MG TABLET PO SCH (21:00)
[2020-08-06] MEDS: ATORVASTATIN 40 MG TAB PO SCH (21:01)
[2020-08-06] MEDS: LEVOTHYROXINE SODIUM 175 MCG TABLET PO SCH (21:02)
[2020-08-06] MEDS: DOCUSATE SODIUM/SENNA 50/8.6MG TAB PO SCH (21:02)
--- NOTE | 2020-08-06 22:58 | Hospitalist Progress Note ---
Date of Service August 06, 2020 Assessment & Plan (1) Abscess in epidural space of lumbar spine: Pt has had back surgery in March, now with zachary leone in 2/2 blood cultures, markedly eleveated ESR/CRP and back pain, on vancomycin for concern of epidural abscess or discitis/transverse myelitis MRI back 08/04/20 IMPRESSION: 1. Exam significantly compromised by susceptibility artifact from surgical hardware and motion artifact. 2. Status post L5-S1 posterior decompression with bilateral pedicle screw fusion and L4-L5 and L5-S1 discectomies. Complex rim-enhancing 5.7 x 4.7 x 2.8 cm fluid collection within the left laminectomy bed adjacent to several left- sided pedicle screws. This is nonspecific in the postoperative setting. Material within this collection could be purulent or hemorrhagic. Additional multiple fluid collections adjacent to right sided pedicle screws. These may reflect seromas however superimposed infection cannot be excluded. Patient taken the OR yesterday and found to have abscess. This was evacuated and area packed with antibiotic beads with vancomycin and gentamicin. JUANCHO drains now intact with minimal drainage of serosanguineous fluid. Patient afebrile Continue with IV nafcillin every 4 hours We will need 6 weeks of IV antibiotics Will discuss IV antibiotic plan with infectious disease team at [facility] when cultures from surgery return If blood cultures clear, will place PICC line. Consent obtained by Dr. Brice. Hold off on order of PICC line at this time pending cultures. Adequate peripheral IVs intact for treatment (2) CAD (coronary artery disease): History of PCI with drug-eluting stent Currently on clopidogrel Continue clopidogrel even though patient may require surgery today Also continue aspirin 81 mg as well as a statin and beta-martin No arrhythmias on telemetry Patient also receiving prophylactic heparin 7500 units SQ Q8h Hemodynamically stable (3) Hypothyroid: Continue levothyroxine (4) Anxiety: Continue sertraline at home dose Continue positive reinforcement with patient at bedside (5) Lower extremity edema: No evidence of clinical congestive heart failure Home medications include bumetanide Diuretics held for surgery. Will reevaluate tomorrow to restart Echocardiogram with normal left ventricular size and function. Preserved left ventricular ejection fraction of 55 to 60%. No regional wall motion abnormalities noted (6) DVT prophylaxis: Continue clopidogrel Continue with heparin 7500 units SQ Q8h Admission and Anticipated Discharge Date Admission Date: August 04, 2020 Subjective Attending: Dr. Franco Patient seen and examined at bedside with Dr. Brice from [facility]. Pain much better controlled since surgery yesterday. Iain-Carroll drains x2 with serosanguineous drainage. Dressing dry and intact. Patient able to sit on edge of bed without too much difficulty. She denies fever or chills. Pain adequately controlled. Patient denies paresthesias of the lower extremities. No acute complaints Review of Systems Review of Systems: All systems reviewed & are unremarkable except as noted in Subjective Physical Exam Physical Exam: GENERAL : No acute distress EYES: No icterus, gaze conjugate NOSE: No evidence of epistaxis MOUTH: No lesions or candidiasis NECK: Supple LUNGS: CTA B/L, no wheezes, rales or rhonchi HEART: Regular, rate controlled BACK: Dressing dry and intact. There are 2 Iain-Carroll drains coming out from surgical site. There is serosanguineous drainage in both of the grenades. ABDOMEN: Soft, NT, ND, BS Present EXTREMITIES: No LE edema, pedal pulses intact and equal bilaterally. Toes are downgoing bilaterally. Strength seems improved to lower extremities. Sensation is intact and equal bilateral lower extremities. NEURO: A&OX3 Results & Data Results & Data ([facility]) Vital Signs (Past 12 Hours) Vital Signs Temp Pulse Pulse Resp BP Pulse Ox 08/06/20 19:00 37.2 C 72 19 115/65 91 08/06/20 15:56 36.8 C 76 19 127/70 94 08/06/20 14:20 78 08/06/20 11:00 36.5 C 69 18 104/56 L 97 Laboratory Results 08/06/20 06:38 08/06/20 06:38 Diagnostic Findings No further diagnostic imaging since yesterday. PG Care Time/CCT Total # of Minutes Spent Total Time Spent with Patient: Total time spent is greater than 50% in coordination of care (as documented) at patient's floor/unit and/or counseling patient: Coding Level of Care Code 68568 Subseq Hosp Care Lvl 2 Diagnoses Abscess in epidural space of lumbar spine G06.1 CAD (coronary artery disease) I25.10 Hypothyroid E03.9 Anxiety F41.9 Lower extremity edema R60.0 DVT prophylaxis Z29.9
[2020-08-07] MEDS: NAFCILLIN SODIUM 2,000 MG in DEXTROSE 5% 100 ML IV SCH ×6 (00:18→19:53)
[2020-08-07] MEDS: LACTATED RINGER'S 1,000 ML IV SCH ×2 (00:21→10:19)
[2020-08-07] MEDS: POLYETHYLENE (MIRALAX) 17 GM PACK PO SCH ×4 (00:22→15:53)
[2020-08-07] MEDS: oxyCODONE HCL IR 5 MG TAB (IMMEDIATE RELEASE) PO PRN ×5 (03:13→22:36)
[2020-08-07] MEDS: HEPARIN SOD 5,000 UNIT/0.5 ML VIAL SQ SCH ×3 (06:31→22:33)
[2020-08-07 07:12] LABS: Hematocrit (blood only) 32.5 % (37-47); Mean Corpuscular Hemoglobin 27.8 pg (25-34); Mean Corpuscular Hgb Conc 33.8 g/dL (32-36); Mean Corpuscular Volume 82.3 fL (80-100); Mean Platelet Volume 9.7 fL (7.4-10.4); Platelet Count 282 K/uL (130-400); RDW Coefficient of Variation 15.4 % (11.5-14.5); RDW Standard Deviation 46.6 fL (36.4-46.3); Red Blood Count 3.95 M/uL (4.2-5.4); White Blood Count 12.72 K/uL (4.8-10.8)
[2020-08-07 07:46] LABS: BUN Creatinine Ratio 28.1 (10-20); Creatinine Clr Calc Pharmacy 138.6 ml/min; Est GFR (African American) 115.6; Est GFR (Non-African American) 99.7; Potassium 3.8 mmol/L (3.5-5.1)
[2020-08-07] MEDS: CLOPIDOGREL BISULFATE 75 MG TAB PO SCH (08:10)
[2020-08-07] MEDS: METOPROLOL TARTRATE 25 MG TAB PO SCH ×2 (08:10→21:29)
--- NOTE | 2020-08-07 08:25 | Orthopedic Progress Note ---
Date of Service August 07, 2020 Assessment & Plan (1) Abscess in epidural space of lumbar spine: Admission and Anticipated Discharge Date Admission Date: August 04, 2020 At this time we will continue with IV antibiotics. I would ask her to undergo activity as tolerated. I will obtain x-rays of the left knee and consult orthopedics for their impressions. My concern is that she may be at risk for peripheral septic joint in light of her bacteremia. Subjective Patient's back pain is controlled she denies any clear radicular complaints. She was able to ambulate yesterday with a walker. Her greatest complaint right now is left knee pain. It is worse with weightbearing and feels like it is giving way. Physical Exam Physical Exam: On exam she does have swelling to the lower extremities secondary to fluid overload. There is some tenderness palpation of the joint line and with range of motion of the left knee. Did not appreciate any erythema. Results & Data ([facility]) Vital Signs (Past 12 Hours) Vital Signs Temp Pulse Pulse Resp BP Pulse Ox 08/07/20 07:00 36.9 C 80 19 154/70 H 93 08/07/20 03:00 36.8 C 83 19 152/70 H 95 08/06/20 23:00 37.7 C H 93 H 62 17 131/71 93
--- NOTE | 2020-08-07 09:27 | XRay Report ---
XR knee LT 1 or 2V routine HISTORY: 65 years-old Female knee pain acute left knee pain COMPARISON: None TECHNIQUE: 2 views of the left knee FINDINGS: Moderate tricompartmental osteoarthritis. Moderate joint effusion. There is no acute fracture, disloc ation or opaque foreign body. Unremarkable soft tissues. IMPRESSION: 1. Moderate joint effusion without acute fracture. 2. Moderate tricompartmental osteoarthritis. ACT 112: Negative or not required by law. The above report was generated using voice recognition software. It may contain grammatical, syntax o r spelling errors. Electronically signed by: Ariel Wright M.D. 08/07/2020 9:26 AM
[2020-08-07] MEDS: HYDROmorphone INJ 0.5 MG/0.5 ML SYR IV PRN (10:14)
[2020-08-07] MEDS: HYDROmorphone INJ 1 MG/ML SYRINGE IV PRN ×2 (15:58→23:10)
[2020-08-07] MEDS: LIDOCAINE 5% 1 PATCH TD SCH (17:31)
[2020-08-07] MEDS: SERTRALINE HCL 50 MG TABLET PO SCH (21:29)
[2020-08-07] MEDS: LEVOTHYROXINE SODIUM 175 MCG TABLET PO SCH (21:29)
[2020-08-07] MEDS: ATORVASTATIN 40 MG TAB PO SCH (21:29)
[2020-08-07] MEDS: ASPIRIN 81 MG ECTAB PO SCH (21:29)
[2020-08-07] MEDS: DOCUSATE SODIUM/SENNA 50/8.6MG TAB PO SCH (21:29)
--- NOTE | 2020-08-07 21:56 | Hospitalist Progress Note ---
Date of Service August 07, 2020 Assessment & Plan (1) Abscess in epidural space of lumbar spine: Ms. Pa had back surgery in March, now with staph vasu in 2/2 blood cultures, markedly eleveated ESR/CRP and back pain, on vancomycin for concern of epidural abscess or discitis/transverse myelitis MRI back 08/04/20 IMPRESSION: 1. Exam significantly compromised by susceptibility artifact from surgical hardware and motion artifact. 2. Status post L5-S1 posterior decompression with bilateral pedicle screw fusion and L4-L5 and L5-S1 discectomies. Complex rim-enhancing 5.7 x 4.7 x 2.8 cm fluid collection within the left laminectomy bed adjacent to several left- sided pedicle screws. This is nonspecific in the postoperative setting. Material within this collection could be purulent or hemorrhagic. Additional multiple fluid collections adjacent to right sided pedicle screws. These may reflect seromas however superimposed infection cannot be excluded. Patient taken the OR 08/06/2020 and found to have abscess. This was evacuated and area packed with antibiotic beads with vancomycin and gentamicin. JUANCHO drains now intact with minimal drainage of serosanguineous fluid. Patient afebrile Continue with IV nafcillin every 4 hours We will need 6 weeks of IV antibiotics Will discuss IV antibiotic plan with infectious disease team at [facility] when cultures from surgery return If blood cultures clear, will place PICC line. Consent obtained by Dr. Brice. Hold off on order of PICC line at this time pending cultures. Adequate peripheral IVs intact for treatment (2) CAD (coronary artery disease): History of PCI with drug-eluting stent Currently on clopidogrel Continue clopidogrel Also continue aspirin 81 mg as well as a statin and beta-martin No arrhythmias on telemetry Patient also receiving prophylactic heparin 7500 units SQ Q8h Hemodynamically stable (3) Hypothyroid: Continue levothyroxine (4) Anxiety: Continue sertraline at home dose Continue positive reinforcement with patient at bedside (5) Lower extremity edema: No evidence of clinical congestive heart failure Home medications include bumetanide Diuretics were as needed and not scheduled at home. Restart diuretics as patient is having increased edema and now has effusion on left knee Echocardiogram with normal left ventricular size and function. Preserved left ventricular ejection fraction of 55 to 60%. No regional wall motion abnormalities noted (6) DVT prophylaxis: Continue clopidogrel Continue with heparin 7500 units SQ Q8h (7) Left knee pain: Radiograph of the left knee shows no fracture or acute injury. There is evidence of tricompartmental osteoarthritis as well as effusion. Orthopedics to evaluate and provide comment In the meantime, we will start with alternating heat and ice packs finishing on what is the most comfortable Also start Lidoderm 5% to the left knee Continue to monitor Admission and Anticipated Discharge Date Admission Date: August 04, 2020 Subjective Attending: Dr. Franco Patient states that her back pain is improved since surgical intervention with infection. She has noticed today that she seems to have more edema globally as she is having a lot of pain in her left knee in particular. Imaging was ordered by Dr. Brice and revealed moderate tricompartmental osteoarthritis and moderate joint effusion without acute fracture. The soft tissue was unremarkable. Patient is afebrile. She is anticoagulated. She has no active bleeding. She has no asymmetrical edema. She has no other acute complaints today. Review of Systems Review of Systems: All systems reviewed & are unremarkable except as noted in Subjective Physical Exam Physical Exam: GENERAL : No acute distress EYES: No icterus, gaze conjugate NOSE: No evidence of epistaxis MOUTH: No lesions or candidiasis NECK: Supple LUNGS: CTA B/L, no wheezes, rales or rhonchi HEART: Regular, rate controlled ABDOMEN: Soft, NT, ND, BS Present BACK: Dressing dry and intact. 2 JUANCHO drains are still intact and draining serosanguineous fluid EXTREMITIES: No LE edema, pedal pulses intact. Some swelling noted of left knee. No appreciation of popliteal cysts. No pretibial pain. NEURO: A&OX3 Results & Data Results & Data ([facility]) Vital Signs (Past 12 Hours) Vital Signs Temp Pulse Resp BP BP Pulse Ox 08/07/20 19:33 37.2 C 77 18 144/72 H 97 08/07/20 15:07 37.4 C 81 18 167/70 H 96 08/07/20 11:33 37.0 C 73 19 133/70 94 Laboratory Results 08/07/20 06:04 08/07/20 06:04 Diagnostic Findings XR knee LT 1 or 2V routine HISTORY: 65 years-old Female knee pain acute left knee pain COMPARISON: None TECHNIQUE: 2 views of the left knee FINDINGS: Moderate tricompartmental osteoarthritis. Moderate joint effusion. There is no acute fracture, dislocation or opaque foreign body. Unremarkable soft tissues. IMPRESSION: 1. Moderate joint effusion without acute fracture. 2. Moderate tricompartmental osteoarthritis. ACT 112: Negative or not required by law. The above report was generated using voice recognition software. It may contain grammatical, syntax or spelling errors. Electronically signed by: Ariel Wright M.D. 08/07/2020 9:26 AM PG Care Time/CCT Total # of Minutes Spent Total Time Spent with Patient: Total time spent is greater than 50% in coordination of care (as documented) at patient's floor/unit and/or counseling patient: Coding Level of Care Code 00838 Subseq Hosp Care Lvl 2 Diagnoses Abscess in epidural space of lumbar spine G06.1 CAD (coronary artery disease) I25.10 Hypothyroid E03.9 Anxiety F41.9 Lower extremity edema R60.0 DVT prophylaxis Z29.9 Left knee pain M25.562
[2020-08-08] MEDS: NAFCILLIN SODIUM 2,000 MG in DEXTROSE 5% 100 ML IV SCH ×6 (00:43→19:37)
[2020-08-08] MEDS: POLYETHYLENE (MIRALAX) 17 GM PACK PO SCH ×4 (00:44→16:19)
[2020-08-08] MEDS: oxyCODONE HCL IR 5 MG TAB (IMMEDIATE RELEASE) PO PRN ×4 (04:18→19:37)
[2020-08-08] MEDS: HEPARIN SOD 5,000 UNIT/0.5 ML VIAL SQ SCH ×3 (06:17→22:09)
[2020-08-08 07:47] LABS: BUN Creatinine Ratio 15.7 (10-20); Calcium 7.8 mg/dl (8.5-10.1); Creatinine Clr Calc Pharmacy 125.1 ml/min; Est GFR (African American) 111.6; Est GFR (Non-African American) 96.3; Magnesium 2.3 mg/dl (1.8-2.4); Potassium 3.9 mmol/L (3.5-5.1)
--- NOTE | 2020-08-08 08:12 | Orthopedic Progress Note ---
Date of Service August 08, 2020 Assessment & Plan (1) Abscess in epidural space of lumbar spine: Admission and Anticipated Discharge Date Admission Date: August 04, 2020 I have consulted orthopedic surgery to evaluate the left knee. I encouraged her to undergo activity as tolerated. Subjective Back pain controlled overall she feels much better she still complaining of significant left knee pain. This is inhibiting her ability to stand and ambulate any distance. Physical Exam Physical Exam: On exam she is neurologically intact. There are some swelling to the left knee peer did not appreciate erythema. There is pain with range of motion. Results & Data ([facility]) Vital Signs (Past 12 Hours) Vital Signs Temp Pulse Resp BP BP Pulse Ox 08/08/20 08:09 36.7 C 82 20 145/73 H 96 08/08/20 04:04 37 C 77 18 139/67 96 08/07/20 23:33 37 C 66 18 137/64 92
[2020-08-08] MEDS: LIDOCAINE 5% 1 PATCH TD SCH (08:29)
[2020-08-08] MEDS: FUROSEMIDE 40 MG in SYRINGE 0 ML IV SCH (08:30)
[2020-08-08] MEDS: METOPROLOL TARTRATE 25 MG TAB PO SCH ×2 (08:31→22:02)
[2020-08-08] MEDS: CLOPIDOGREL BISULFATE 75 MG TAB PO SCH (08:31)
--- NOTE | 2020-08-08 11:04 | Orthopedic Consultation ---
Date of Consultation August 08, 2020 Assessment & Plan (1) Left knee pain: Left knee pain with mild to moderate DJD with effusion noted on x-ray. I will review the case with Dr. Youssef who will see the patient later today. At this time, she does not examine like an acute knee joint infection. Of note, she is currently on IV nafcillin for her MSSA infection for her lower back. She has been afebrile for the last 24 to 48 hours and her white count is slowly coming down. She states that her pain medications have been helping with her discomfort as well. I discussed the possibility of aspirating the left knee joint of which she is fairly adamant about at this time. She feels that the knee pain has been improving and would like to wait over the next 24 hours to see how it does. We discussed the risks of joint infection of which she understands and would still like to hold off from aspiration at this time. I will have Dr. Lim reassess her later today. Supervising Physician Co-Signing Physician Notes Patient seen and examined. I agree with ERICK Starks's note as above. I do not see any obvious evidence of a septic arthritis in her left knee. She has moderate to severe tricompartmental arthritis on her left knee x-rays. She had a lot of diffuse peripheral edema after her recent spine surgery 3 days ago. Her knee pain seems to be improving as she is going through diuresis to get rid of this peripheral edema. On exam, there is no significant erythema, warmth, or induration of the left knee. I can take her through gentle range of motion without significant pain. She does have a small knee effusion bilaterally, may be slightly larger on the right compared to the left. I think her small knee effusion is likely related to her degenerative arthritis. With the fairly low suspicion for septic arthritis, I would not recommend arthrocentesis at the knee at this time; she really does not want to go through this unless it is absolutely necessary. I do not see any indication for acute surgical intervention. We will follow clinically at this point. History of Present Illness Reason for Consultation: Left knee effusion Attending Physician: Saurav Franco, History of Present Illness 65-year-old female who was admitted to the hospital several days ago who underwent stenting per Dr. Buckley for a non-STEMI. Patient had also been admitted for abscess formation in the lumbar spine. Patient states that she had her surgery at the end of March. She had developed an abscess and underwent irrigation and debridement of this abscess by Dr. Brice on the of this month. He was starting to have some left knee discomfort. She states that the pain is mostly on the medial aspect of the joint line and in the back of the knee. Dr. Brice saw her this morning and felt that her left knee should be evaluated. Currently she states that her pain is controlled. She states that she has been able to ambulate with a walker around the hallway and has been able to put weight on the left lower extremity. He states she does have a little bit of discomfort with that but is not excruciating. She states that she is able to bend the knee through range of motion but does have some discomfort. She has noticed a little bit more swelling in the left knee compared to the right but states that she has retained fluid since her stay and that both of her lower extremities have increased in size because of that. She states that they have started her on Lasix and that she has noticed a little bit of a difference today. Currently her pain is controlled and she appears comfortable. Allergies Allergy/AdvReac Type Severity Reaction Status Date / Time No Known Allergies Allergy Unverified 08/01/20 22:26 Home Medications Medication Instructions Recorded Confirmed Type aspirin 81 mg PO PM 03/29/20 08/01/20 History bumetanide 1 mg PO DIRECTED PRN 03/29/20 08/01/20 History ibuprofen [Motrin IB] 800 mg PO Q6H PRN 03/29/20 08/01/20 History levothyroxine [Synthroid] 175 mcg PO PM 03/29/20 08/01/20 History sertraline 50 mg PO PM 03/29/20 08/01/20 History cetirizine [Zyrtec] 10 mg PO DAILY PRN 04/16/20 08/01/20 History gabapentin 600 mg PO TID 04/16/20 08/01/20 History Patient History Medical History Anxiety CAD (coronary artery disease) Extrusion of intervertebral disc Hyperlipidemia Hypertension Hypothyroid Impaired glucose tolerance Lower extremity edema Lumbar radiculopathy Obesity Surgical History S/P coronary artery stent placement Social History Smoking Status: Never smoker Second Hand Exposure: No; Hx Alcohol Use: Yes Alcohol type: wine Hx Substance Use: No Preferred Language: Persian Communication Ability: Effective Call Center Manager Required: No Beliefs That Will Affect Care: None marital status: Current Living Situation: Spouse Feels Safe at Home: Yes Assistive Devices: Walker Review of Systems Review of Systems: All systems reviewed & are unremarkable except as noted in HPI & below Physical Exam Physical Exam: Patient currently is sitting up in bed. She has pillows under both knees at this time. She does have what appears to be an epidural patch on the back of her left knee. The knee does have a mild effusion compared to the right. The effusion is not tense. There is no erythema of the knee noted at this time. The knee does not feel overtly warmer than the opposite side. I am able to go through palpation over the knee without much in the way of discomfort. The patient is able to do full extension on her own without discomfort. She does show me that she is able to take it through gentle range of motion even though it is limited, with only a little bit of discomfort. Axial loading of the knee does not cause any pain. I can take her through passive range of motion of the knee. At first she felt a small twinge of pain on the medial aspect of the joint line, but I am able to take her through gentle passive range of motion. She does not appear to be in overt pain when taking her through the range of motion. She denies patellofemoral pain during range of motion. She had some mild crepitus. She denies any pain radiating down into the lower extremity. Results & Data ([facility]) Vital Signs (Past 12 Hours) Vital Signs Temp Pulse Resp BP BP Pulse Ox 08/08/20 08:09 36.7 C 82 20 145/73 H 96 08/08/20 04:04 37 C 77 18 139/67 96 08/07/20 23:33 37 C 66 18 137/64 92 Laboratory Results Laboratory Results WBC 12.72 K/uL (4.8-10.8) H 08/07/20 06:04 RBC 3.95 M/uL (4.2-5.4) L 08/07/20 06:04 Hgb 11.0 g/dL (12.0-16.0) L 08/07/20 06:04 Hct 32.5 % (37-47) L 08/07/20 06:04 MCV 82.3 fL (80-100) 08/07/20 06:04 MCH 27.8 pg (25-34) 08/07/20 06:04 MCHC 33.8 g/dL (32-36) 08/07/20 06:04 RDW Std Deviation 46.6 fL (36.4-46.3) H 08/07/20 06:04 RDW Coeff of Kye 15.4 % (11.5-14.5) H 08/07/20 06:04 Plt Count 282 K/uL (130-400) 08/07/20 06:04 MPV 9.7 fL (7.4-10.4) 08/07/20 06:04 Immature Gran % (Auto) 9.0 % 08/06/20 06:38 Neut % (Auto) 74.1 % 08/06/20 06:38 Lymph % (Auto) 11.3 % 08/06/20 06:38 [place] % (Auto) 5.5 % 08/06/20 06:38 Eos % (Auto) 0.0 % 08/06/20 06:38 Baso % (Auto) 0.1 % 08/06/20 06:38 Neut # (Auto) 10.21 K/uL (1.4-6.5) H 08/06/20 06:38 Lymph # (Auto) 1.56 K/uL (1.2-3.4) 08/06/20 06:38 [place] # (Auto) 0.76 K/uL (0.11-0.59) H 08/06/20 06:38 Eos # (Auto) 0.00 K/uL (0-0.5) 08/06/20 06:38 Baso # (Auto) 0.02 K/uL (0-0.2) 08/06/20 06:38 Immature Gran # (Auto) 1.24 K/uL (0.00-0.02) H 08/06/20 06:38 Toxic Vacuolation 1+ 08/03/20 06:10 Echinocytes 1+ 08/03/20 06:10 ESR > 90 mm/hr (0-21) H 08/03/20 06:10 PT 10.5 Seconds (9.0-12.0) 08/05/20 07:41 INR 1.0 (0.9-1.1) 08/05/20 07:41 APTT 22.5 Seconds (21.0-31.0) 08/05/20 07:41 PTT Ratio 0.9 08/05/20 07:41 Activ Coag Time Kaolin 224 SECONDS (94-140) H 08/02/20 14:06 VBG pH 7.34 (7.36-7.41) L 08/03/20 06:10 VBG pCO2 50 mmHg (38-50) 08/03/20 06:10 VBG pO2 32 mmHg 08/03/20 06:10 VBG HCO3 26 mmol/L 08/03/20 06:10 VBG O2 Saturation 64.0 % 08/03/20 06:10 VBG Base Excess -0.5 mEq/L 08/03/20 06:10 Barometric Pressure 730.8 mm/Hg 08/03/20 06:10 Sodium 137 mmol/L (136-145) 08/08/20 06:40 Potassium 3.9 mmol/L (3.5-5.1) 08/08/20 06:40 Chloride 102 mmol/L (98-107) 08/08/20 06:40 Carbon Dioxide 29 mmol/L (21-32) 08/08/20 06:40 Anion Gap 6.0 (3-11) 08/08/20 06:40 BUN 9 mg/dl (7-18) D 08/08/20 06:40 Creatinine 0.60 mg/dl (0.6-1.2) 08/08/20 06:40 Est Cr Clr Drug Dosing 125.1 ml/min 08/08/20 06:40 Est GFR ( Amer) 111.6 08/08/20 06:40 Est GFR (Non-Af Amer) 96.3 08/08/20 06:40 BUN/Creatinine Ratio 15.7 (10-20) 08/08/20 06:40 Glucose 120 mg/dl (70-99) H 08/08/20 06:40 POC Glucose 121 mg/dl (70-99) H 08/04/20 07:43 Estimat Average Glucose 128 mg/dl 08/02/20 03:10 Hemoglobin A1c 6.1 % (4.5-5.6) H 08/02/20 03:10 Lactate 1.0 mmol/L (0.4-2.0) 08/03/20 09:36 Calcium 7.8 mg/dl (8.5-10.1) L 08/08/20 06:40 Phosphorus 2.6 mg/dl (2.5-4.9) 08/03/20 06:10 Magnesium 2.3 mg/dl (1.8-2.4) 08/08/20 06:40 Total Bilirubin 0.5 mg/dl (0.2-1) 08/03/20 06:10 AST 62 U/L (15-37) H 08/03/20 06:10 ALT 61 U/L (12-78) 08/03/20 06:10 Alkaline Phosphatase 134 U/L (45-117) H 08/03/20 06:10 Troponin I 0.294 ng/ml (0-0.045) H* 08/03/20 06:10 C-Reactive Protein 24.50 mg/dl (0-0.29) H 08/03/20 06:10 Total Protein 6.7 gm/dl (6.4-8.2) 08/03/20 06:10 Albumin 2.6 gm/dl (3.4-5.0) L 08/03/20 06:10 Globulin 4.1 gm/dl (2.5-4.0) H 08/03/20 06:10 Albumin/Globulin Ratio 0.6 (0.9-2) L 08/03/20 06:10 Triglycerides 283 mg/dl (0-150) H 08/02/20 03:10 Cholesterol 170 mg/dl (0-200) 08/02/20 03:10 LDL Cholesterol, Calc 101 mg/dl 08/02/20 03:10 VLDL Cholesterol, Calc 57 mg/dl 08/02/20 03:10 HDL Cholesterol 12 mg/dl 08/02/20 03:10 Cholesterol/HDL Ratio 14 08/02/20 03:10 Procalcitonin 0.26 ng/ml (0-0.5) 08/08/20 06:40 TSH 1.080 uIu/ml (0.300-4.500) 08/01/20 18:10 Urine Color Yellow 08/01/20 Unknown Urine Appearance Clear (Clear) 08/01/20 Unknown Urine pH 5.0 (4.5-7.5) 08/01/20 Unknown Ur Specific [place] 1.031 (1.000-1.030) H 08/01/20 Unknown Urine Protein Trace (Negative) H 08/01/20 Unknown Urine Glucose (UA) Negative (Negative) 08/01/20 Unknown Urine Ketones Negative (Negative) 08/01/20 Unknown Urine Blood Negative (Negative) 08/01/20 Unknown Urine Nitrite Negative (Negative) 08/01/20 Unknown Urine Bilirubin Negative (Negative) 08/01/20 Unknown Urine Urobilinogen Negative (Negative) 08/01/20 Unknown Ur Leukocyte Esterase Negative (Negative) 08/01/20 Unknown Urine WBC (Auto) 1-5 /hpf (0-5) 08/01/20 Unknown Urine RBC (Auto) 0-4 /hpf (0-4) 08/01/20 Unknown U Hyaline Cast (Auto) 5-10 /lpf (0-5) H 08/01/20 Unknown U Epithel Cells (Auto) 20-30 /lpf (0-5) H 08/01/20 Unknown Urine Bacteria (Auto) Negative (Negative) 08/01/20 Unknown Urine Yeast Not Reportable 08/01/20 Unknown Nasal Screen MRSA (PCR) Negative (Negative) 08/03/20 22:03 Vancomycin Trough 14.4 mcg/ml (See Comment) 08/05/20 09:07 COVID-19 Eval Order [facility]FluRsv at [facility] 08/01/20 Unknown SARS-CoV-2 (PCR) NEGATIVE (Negative) 08/01/20 Unknown Influenza Type A (PCR) Negative (Neg) 08/01/20 Unknown Influenza Type B (PCR) Negative (Neg) 08/01/20 Unknown RSV (RT-PCR) Negative (Neg) 08/01/20 Unknown Bld Cult Staph aureus PCR Positive (Negative) A 08/05/20 07:41 Blood Culture MRSA PCR Negative (Negative) 08/05/20 07:41 Diagnostic Findings XR knee LT 1 or 2V routine HISTORY: 65 years-old Female knee pain acute left knee pain COMPARISON: None TECHNIQUE: 2 views of the left knee FINDINGS: Moderate tricompartmental osteoarthritis. Moderate joint effusion. There is no acute fracture, dislocation or opaque foreign body. Unremarkable soft tissues. IMPRESSION: 1. Moderate joint effusion without acute fracture. 2. Moderate tricompartmental osteoarthritis.
[2020-08-08] MEDS: ATORVASTATIN 40 MG TAB PO SCH (22:03)
[2020-08-08] MEDS: SERTRALINE HCL 50 MG TABLET PO SCH (22:03)
[2020-08-08] MEDS: ASPIRIN 81 MG ECTAB PO SCH (22:04)
[2020-08-08] MEDS: LEVOTHYROXINE SODIUM 175 MCG TABLET PO SCH (22:04)
[2020-08-08] MEDS: DOCUSATE SODIUM/SENNA 50/8.6MG TAB PO SCH (22:04)
[2020-08-09] MEDS: NAFCILLIN SODIUM 2,000 MG in DEXTROSE 5% 100 ML IV SCH ×7 (00:02→23:57)
[2020-08-09] MEDS: oxyCODONE HCL IR 5 MG TAB (IMMEDIATE RELEASE) PO PRN ×5 (00:03→20:36)
[2020-08-09] MEDS: POLYETHYLENE (MIRALAX) 17 GM PACK PO SCH ×4 (00:04→16:22)
[2020-08-09 05:51] LABS: Hematocrit (blood only) 31.7 % (37-47); Hemoglobin 10.4 g/dL (12.0-16.0); Mean Corpuscular Hemoglobin 27.7 pg (25-34); Mean Corpuscular Hgb Conc 32.8 g/dL (32-36); Mean Corpuscular Volume 84.5 fL (80-100); Mean Platelet Volume 9.4 fL (7.4-10.4); Platelet Count 291 K/uL (130-400); RDW Coefficient of Variation 15.7 % (11.5-14.5); RDW Standard Deviation 48.5 fL (36.4-46.3); Red Blood Count 3.75 M/uL (4.2-5.4); White Blood Count 11.87 K/uL (4.8-10.8)
[2020-08-09] MEDS: HEPARIN SOD 5,000 UNIT/0.5 ML VIAL SQ SCH ×3 (05:55→21:52)
[2020-08-09] MEDS: CLOPIDOGREL BISULFATE 75 MG TAB PO SCH (07:52)
[2020-08-09] MEDS: FUROSEMIDE 40 MG in SYRINGE 0 ML IV SCH (07:52)
[2020-08-09] MEDS: METOPROLOL TARTRATE 25 MG TAB PO SCH ×2 (07:52→20:38)
[2020-08-09] MEDS: LIDOCAINE 5% 1 PATCH TD SCH (07:53)
--- NOTE | 2020-08-09 10:31 | Orthopedic Progress Note ---
Date of Service August 09, 2020 Assessment & Plan (1) Abscess in epidural space of lumbar spine: Admission and Anticipated Discharge Date Admission Date: August 04, 2020 This time we will continue to encourage activity as tolerated. We will monitor her drain output over the weekend and possibly discontinue the drain Wednesday or Wednesday. Subjective Back pain controlled leg pain improved Physical Exam Physical Exam: Patient is good strength testing. Appears comfortable. Results & Data ([facility]) Vital Signs (Past 12 Hours) Vital Signs Temp Pulse Resp BP Pulse Ox 08/09/20 08:00 36.9 C 79 18 125/75 95 08/09/20 03:35 36.9 C 77 18 145/65 H 92 08/08/20 22:53 37.3 C 67 18 126/68 91
--- NOTE | 2020-08-09 10:32 | Hospitalist Progress Note ---
Date of Service August 08, 2020 Missed entry. Patient seen and examined on August 08 in mid afternoon Assessment & Plan (1) Abscess in epidural space of lumbar spine: Ms. Pa had back surgery in March, now with zachary leone in 2/2 blood cultures, markedly eleveated ESR/CRP and back pain, on vancomycin for concern of epidural abscess or discitis/transverse myelitis MRI back 08/04/20 IMPRESSION: 1. Exam significantly compromised by susceptibility artifact from surgical hardware and motion artifact. 2. Status post L5-S1 posterior decompression with bilateral pedicle screw fusion and L4-L5 and L5-S1 discectomies. Complex rim-enhancing 5.7 x 4.7 x 2.8 cm fluid collection within the left laminectomy bed adjacent to several left- sided pedicle screws. This is nonspecific in the postoperative setting. Material within this collection could be purulent or hemorrhagic. Additional multiple fluid collections adjacent to right sided pedicle screws. These may reflect seromas however superimposed infection cannot be excluded. Patient taken the OR 08/06/2020 and found to have abscess. This was evacuated and area packed with antibiotic beads with vancomycin and gentamicin. JUANCHO drains now intact with minimal drainage of serosanguineous fluid. Patient afebrile Continue with IV nafcillin every 4 hours We will need 6 weeks of IV antibiotics Will discuss IV antibiotic plan with infectious disease team at [facility] when cultures from surgery return If blood cultures clear, will place PICC line. Consent obtained by Dr. Brice. Hold off on order of PICC line at this time. Repeat blood cultures are both still positive. Adequate peripheral IVs intact for treatment (2) CAD (coronary artery disease): History of PCI with drug-eluting stent Currently on clopidogrel Continue clopidogrel Also continue aspirin 81 mg as well as a statin and beta-martin No arrhythmias on telemetry Patient also receiving prophylactic heparin 7500 units SQ Q8h Hemodynamically stable (3) Hypothyroid: Continue levothyroxine (4) Anxiety: Continue sertraline at home dose Continue positive reinforcement with patient at bedside (5) Lower extremity edema: No evidence of clinical congestive heart failure Home medications include bumetanide Diuretics were as needed and not scheduled at home. Restart diuretics as patient is having increased edema and now has effusion on left knee Echocardiogram with normal left ventricular size and function. Preserved left ventricular ejection fraction of 55 to 60%. No regional wall motion abnormalities noted (6) DVT prophylaxis: Continue clopidogrel Continue with heparin 7500 units SQ Q8h (7) Left knee pain: Radiograph of the left knee shows no fracture or acute injury. There is evidence of tricompartmental osteoarthritis as well as effusion. Orthopedics to evaluate and provide comment In the meantime, we will start with alternating heat and ice packs finishing on what is the most comfortable Also start Lidoderm 5% to the left knee Continue to monitor Admission and Anticipated Discharge Date Admission Date: August 04, 2020 Subjective Attending: Dr. Franco Patient seen examined at bedside. She is stable. Pain is better. Drain still in place and back. Knee feels slightly better after receiving furosemide but still swollen. Heating pad and ice packs seem to work. Review of Systems Review of Systems: All systems reviewed & are unremarkable except as noted in Subjective Physical Exam Physical Exam: GENERAL : No acute distress EYES: No icterus, gaze conjugate NOSE: No evidence of epistaxis MOUTH: No lesions or candidiasis NECK: Supple LUNGS: CTA B/L, no wheezes, rales or rhonchi BACK: Dressing dry and intact. JUANCHO drain still in place HEART: Regular, rate controlled ABDOMEN: Soft, NT, ND, BS Present EXTREMITIES: +1 LE edema, pedal pulses intact NEURO: A&OX3 Results & Data Results & Data ([facility]) Vital Signs (Past 12 Hours) Vital Signs Temp Pulse Resp BP Pulse Ox 08/09/20 08:00 36.9 C 79 18 125/75 95 08/09/20 03:35 36.9 C 77 18 145/65 H 92 08/08/20 22:53 37.3 C 67 18 126/68 91 PG Care Time/CCT Total # of Minutes Spent Total Time Spent with Patient: Total time spent is greater than 50% in coordination of care (as documented) at patient's floor/unit and/or counseling patient:15 minutes Coding Level of Care Code 03503 Subseq Hosp Care Lvl 1 Diagnoses Abscess in epidural space of lumbar spine G06.1 CAD (coronary artery disease) I25.10 Hypothyroid E03.9 Anxiety F41.9 Lower extremity edema R60.0 DVT prophylaxis Z29.9 Left knee pain M25.562
--- NOTE | 2020-08-09 17:36 | Communication Note ---
Date of Service: August 09, 2020 Patient lying in bed awake and alert. She appears comfortable. She states her knee swelling has gotten better but she ambulated a couple of times around the hallways today and states that her knee was having some pain thereafter. Pain medication has been helping and so has a heating pad. Her knee swelling does look better today. The knee is obviously warm secondary to the heating pad. No pain on palpation. Her exam is essentially not changed. No plans for aspiration at this time. We will follow for now.
--- NOTE | 2020-08-09 19:34 | Hospitalist Progress Note ---
Date of Service August 09, 2020 Assessment & Plan (1) Abscess in epidural space of lumbar spine: Ms. Pa had back surgery in March, now with staph vasu in 2/2 blood cultures, markedly eleveated ESR/CRP and back pain, on vancomycin for concern of epidural abscess or discitis/transverse myelitis MRI back 08/04/20 IMPRESSION: 1. Exam significantly compromised by susceptibility artifact from surgical hardware and motion artifact. 2. Status post L5-S1 posterior decompression with bilateral pedicle screw fusion and L4-L5 and L5-S1 discectomies. Complex rim-enhancing 5.7 x 4.7 x 2.8 cm fluid collection within the left laminectomy bed adjacent to several left- sided pedicle screws. This is nonspecific in the postoperative setting. Material within this collection could be purulent or hemorrhagic. Additional multiple fluid collections adjacent to right sided pedicle screws. These may reflect seromas however superimposed infection cannot be excluded. Patient taken the OR 08/06/2020 and found to have abscess. This was evacuated and area packed with antibiotic beads with vancomycin and gentamicin. JUANCHO drains now intact with minimal drainage of serosanguineous fluid. Patient afebrile Continue with IV nafcillin every 4 hours We will need 6 weeks of IV antibiotics Will discuss IV antibiotic plan with infectious disease team at [facility] when cultures from surgery return Repeat blood cultures X2 drawn on 08/05/2020 positive for MSSA Will draw another set of blood cultures today. If blood cultures clear, will place PICC line. Consent obtained by Dr. Brice. Hold off on order of PICC line at this time. Repeat blood cultures are both still positive. Adequate peripheral IVs intact for treatment (2) CAD (coronary artery disease): History of PCI with drug-eluting stent Currently on clopidogrel Continue clopidogrel Also continue aspirin 81 mg as well as a statin and beta-martin No arrhythmias on telemetry Patient also receiving prophylactic heparin 7500 units SQ Q8h Hemodynamically stable (3) Hypothyroid: Continue levothyroxine (4) Anxiety: Continue sertraline at home dose Continue positive reinforcement with patient at bedside (5) Lower extremity edema: No evidence of clinical congestive heart failure Home medications include bumetanide Diuretics were as needed and not scheduled at home. Continue Furosemide 40 mg po qam for increased edema and now has effusion on left knee Echocardiogram with normal left ventricular size and function. Preserved left ventricular ejection fraction of 55 to 60%. 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 There is evidence of tricompartmental osteoarthritis as well as effusion. Orthopedics to evaluate and provide comment In the meantime, we will start with alternating heat and ice packs finishing on what is the most comfortable Also start Lidoderm 5% to the left knee Continue to monitor Admission and Anticipated Discharge Date Admission Date: August 04, 2020 Subjective Attending: Dr. Franco Patient seen and examined. No new issues. Left knee still swollen but seems better. Bilateral knees seem weak. Seen by ortho. No fever or chills. No n/v/d. Moving around a little more. Starting to perform her own ADLs. Drains still in back but decreased drainage. Overall doing better. Review of Systems Review of Systems: All systems reviewed & are unremarkable except as noted in Subjective Physical Exam Physical Exam: GENERAL : No acute distress EYES: No icterus, gaze conjugate NOSE: No evidence of epistaxis MOUTH: No lesions or candidiasis NECK: Supple LUNGS: CTA B/L, no wheezes, rales or rhonchi HEART: Regular, rate controlled BACK: Dressing dry and intact. JUANCHO drains still intact and draining serosanguin eous fluid ABDOMEN: Soft, NT, ND, BS Present EXTREMITIES: Trace LE edema, pedal pulses intact NEURO: A&OX3 Results & Data Results & Data ([facility]) Vital Signs (Past 12 Hours) Vital Signs Temp Pulse Resp BP Pulse Ox 08/09/20 18:55 37.6 C H 74 19 113/58 L 93 08/09/20 15:33 37.6 C H 62 101/63 96 08/09/20 11:33 37.9 C H 65 18 98/43 L 94 08/09/20 08:00 36.9 C 79 18 125/75 95 Laboratory Results 08/09/20 05:36 08/08/20 06:40 PG Care Time/CCT Total # of Minutes Spent Total Time Spent with Patient: Total time spent is greater than 50% in coordination of care (as documented) at patient's floor/unit and/or counseling patient: Coding Level of Care Code 76862 Subseq Hosp Care Lvl 2 Diagnoses Abscess in epidural space of lumbar spine G06.1 CAD (coronary artery disease) I25.10 Hypothyroid E03.9 Anxiety F41.9 Lower extremity edema R60.0 DVT prophylaxis Z29.9 Left knee pain M25.562
[2020-08-09] MEDS: SERTRALINE HCL 50 MG TABLET PO SCH (20:36)
[2020-08-09] MEDS: ATORVASTATIN 40 MG TAB PO SCH (20:37)
[2020-08-09] MEDS: LEVOTHYROXINE SODIUM 175 MCG TABLET PO SCH (20:37)
[2020-08-09] MEDS: ASPIRIN 81 MG ECTAB PO SCH (20:37)
[2020-08-09] MEDS: DOCUSATE SODIUM/SENNA 50/8.6MG TAB PO SCH (20:38)
[2020-08-09] MEDS: LORazepam 0.5 MG TAB PO PRN (21:52)
[2020-08-09] MEDS: diphenhydrAMINE Capsule 25 MG CAP PO PRN (23:58)
[2020-08-10] MEDS: oxyCODONE HCL IR 5 MG TAB (IMMEDIATE RELEASE) PO PRN ×5 (00:38→23:21)
[2020-08-10] MEDS: POLYETHYLENE (MIRALAX) 17 GM PACK PO SCH ×5 (00:54→23:42)
[2020-08-10] MEDS: HEPARIN SOD 5,000 UNIT/0.5 ML VIAL SQ SCH ×3 (05:37→21:19)
[2020-08-10] MEDS: NAFCILLIN SODIUM 2,000 MG in DEXTROSE 5% 100 ML IV SCH ×6 (05:37→23:22)
[2020-08-10] MEDS: FUROSEMIDE 40 MG TAB PO SCH (08:06)
[2020-08-10] MEDS: CLOPIDOGREL BISULFATE 75 MG TAB PO SCH (08:07)
[2020-08-10] MEDS: METOPROLOL TARTRATE 25 MG TAB PO SCH ×2 (08:07→21:16)
[2020-08-10] MEDS: LIDOCAINE 5% 1 PATCH TD SCH (08:07)
--- NOTE | 2020-08-10 08:39 | Orthopedic Progress Note ---
Date of Service August 10, 2020 Assessment & Plan (1) Left knee pain: she states her knee pain is about the same as yesterday. she does have moderate to severe DJD of her knee and there are no obvious signs of septic arthritis. will cont with the lidoderm patch, add topical Voltaren Gel. she sees to have most relief from heat so will continue with that. at this point, will continue with observation, do not see any evidence of septic arthritis that would require aspiration of the joint. she can WBAT on her left knee. Admission and Anticipated Discharge Date Admission Date: August 04, 2020 Supervising Physician Co-Signing Physician Notes Patient seen and examined agree with above assessment plan. Subjective she states the pain is about the same as yesterday. denies fever or chills. Physical Exam Physical Exam: Vital Signs Temp 36.8 C 08/10/20 07:17 Pulse 71 08/10/20 08:02 Resp 93 H 08/10/20 07:17 BP 113/65 08/10/20 07:17 Pulse Ox 20 L 08/10/20 07:17 Intake & Output 08/09/20 08/10/20 08/10/20 18:59 06:59 18:59 Intake Total 1000 / 1900 900 / 1900 Output Total 35 / 35 Balance 965 / 1865 900 / 1865 Weight 106.776 kg Intake: IV 400 / 700 300 / 700 Unipen 2,000 m g In D5w 100 ml @ 400 / 700 300 / 700 100 mls/hr IV Q4H SHADI Rx#: [id number] Oral 600 / 1200 600 / 1200 Output: Drain Output 35 / 35 Left Back JUANCHO 15 / 15 Right Back JUANCHO 20 / 20 Other: # Unmeasured Voi ds 1 Weight Measureme nt Method Built in [facility] Constitutional: WD/WN, vitals as above Musculoskeletal: left knee: mild effusion. no erythema noted. thigh and calf SNT. no pain with gentle PROM and AROM. she has active flexion to approximately 90 degrees, PROM flexion to 105. able to perform SLR. there is positive crepitation with motion. knee stable to valgus/varus stress Results & Data ([facility]) Vital Signs (Past 12 Hours) Vital Signs Temp Pulse Pulse Resp BP Pulse Ox 08/10/20 08:02 71 08/10/20 07:17 36.8 C 71 93 H 113/65 20 L 08/10/20 04:23 37.2 C 75 20 115/64 92 08/10/20 00:51 70 08/09/20 22:44 37.0 C 69 19 133/64 91 Laboratory Results Laboratory Results WBC 11.87 K/uL (4.8-10.8) H 08/09/20 05:36 RBC 3.75 M/uL (4.2-5.4) L 08/09/20 05:36 Hgb 10.4 g/dL (12.0-16.0) L 08/09/20 05:36 Hct 31.7 % (37-47) L 08/09/20 05:36 MCV 84.5 fL (80-100) 08/09/20 05:36 MCH 27.7 pg (25-34) 08/09/20 05:36 MCHC 32.8 g/dL (32-36) 08/09/20 05:36 RDW Std Deviation 48.5 fL (36.4-46.3) H 08/09/20 05:36 RDW Coeff of Kye 15.7 % (11.5-14.5) H 08/09/20 05:36 Plt Count 291 K/uL (130-400) 08/09/20 05:36 MPV 9.4 fL (7.4-10.4) 08/09/20 05:36 Immature Gran % (Auto) 9.0 % 08/06/20 06:38 Neut % (Auto) 74.1 % 08/06/20 06:38 Lymph % (Auto) 11.3 % 08/06/20 06:38 [place] % (Auto) 5.5 % 08/06/20 06:38 Eos % (Auto) 0.0 % 08/06/20 06:38 Baso % (Auto) 0.1 % 08/06/20 06:38 Neut # (Auto) 10.21 K/uL (1.4-6.5) H 08/06/20 06:38 Lymph # (Auto) 1.56 K/uL (1.2-3.4) 08/06/20 06:38 [place] # (Auto) 0.76 K/uL (0.11-0.59) H 08/06/20 06:38 Eos # (Auto) 0.00 K/uL (0-0.5) 08/06/20 06:38 Baso # (Auto) 0.02 K/uL (0-0.2) 08/06/20 06:38 Immature Gran # (Auto) 1.24 K/uL (0.00-0.02) H 08/06/20 06:38 Toxic Vacuolation 1+ 08/03/20 06:10 Echinocytes 1+ 08/03/20 06:10 ESR > 90 mm/hr (0-21) H 08/03/20 06:10 PT 10.5 Seconds (9.0-12.0) 08/05/20 07:41 INR 1.0 (0.9-1.1) 08/05/20 07:41 APTT 22.5 Seconds (21.0-31.0) 08/05/20 07:41 PTT Ratio 0.9 08/05/20 07:41 Activ Coag Time Kaolin 224 SECONDS (94-140) H 08/02/20 14:06 VBG pH 7.34 (7.36-7.41) L 08/03/20 06:10 VBG pCO2 50 mmHg (38-50) 08/03/20 06:10 VBG pO2 32 mmHg 08/03/20 06:10 VBG HCO3 26 mmol/L 08/03/20 06:10 VBG O2 Saturation 64.0 % 08/03/20 06:10 VBG Base Excess -0.5 mEq/L 08/03/20 06:10 Barometric Pressure 730.8 mm/Hg 08/03/20 06:10 Sodium 137 mmol/L (136-145) 08/08/20 06:40 Potassium 3.9 mmol/L (3.5-5.1) 08/08/20 06:40 Chloride 102 mmol/L (98-107) 08/08/20 06:40 Carbon Dioxide 29 mmol/L (21-32) 08/08/20 06:40 Anion Gap 6.0 (3-11) 08/08/20 06:40 BUN 9 mg/dl (7-18) D 08/08/20 06:40 Creatinine 0.60 mg/dl (0.6-1.2) 08/08/20 06:40 Est Cr Clr Drug Dosing 125.1 ml/min 08/08/20 06:40 Est GFR ( Amer) 111.6 08/08/20 06:40 Est GFR (Non-Af Amer) 96.3 08/08/20 06:40 BUN/Creatinine Ratio 15.7 (10-20) 08/08/20 06:40 Glucose 120 mg/dl (70-99) H 08/08/20 06:40 POC Glucose 121 mg/dl (70-99) H 08/04/20 07:43 Estimat Average Glucose 128 mg/dl 08/02/20 03:10 Hemoglobin A1c 6.1 % (4.5-5.6) H 08/02/20 03:10 Lactate 1.0 mmol/L (0.4-2.0) 08/03/20 09:36 Calcium 7.8 mg/dl (8.5-10.1) L 08/08/20 06:40 Phosphorus 2.6 mg/dl (2.5-4.9) 08/03/20 06:10 Magnesium 2.3 mg/dl (1.8-2.4) 08/08/20 06:40 Total Bilirubin 0.5 mg/dl (0.2-1) 08/03/20 06:10 AST 62 U/L (15-37) H 08/03/20 06:10 ALT 61 U/L (12-78) 08/03/20 06:10 Alkaline Phosphatase 134 U/L (45-117) H 08/03/20 06:10 Troponin I 0.294 ng/ml (0-0.045) H* 08/03/20 06:10 C-Reactive Protein 24.50 mg/dl (0-0.29) H 08/03/20 06:10 Total Protein 6.7 gm/dl (6.4-8.2) 08/03/20 06:10 Albumin 2.6 gm/dl (3.4-5.0) L 08/03/20 06:10 Globulin 4.1 gm/dl (2.5-4.0) H 08/03/20 06:10 Albumin/Globulin Ratio 0.6 (0.9-2) L 08/03/20 06:10 Triglycerides 283 mg/dl (0-150) H 08/02/20 03:10 Cholesterol 170 mg/dl (0-200) 08/02/20 03:10 LDL Cholesterol, Calc 101 mg/dl 08/02/20 03:10 VLDL Cholesterol, Calc 57 mg/dl 08/02/20 03:10 HDL Cholesterol 12 mg/dl 08/02/20 03:10 Cholesterol/HDL Ratio 14 08/02/20 03:10 Procalcitonin 0.26 ng/ml (0-0.5) 08/08/20 06:40 TSH 1.080 uIu/ml (0.300-4.500) 08/01/20 18:10 Urine Color Yellow 08/01/20 Unknown Urine Appearance Clear (Clear) 08/01/20 Unknown Urine pH 5.0 (4.5-7.5) 08/01/20 Unknown Ur Specific [place] 1.031 (1.000-1.030) H 08/01/20 Unknown Urine Protein Trace (Negative) H 08/01/20 Unknown Urine Glucose (UA) Negative (Negative) 08/01/20 Unknown Urine Ketones Negative (Negative) 08/01/20 Unknown Urine Blood Negative (Negative) 08/01/20 Unknown Urine Nitrite Negative (Negative) 08/01/20 Unknown Urine Bilirubin Negative (Negative) 08/01/20 Unknown Urine Urobilinogen Negative (Negative) 08/01/20 Unknown Ur Leukocyte Esterase Negative (Negative) 08/01/20 Unknown Urine WBC (Auto) 1-5 /hpf (0-5) 08/01/20 Unknown Urine RBC (Auto) 0-4 /hpf (0-4) 08/01/20 Unknown U Hyaline Cast (Auto) 5-10 /lpf (0-5) H 08/01/20 Unknown U Epithel Cells (Auto) 20-30 /lpf (0-5) H 08/01/20 Unknown Urine Bacteria (Auto) Negative (Negative) 08/01/20 Unknown Urine Yeast Not Reportable 08/01/20 Unknown Nasal Screen MRSA (PCR) Negative (Negative) 08/03/20 22:03 Vancomycin Trough 14.4 mcg/ml (See Comment) 08/05/20 09:07 COVID-19 Eval Order CovFluRsv at [facility] 08/01/20 Unknown SARS-CoV-2 (PCR) NEGATIVE (Negative) 08/01/20 Unknown Influenza Type A (PCR) Negative (Neg) 08/01/20 Unknown Influenza Type B (PCR) Negative (Neg) 08/01/20 Unknown RSV (RT-PCR) Negative (Neg) 08/01/20 Unknown Bld Cult Staph aureus PCR Positive (Negative) A 08/05/20 07:41 Blood Culture MRSA PCR Negative (Negative) 08/05/20 07:41 Impressions Chest X-Ray 08/01/20 17:51 XR chest 1V portable CLINICAL HISTORY: weakness COMPARISON STUDY: No previous studies for comparison. FINDINGS: The heart is the upper limits of normal in size. There is no overt failure. There is no focal pulmonary consolidation. There are no pleural effusions. There are minor left basilar atelectatic changes.[ IMPRESSION: No active disease in the chest. ACT 112: Negative or not required by law. Electronically signed by: Ludwig Mejia M.D. 08/01/2020 6:25 PM Abdomen/Pelvis CTA 08/01/20 19:39 CT angio abdomen pelvis w con CT DOSE: 1894.30 mGy.cm CLINICAL HISTORY: back pain thigh for aneurysm/dissection. TECHNIQUE: CT angiography the abdomen and pelvis was performed in a dynamic helical fashion during intravenous administration of 116 cc of Optiray 320. MIP images were acquired. A dose lowering technique was utilized adhering to the principles of ALARA. COMPARISON STUDY: None. FINDINGS: There are basilar atelectatic changes at the lung bases. There is hepatic steatosis. No focal hepatic masses are visualized. No gallbladder abnormalities are visualized. Spleen is minimally enlarged measuring 12.4 cm. No pancreatic masses are visualized and subcutaneous of a study. There is mild low-density left adrenal gland thickening. No solid renal masses are visualized subcutaneous of a study. There is lower pole left renal cortical scarring. There are no transition zones indicate bowel obstruction. There is no evidence of acute diverticulitis. There is no evidence of abdominal aortic aneurysm or dissection. There is no free air. There is no ascites. There are no pathologic pelvic masses. There is no pathologic adenopathy. 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 The superior left renal artery demonstrates an early bifurcation with a stenosis of the inferior branch origin. There is no evidence of celiac or superior mesenteric artery stenosis. The inferior mesenteric artery is patent. Postsurgical changes are present within the lumbar spine. There is lucency surrounding the right S1 pedicle screws suspicious for loosening. There is a tiny fat-containing umbilical hernia. There is a 32 mm fatty density with a thin rim present within the anterior peritoneum. This likely represents a area of prior fat necrosis. IMPRESSION: 1. No evidence of bowel obstruction. No evidence of free air 2. No evidence of acute appendicitis. No evidence of acute diverticulitis 3. Hepatic steatosis. Mild splenomegaly 4. No evidence of abdominal aortic aneurysm or dissection 5. No evidence of celiac artery stenosis. No evidence of superior mesenteric artery stenosis. 6. 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 The superior left renal artery demonstrates an early bifurcation with stenosis of the inferior branch origin. ACT 112: Negative or not required by law. Electronically signed by: Ludwig Mejia M.D. 08/01/2020 8:[address] 08/03/20 09:[address] DOSE: 601.98 mGy.cm HISTORY: post cardiac cath confusion TECHNIQUE: Multiaxial CT images of the head were performed without the use of intravenous contrast. Automated exposure control was utilized for this study. A dose lowering technique was utilized adhering to the principles of ALARA. Comparison: None. Findings: The paranasal sinuses and mastoid air cells are clear. The calvarium and skull base are intact. The ventricles and sulci are within normal limits. There is no mass, hematoma, midline shift, or acute infarct. Impression: No acute intracranial abnormality. ACT 112: Negative or not required by law. Electronically signed by: Arthur Choe M.D. 08/03/2020 10:54 AM Lumbar Spine MRI 08/03/20 17:59 MRI OF THE LUMBAR SPINE WITH AND WITHOUT CONTRAST CLINICAL HISTORY: Worsening back pain. Previous L2-S1 surgery, evaluate for infection. COMPARISON STUDY: Lumbar spine MRI March 29, 2020. Lumbar spine fluoroscopic images April 17, 2020. TECHNIQUE: Utilizing a 1.5 Rosalva magnet and dedicated coil, multiplanar, multiecho imaging of the lumbar spine was performed before and after uneventful IV administration of 10.5 mL of Gadavist. FINDINGS: For purposes of numbering on this exam, the L5-S1 disc space is assigned to axial image 39 of 48. This exam is compromised by motion artifact and susceptibility artifact from surgical hardware. Note is made of a posterior decompression with bilateral pedicle screw fusion from L2 through S1. L4-L5 and L5-S1 discectomies are noted. There is increased fluid signal within the L5-S1 disc space. There is diminished T1 marrow signal within the L5 and S1 vertebral bodies. However, there is not significant increased T2 signal within these vertebral bodies on the STIR sequence. Note is made of a 1.7 x 0.8 cm right paracentral anterior epidural fluid collection at the L5-S1 level. This is probably postsurgical. Note is made of a complex fluid collection within the left laminectomy bed at the L4-S1 level that measures 4.7 x 5.7 x 2.8 cm. This contains T2 hyperintense, T1 hypointense material. This demonstrates peripheral enhancement on the postcontrast images. Note is also made of a fluid collection adjacent to right-sided surgical hardware. The largest fluid collection measures 5 x 4 cm. Increased T2 signal within the operative bed is noted. The conus terminates at the L1-L2 level. Evaluation of the central canal and neural foramen is nearly nondiagnostic given artifact. There is suspected moderate to severe multilevel central canal and neural foraminal stenosis. IMPRESSION: 1. Exam significantly compromised by susceptibility artifact from surgical hardware and motion artifact. 2. Status post L5-S1 posterior decompression with bilateral pedicle screw fusion and L4-L5 and L5-S1 discectomies. Complex rim-enhancing 5.7 x 4.7 x 2.8 cm fluid collection within the left laminectomy bed adjacent to several left-sided pedicle screws. This is nonspecific in the postoperative setting. Material within this collection could be purulent or hemorrhagic. Additional multiple fluid collections adjacent to right sided pedicle screws. These may reflect seromas however superimposed infection cannot be excluded. 3. Increased fluid signal within the L5-S1 disc space and diminished T1 marrow signal within the adjacent vertebral bodies. These findings are nonspecific and may be postsurgical however discitis/osteomyelitis cannot be excluded. 4. Right paracentral anterior epidural fluid collection at the L5-S1 level that measures 1.7 x 0.8 cm. This is adjacent to the discectomy site and is probably postsurgical however a small epidural abscess could appear similar. 5. Nearly nondiagnostic evaluation of the central canal given artifact. Suspected moderate to severe multilevel central canal and neural foraminal narrowing. ACT 112: Negative or not required by law. Electronically signed by: Roge Parkinson M.D. 08/04/2020 12:21 PM Chest CTA 08/03/20 21:27 CHEST CTA for PULMONARY ARTERIES CT DOSE: 687.28 mGy.cm HISTORY: Right-sided chest pain. Fever. TECHNIQUE: Multiaxial CT images of the chest were performed following the intravenous administration of contrast to evaluate the pulmonary arteries. Maximal intensity projection images were also obtained. A dose lowering technique was utilized adhering to the principles of ALARA. COMPARISON STUDY: Chest CTA 08/01/2020. FINDINGS: Normal caliber thoracic aorta with no evidence for dissection. No filling defects within the pulmonary arteries to suggest pulmonary embolus. There are trace bilateral pleural effusions. No mediastinal hilar lymphadenopathy. The heart is mildly enlarged. Limited views the upper abdomen demonstrate mild hepatomegaly and hepatic steatosis. This remains unchanged. The visualized spleen is unremarkable. Normal esophagus. The central airways are patent. No pneumothorax. Small bibasilar densities favor atelectasis. IMPRESSION: 1. No evidence for pulmonary embolus. 2. Trace bilateral pleural effusions. 3. Mild cardiomegaly, unchanged. 4. Hepatic steatosis. 5. Bibasilar densities favor atelectasis. ACT 112: Negative or not required by law. Electronically signed by: Arthur Choe M.D. 08/04/2020 8:37 AM Lumbar Spine X-Ray 08/05/20 13:00 FL lumbar spine 2-3V CLINICAL HISTORY: I and D of lumbar spine. COMPARISON STUDY: Lumbar spine MRI August 04, 2020. FLUOROSCOPY TIME: 6 seconds. FLUOROSCOPIC IMAGES: 2 FINDINGS: Fluoroscopy was provided during during irrigation and debridement of the lumbar spine. Surgical drains are in place. Lumbar spine hardware is partially imaged. L5-S1 discectomies and interbody spacer is noted. Note is made of impregnated beads. IMPRESSION: Fluoroscopy provided during irrigation and debridement of the lumbar spine, as described above. ACT 112: Negative or not required by law. Electronically signed by: Roge Parkinson M.D. 08/05/2020 2:53 PM Knee X-Ray 08/07/20 08:23 XR knee LT 1 or 2V routine HISTORY: 65 years-old Female knee pain acute left knee pain COMPARISON: None TECHNIQUE: 2 views of the left knee FINDINGS: Moderate tricompartmental osteoarthritis. Moderate joint effusion. There is no acute fracture, dislocation or opaque foreign body. Unremarkable soft tissues. IMPRESSION: 1. Moderate joint effusion without acute fracture. 2. Moderate tricompartmental osteoarthritis. ACT 112: Negative or not required by law. The above report was generated using voice recognition software. It may contain grammatical, syntax or spelling errors. Electronically signed by: Ariel Wright M.D. 08/07/2020 9:26 AM
[2020-08-10] MEDS: ACETAMINOPHEN 500 MG TAB PO PRN (10:17)
[2020-08-10] MEDS: DICLOFENAC SOD 1% GEL 100 GM TUBE EXT SCH ×3 (11:20→23:23)
[2020-08-10] MEDS ORDERED: COLCHICINE 0.6 MG TAB PO ONE (13:45)
[2020-08-10] MEDS: LORazepam 0.5 MG TAB PO PRN (18:12)
[2020-08-10] MEDS: ATORVASTATIN 40 MG TAB PO SCH (21:16)
[2020-08-10] MEDS: ASPIRIN 81 MG ECTAB PO SCH (21:16)
[2020-08-10] MEDS: DOCUSATE SODIUM/SENNA 50/8.6MG TAB PO SCH (21:17)
[2020-08-10] MEDS: SERTRALINE HCL 50 MG TABLET PO SCH (21:18)
[2020-08-10] MEDS: LEVOTHYROXINE SODIUM 175 MCG TABLET PO SCH (21:18)
--- NOTE | 2020-08-10 21:51 | Hospitalist Progress Note ---
Date of Service August 10, 2020 Assessment & Plan (1) Abscess in epidural space of lumbar spine: Ms. Pa had back surgery in March, now with staph vasu in 2/2 blood cultures, markedly eleveated ESR/CRP and back pain, on vancomycin for concern of epidural abscess or discitis/transverse myelitis MRI back 08/04/20 IMPRESSION: 1. Exam significantly compromised by susceptibility artifact from surgical hardware and motion artifact. 2. Status post L5-S1 posterior decompression with bilateral pedicle screw fusion and L4-L5 and L5-S1 discectomies. Complex rim-enhancing 5.7 x 4.7 x 2.8 cm fluid collection within the left laminectomy bed adjacent to several left- sided pedicle screws. This is nonspecific in the postoperative setting. Material within this collection could be purulent or hemorrhagic. Additional multiple fluid collections adjacent to right sided pedicle screws. These may reflect seromas however superimposed infection cannot be excluded. Patient taken the OR 08/06/2020 and found to have abscess. This was evacuated and area packed with antibiotic beads with vancomycin and gentamicin. JUANCHO drains now intact with minimal drainage of serosanguineous fluid. Patient afebrile Continue with IV nafcillin every 4 hours We will need 6 weeks of IV antibiotics Will discuss IV antibiotic plan with infectious disease team at [facility] when cultures from surgery return If blood cultures clear, will place PICC line. Consent obtained by Dr. Brice. Hold off on order of PICC line at this time. Repeat blood cultures are both still positive. Adequate peripheral IVs intact for treatment repeat blood cultures drawn 08/09, no growth so far, need to be at least 48 hours out (2) CAD (coronary artery disease): History of PCI with drug-eluting stent Currently on clopidogrel Continue clopidogrel Also continue aspirin 81 mg as well as a statin and beta-martin No arrhythmias on telemetry Patient also receiving prophylactic heparin 7500 units SQ Q8h Hemodynamically stable (3) Hypothyroid: Continue levothyroxine (4) Anxiety: Continue sertraline at home dose Continue positive reinforcement with patient at bedside (5) Lower extremity edema: No evidence of clinical congestive heart failure Home medications include bumetanide Diuretics were as needed and not scheduled at home. Continue Furosemide 40 mg po qam for increased edema and now has effusion on left knee Echocardiogram with normal left ventricular size and function. Preserved left ventricular ejection fraction of 55 to 60%. 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 There is evidence of tricompartmental osteoarthritis as well as effusion. Orthopedics to evaluate and provide comment In the meantime, we will start with alternating heat and ice packs finishing on what is the most comfortable Also start Lidoderm 5% to the left knee Continue to monitor try Colchicine 1.2mg x 1 today to see if pain/swelling gets better, follow up tomorrow could be gouty arthritis or pseudogout? Admission and Anticipated Discharge Date Admission Date: August 04, 2020 Subjective patient says she is doing well, no fever/chills, minimal back pain main issue is the left knee pain and swelling, but she says that it is actually a lot better reviewed imaging, x-ray showed some swelling, arthritic changes but nothing major no personal history of gout, but suggested we try a dose of colchicine, she agreed eating well, breathing comfortably, no chest pain/pressure no labs today blood cultures drawn yesterday, no growth so far Review of Systems Review of Systems: All systems reviewed & are unremarkable except as noted in Subjective Musculoskeletal: + back pain, + joint pain (left knee), + swelling (left knee) and + limited range of motion (left knee) Physical Exam Constitutional: WD/WN, vitals as above comfortable and + overweight Neck: trachea midline, no thyromegaly Respiratory: normal respiratory effort, lungs clear to auscultation Cardiovascular: RRR, no murmur, no edema Gastrointestinal (Abdomen): normal bowel sounds, soft, nontender, no hepatosplenomegaly Musculoskeletal: Head/Neck/Chest: normocephalic, head atraumatic and neck supple Spine: + limited thoraco-lumbar ROM and + lumbar spinal tenderness Extremities: strength 5/5 throughout Knee: + knee abnormal to inspection (left knee swollen, slightly tender) Skin: no rashes, warm and dry Neurologic: patellar DTR's 2+ bilat, sensation intact and PERRL, EOMI, accommodation nl, no face palsy, no dysarthria Psychiatric: A+Ox3, euthymic affect Lymphatic: no cervical or axillary lymphadenopathy Results & Data Results & Data ([facility]) Vital Signs (Past 12 Hours) Vital Signs Temp Pulse Pulse Resp BP Pulse Ox 08/10/20 20:25 70 08/10/20 19:22 36.9 C 69 20 134/68 92 08/10/20 17:44 60 08/10/20 15:25 36.7 C 60 20 127/80 95 08/10/20 11:12 37.3 C 60 19 116/69 93 Laboratory Results Microbiology 08/05/20 13:50 Back Gram Stain - Final 08/05/20 13:50 Back Aerobic and Anaerobic Culture - Final Staphylococcus aureus 08/05/20 09:06 Blood Aerobic Blood Culture - Preliminary Staphylococcus aureus 08/05/20 09:06 Blood Anaerobic Blood Culture - Final No growth in Anaerobic bottle after 5 days. 08/05/20 07:41 Blood Aerobic Blood Culture - Preliminary Staphylococcus aureus 08/05/20 07:41 Blood Anaerobic Blood Culture - Final No growth in Anaerobic bottle after 5 days. 08/03/20 09:51 Blood Aerobic Blood Culture - Final Staphylococcus aureus 08/03/20 09:51 Blood Anaerobic Blood Culture - Final Staphylococcus aureus 08/03/20 09:26 Blood Aerobic Blood Culture - Final Staphylococcus aureus 08/03/20 09:26 Blood Anaerobic Blood Culture - Final Staphylococcus aureus 08/03/20 10:37 Urine,Clean Catch Urine Culture - Final More than three types of organisms present, all high counts mixed probable skin dwayne - No further identifications or sensitivities to follow. 08/01/20 Unknown Urine,Clean Catch Urine Culture - Final More than three types of organisms present, all low counts mixed probable skin dwayne. No further identifications or sensitivities to follow. Medications Administered Current Inpatient Medications Acetaminophen (Acetaminophen 500 Mg Tab) 1,000 mg PO Q8H PRN PRN Reason: Pain or Fever Stop: 09/01/20 07:59 Last Admin: 08/10/20 10:17 Dose: 1,000 mg Documented by: Al Hydrox/Mg Hydrox/Simethicone (Aluminum/Magnesium Susp 30 Ml Udc) 30 ml PO Q6H PRN PRN Reason: Dyspepsia Stop: 09/04/20 16:02 Aspirin (Aspirin 81 Mg Ectab) 81 mg PO PM SHADI Stop: 09/01/20 20:59 Last Admin: 08/10/20 21:16 Dose: 81 mg Documented by: Atorvastatin Calcium (Atorvastatin 40 Mg Tab) 40 mg PO HS SHADI Stop: 09/04/20 20:59 Last Admin: 08/10/20 21:16 Dose: 40 mg Documented by: Bisacodyl (Bisacodyl 10 Mg Supp) 10 mg MT DAILY PRN PRN Reason: Constipation Stop: 09/04/20 16:02 Clopidogrel Bisulfate (Clopidogrel Bisulfate 75 Mg Tab) 75 mg PO QAM [facility] Stop: 09/02/20 08:59 Last Admin: 08/10/20 08:07 Dose: 75 mg Documented by: Diclofenac Sodium (Diclofenac Sod 1% Gel 100 Gm Tube) 4 gm EXT Q6 [facility] Stop: 09/09/20 11:59 Last Admin: 08/10/20 17:04 Dose: 4 gm Documented by: Diphenhydramine HCl (Diphenhydramine Capsule 25 Mg Cap) 25 mg PO Q6H PRN PRN Reason: Allergic Rhinitis/Insomnia Stop: 09/04/20 16:02 Last Admin: 08/09/20 23:58 Dose: 25 mg Documented by: Famotidine (Famotidine 20 Mg Tab) 20 mg PO Q12H PRN PRN Reason: Dyspepsia Stop: 09/04/20 16:02 Furosemide (F[facility]semide 40 Mg Tab) [facility] Stop: 09/09/20 08:59 Last Admin: 08/10/20 08:06 Dose: 40 mg Documented by: Heparin Sodium (Porcine) (Heparin Sod 5,000 Unit/0.5 Ml Vial) 7,500 units SQ Q8 [facility] Stop: 09/01/20 05:59 Last Admin: 08/10/20 21:19 Dose: 7,500 units Documented by: Hydromorphone HCl (Hydromorphone Inj 0.5 Mg/0.5 Ml Syr) 0.5 mg IV Q3H PRN PRN Reason: MOD pain (scale 4-6) & Pre PT Stop: 08/19/20 16:02 Last Admin: 08/07/20 10:14 Dose: 0.5 mg Documented by: Hydromorphone HCl (Hydromorphone Inj 1 Mg/Ml Syringe) 1 mg IV Q3H PRN PRN Reason: severe pain (scale 7-10) Stop: 08/19/20 16:02 Last Admin: 08/07/20 23:10 Dose: 1 mg Documented by: Hydroxyzine HCl (Hydroxyzine Hcl 25 Mg Tab) 25 mg PO Q8H PRN PRN Reason: Anxiety Stop: 09/04/20 16:02 Nafcillin Sodium 2,000 mg/ (Dextrose) 100 mls @ 100 mls/hr IV Q4H SHADI; Protocol Stop: 08/19/20 09:59 Last Admin: 08/10/20 21:15 Dose: 100 mls/hr Documented by: Lorazepam (Ativan) 0.5 mg in 1 mls @ 0.5 mls/min IV Q8H PRN PRN Reason: Sedation/Anxiety Stop: 09/04/20 16:02 Promethazine HCl 12.5 mg/ (Sodium Chloride) 50.5 mls @ 204 mls/hr IV Q6H PRN PRN Reason: Nausea &/or Vomiting Stop: 09/04/20 16:02 Influenza Virus Vaccine Quadrival (Do Not Administer Flu Vaccine) 1 ea N/A PRN PRN PRN Reason: Notification Stop: 09/04/20 16:02 Levothyroxine Sodium (Levothyroxine Sodium 175 Mcg Tablet) 175 mcg PO PM [facility] Stop: 09/01/20 20:59 Last Admin: 08/10/20 21:18 Dose: 175 mcg Documented by: Lidocaine (Lidocaine 5% 1 Patch) 1 patch TD QAM [facility] Stop: 09/06/20 15:59 Last Admin: 08/10/20 08:07 Dose: Not Given Documented by: Lorazepam (Lorazepam 0.5 Mg Tab) 0.5 mg PO Q8H PRN PRN Reason: Sedation/Anxiety Stop: 09/04/20 16:02 Last Admin: 08/10/20 18:12 Dose: 0.5 mg Documented by: Magnesium Hydroxide (Magnesium Hydroxide Susp 30 Ml Udc) 30 ml PO DAILY PRN PRN Reason: Constipation Stop: 09/04/20 16:02 Metoclopramide HCl (Metoclopramide Hcl Inj 5 Mg/Ml 2 Ml Vial) 10 mg IV Q6H PRN PRN Reason: Nausea &/or Vomiting Stop: 09/04/20 16:02 Metoprolol Tartrate (Metoprolol Tartrate 1 Mg/Ml Vial) 5 mg IV Q4 PRN PRN Reason: sbp> 185, dbp >95, HR >120 Stop: 09/01/20 15:38 Metoprolol Tartrate (Metoprolol Tartrate 25 Mg Tab) 25 mg PO BID SHADI Stop: 09/01/20 20:59 Last Admin: 08/10/20 21:16 Dose: 25 mg Documented by: Miscellaneous (Remove Lidoderm Patch) 1 ea N/A DAILY@2100 SHADI Stop: 09/06/20 20:59 Last Admin: 08/10/20 21:27 Dose: Not Given Documented by: Naloxone HCl (Naloxone Hcl 0.4 Mg/1 Ml Vial/Carp) 0.1 mg IV Q5M PRN; Protocol PRN Reason: Oversedation/Resp Depression Stop: 09/04/20 16:02 Nitroglycerin (Nitroglycerin Sl 0.4 Mg/Tab Tab) 0.4 mg SL UD PRN PRN Reason: Chest Pain Stop: 08/31/20 23:18 Ondansetron HCl (Ondansetron Inj 2 Mg/Ml 2 Ml Vial) 4 mg IV Q6H PRN PRN Reason: Nausea Stop: 08/31/20 23:18 Ondansetron HCl (Ondansetron 4 Mg Od Tab) 4 mg PO Q6H PRN PRN Reason: Nausea Stop: 09/04/20 16:02 Oxycodone HCl (Oxycodone Hcl Ir 5 Mg Tab (Immediate Release)) 5 mg PO Q4H PRN PRN Reason: MODERATE Pain (4,5,6) & Pre PT Stop: 08/15/20 23:18 Last Admin: 08/10/20 19:24 Dose: 5 mg Documented by: Pneumococcal Polyvalent Vaccine (Do Not Administer Pneumococcal Vaccine) 1 ea N/A PRN PRN PRN Reason: Notification Stop: 09/04/20 16:02 Polyethylene Glycol (Polyethylene (Miralax) 17 Gm Pack) 17 gm PO DAILY PRN PRN Reason: Constipation Stop: 09/03/20 06:19 Last Admin: 08/04/20 06:41 Dose: 17 gm Documented by: Polyethylene Glycol (Polyethylene (Miralax) 17 Gm Pack) 17 gm PO Q6 SHADI Stop: 09/05/20 05:59 Last Admin: 08/10/20 14:26 Dose: Not Given Documented by: Senna/Docusate Sodium (Docusate Sodium/Senna 50/8.6mg Tab) 2 tab PO HS SHADI Stop: 09/04/20 20:59 Last Admin: 08/10/20 21:17 Dose: Not Given Documented by: Sertraline HCl (Sertraline Hcl 50 Mg Tablet) 50 mg PO PM SHADI Stop: 09/01/20 20:59 Last Admin: 08/10/20 21:18 Dose: 50 mg Documented by: Sodium Biphosphate/Sodium Phosphate (Sod Phosphate/Sod Biphosphate Enema 132 Ml Btl) 132 ml MT ONE PRN PRN Reason: Constipation Stop: 09/04/20 16:02 PG Care Time/CCT Total # of Minutes Spent Total Time Spent with Patient: Total time spent is greater than 50% in coordination of care (as documented) at patient's floor/unit and/or counseling patient: Coding Level of Care Code 01093 Subseq Hosp Care Lvl 2 Diagnoses Abscess in epidural space of lumbar spine G06.1 CAD (coronary artery disease) I25.10 Hypothyroid E03.9 Anxiety F41.9 Lower extremity edema R60.0 DVT prophylaxis Z29.9 Left knee pain M25.562
[2020-08-10] MEDS: diphenhydrAMINE Capsule 25 MG CAP PO PRN ×2 (22:52→22:53)
[2020-08-11] MEDS: LORazepam 0.5 MG TAB PO PRN ×2 (02:35→23:15)
[2020-08-11] MEDS: NAFCILLIN SODIUM 2,000 MG in DEXTROSE 5% 100 ML IV SCH ×6 (05:16→23:15)
[2020-08-11] MEDS: POLYETHYLENE (MIRALAX) 17 GM PACK PO SCH (05:16)
[2020-08-11] MEDS: HEPARIN SOD 5,000 UNIT/0.5 ML VIAL SQ SCH ×3 (05:17→20:39)
[2020-08-11] MEDS: DICLOFENAC SOD 1% GEL 100 GM TUBE EXT SCH ×4 (05:18→23:17)
[2020-08-11] MEDS: ACETAMINOPHEN 500 MG TAB PO PRN (08:22)
[2020-08-11] MEDS: METOPROLOL TARTRATE 25 MG TAB PO SCH ×2 (08:23→20:38)
[2020-08-11] MEDS: FUROSEMIDE 40 MG TAB PO SCH (08:23)
[2020-08-11] MEDS: CLOPIDOGREL BISULFATE 75 MG TAB PO SCH (08:24)
[2020-08-11] MEDS: LIDOCAINE 5% 1 PATCH TD SCH (08:24)
--- NOTE | 2020-08-11 09:35 | Hospitalist Progress Note ---
Date of Service August 11, 2020 Assessment & Plan (1) Abscess in epidural space of lumbar spine: Ms. Pa had back surgery in March, now with staph vasu in 2/2 blood cultures, markedly eleveated ESR/CRP and back pain, on vancomycin for concern of epidural abscess or discitis/transverse myelitis MRI back 08/04/20 IMPRESSION: 1. Exam significantly compromised by susceptibility artifact from surgical hardware and motion artifact. 2. Status post L5-S1 posterior decompression with bilateral pedicle screw fusion and L4-L5 and L5-S1 discectomies. Complex rim-enhancing 5.7 x 4.7 x 2.8 cm fluid collection within the left laminectomy bed adjacent to several left- sided pedicle screws. This is nonspecific in the postoperative setting. Material within this collection could be purulent or hemorrhagic. Additional multiple fluid collections adjacent to right sided pedicle screws. These may reflect seromas however superimposed infection cannot be excluded. Patient taken the OR 08/06/2020 and found to have abscess. This was evacuated and area packed with antibiotic beads with vancomycin and gentamicin. JUANCHO drains now intact with minimal drainage of serosanguineous fluid. Patient afebrile We will need 6 weeks of IV antibiotics Patient currently on IV nafcillin every 4 hours (Day #6). [facility]. Can discharge home as soon as PICC line is in place and IV management is arranged. Repeat blood cultures X2 drawn on 08/05/2020 positive for MSSA Repeat blood cultures x2 drawn on 08/09/2020 - for growth Place PICC line today. Consent obtained by Dr. Brice and on the chart. (2) CAD (coronary artery disease): History of PCI with drug-eluting stent Currently on clopidogrel Continue clopidogrel Also continue aspirin 81 mg as well as a statin and beta-martin No arrhythmias on telemetry Patient also receiving prophylactic heparin 7500 units SQ Q8h Hemodynamically stable (3) Hypothyroid: Continue levothyroxine (4) Anxiety: Continue sertraline at home dose Continue positive reinforcement with patient at bedside (5) Lower extremity edema: No evidence of clinical congestive heart failure Home medications include bumetanide Diuretics were as needed and not scheduled at home. Continue Furosemide 40 mg po qam for increased edema and now has effusion on l eft knee Echocardiogram with normal left ventricular size and function. Preserved left ventricular ejection fraction of 55 to 60%. 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 There is evidence of tricompartmental osteoarthritis as well as effusion. Orthopedics following. Continue alternating heat and ice packs finishing on what is the most comfortable Also start Lidoderm 5% to the left knee Continue to monitor Admission and Anticipated Discharge Date Admission Date: August 04, 2020 Subjective Attending: Dr. Franco Patient afebrile and now with blood cultures negative X 2. Consent for PICC line on the chart. Continues with weakness of knees. Edema reported be much better and lower extremities. WBC improved to 11.87 Patient with no acute complaints. Continue with chronic knee weakness. JUANCHO drain still in place. Review of Systems Review of Systems: All systems reviewed & are unremarkable except as noted in Subjective Physical Exam Physical Exam: GENERAL : No acute distress EYES: No icterus, gaze conjugate NOSE: No evidence of epistaxis MOUTH: No lesions or candidiasis NECK: Supple LUNGS: Bibasilar crackles. No rhonchi or bronchospasm appreciated HEART: Regular, rate controlled ABDOMEN: Soft, NT, ND, BS Present BACK: Dressing dry and intact. JUANCHO drains in place x2 draining serosanguineous fluid. EXTREMITIES: Trace LE edema, pedal pulses intact and equal bilaterally. NEURO: A&OX3 Results & Data Results & Data ([facility]) Vital Signs (Past 12 Hours) Vital Signs Temp Pulse Pulse Resp BP Pulse Ox 08/11/20 07:42 36.4 C L 70 20 123/70 93 08/11/20 07:21 36.4 C L 70 18 123/70 93 08/11/20 07:12 70 08/11/20 03:14 37.1 C 70 18 107/63 92 08/11/20 00:17 81 08/10/20 23:11 37.1 C 68 17 120/67 97 Laboratory Results 08/09/20 05:36 08/08/20 06:40 Diagnostic Findings No further diagnostics PG Care Time/CCT Total # of Minutes Spent Total Time Spent with Patient: Total time spent is greater than 50% in coordination of care (as documented) at patient's floor/unit and/or counseling patient: Coding Level of Care Code 33714 Subseq Hosp Care Lvl 2 Diagnoses Abscess in epidural space of lumbar spine G06.1 CAD (coronary artery disease) I25.10 Hypothyroid E03.9 Anxiety F41.9 Lower extremity edema R60.0 DVT prophylaxis Z29.9 Left knee pain M25.562
[2020-08-11] MEDS: oxyCODONE HCL IR 5 MG TAB (IMMEDIATE RELEASE) PO PRN ×2 (12:11→20:47)
[2020-08-11 14:59] LABS: Calcium 7.9 mg/dl (8.5-10.1); Creatinine Clr Calc Pharmacy 108.6 ml/min; Est GFR (African American) 108.2; Est GFR (Non-African American) 93.4; Potassium 3.1 mmol/L (3.5-5.1)
[2020-08-11 15:00] LABS: C Reactive Protein 7.75 mg/dl (0-0.29)
[2020-08-11] MEDS ORDERED: POTASSIUM CHLORIDE CRTAB 20 MEQ TABCR PO STA (15:38)
[2020-08-11] MEDS: POTASSIUM CHLORIDE / WTR 10 MEQ/100 ML PLCT IV SCH ×3 (17:07→19:10)
[2020-08-11] MEDS: DOCUSATE SODIUM/SENNA 50/8.6MG TAB PO SCH (20:37)
[2020-08-11] MEDS: ASPIRIN 81 MG ECTAB PO SCH (20:38)
[2020-08-11] MEDS: ATORVASTATIN 40 MG TAB PO SCH (20:38)
[2020-08-11] MEDS: SERTRALINE HCL 50 MG TABLET PO SCH (20:38)
[2020-08-11] MEDS: LEVOTHYROXINE SODIUM 175 MCG TABLET PO SCH (20:38)
[2020-08-12] MEDS: NAFCILLIN SODIUM 2,000 MG in DEXTROSE 5% 100 ML IV SCH ×2 (03:10→07:42)
[2020-08-12] MEDS: DICLOFENAC SOD 1% GEL 100 GM TUBE EXT SCH ×2 (06:32→12:59)
[2020-08-12] MEDS: HEPARIN SOD 5,000 UNIT/0.5 ML VIAL SQ SCH ×2 (06:32→13:00)
[2020-08-12] MEDS: LIDOCAINE 5% 1 PATCH TD SCH (07:47)
[2020-08-12] MEDS: CLOPIDOGREL BISULFATE 75 MG TAB PO SCH (07:49)
[2020-08-12] MEDS: METOPROLOL TARTRATE 25 MG TAB PO SCH (07:50)
[2020-08-12] MEDS: ACETAMINOPHEN 500 MG TAB PO PRN (07:56)
[2020-08-12] MEDS: oxyCODONE HCL IR 5 MG TAB (IMMEDIATE RELEASE) PO PRN (08:54)
[2020-08-12] MEDS ORDERED: BUMETANIDE 1 MG TAB PO SCH (09:00)
--- NOTE | 2020-08-12 10:23 | Orthopedic Progress Note ---
Date of Service August 12, 2020 Assessment & Plan (1) Abscess in epidural space of lumbar spine: Admission and Anticipated Discharge Date Admission Date: August 04, 2020 At this time I encouraged her to continue with activity as tolerated. She is not to lift more than 5 to 10 pounds. If she is discharged today she is to follow-up in 7 to 10 days for x-rays in my office. Subjective Back pain is controlled leg pain markedly improved. She is tolerating physical therapy well. No complaints today. Physical Exam Physical Exam: On exam she is comfortable is good strength testing. Results & Data ([facility]) Vital Signs (Past 12 Hours) Vital Signs Temp Pulse Resp BP Pulse Ox 08/12/20 07:02 37.0 C 67 16 106/66 96 08/11/20 23:02 37.4 C 73 16 134/76 97
--- NOTE | 2020-08-12 10:24 | Hospitalist Progress Note ---
Date of Service August 12, 2020 Assessment & Plan (1) Abscess in epidural space of lumbar spine: Ms. Pa had back surgery in March, now with staph vasu in 2/2 blood cultures, markedly eleveated ESR/CRP and back pain, on vancomycin for concern of epidural abscess or discitis/transverse myelitis MRI back 08/04/20 IMPRESSION: 1. Exam significantly compromised by susceptibility artifact from surgical hardware and motion artifact. 2. Status post L5-S1 posterior decompression with bilateral pedicle screw fusion and L4-L5 and L5-S1 discectomies. Complex rim-enhancing 5.7 x 4.7 x 2.8 cm fluid collection within the left laminectomy bed adjacent to several left- sided pedicle screws. This is nonspecific in the postoperative setting. Material within this collection could be purulent or hemorrhagic. Additional multiple fluid collections adjacent to right sided pedicle screws. These may reflect seromas however superimposed infection cannot be excluded. Patient taken the OR 08/06/2020 and found to have abscess. This was evacuated and area packed with antibiotic beads with vancomycin and gentamicin. JUANCHO drains now intact with minimal drainage of serosanguineous fluid. Patient afebrile Continue with IV nafcillin every 4 hours We will need 6 weeks of IV antibiotics Will discuss IV antibiotic plan with infectious disease team at [facility] when cultures from surgery return If blood cultures clear, will place PICC line. Consent obtained by Dr. Brice. Hold off on order of PICC line at this time. Repeat blood cultures are both still positive. Adequate peripheral IVs intact for treatment repeat blood cultures drawn 08/09, no growth so far, need to be at least 48 hours out (2) CAD (coronary artery disease): History of PCI with drug-eluting stent Currently on clopidogrel Continue clopidogrel Also continue aspirin 81 mg as well as a statin and beta-martin No arrhythmias on telemetry Patient also receiving prophylactic heparin 7500 units SQ Q8h Hemodynamically stable (3) Hypothyroid: Continue levothyroxine (4) Anxiety: Continue sertraline at home dose Continue positive reinforcement with patient at bedside (5) Lower extremity edema: No evidence of clinical congestive heart failure Home medications include bumetanide Diuretics were as needed and not scheduled at home. Continue Furosemide 40 mg po qam for increased edema and now has effusion on left knee Echocardiogram with normal left ventricular size and function. Preserved left ventricular ejection fraction of 55 to 60%. 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 There is evidence of tricompartmental osteoarthritis as well as effusion. Orthopedics to evaluate and provide comment In the meantime, we will start with alternating heat and ice packs finishing on what is the most comfortable Also start Lidoderm 5% to the left knee Continue to monitor try Colchicine 1.2mg x 1 today to see if pain/swelling gets better, follow up tomorrow could be gouty arthritis or pseudogout? Admission and Anticipated Discharge Date Admission Date: August 04, 2020 Results & Data Results & Data ([facility]) Vital Signs (Past 12 Hours) Vital Signs Temp Pulse Resp BP Pulse Ox 08/12/20 07:02 98.6 F 67 16 106/66 96 08/11/20 23:02 99.3 F 73 16 134/76 97 PG Care Time/CCT Total # of Minutes Spent Total Time Spent with Patient: Total time spent is greater than 50% in coordination of care (as documented) at patient's floor/unit and/or counseling patient: Coding Diagnoses Abscess in epidural space of lumbar spine G06.1 CAD (coronary artery disease) I25.10 Hypothyroid E03.9 Anxiety F41.9 Lower extremity edema R60.0 DVT prophylaxis Z29.9 Left knee pain M25.562
[2020-08-12] MEDS ORDERED: DAPTOmycin 500 MG in SYRINGE 0 ML IV SCH (12:00)
--- NOTE | 2020-08-12 19:04 | Discharge Summary ---
Date of Service August 12, 2020 Admission HPI Per Admitting Provider Patient is a 65 year old female with PMHx Anxiety, Hypothyroidism, Spinal fusion L2-S1, that presents for worsening sciatica-like pain of her R hip, worsening fatigue, increased thirst, and headache, found to have a mildly elevated troponin and slight EKG changes concerning for NSTEMI. Patient notes that her symptoms started roughly 5-6 days ago on weekend when she had noticed increasing and debilitating R hip pain similar to her prior sciatica. She notes that this is the first time she has really experienced it again since her spinal fusion in March 2020. She notes at this time she also had a headache that felt tension like in nature. Throughout the week she has noted a day where she had diarrhea x3, but has been taking loperimide since and has not had a BM in 3 days time. She also notes feeling very thirsty, has lack of appetite, chills followed by sweats, and worsening fatigue. She had called into her PCPs office today who had noted concerns of COVID-19 infection based on patients complaints alone and recommend they be tested. 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 In the ED patient was found to be COVID-19 negative, however, she was noted to have a slight elevation in her tropoinin of 0.133 and t-wave inversions of V1 and V2 on EKG, concerning for NSTEMI. She also had slight hypoxia to 88% on RA while in the ED. Throughout this process patient has denied any chest pain, chest pressure, SOB at rest. Currently, patient notes that her biggest concern is her R hip pain and sciatica like pain. Med Hx: Anxiety, Hypothyroidism Surg Hx: Spinal fusion L2-S1 Soc Hx: No tobacco or illicit drug use. Has roughly 10 glasses of wine weekly Fam Hx: Significant family history of AMATO no mothers side of family. Mother age 40, maternal uncle x2 in 40 and 50's, maternal Grandfather age unknown. Principal Diagnosis mssa epidural abscess s/p drainage implantation of Stimulan beads on 6 vweeks of iv antibiotics unstable angina, nstemi, s/p stent to LAD Discharge Exam The patient appeared to be improving Vital signs as documented. Lungs are clear to auscultation and appear unlabored Cardiac exam, Rhythm is regular.. No murmurs, rubs or gallops. Abdominal exam reveals normal bowel sounds, soft non tender, no masses Extremities are trace edematous and both pedal pulses are normal. Previously described left knee effusion has resolved Neurologic exam is alert and oriented, no focal loss of strength or sensation overall does have some weakness Psychologically is without concerns for anxiety or depression. Discharge Data Allergies Allergy/AdvReac Type Severity Reaction Status Date / Time No Known Allergies Allergy Unverified 08/01/20 22:26 Consultations 08/01/20 20:57 ED Decision to Admit Stat 08/02/20 02:36 Consult Cardiology Routine 08/02/20 14:19 Consult Cardiac Rehabilitation Routine 08/03/20 19:32 Consult Orthopedic Surgery Routine 08/04/20 15:26 Consult Infectious Diseases Routine 08/08/20 08:10 Consult Orthopedic Surgery Routine Procedures Performed Operation Date: 08/02/20 12:00 Actual Procedures p Drug Eluting Stent SGl Vessel - Car Buckley MD s Cineradiography w/Routine Exam - Car Buckley MD s Cath, Left with Cors and Vent - Iggy Ramos MD Operation Date: 08/05/20 13:45 Actual Procedures p #1 irrigation debridement lumbar spine spine epidural space. #2 removal of posterior instrumentation. #3 exploration of fusion. #4 posterior spinal fusion L4-5 L5-S1. #5 placement of I factor with cement in the posterior gutters L4-S1. #6 placement of Stumilan beads impregnated with vancomycin gentamicin throughout the epidural and posterior lateral spaces lumbar spine.(Not Applicable) - Jairon Brice DO Ordered Studies 08/01/20 18:52 CT angio chest PE protocol Stat 08/01/20 19:39 CT angio abdomen pelvis w con Stat 08/02/20 12:08 CL Cath Imgs for PACS use only Stat 08/03/20 09:28 CT head/brain wo con Stat 08/03/20 17:59 MR lumbar spine wo/w con Routine 08/03/20 21:27 CT angio chest PE protocol Stat 08/05/20 12:34 US guide vascular access Stat 08/05/20 13:00 FL fluoroscopy <1hr Routine FL lumbar spine 2-3V Routine Hospital Course (1) Abscess in epidural space of lumbar spine: Ms. Thierno had back surgery in March, now with staph vasu in 2/ blood cultures, markedly eleveated ESR/CRP and back pain, on vancomycin for concern of epidural abscess or discitis/transverse myelitis MRI back 08/04/20 IMPRESSION: 1. Exam significantly compromised by susceptibility artifact from surgical hardware and motion artifact. 2. Status post L5-S1 posterior decompression with bilateral pedicle screw fusion and L4-L5 and L5-S1 discectomies. Complex rim-enhancing 5.7 x 4.7 x 2.8 cm fluid collection within the left laminectomy bed adjacent to several left- sided pedicle screws. This is nonspecific in the postoperative setting. Material within this collection could be purulent or hemorrhagic. Additional multiple fluid collections adjacent to right sided pedicle screws. These may reflect seromas however superimposed infection cannot be excluded. Patient taken the OR 08/06/2020 and found to have abscess. This was evacuated and area packed with antibiotic beads with vancomycin and gentamicin. JUANCHO drains now intact with minimal drainage of serosanguineous fluid. We will need 6 weeks of IV antibiotics PICC line placed Daptomycin 500 mg IV daily for 5 weeks to complete a total of 6 weeks through home care I did personally called Dr. Kingsley and will fax information for Dr. Kingsley to follow the patient as an outpatient. Prescription given for weekly blood work repeat blood cultures drawn 08/09, no growth so far, need to be at least 48 hours out (2) CAD (coronary artery disease): History of PCI with drug-eluting stent Currently on clopidogrel Continue clopidogrel Also continue aspirin 81 mg as well as a statin and beta-martin Hemodynamically stable (3) Hypothyroid: Continue levothyroxine (4) Anxiety: Continue sertraline at home dose Continue positive reinforcement with patient at bedside (5) Lower extremity edema: No evidence of clinical congestive heart failure Home medications include bumetanide Diuretics were as needed and not scheduled at home. Echocardiogram with normal left ventricular size and function. Preserved left ventricular ejection fraction of 55 to 60%. No regional wall motion abnormalities noted (6) Left knee pain: Radiograph of the left knee shows no fracture or acute injury. There is evidence of tricompartmental osteoarthritis as well as effusion. Orthopedics to evaluate and provide comment Resolving we will supply low-dose oxycodone for home use for both back and knee Home Health Attestation I certify that this patient is under my care and that I, or a physicians sales assistant working with me, had a face to-face encounter that meets the home health wvke-zu-vwoz encounter requirements with this patient. The encounter with the patient was in whole, or in part, for the following medical condition, which is the primary reason for home health care (list medical condition): abscess epidural space lumbar spine I certify that, based on my findings, the following services are medically necessary home health services: My clinical findings support the need for the above services because: Medication Compliance and Monitoring Effective of New Medications PT Assessment for Endurance / Balance / Strength PT Eval for Safety and Mobility PT Eval for Safety, Gait Training, Assistive Devices PT Gait and Balance Training, Strengthening and Safety Skilled Nsg Assessment Skilled Nsg Assessment Surgical Incision / Wound Skilled Nsg Instruction New Medications Further, I certify that my clinical findings support that this patient is homebound (i.e. absences from home require considerable and taxing effort and are for medical reasons or scientologist services or infrequently or of short durat ion when for other reasons) because: Assistance of 1 Person for Ambulation/Activities Supportive Aid - Walker Certification for Home Health Services: Based on the above findings, I certify that this patient is confined to the home and needs intermittent snf care, physical therapy and/or speech therapy or continues to need occupational therapy. The patient is under my care, and I have initiated the establishment of the plan of care. This patient will be followed by a physician who will periodically review the plan of care. Total Time Total Time Spent Total Time Spent (In Minutes): It required greater than 30 minutes to prepare this patient for discharge Discharge Plan Discharge Items Patient Disposition: Home - Home Health Services Reason For Visit: ELEVATED TROP, ?NSTEMI Discharge Diagnosis: epidural abscess s/p surgical drainage and implantation of antibiotic beads unstable angina with coronary artery stent placement Activity: Per Instructions section Activity Comment: slowly increase activity Non-emergency contact: Primary Care Provider, Surgeon and Entry Level Administrative Assistant Call non-emergency contact if: you have any medication questions, your symptoms worsen and your pain is not controlled Follow-up/Referrals: Car Buckley MD [Physician] - Jairon Brice DO [Surgeon] - Rex Kingsley DO [Physician] - Ricardo Howard MD [Primary Care Provider] - Diet: Regular Addtl Attending Provider Instructions: You will be on home antibiotics for your epidural abscess, we have contacted Dr Murillo to follow you after discharge for your infection, you should have once weekly blood work checked of a Complete blood count with Differential, Comprehensive Metabolic panel and an Erythrocyte Sedimentation Rate, you will be given an Rx for these to have at an outpatient center ACTIVITY RECOMMENDATIONS: SELF CARE INSTRUCTIONS AFTER THORACIC/LUMBAR FUSIONS 1. You may walk to your tolerance. It is good exercise for your legs and back. Expect some back and intermittent leg aches and pains. 2. You may perform "counter-top" level activities (make a sandwich, laura with a project, etc.). 3. No bending or lifting of more than 10 pounds or back twisting of any nature (roll like a log when turning in bed). 4. You may ride in a car for 20-30 minutes at a time. No driving until after your first visit with your doctor. 5. Frequent changes of position and restricting sitting to 30 minutes at a time will help limit the amount of back spasms and stiffness you may experience. 6. You may discontinue the use of ambulatory aids (cane, crutches, etc.) once your strength and confidence allow. 7. You may cost reduction engineer the shower and let water strike your incision when you arrive home at least once daily. Do not take a tub bath, sit in a hot tub or go into a swimming pool until after your first recheck in the office. SPECIAL CARE INSTRUCTIONS: VERY IMPORTANT TO READ AND REVIEW A. Your surgical incision has been closed with a cosmetic suture under the skin that will dissolve in about 6 weeks. In 14 days, you can use a pair of clean scissors and cut the suture that is left outside of the skin at the ends of your incision. 1. The small skin tapes can be removed 7 days after surgery if they have not fallen off by that point. 2. You may keep the wound open to air as much as possible to promote healing after post-op day number 5 unless told otherwise by your doctor. 3. If you think the wound looks like it is becoming infected (redness or worsening drainage) and/or you are experiencing fever, chill or worsening back pain and muscle spasms, contact the office so that we may evaluate you as soon as possible. B. Complications are uncommon, but please contact us if you have any signs or symptoms of: 1. wound infection (fever higher than 102.5 degrees F, redness, separation of wound, drainage, or increasing pain from the incision) 2. blood clots in legs (pain, swelling, redness and warmth in legs) 3. urinary tract infection (fever higher than 102.5 degrees F, burning upon urination or increased frequency of urination) 4. nerve problems (inability to walk on your toes or heels, numbness, loss of bowel or bladder control) 5. any other symptoms that concern you C. Please call the office at if you have any concerns or questions about your operation or recovery. D. No smoking! Smoking drastically decreases the chance of a solid fusion. E. Do not take any anti-inflammatory medications (Indocin, Advil, Motrin, Aspirin, Naprosyn, etc.) as these may inhibit the chance of a solid fusion. Tylenol is okay to take for pain. MANAGING PAIN AFTER SPINAL SURGERY 1. Narcotic medication is intended for short-term use and will be provided for surgical pain. Surgical pain usually lasts for a period of 4-6 weeks. Narcotic medication includes Percocet, Vicodin, Darvocet, Tylenol #3 or Lortab. 2. Longer-term pain is more appropriately treated with non-narcotic medication such as Tylenol ES. 3. Muscle spasm is not appropriately treated with narcotics. Muscle relaxers such as Soma, Flexeril or Skelaxin can be used along with Tylenol ES. 4. Remember that we all live with some "aches and pains". This is not unusual or uncommon after an injury or as we get older. a. Back pain is expected and may include muscle spasms for 4 to 6 weeks after surgery. The pain should gradually improve. If the pain worsens for no apparent reason, please contact the office. b. Intermittent leg pain may also be experienced and should not be concerned about unless it worsens for no apparent reason. If so, please contact the office. 5. We will provide appropriate medication within the normal guidelines of their prescribed use. We will also be very cautious and aware of potential abuse and extended duration of patients' medication needs. a. Pain medications are for your comfort and to assist with sleep and rest so that the tissue can heal. They are not provided in order to return to normal activity and should not be used through the day. To do so or worsening pain at night can result from ongoing tissue damage and development of tolerance to the prescribed medicine. 6. Please allow 2-3 days to process refills. Prescriptions will not be mailed but must be picked up at the office. FOLLOW UP VISIT: Keep your scheduled follow-up appointment. Any questions, please call the office at . Please follow-up in my office in 7 to 10 days for x-rays. Pending Studies at Discharge: No Stand-Alone Forms: [facility], Opioid Pain Management, Work/School Release (Inpt), Smoking Cessation Medications and DC Order Prescriptions: New clopidogrel 75 mg Tablet 75 mg PO QAM Qty: 30 RF: 5 atorvastatin 40 mg Tablet 40 mg PO HS Qty: 30 RF: 5 metoprolol tartrate 25 mg Tablet 25 mg PO BID Qty: 60 RF: 5 oxycodone 5 mg Tablet 5 mg PO Q4H PRN (Reason: pain) Qty: 20 RF: 0 daptomycin 500 mg recon soln 500 mg IV DAILY Qty: 35 RF: 0 Continued levothyroxine [Synthroid] 175 mcg tablet 175 mcg PO PM RF: 0 aspirin 81 mg Tablet,Delayed Release (Dr/Ec) 81 mg PO PM RF: 0 sertraline 50 mg tablet 50 mg PO PM RF: 0 cetirizine [Zyrtec] 10 mg Tablet 10 mg PO DAILY PRN (Reason: allergies) RF: 0 bumetanide 1 mg tablet 1 mg PO DIRECTED PRN (Reason: swelling) Qty: 30 RF: 0 Discontinued ibuprofen [Motrin IB] 200 mg Tablet 800 mg PO Q6H PRN (Reason: Pain) RF: 0 gabapentin 300 mg capsule 600 mg PO TID RF: 0 Discharge Orders: Discharge Order (Routine); Ordered 08/12/20 Ordered By: Salvador Ramirez/Other Patient Handouts: Exercise to Manage Your Blood Sugar, 5 Steps for Eating Healthier, A1C Admission Data Admit Date/Time: 08/04/20 08:14 Attending Provider: Salvador Agrawal Admit Provider: Salvador Storey Primary Care Provider: Ricardo Howard Other Providers: [facility],Home Healthcare ; Ludivina Gambino ; Car Yeung ; Jairon Brice ; Kiet Beckman ; Jose Alfredo Medrano ; Joby Gambino I. ; Wesley Krause II ; Macy Ferreira ; Luca Rodriges ; Moi Lim Other Interventions: Discharge Summary Assessment (RN) Last Done: 08/12/20 15:56 Coding Level of Care Code D/C Day Management >30 mins Diagnoses Abscess in epidural space of lumbar spine G06.1 CAD (coronary artery disease) I25.10 Hypothyroid E03.9 Anxiety F41.9 Lower extremity edema R60.0 Left knee pain M25.562
--- NOTE | 2020-08-22 08:04 | Coding Query ---
CODING QUERY To promote full compliance with coding requirements relating to patient care, provider participation is requested in all cases of cap blocker uncertainty. Please assist us with the question(s) below: Coding Question(s): Patient admitted with increase Troponin - no symptoms of chest pain. CC with stent done. Seeking to clarify if patient had an NSTEMI. Please check below your response. Thank you. 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 [employer] Physician's Response(s): ___xxx__ Patient was admitted with an NSTEMI Patient did not have an NSTEMI Cannot clinically correlate if patient had an NSTEMI on admission Other: Please document: Principal Diagnosis: "that condition established after study, to be chiefly responsible for occasioning the admission of the patient to the hospital for care." Co-Existing Principal Diagnosis: "when two or more diagnoses equally meet the criteria for principal diagnosis as determined by the circumstances of admission, diagnostic work up, and/or therapy provided, and the Alphabetic Index, Tabular List, or another coding guideline does not provide sequencing direction, any one of the diagnoses may be sequenced first." "When the physician has documented what appears to be a current diagnosis in the body of the record, but has not included the diagnosis in the final diagnostic statement, the physician should be asked whether the diagnosis should be added." (Source Coding [facility] 2 QTR90. p3-4) TIA
== END 2020-08-12 17:31 | disposition home health service (06) | DRG 246 ==
LOC: ED 15:45 → 2N 15:45 → SUATTDRO 08-02 → 2N 08-02 02:13 → 2S 08-02 12:34 → SUATTDRO 08-04 08:14 → 3E 08-11 16:26

== ENCOUNTER 2020-10-04 11:05 | Inpatient (IN) ==
--- NOTE | 2020-10-03 08:56 | Anesthesiology Consultation ---
Date of Service October 03, 2020 Assessment & Plan (1) Encounter for pre-operative examination: Chart Review Chart Review: Acceptable Risk for Surgery (pending anesthesia evaluation DOS ) and Patient NOT seen in Pre Admission Testing ECHO done 10/02/20 (as of 10/03/20 at 1600 - ECHO report not yet read per cardio office). Did inform Dr. Colindres. When speaking with Dr. Buckley earlier - EF on ECHO was WNL. If report available tomorrow morning (DOS) will addend note- otherwise pt can proceed as scheduled secondary to infection (did include ECHO results from 08/02/20) - Check coags AM DOS (taken off Plavix 10/01/20) Spoke with Dr Buckley on 10/03/20= pt undergoing high risk bleeding procedure. Cardio had already instructed patient to hold Plavix two days ago- would ideally like ASA continued but can hold if surgeon feels necessary. Pt is over two months out since PCI placement. Had ECHO done yesterday- per quick review- no acute issues/normal EF. Pt can proceed as scheduled per verbal from Dr. Buckley. Per surgeon's office- ASA 81mg will be continued perioperatively. Did discuss with Dr. Colindres (anesthesiologist on case to make him aware) Per nursing assessment on 10/03/2020, no recent travel. No known Covid infection of the past 90 days. No known Covid positive contacts or Covid related symptoms. Patient practices social distancing only when she has to. Covid test 10/02/20= negative. Patient is fully vaccinated for Covid. Last seen by cardiology 08/29/2020 = patient with history of spinal stenosis status post spinal fusion and coronary artery disease status post PCI to LAD 07/2020 diagnosed in the setting of epidural abscess here for post hospital follow-up. Stable from cardiac standpoint. Limited ambulation due to back issues but denies any chest pain. Plan to continue DAPT with aspirin and Plavix for least 1 yearnow 1 month out from PCI and if additional surgery is necessary Plavix temporary interruption could be considered with cardiology involvement. Continue statin. BP well controlled on metoprolol. Repeat echocardiogram per request per ID. Follow-up in 3 months. Defer cardiac rehab until back issues more stable. Pt admitted to [facility] 08/01/20-08/12/20= admitted for MSSA epidural abscess status post drainage implantation of stimulant beads on 6 weeks of IV antibiotics, unstable angina, NSTEMI, status post stent to LAD. Will need 6 weeks of IV antibioticsPICC line placed. Will follow up with ID as outpatient. CADcontinue Plavix and aspirin. Hemodynamically stable. Consults Requested none ASA ASA4 Proposed Anesthesia Anesthesia Type: General Anesthesia Line Insertion: Arterial line Risk / Benefits Reviewed With: PT / POA / Parent / Guardian, Accepts Plan and Informed Consent Obtained Additional Comments: covid test negative History Surgery Operation Date: 10/04/20 12:35 Proposed Procedures p Incision and Drainage L2-S1 Hardware Removal - Jairon Brice, Height/Weight Height: 5 ft 7 in Weight: 100.75 kg Allergies Allergy/AdvReac Type Severity Reaction Status Date / Time No Known Allergies Allergy Verified 10/04/20 11:36 Medications Home Medications Medication Instructions Recorded Confirmed Last Taken aspirin 81 mg PO PM 03/29/20 10/04/20 10/03/20 22:00 levothyroxine [Synthroid] 175 mcg PO PM 03/29/20 10/04/20 10/03/20 22:00 sertraline 50 mg PO PM 03/29/20 10/04/20 10/03/20 22:00 cetirizine [Zyrtec] 10 mg PO DAILY PRN 04/16/20 10/04/20 10/03/20 22:00 atorvastatin 40 mg PO HS #30 tab 08/12/20 10/04/20 10/03/20 22:00 bumetanide 1 mg PO DIRECTED PRN #30 tab 08/12/20 10/04/20 10/03/20 22:00 clopidogrel 75 mg PO QAM #30 tab 08/12/20 10/04/20 09/30/20 22:00 daptomycin 500 mg IV DAILY #35 ea 08/12/20 10/04/20 10/03/20 09:00 metoprolol tartrate 25 mg PO BID #60 tab 08/12/20 10/04/20 10/04/20 08:00 Active Medications Generic Name Dose Route Start Last Admin Trade Name Freq PRN Reason Stop Dose Admin Acetaminophen 1,000 mg 10/04/20 06:00 10/04/20 11:45 Acetaminophen 500 Mg Tab PO 10/04/20 18:00 1,000 mg PREOP SHADI Administration Celecoxib 200 mg 10/04/20 06:00 10/04/20 11:46 Celebrex 200 Mg Cap PO 10/04/20 18:00 200 mg PREOP SHADI Administration Gabapentin 600 mg 10/04/20 06:00 10/04/20 11:45 Gabapentin 600 Mg Dose PO 10/04/20 18:00 600 mg PREOP SHADI Administration Lactated Ringer's 1,000 mls @ 15 mls/hr 10/04/20 06:00 10/04/20 11:46 Lr IV 10/05/20 05:59 15 mls/hr .Q24H SHADI Administration NPO Date Last Intake of Fluids: 10/04/20 Date Last Intake of Solids: 10/03/20 Time Last Intake of Solids: 18:00 Past Medical History Medical History Anemia Anxiety Arthritis Atrial fibrillation Christianne-PCI per cardio records CAD (coronary artery disease) PCI to LAD 08/02/20 Degenerative disc disease Hyperlipidemia Hypertension Hypothyroidism Impaired glucose tolerance Per records Hgb A1C on 08/02/20 was 6.1 Infection BACK INFECTION (PICC LINE IN USE FOR DAILY IV ANTIBIOTICS) Lower extremity edema Spinal stenosis Exercise / Class Metabolic Activity III < 4 Walking/Shop/Light housework Past Family History Family History Other No family history of adverse response to anesthesia Past Surgical History Surgical History Fusion of spine X 2 (04/2008 + 03/2020) History of anesthesia reaction 2008 AFTER BACK SURGERY>SENT TO CARDIAC FLOOR ? DETAILS History of colonoscopy History of herniorrhaphy History of tonsillectomy and adenoidectomy S/P coronary artery stent placement 1 STENT PLACED 07/2020 AT [facility]>FOLLOWS DR. BUCKLEY (REASON FOR PLAVIX) S/P PICC central line placement [place] teeth removed Past Anesthesia History No Hx of Anesthesia Complications and No Family Hx of Anesthesia Complications History of PONV No Hx of PONV and No Hx of Motion Sickness Social History Smoking Status: Never smoker Hx Alcohol Use: Yes Alcohol type: wine alcohol intake frequency: a few times a month substance use type: does not use Physical Exam Vital Signs Last Vital Signs Temp 37.4 C 10/04/20 11:42 Pulse 71 10/04/20 11:42 Resp 18 10/04/20 11:42 BP 135/69 10/04/20 11:42 Pulse Ox 97 10/04/20 11:42 Constitutional + obese ENMT Mouth: no dentition abnormality Thyromental Distance: < 3.5 Finger Breadths Mallampati Class: II Neck normal visual inspection and trachea midline; neck extension not limited Respiratory normal respiratory effort Auscultation: lungs clear to auscultation bilaterally Cardiovascular Rate/Rhythm: regular rate and regular rhythm Heart Sounds: no murmur Vessels: no carotid bruit Musculoskeletal Spine: normal cervical ROM Extremities: extremities normal to inspection Neurologic moves all extremities Motor/Sensory: no sensory deficit Psychiatric Orientation: alert and oriented x 3 Lab Results Anesthesia Preop Results Results Anesthesia Widget: WBC 4.97 K/uL (4.8-10.8) 10/01/20 Hgb 10.7 g/dL (12.0-16.0) L 10/01/20 Hct 34.7 % (37-47) L 10/01/20 Plt 303 K/uL (130-400) 10/01/20 Na 139 mmol/L (136-145) 10/01/20 K 3.8 mmol/L (3.5-5.1) 10/01/20 Cl 110 mmol/L (98-107) H 10/01/20 CO2 20 mmol/L (21-32) L 10/01/20 BUN 16 mg/dl (7-18) 10/01/20 Creat 0.74 mg/dl (0.6-1.2) 10/01/20 Glucose Level 132 mg/dl (70-99) H 10/01/20 SARS-CoV-2, RNA, NAAT NEGATIVE (NEGATIVE) 10/04/20 Lab Comments: Anemia stable since 07/2020- mildly improved Testing Electrocardiogram Date: 08/03/20 Findings: + ST @ (106 bpm) Otherwise normal EKG per cardio Chest X-Ray Date: 08/01/20 Findings: + NAD There are minor left basilar atelectatic changes. Echocardiogram Date: 08/02/20 EF: 55-60% LV Function: normal RWMA: + none Other Findings: no LVH and no diastolic dysfunction Valvular Disease: + no significant valvular disease Left atrium appears severely dilated, however not well visualized. Cardiac Catheterization Date: 08/02/20 LM = no significant CAD LAD = early mid LAD 70-80% stenosis Circumflex = no significant CAD RCA = no significant CAD During left heart catheterization, there was a significant ventricular ectopy and therefore the catheter was removed prior to recording measurements. The resultant rhythm was atrial fibrillation with rapid ventricular response. BP was initially mildly depressedshe was given normal saline. BP normalized and she was given metoprolol and rate improved. Left heart catheterization was later completed. Impression: Severe early mid LAD CAD, otherwise no significant CAD. Atrial fibrillation developed during the procedure. No significant aortic stenosis. Second heart catheterization 08/02/2020 = Successful PCI of proximal to mid LAD with single IOANA. Other Testing Chest CTA 08/04/2020 = no evidence of pulmonary embolism. Trace bilateral pleural effusions. Mild cardiomegaly, unchanged. Hepatic steatosis. Bibasilar densities favor atelectasis.
[~2020-10-04 11:05] MED LIST: ACETAMINOPHEN 500 MG TAB PO SCH; CeleBREX 200 MG CAP PO SCH; GABAPENTIN 600 MG DOSE PO SCH; LR 15ML/HR IV SCH; ceFAZolin 2000MG 2,000 MG/15 ML SYR IV SCH
[2020-10-04] MEDS ORDERED: MIDAZOLAM HCL 1 MG/ML 2ML VIAL ONE (11:29)
[2020-10-04] MEDS ORDERED: fentaNYL citrate 100 MCG/2 ML VIAL ONE ×2 (11:29)
[2020-10-04] MEDS ORDERED: fentaNYL citrate 100 MCG/2 ML VIAL IV PRN (12:32)
[2020-10-04] MEDS ORDERED: LABETALOL HCL IV 5 MG/ML 20ML IV PRN (12:32)
[2020-10-04] MEDS ORDERED: ONDANSETRON INJ 2 MG/ML 2 ML VIAL IV PRN ×2 (12:32→16:43)
[2020-10-04] MEDS ORDERED: NALOXONE HCL 0.4 MG/1 ML VIAL/CARP IV PRN ×2 (12:32→16:43)
[2020-10-04] MEDS ORDERED: PROMETHAZINE HCL 12.5 MG in SODIUM CHLORIDE 0.9% 50 ML IV PRN ×2 (12:32→16:43)
[2020-10-04] MEDS ORDERED: ATROPINE SULFATE 0.1 MG/ML 10ML SYR IV PRN (12:32)
[2020-10-04] MEDS ORDERED: HYDROmorphone INJ 1 MG/ML SYRINGE IV PRN (12:32)
[2020-10-04] MEDS ORDERED: FLUMAZENIL 0.1 MG/1 ML 10 ML VIAL IV PRN (12:32)
[2020-10-04] MEDS ORDERED: ePHEDrine sulfate 50 MG/ML AMP IV PRN (12:32)
--- NOTE | 2020-10-04 12:45 | History & Physical Bridge Note ---
Date of Service October 04, 2020 History & Physical Bridge Note I have examined the patient, reviewed the History & Physical and in the interval since the performance of the History & Physical I have noted the following changes of clinical significance: no changes noted
--- NOTE | 2020-10-04 12:46 | History & Physical Report ---
Date of Service October 04, 2020 Assessment & Plan (1) Infection of lumbar spine: Admission and Anticipated Discharge Date Admission Date: Incision and drainage, L2-S1 hardware removal History of Present Illness Chief Complaint: Chronic back pain with infection Primary Care Provider: Ricardo Howard MD This is a 65-year-old female well-known to me presents with evidence of loosening of instrumentation and continued infection and is here for I&D lumbar spine with removal of instrumentation. Allergies Allergy/AdvReac Type Severity Reaction Status Date / Time No Known Allergies Allergy Verified 10/04/20 11:36 Home Medications Medication Instructions Recorded Confirmed Type aspirin 81 mg PO PM 03/29/20 10/04/20 History levothyroxine [Synthroid] 175 mcg PO PM 03/29/20 10/04/20 History sertraline 50 mg PO PM 03/29/20 10/04/20 History cetirizine [Zyrtec] 10 mg PO DAILY PRN 04/16/20 10/04/20 History atorvastatin 40 mg PO HS #30 tab 08/12/20 10/04/20 Rx bumetanide 1 mg PO DIRECTED PRN #30 tab 08/12/20 10/04/20 Rx clopidogrel 75 mg PO QAM #30 tab 08/12/20 10/04/20 Rx daptomycin 500 mg IV DAILY #35 ea 08/12/20 10/04/20 Rx metoprolol tartrate 25 mg PO BID #60 tab 08/12/20 10/04/20 Rx Past Med/Surg History Medical History Anemia Anxiety Arthritis Atrial fibrillation Christianne-PCI per cardio records CAD (coronary artery disease) PCI to LAD 08/02/20 Degenerative disc disease Hyperlipidemia Hypertension Hypothyroidism Impaired glucose tolerance Per records Hgb A1C on 08/02/20 was 6.1 Infection BACK INFECTION (PICC LINE IN USE FOR DAILY IV ANTIBIOTICS) Lower extremity edema Spinal stenosis Surgical History Fusion of spine X 2 (04/2008 + 03/2020) History of anesthesia reaction 2008 AFTER BACK SURGERY>SENT TO CARDIAC FLOOR ? DETAILS History of colonoscopy History of herniorrhaphy History of tonsillectomy and adenoidectomy S/P coronary artery stent placement 1 STENT PLACED 07/2020 AT [facility]>FOLLOWS DR. TREVIÑO (REASON FOR PLAVIX) S/P PICC central line placement [place] teeth removed Family History Other No family history of adverse response to anesthesia Social History Smoking Status: Never smoker Second Hand Exposure: No; Hx Alcohol Use: Yes Alcohol type: wine Preferred Language: Romanian Communication Ability: Effective Truant Officer Required: No Beliefs That Will Affect Care: None marital status: Current Living Situation: Spouse Feels Safe at Home: Yes Safety Concerns: Feels Safe At This Time Assistive Devices: Glasses and Walker Physical Exam Physical Exam: Patient is alert and oriented Heart regular in rhythm Lungs clear to auscultation Results & Data ([facility]) Vital Signs (Past 12 Hours) Vital Signs Temp Pulse Resp BP Pulse Ox 10/04/20 11:42 37.4 C 71 18 135/69 97
[2020-10-04] MEDS ORDERED: BUPIVACAINE/EPINEPHRINE 0.5% MPF 1:200,000 30 ML VIAL ONE (13:14)
[2020-10-04] MEDS ORDERED: GENTAMICIN SULFATE 40 MG/ML 2 ML VIAL ONE (13:14)
[2020-10-04] MEDS ORDERED: VANCOMYCIN HCL 1000MG/20ML VIAL ONE (13:14)
[2020-10-04] MEDS ORDERED: KETAMINE 50 MG/5 ML SYRINGE ONE (13:51)
[2020-10-04] MEDS ORDERED: HYDROmorphone INJ 2 MG/ML SYR/VIAL ONE (13:51)
[2020-10-04] MEDS ORDERED: NEOSTIGMINE METHYLSULFATE 1 MG/ML 10ML VIAL ONE (14:11)
[2020-10-04] MEDS ORDERED: ROCURONIUM BROMIDE 10 MG/ML 5 ML VIAL IV ONE (14:11)
[2020-10-04] MEDS ORDERED: PROPOFOL IV EMULSION 10 MG/ML 20 ML VIAL IV ONE (14:11)
[2020-10-04] MEDS ORDERED: ePHEDrine sulfate 50 MG/ML AMP ONE (14:11)
[2020-10-04] MEDS ORDERED: GLYCOPYRROLATE 0.2 MG/ML VIAL ONE (14:11)
[2020-10-04] MEDS ORDERED: ONDANSETRON INJ 2 MG/ML 2 ML VIAL ONE (14:11)
[2020-10-04] MEDS ORDERED: LIDOCAINE 2% 2 ML VIAL/AMP(20MG/ML) INFIL ONE (14:11)
[2020-10-04] MEDS ORDERED: FLOSEAL HEMOSTATIC MATRIX 10ML TOP ONE (15:00)
--- NOTE | 2020-10-04 15:06 | Operative Report ---
Post Operative Report Pre & Post Diagnosis Operation Date: 10/04/20 12:35 Pre-Op Diagnosis: Infection of Lumbar Spine Post-Op Diagnosis: Infection of Lumbar Spine I identified the patient and participated in the time-out.: Yes Procedure Operation Date: 10/04/20 12:35 Actual Procedures #1 irrigation debridement lumbar spine and epidural space. #2 removal of posterior segmental instrumentation L2-S1. #3 exploration of fusion L2-S1. #4 posterior spinal fusion L5-S1. #5 placement infuse collagen sponge combined with master graft in the posterior gutters at L5-S1. #6 placement of antibiotic beads in the epidural space and posterior lateral gutters. Surgeon Jairon Brice, DO Customer Agent Jose Portillo Estimated Blood Loss 150 Findings See Below The patient is 5 foot 7 inches tall weighing over 100 kg with a BMI in excess of 34. The patient's body was did contribute to significant technical difficulty acquiring her deepest retractors longus instruments in order to perform her procedure. Specimens Cultures from the lumbar epidural space Indications This is a 65-year-old female the presents with continued fluid collection evidence of infection lumbar spine and is here for repeat I&D. Description of Procedure Patient was met with identified informed consent obtained. Patient was then taken to the operative suite after undergoing general endotracheal intubation was placed in a prone position the Iain table top [place] frame. All bony prominences well-padded eyes inspected to ensure no external pressure placed upon the. This point the lumbar spine was prepped and draped in a sterile fashion. Sharp dissection with the assistance of Bovie cautery as well down to expose the epidural space from L2-S1. Large fluid collection was identified. Cultures obtained. It was cloudy in nature and have obvious concern for continued infection. Subsequently removed the instrumentation at L2-S1 bilaterally then explored the fusion mass from L2-S1 bilaterally. It appears to be maturity the fusion mass through most levels though there was some concern at the 5 S1 region. I did attempt to access the transforaminal space at L5-S1 the left to gain access to the interbody region and cage. It was unsuccessful next manner secondary to overgrowth of scarring and calcified tissue. Several liters of irrigating of irrigation were then flushed out the incision. Removed any unhealthy tissue. Then placed stimulant beads that were impregnated with a vancomycin gentamicin throughout the posterior lateral gutters and specifically in the previous pedicle holes. We then burred the L5 transverse process and sacral ala to subcortical bleeding bone and placed infuse collagen sponge combined master graft in the posterior lateral gutters. 15 round JUANCHO drain was then inserted. Incision was closed with 1-0 Vicryl in the fascia 2-0 Vicryl subcutaneously and 4 Monocryl for final skin closure. Steri-Strip sterile dressings placed. Patient will continue PACU stable condition. Please note spinal cord monitoring was utilized at the procedure no changes noted. Lastly Jose wells was present at the entire surgery involved the patient positioning complex portions of the surgery and final skin closure. I attest to the content of the Intraoperative Record and any orders documented therein. Any exceptions are noted below.
--- NOTE | 2020-10-04 15:23 | Fluoroscopy Report ---
FL lumbar spine 2-3V HISTORY: 65 years-old Female L2-S1 HARDWARE REMOVAL COMPARISON: MRI lumbar spine 09/11/2020 TECHNIQUE: 2 spot fluoroscopic images of the lumbar spine were obtained utilizing 4.5 seconds fluoros copy time FINDINGS: Demineralized appearance of the bones and magnification limits the study. Apparent discectomy changes at L4-L5 and L5-S1. Interval removal of the posterior interbody henry and screw fusion hardware. No un expected opaque foreign body identified. IMPRESSION: Fluoroscopic assistance as above. ACT 112: Negative or not required by law. The above report was generated using voice recognition software. It may contain grammatical, syntax o r spelling errors. Electronically signed by: William Wright M.D. 10/04/2020 3:22 PM
--- NOTE | 2020-10-04 16:16 | Anesthesiology Progress Note ---
Date of Service October 04, 2020 Anesthesia Post Procedure Vital Signs Vital Signs: Temp Pulse Pulse Resp BP Pulse Ox 10/04/20 16:05 70 15 107/70 100 10/04/20 15:55 70 15 143/69 H 100 10/04/20 15:45 72 14 140/68 100 10/04/20 15:36 36.5 C 85 16 144/71 H 100 10/04/20 11:42 37.4 C 71 18 135/69 97 Pain Intensity Back: Pain Intensity: 2 Transfer of Care Handoff Completed per policy Notes Mental Status: alert / awake / arousable Patient Amnestic to Procedure: Yes Nausea / Vomiting: adequately controlled Pain: adequately controlled Airway Patency, RR, SpO2: stable & adequate BP & HR: stable & adequate Hydration State: stable & adequate Anesthetic Complications: no major complications apparent
[2020-10-04] MEDS ORDERED: ONDANSETRON 4 MG OD TAB PO PRN (16:43)
[2020-10-04] MEDS ORDERED: LORazepam 0.5 MG/1 ML VIAL IV PRN (16:43)
[2020-10-04] MEDS ORDERED: MAGNESIUM HYDROXIDE SUSP 30 ML UDC PO PRN (16:43)
[2020-10-04] MEDS ORDERED: DO NOT ADMINISTER FLU VACCINE PRN (16:43)
[2020-10-04] MEDS ORDERED: SOD PHOSPHATE/SOD BIPHOSPHATE ENEMA 132 ML BTL PR PRN (16:43)
[2020-10-04] MEDS ORDERED: DO NOT ADMINISTER PNEUMOCOCCAL VACCINE PRN (16:43)
[2020-10-04] MEDS ORDERED: BUMETANIDE 1 MG TAB PO PRN (16:43)
[2020-10-04] MEDS ORDERED: ALUMINUM/MAGNESIUM SUSP 30 ML UDC PO PRN (16:43)
[2020-10-04] MEDS ORDERED: diphenhydrAMINE Capsule 25 MG CAP PO PRN (16:43)
[2020-10-04] MEDS ORDERED: CETIRIZINE HCL 10 MG TABLET PO PRN (16:43)
[2020-10-04] MEDS ORDERED: HYDROmorphone INJ 0.5 MG/0.5 ML SYR IV PRN (16:43)
[2020-10-04] MEDS ORDERED: METOCLOPRAMIDE HCL INJ 5 MG/ML 2 ML VIAL IV PRN (16:43)
[2020-10-04] MEDS ORDERED: hydrOXYzine HCl 25 MG TAB PO PRN (16:43)
[2020-10-04] MEDS ORDERED: ACETAMINOPHEN 1,000 MG/100 ML VIAL IV PRN (16:43)
[2020-10-04] MEDS ORDERED: LORazepam 0.5 MG TAB PO PRN (16:43)
[2020-10-04] MEDS ORDERED: traMADol HCL 50 MG TABLET PO PRN (16:43)
[2020-10-04] MEDS ORDERED: FAMOTIDINE 20 MG TAB PO PRN (16:43)
[2020-10-04] MEDS: SODIUM CHLORIDE 0.9% 1000ML 1,000 ML IV SCH (17:21)
--- NOTE | 2020-10-04 17:39 | Hospitalist Consultation ---
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 Patient was being treated with daptomycin which is being continued on the advice of presumably her outpatient infectious disease specialist. Patient is status post removal of hardware, postoperative day [address] Brice. Plan to continue daptomycin as per instruction at current dosing. PICC line still in place. Patient has no signs of active infection at this time. Surgical cultures obtained, await results (2) CAD (coronary artery disease): I see patient is on outpatient aspirin dosing but not Plavix. Hold clopidogrel until cleared by primary service to restart. Consider other medications including atorvastatin and metoprolol tartrate (3) Hypothyroid: Continue levothyroxine 175 mcg. Thank you very much for the consult, will continue to follow she maintains an inpatient History of Present Illness Reason for Consultation: medical management Requesting Physician: Babs Attending Physician: Jairon Brice, DO History of Present Illness This is a 65-year-old female with past medical history of hypertension, anxiety, and previous spinal fusion of L2-S1 that presents electively for removal of hardware after her spinal fusion. Patient was taken to the OR by had an uneventful surgical course. His service consulted us for medical management postoperatively. Patient was seen with her in the room. Patient has no new complaints. She feels well and is already feeling that the sciatic pain down her right leg is resolved postoperatively. She denies any shortness of breath or chest pain. Of note, the patient was admitted to our service and discharged 08/14. At that time she was discharged with 5 weeks of daptomycin 500 mg daily via PICC line. She tells me that she has remained on this medication after 6 weeks as instructed by infectious disease and has prescription for further medication. She is unsure the end date above believes it is the the end of September. She denies any fevers or chills at home. Allergies Allergy/AdvReac Type Severity Reaction Status Date / Time No Known Allergies Allergy Verified 10/04/20 11:36 Home Medications Medication Instructions Recorded Confirmed Type aspirin 81 mg PO PM 03/29/20 10/04/20 History levothyroxine [Synthroid] 175 mcg PO PM 03/29/20 10/04/20 History sertraline 50 mg PO PM 03/29/20 10/04/20 History cetirizine [Zyrtec] 10 mg PO DAILY PRN 04/16/20 10/04/20 History atorvastatin 40 mg PO HS #30 tab 08/12/20 10/04/20 Rx bumetanide 1 mg PO DIRECTED PRN #30 tab 08/12/20 10/04/20 Rx clopidogrel 75 mg PO QAM #30 tab 08/12/20 10/04/20 Rx daptomycin 500 mg IV DAILY #35 ea 08/12/20 10/04/20 Rx metoprolol tartrate 25 mg PO BID #60 tab 08/12/20 10/04/20 Rx Patient History Medical History Anemia Anxiety Arthritis Atrial fibrillation Christianne-PCI per cardio records CAD (coronary artery disease) PCI to LAD 08/02/20 Degenerative disc disease Hyperlipidemia Hypertension Hypothyroidism Impaired glucose tolerance Per records Hgb A1C on 08/02/20 was 6.1 Infection BACK INFECTION (PICC LINE IN USE FOR DAILY IV ANTIBIOTICS) Lower extremity edema Spinal stenosis Surgical History Fusion of spine X 2 (04/2008 + 03/2020) History of anesthesia reaction 2008 AFTER BACK SURGERY>SENT TO CARDIAC FLOOR ? DETAILS History of colonoscopy History of herniorrhaphy History of tonsillectomy and adenoidectomy S/P coronary artery stent placement 1 STENT PLACED 07/2020 AT [facility]>FOLLOWS DR. TREVIÑO (REASON FOR PLAVIX) S/P PICC central line placement [place] teeth removed Family History Other No family history of adverse response to anesthesia Social History Smoking Status: Never smoker Second Hand Exposure: No; Hx Alcohol Use: Yes Alcohol type: wine Preferred Language: Swedish Communication Ability: Effective Course Instructor Required: No Beliefs That Will Affect Care: None marital status: Current Living Situation: Spouse Feels Safe at Home: Yes Safety Concerns: Feels Safe At This Time Assistive Devices: Glasses and Walker Review of Systems Constitutional: no fever, no chills, no weakness, no weight loss and no weight gain Eyes: as per Subjective / HPI Respiratory: no cough, no chest congestion, no dyspnea and no dyspnea on exertion Cardiovascular: no chest pain, no orthopnea, no palpitations, no lightheadedness and no edema Gastrointestinal: no abdominal pain, no nausea, no vomiting, no constipation and no diarrhea/loose stools Genitourinary: no dysuria, no difficulty urinating, no urinary frequency, no u rinary hesitancy, no urinary urgency and no flank pain Musculoskeletal: no back pain, no neck pain, no joint pain, no stiffness and no myalgia Integumentary: no rash Neurologic: no gait abnormality, no unsteadiness, no falls and no generalized weakness Physical Exam Constitutional: cooperative; no acute distress Neck: trachea midline, no thyromegaly Respiratory: normal respiratory effort Auscultation: lungs clear to auscultation bilaterally; no crackles, no rales, no rhonchi and no wheezes Cardiovascular: Rate/Rhythm: regular rate and regular rhythm Heart Sounds: normal S1 and normal S2; no murmur Gastrointestinal (Abdomen): Inspection/Auscultation: abdomen normal to inspection Percussion/Palpation: abdomen soft; abdomen nontender, no guarding, abdomen not rigid and no hepatosplenomegaly Musculoskeletal: Large surgical dressing on her back which I did not disturb. There is a single bulb drain with segment is fluid on the right side. Skin: no rashes, warm and dry Results & Data Results & Data ([facility]) Vital Signs (Past 12 Hours) Vital Signs Temp Pulse Pulse Pulse Resp BP Pulse Ox 10/04/20 17:14 36.3 C L 71 16 139/61 99 10/04/20 16:47 36.7 C 68 16 142/72 H 95 10/04/20 16:30 64 14 119/75 98 10/04/20 16:15 36.8 C 64 18 135/71 98 10/04/20 16:05 70 15 107/70 100 10/04/20 15:55 70 15 143/69 H 100 10/04/20 15:45 72 14 140/68 100 10/04/20 15:36 36.5 C 85 16 144/71 H 100 10/04/20 11:42 37.4 C 71 18 135/69 97 PG Care Time/CCT Total # of Minutes Spent Total Time Spent with Patient: Total time spent is greater than 50% in coordination of care (as documented) at patient's floor/unit and/or counseling patient: Coding Level of Care Code 21951 Inpt Consult Level 3 Diagnoses Infection of lumbar spine M46.26 CAD (coronary artery disease) I25.10 Hypothyroid E03.9
[2020-10-04] MEDS ORDERED: DAPTOmycin 500 MG VIAL IV SCH (18:00)
[2020-10-04] MEDS: DAPTOmycin 375 MG in SYRINGE 0 ML IV SCH (19:25)
[2020-10-04] MEDS: METOPROLOL TARTRATE 25 MG TAB PO SCH (21:56)
[2020-10-04] MEDS: ASPIRIN 81 MG ECTAB PO SCH (21:57)
[2020-10-04] MEDS: LEVOTHYROXINE SODIUM 175 MCG TABLET PO SCH (21:57)
[2020-10-04] MEDS: DOCUSATE SODIUM/SENNA 50/8.6MG TAB PO SCH (21:57)
[2020-10-04] MEDS: SERTRALINE HCL 50 MG TABLET PO SCH (21:58)
[2020-10-04] MEDS: oxyCODONE HCL IR 5 MG TAB (IMMEDIATE RELEASE) PO PRN (22:02)
[2020-10-05] MEDS: SODIUM CHLORIDE 0.9% 1000ML 1,000 ML IV SCH ×2 (00:05→07:18)
[2020-10-05] MEDS: oxyCODONE HCL IR 5 MG TAB (IMMEDIATE RELEASE) PO PRN ×5 (02:24→21:00)
[2020-10-05] MEDS: POLYETHYLENE (MIRALAX) 17 GM PACK PO SCH ×3 (05:44→17:17)
[2020-10-05 06:28] LABS: Basophils # (auto) 0.01 K/uL (0-0.2); Basophils % (auto) 0.2 %; Hematocrit (blood only) 25.2 % (37-47); Immature Granulocytes # (auto) 0.01 K/uL (0.00-0.02); Immature Granulocytes % (auto) 0.2 %; Lymphocytes # (auto) 1.78 K/uL (1.2-3.4); Lymphocytes % (auto) 32.3 %; Mean Corpuscular Hemoglobin 27.2 pg (25-34); Mean Corpuscular Hgb Conc 31.7 g/dL (32-36); Mean Corpuscular Volume 85.7 fL (80-100); Monocytes # (auto) 0.38 K/uL (0.11-0.59); Monocytes % (auto) 6.9 %; Neutrophils # (auto) 3.33 K/uL (1.4-6.5); Neutrophils % (auto) 60.4 %; Platelet Count 210 K/uL (130-400); RDW Coefficient of Variation 14.9 % (11.5-14.5); RDW Standard Deviation 46.6 fL (36.4-46.3); Red Blood Count 2.94 M/uL (4.2-5.4); White Blood Count 5.51 K/uL (4.8-10.8)
[2020-10-05] MEDS: ACETAMINOPHEN 500 MG TAB PO PRN ×2 (06:29→15:41)
[2020-10-05 06:46] LABS: BUN Creatinine Ratio 20.5 (10-20); Calcium 8.3 mg/dl (8.5-10.1); Creatinine Clr Calc Pharmacy 106.6 ml/min; Est GFR (African American) 108.7 ml/min; Est GFR (Non-African American) 93.8 ml/min; Potassium 4.4 mmol/L (3.5-5.1)
[2020-10-05] MEDS: METOPROLOL TARTRATE 25 MG TAB PO SCH ×2 (09:05→21:00)
--- NOTE | 2020-10-05 10:44 | Orthopedic Progress Note ---
Date of Service October 05, 2020 Assessment & Plan (1) Infection of lumbar spine: Admission and Anticipated Discharge Date Admission Date: October 04, 2020 At this time her cultures are pending. She is relatively comfortable. We will initiate physical therapy see how she progresses over the next few days. We will maintain her JUANCHO drain. Hopefully discharge home early next week. Her will be bringing in her brace which she is to wear when up and ambulati ng. Subjective Back pain is controlled leg pain improved Physical Exam Physical Exam: Patient is good strength testing appears comfortable. Results & Data ([facility]) Vital Signs (Past 12 Hours) Vital Signs Temp Pulse Resp BP Pulse Ox 10/05/20 09:04 70 112/63 10/05/20 07:17 37.3 C 73 16 103/62 91 10/05/20 02:57 37.2 C 76 16 114/65 92 10/04/20 23:12 37.1 C 97 H 18 128/74 93
--- NOTE | 2020-10-05 12:41 | Hospitalist Progress Note ---
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 Patient was being treated with daptomycin which is being continued on the advice of presumably her outpatient infectious disease specialist. Patient is status post removal of hardware, postoperative day [address] Brice. Plan to continue daptomycin as per instruction at current dosing. PICC line still in place. Patient has no signs of active infection at this time. Surgical cultures obtained, await results. Consult ID after results of these for outpatient plan (2) CAD (coronary artery disease): Continue aspirin. Discussed with Dr Brice - restart clopidogrel on Wednesday as long as no signs of hematoma. Continue metoprolol and atorvastatin (3) Hypothyroid: Continue levothyroxine 175 mcg. Thank you very much for the consult, will continue to follow she maintains an inpatient Admission and Anticipated Discharge Date Admission Date: October 04, 2020 Subjective Back pain well controlled. No fevers no chills. Revisited the history with the patient. She reports her infectious disease doctor planning on continuing daptomycin on discharge with repeat labs as an outpatient. Recent cardiac stents placed in July. Discussed with Dr. Brice, since it is been 2 months since her cardiac stent and continuous MSSA infection in her back will be cautious in reintroducing regrown to avoid hematoma but also need to be placed back on Plavix relatively soon due to presence of drug-eluting stent. Agreed to restart Plavix on Wednesday. Review of Systems Review of Systems: All systems reviewed & are unremarkable except as noted in HPI & below Physical Exam Constitutional: cooperative; no acute distress Neck: trachea midline, no thyromegaly Respiratory: normal respiratory effort Auscultation: lungs clear to auscultation bilaterally; no crackles, no rales, no rhonchi and no wheezes Cardiovascular: Rate/Rhythm: regular rate and regular rhythm Heart Sounds: normal S1 and normal S2; no murmur Gastrointestinal (Abdomen): Inspection/Auscultation: abdomen normal to inspection Percussion/Palpation: abdomen soft; abdomen nontender, no guarding, abdomen not rigid and no hepatosplenomegaly Skin: no rashes, warm and dry Results & Data Results & Data ([facility]) Vital Signs (Past 12 Hours) Vital Signs Temp Pulse Resp BP Pulse Ox 10/05/20 10:55 36.8 C 75 18 101/55 L 95 10/05/20 09:04 70 112/63 10/05/20 07:17 37.3 C 73 16 103/62 91 10/05/20 02:57 37.2 C 76 16 114/65 92 PG Care Time/CCT Total # of Minutes Spent Total Time Spent with Patient: Total time spent is greater than 50% in coordination of care (as documented) at patient's floor/unit and/or counseling patient: Coding Level of Care Code 45427 Subseq Hosp Care Lvl 2 Diagnoses Infection of lumbar spine M46.26 CAD (coronary artery disease) I25.10 Hypothyroid E03.9
[2020-10-05] MEDS: DAPTOmycin 375 MG in SYRINGE 0 ML IV SCH (17:17)
[2020-10-05] MEDS: DOCUSATE SODIUM/SENNA 50/8.6MG TAB PO SCH (21:00)
[2020-10-05] MEDS: ASPIRIN 81 MG ECTAB PO SCH (21:00)
[2020-10-05] MEDS: LEVOTHYROXINE SODIUM 175 MCG TABLET PO SCH (21:00)
[2020-10-05] MEDS: SERTRALINE HCL 50 MG TABLET PO SCH (21:00)
[2020-10-06] MEDS: POLYETHYLENE (MIRALAX) 17 GM PACK PO SCH ×5 (00:36→23:50)
[2020-10-06] MEDS: ACETAMINOPHEN 500 MG TAB PO PRN ×3 (02:13→23:50)
[2020-10-06] MEDS: oxyCODONE HCL IR 5 MG TAB (IMMEDIATE RELEASE) PO PRN ×5 (02:13→23:50)
[2020-10-06 08:06] LABS: Basophils # (auto) 0.02 K/uL (0-0.2); Basophils % (auto) 0.4 %; Hematocrit (blood only) 25.4 % (37-47); Hemoglobin 7.9 g/dL (12.0-16.0); Lymphocytes # (auto) 1.79 K/uL (1.2-3.4); Lymphocytes % (auto) 36.5 %; Mean Corpuscular Hemoglobin 27.2 pg (25-34); Mean Corpuscular Hgb Conc 31.1 g/dL (32-36); Mean Corpuscular Volume 87.6 fL (80-100); Mean Platelet Volume 8.7 fL (7.4-10.4); Monocytes # (auto) 0.31 K/uL (0.11-0.59); Monocytes % (auto) 6.3 %; Neutrophils # (auto) 2.78 K/uL (1.4-6.5); Neutrophils % (auto) 56.8 %; Platelet Count 206 K/uL (130-400); RDW Coefficient of Variation 14.6 % (11.5-14.5)
--- NOTE | 2020-10-06 08:21 | Orthopedic Progress Note ---
Date of Service October 06, 2020 Assessment & Plan (1) Spinal stenosis of lumbar region with radiculopathy: Patient is doing well postop day #2. We will continue with GI DVT prophylaxis. Continue with pain control measures. She should mobilize with physical therapy. Her hopes that she is ready to be discharged home tomorrow. Admission and Anticipated Discharge Date Admission Date: October 04, 2020 Subjective Patient was seen bedside in room 303. She is doing well today. She had an episode yesterday when she was walking had increased pain in lower portion of her back buttock and proximal thighs. She is not having the radicular complaints she had preoperatively. She has had no fevers or chills. She is tolerating p.o. She denies any other numbness, tingling, or paresthesias. Physical Exam Physical Exam: On exam she appears comfortable. She is alert and oriented. Her lower extremity motor exam reveals no focal atrophy strength and sensation both intact her calves are supple nontender her abdomen soft and nontender her dressings clean dry and intact. She is placed out 40 cc of drainage on this past shift and 25 on the previous. Results & Data ([facility]) Vital Signs (Past 12 Hours) Vital Signs Temp Pulse Pulse Resp BP Pulse Ox 10/06/20 06:42 37.2 C 66 15 100/59 L 95 10/05/20 22:56 37.2 C 78 18 106/63 93 10/05/20 20:40 80 117/65
[2020-10-06 08:24] LABS: BUN Creatinine Ratio 23.2 (10-20); Calcium 9.2 mg/dl (8.5-10.1); Creatinine Clr Calc Pharmacy 117.5 ml/min; Est GFR (African American) 112.3 ml/min; Est GFR (Non-African American) 96.9 ml/min; Potassium 4.1 mmol/L (3.5-5.1)
[2020-10-06 08:27] LABS: RBC Morphology Unremarkable
[2020-10-06] MEDS: METOPROLOL TARTRATE 25 MG TAB PO SCH ×2 (09:44→19:32)
[2020-10-06] MEDS ORDERED: bisacodyL 10 MG SUPP PR PRN (15:08)
[2020-10-06] MEDS: DAPTOmycin 375 MG in SYRINGE 0 ML IV SCH (17:35)
[2020-10-06] MEDS: LEVOTHYROXINE SODIUM 175 MCG TABLET PO SCH (19:32)
[2020-10-06] MEDS: DOCUSATE SODIUM/SENNA 50/8.6MG TAB PO SCH (19:32)
[2020-10-06] MEDS: SERTRALINE HCL 50 MG TABLET PO SCH (19:33)
[2020-10-06] MEDS: ASPIRIN 81 MG ECTAB PO SCH (19:33)
[2020-10-06] MEDS: ATORVASTATIN 40 MG TAB PO SCH (20:33)
[2020-10-07] MEDS: oxyCODONE HCL IR 5 MG TAB (IMMEDIATE RELEASE) PO PRN ×5 (03:57→23:23)
--- NOTE | 2020-10-07 05:00 | Communication Note ---
Date of Service: October 07, 2020 Called to bedside by nursing staff because Madelaine had multiple questions and also wanted to update me, as her PCP, over recent changes. Discussed recent surgery and recent DC, present had multiple questions regarding potential use of NSAIDs in order to alleviate some of the inflammatory pain/stretch that she feels in her lower back as well as addressed some of the nerve pain that she feels in her legs. Discussed that unfortunately given her recent DC, with subsequent stenting, use of NSAIDs at this point time is not allowed. Discussed additional/alternative pain management regimens including gabapentin as she was previously on this. Did have problems with high doses of gabapentin, but feels like she would be willing to trial starting back on this to address some of the nerve pain that she continues to have. Wonders whether or not this would be beneficial towards maintaining her functionality and mobility in the short-term. Additionally wondered/discussed potential use of muscle relaxers as she recalls that these were previously given to her and she found them somewhat protective and beneficial for her pain. Given these extensive discussions feel that initiation of gabapentin at 300 mg daily for treatment of her nerve pain would be acceptable at this point time. Would recommend close follow-up with [facility], as I am currently working overnight in the hospital, Madelaine would not be able to see myself in the clinic but is accepting of seeing other providers within our clinic. If to be discharged shortly would recommend follow-up within the week for continued monitoring/adjustment of gabapentin dosage and potential side effects, within the [facility] clinic ([address] [place]).
[2020-10-07] MEDS: POLYETHYLENE (MIRALAX) 17 GM PACK PO SCH ×4 (05:59→23:24)
[2020-10-07] MEDS: GABAPENTIN 300 MG CAP PO SCH (05:59)
--- NOTE | 2020-10-07 07:09 | Hospitalist Progress Note ---
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 Patient was being treated with daptomycin which is being continued on the advice of presumably her outpatient infectious disease specialist. Patient is status post removal of hardware, postoperative day [address] Brice. Plan to continue daptomycin as per instruction at current dosing. PICC line still in place. Patient has no signs of active infection at this time. Continue daptomycin as outpatient and follow up with ID in clinic for ongoing treatment recommendations. (2) CAD (coronary artery disease): Continue aspirin. Discussed with Dr Brice - restart clopidogrel on Wednesday as long as no signs of hematoma. Continue metoprolol and atorvastatin (patient taking statin with daptomycin at home with no myositis therefore ok to continue this here). (3) Hypothyroid: Continue levothyroxine 175 mcg. Thank you very much for the consult, will continue to follow she maintains an inpatient Admission and Anticipated Discharge Date Admission Date: October 04, 2020 Subjective Doing well post operatively. Planning on possible discharge tomorrow. No acute concerns or questions. Sciatic pain going down left leg but no myalgias. Review of Systems Review of Systems: All systems reviewed & are unremarkable except as noted in HPI & below Physical Exam Constitutional: cooperative; no acute distress Neck: trachea midline, no thyromegaly Respiratory: normal respiratory effort Auscultation: lungs clear to ausc ultation bilaterally; no crackles, no rales, no rhonchi and no wheezes Cardiovascular: Rate/Rhythm: regular rate and regular rhythm Heart Sounds: normal S1 and normal S2; no murmur Gastrointestinal (Abdomen): Inspection/Auscultation: abdomen normal to inspection Percussion/Palpation: abdomen soft; abdomen nontender, no guarding, abdomen not rigid and no hepatosplenomegaly Skin: no rashes, warm and dry Results & Data Results & Data ([facility]) Vital Signs (Past 12 Hours) Vital Signs Temp Pulse Pulse Resp BP Pulse Ox 10/07/20 06:39 36.9 C 64 16 120/64 93 10/06/20 23:00 37.2 C 74 16 122/69 92 10/06/20 19:20 70 125/49 L PG Care Time/CCT Total # of Minutes Spent Total Time Spent with Patient: Total time spent is greater than 50% in coordination of care (as documented) at patient's floor/unit and/or counseling patient: Coding Level of Care Code 76828 Subseq Hosp Care Lvl 1 Diagnoses Infection of lumbar spine M46.26 CAD (coronary artery disease) I25.10 Hypothyroid E03.9
--- NOTE | 2020-10-07 08:00 | Hospitalist Progress Note ---
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 Patient was being treated with daptomycin which is being continued on the advice of presumably her outpatient infectious disease specialist. POD # 3 s/p I&D, application of Stimulan beads and hardware removal L3-S1 On Daptomycin -- continued and follows with Dr. Teetee FLORES. PICC line RUE Pain control/bowel regimen/PT/OT per primary service Plavix resumed this morning per instructions of Cardiology and decreased JUANCHO output Hgb improved today but still anemic -- anemia from blood loss from multiple surg eries, IVF dilutional, and possible from abx --> Iron studies with low iron 22, transferrin 162L, trans %sat 10L --> started on oral BID (she had been taking some at home due to low stores, of note) -- continue at discharge Zanaflex added prn sciatica type pain -- had gotten from Dr Brice PA in the past for this issue, but will also check CK given continued on Dapto/Lipitor Wound cx without growth on preliminary -- follow Labs in AM (2) CAD (coronary artery disease): Hx NSTEMI, follows with Dr. Buckley Continue aspirin. Discussed with Dr Brice - restarted clopidogrel today but per discussion with RN, possible need for repeat OR and will hold for now until seen by Dr. Brice today Continue metoprolol tartrate 25mg PO BID, and atorvastatin 40mg (patient taking statin with daptomycin at home with no myositis therefore ok to continue this here). --CK added to AM labs, if elevated may need to hold statin while on Dapto (has been normal up to 10/01 on most recent check) She has bumex ordered 1mg prn -- euvolemic on examination and will hold off on giving at this time No CP Continue to monitor (3) Hypothyroid: Last TSH .01 August 2020 Continue levothyroxine 175 mcg. (4) Anemia: See above -- low iron Hgb improved on AM labs Started on iron supplementation Monitor CBCs Dispo: continued inpatient stay Thank you very much for the consult, will continue to follow she maintains an inpatient Admission and Anticipated Discharge Date Admission Date: October 04, 2020 Supervising Physician Co-Signing Physician Notes PA Supervision Note: I did not personally see or examine the patient today, but I verified all mendoza points of ERICK Medeiros's assessment and plan with the following exceptions/additions: None Subjective Patient evaluated this morning. Back pain controlled but with some R sided sciatica type pain. Passing gas but no BM. Hgb improving -- she states she has been monitoring labs weekly on tuesdays and noticed they were low in the past and started taking iron supplementations (up to 4 tablets daily with vitamin C). Discussed started today but would rec twice daily at discharge for next 2-3 months. Aware of side effects. She has taken muscle relaxer in past for sciatica and requesting dose currently if possible. Has not been seen by Dr Brice yet today Worked well with therapy and walker. Discussed Cx from OR without growth currently. . She follows with Dr. Kingsley from [place] and saw all week prior to surgery. Per Dr Buckley she held her plavix one week since last wednesday and resumed today. Review of Systems Review of Systems: All systems reviewed & are unremarkable except as noted in HPI & below Physical Exam Constitutional: well developed, well nourished and cooperative; no acute distress Eyes: + anicteric sclerae and PERRL ENMT: Ears: no hearing impairment Neck: trachea midline, no thyromegaly Respiratory: normal respiratory effort Auscultation: lungs clear to auscultation bilaterally; no crackles, no rales, no rhonchi and no wheezes Cardiovascular: Rate/Rhythm: regular rate and regular rhythm Heart Sounds: normal S1 and normal S2; no murmur Gastrointestinal (Abdomen): Inspection/Auscultation: abdomen normal to inspection Percussion/Palpation: abdomen soft; abdomen nontender, no guarding, abdomen not rigid and no hepatosplenomegaly Musculoskeletal: dressing to lumbar spine c/d/i JUANCHO with scant serosanginous drainage NVI pulses present bilaterally strength equal bilaterally Skin: no rashes, warm and dry Neurologic: PERRL, EOMI, accommodation nl, no face palsy, no dysarthria Psychiatric: A+Ox3, euthymic affect Results & Data Results & Data ([facility]) Vital Signs (Past 12 Hours) Vital Signs Temp Pulse Pulse Resp BP Pulse Ox 10/07/20 07:23 36.9 C 70 16 126/60 95 10/07/20 06:39 36.9 C 64 16 120/64 93 10/06/20 23:00 37.2 C 74 16 122/69 92 Laboratory Results 10/06/20 10/06/20 Range/Units 07:50 07:50 WBC 4.90 (4.8-10.8) K/uL RBC 2.90 L (4.2-5.4) M/uL Hgb 7.9 L (12.0-16.0) g/dL Hct 25.4 L (37-47) % MCV 87.6 (80-100) fL MCH 27.2 (25-34) pg MCHC 31.1 L (32-36) g/dL RDW Std Deviation 47.0 H (36.4-46.3) fL RDW Coeff of Kye 14.6 H (11.5-14.5) % Plt Count 206 (130-400) K/uL MPV 8.7 (7.4-10.4) fL Immature Gran % (Auto) 0.0 % Neut % (Auto) 56.8 % Lymph % (Auto) 36.5 % [place] % (Auto) 6.3 % Eos % (Auto) 0.0 % Baso % (Auto) 0.4 % Neut # (Auto) 2.78 (1.4-6.5) K/uL Lymph # (Auto) 1.79 (1.2-3.4) K/uL [place] # (Auto) 0.31 (0.11-0.59) K/uL Eos # (Auto) 0.00 (0-0.5) K/uL Baso # (Auto) 0.02 (0-0.2) K/uL Immature Gran # (Auto) 0.00 (0.00-0.02) K/uL RBC Morphology Unremarkable Sodium 138 (136-145) mmol/L Potassium 4.1 (3.5-5.1) mmol/L Chloride 108 H (98-107) mmol/L Carbon Dioxide 24 (21-32) mmol/L Anion Gap 7.0 (3-11) BUN 14 (7-18) mg/dl Creatinine 0.59 L (0.6-1.2) mg/dl Est Cr Clr Drug Dosing 117.5 ml/min Est GFR ( Amer) 112.3 ml/min Est GFR (Non-Af Amer) 96.9 ml/min BUN/Creatinine Ratio 23.2 H (10-20) Glucose 115 H (70-99) mg/dl Calcium 9.2 (8.5-10.1) mg/dl Iron 22 L (35-150) mcg/dl Transferrin 162 L (200-360) mg/dl Transferrin % Sat 10 L (15-50) % PG Care Time/CCT Total # of Minutes Spent Total Time Spent with Patient: Total time spent is greater than 50% in coordination of care (as documented) at patient's floor/unit and/or counseling patient: Coding Level of Care Code 77139 Subseq Hosp Care Lvl 3 Diagnoses Infection of lumbar spine M46.26 CAD (coronary artery disease) I25.10 Hypothyroid E03.9 Anemia D64.9
[2020-10-07 08:26] LABS: Hemoglobin 8.3 g/dL (12.0-16.0); Mean Corpuscular Hemoglobin 27.2 pg (25-34); Mean Corpuscular Hgb Conc 31.9 g/dL (32-36); Mean Corpuscular Volume 85.2 fL (80-100); Mean Platelet Volume 8.7 fL (7.4-10.4); Platelet Count 221 K/uL (130-400); RDW Coefficient of Variation 14.6 % (11.5-14.5); RDW Standard Deviation 45.1 fL (36.4-46.3); Red Blood Count 3.05 M/uL (4.2-5.4); White Blood Count 4.66 K/uL (4.8-10.8)
[2020-10-07 08:58] LABS: BUN Creatinine Ratio 18.5 (10-20); Calcium 9.6 mg/dl (8.5-10.1); Creatinine Clr Calc Pharmacy 103.5 ml/min; Est GFR (African American) 107.7 ml/min; Est GFR (Non-African American) 92.9 ml/min; Potassium 3.9 mmol/L (3.5-5.1)
[2020-10-07] MEDS: METOPROLOL TARTRATE 25 MG TAB PO SCH ×2 (09:18→21:31)
--- NOTE | 2020-10-07 09:27 | CT Scan Report ---
CT OF THE LUMBAR SPINE WITHOUT CONTRAST CLINICAL HISTORY: Lumbar infection. Status post irrigation and debridement of lumbar spine and epidur al space and hardware removal October 04, 2020. COMPARISON STUDY: Lumbar spine MRI September 11, 2020. Fluoroscopic images of the lumbar spine October 04 1. TECHNIQUE: Helical axial images of the lumbar spine were obtained. Sagittal and coronal reconstruct ions were viewed. Automated exposure control was utilized for the study. A dose lowering technique was utilized adhering to the principles of ALARA. FINDINGS: For purposes of numbering on this exam, the L5-S1 disc space is assigned to axial image 329 of 375. There is mild leftward curvature of the mid to lower lumbar spine. Since MRI of September 11, 2020 , posterior hardware has been removed with interval irrigation and debridement. A operative bed drain is in place. Although suboptimally assessed by CT, there is a operative bed fluid collection which m easures approximately 9.3 x 2 x 5 cm. This was shown on previous MRI. This contains peripheral hyperd ense material. Soft tissue gas is likely related to recent procedure. There is infiltration of the ad jacent soft tissues. The central canal and neural foramen are suboptimally assessed by CT. There is a lso peripheral hyperdense material within the canal, likely overlying the thecal sac. Antibiotic impr egnated beats within the operative bed are noted. L4-L5 and L5-S1 discectomies with interbody spacers are noted. L4-L5 space is unremarkable. Note is made of erosion of the inferior endplate of L5 and s uperior endplate of S1 with associated sclerosis. This was shown on previous MRI. There is paraverteb ral soft tissue thickening and infiltration. Note is made of periostitis of the right sacral ala and right transverse process of L5. There is also suspected erosion within the tract for the right S1 ped icle screw which has been removed. This contains antibiotic impregnated beads. No acute fracture with in the lumbar spine is noted. Mild retrolisthesis of L2 on L3 is unchanged. Disc space narrowing at L 2-L3 and L3-L4 is unchanged. IMPRESSION: 1. Status post irrigation and debridement of the lumbar spine and epidural space with placement of an tibiotic impregnated beads with hardware removal. Surgical drain in place, likely within an operative bed fluid collection which measures approximately 9.3 x 2 x 5 cm. Sterility cannot be assessed by CT . 2. Status post L4-L5 and L5-S1 discectomies with interbody spacer placement. Findings suggestive of d iscitis and osteomyelitis at the L5-S1 level, as described above. Bony erosion and periostitis of the right sacral ala, right transverse process of L5 and right S1 screw track suggests osteomyelitis. 3. Nondiagnostic evaluation of the central canal and neural foramen given CT technique. Peripheral hy perdense material within the canal at the L4-L5 level, likely overlying the thecal sac. This is nonsp ecific. 4. Extensive multilevel degenerative changes within lumbar spine, better depicted on previous MRI. ACT 112: Negative or not required by law. Electronically signed by: Roge Parkinson M.D. 10/07/2020 9:26 AM
[2020-10-07] MEDS: FERROUS SULFATE 325 MG TAB PO SCH ×2 (09:58→17:33)
[2020-10-07] MEDS ORDERED: tiZANidine HCL 4 MG TABLET PO ONE (11:30)
--- NOTE | 2020-10-07 13:00 | Orthopedic Progress Note ---
Date of Service October 07, 2020 Assessment & Plan (1) Infection of lumbar spine: Admission and Anticipated Discharge Date Admission Date: October 04, 2020 I have obtain a CAT scan lumbar spine this morning. Reviewed with the patient. I strongly suspect that when she stands she is getting some spinal collapse and neural compression. She did have her hardware removed now 3 days ago. Antibiotic beads have been placed. Unfortunately she is presenting with instab ility and will require rest to go back into the lumbar spine and stabilize across the L5-S1 levels. This may require iliac bolts. I described this in detail the patient. She understands agrees. We will consider doing this this week. I am pleased that her cultures have remained negative. Subjective Patient complaining of right greater than left leg pain with standing and ambulation. This has been progressive since Wednesday evening. She is comfortable and lying supine. Physical Exam Physical Exam: On exam she is in bed at this time. She appears comfortable. She has good strength testing. Results & Data ([facility]) Vital Signs (Past 12 Hours) Vital Signs Temp Pulse Pulse Resp BP Pulse Ox 10/07/20 07:23 36.9 C 70 16 126/60 95 10/07/20 06:39 36.9 C 64 16 120/64 93
[2020-10-07] MEDS: DAPTOmycin 500 MG in SYRINGE 0 ML IV SCH (17:34)
[2020-10-07] MEDS: DOCUSATE SODIUM/SENNA 50/8.6MG TAB PO SCH (21:30)
[2020-10-07] MEDS: ATORVASTATIN 40 MG TAB PO SCH (21:30)
[2020-10-07] MEDS: ASPIRIN 81 MG ECTAB PO SCH (21:30)
[2020-10-07] MEDS: LEVOTHYROXINE SODIUM 175 MCG TABLET PO SCH (21:31)
[2020-10-07] MEDS: SERTRALINE HCL 50 MG TABLET PO SCH (21:31)
[2020-10-08] MEDS: oxyCODONE HCL IR 5 MG TAB (IMMEDIATE RELEASE) PO PRN ×4 (03:23→20:02)
[2020-10-08] MEDS: POLYETHYLENE (MIRALAX) 17 GM PACK PO SCH ×3 (06:20→18:53)
[2020-10-08] MEDS: FERROUS SULFATE 325 MG TAB PO SCH ×2 (08:33→18:59)
[2020-10-08] MEDS: GABAPENTIN 300 MG CAP PO SCH (08:34)
[2020-10-08] MEDS: CLOPIDOGREL BISULFATE 75 MG TAB PO SCH (08:34)
[2020-10-08] MEDS: METOPROLOL TARTRATE 25 MG TAB PO SCH ×2 (08:35→20:05)
[2020-10-08 08:45] LABS: Hemoglobin 8.7 g/dL (12.0-16.0); Mean Corpuscular Hgb Conc 31.1 g/dL (32-36); Mean Platelet Volume 8.6 fL (7.4-10.4); Platelet Count 259 K/uL (130-400); RDW Coefficient of Variation 14.5 % (11.5-14.5); Red Blood Count 3.22 M/uL (4.2-5.4); White Blood Count 4.67 K/uL (4.8-10.8)
[2020-10-08 09:20] LABS: BUN Creatinine Ratio 19.6 (10-20); Calcium 9.6 mg/dl (8.5-10.1); Creatinine Clr Calc Pharmacy 108.3 ml/min; Est GFR (African American) 109.3 ml/min; Est GFR (Non-African American) 94.3 ml/min; Potassium 4.1 mmol/L (3.5-5.1)
--- NOTE | 2020-10-08 10:03 | Hospitalist Progress Note ---
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 Patient was being treated with daptomycin which is being continued on the advice of presumably her outpatient infectious disease specialist. POD # 4 s/p I&D, application of Stimulan beads and hardware removal L3-S1 On Daptomycin -- continued and follows with Dr. Teetee FLORES. PICC line RUE Pain control/bowel regimen/PT/OT per primary service Plavix resumed 10/07 per instructions of Cardiology and decreased JUANCHO output --> Iron studies with low iron 22, transferrin 162L, trans %sat 10L --> started on oral BID on 10/07 (she had been taking some at home due to low stores but up to 4x/daily) -- continue supplementation at discharge Hgb improved from 8.3--> 8.7 today (acute on chronic anemia from blood loss from multiple surgeries, IVF dilutional, and possible from abx. Added dulcolax for bowel regimen. Passing lots of gas Zanaflex added prn sciatica type pain -- had gotten from Dr Brice PA in the [facility] for this issue, but will also check CK given continued on Dapto/Lipitor (wnl) --> Effective and continued Wound cx continues without growth on preliminary -- follow Plans repeat OR on Wednesday for placement of hardware. Per surgery, wanted to wait a week for healing prior to performing. Plans for Wednesday currently, will need to be NPO after midnight if so Labs in AM (2) CAD (coronary artery disease): Hx NSTEMI, follows with Dr. Buckley Continued on aspirin. Discussed with Dr Brice - restarted clopidogrel 10/07 but per discussion with RN, possible need for repeat OR and this was held temporarily and discussed with Dr. Brice and he is comfortable with continuing through operative period Continue metoprolol tartrate 25mg PO BID, and atorvastatin 40mg (patient taking statin with daptomycin at home with no myositis therefore ok to continue this here). --CK added to AM labs, wnl She has bumex ordered 1mg prn -- euvolemic on examination and will hold off on giving at this time No CP Continue to monitor (3) Hypothyroid: Last TSH .01 August 2020 Continue levothyroxine 175 mcg. (4) Anemia: See above -- low iron Hgb improved on AM labs Started on iron supplementation Monitor CBCs Dispo: continued inpatient stay Surgery on Wednesday Thank you very much for the consult, will continue to follow she maintains an inpatient Admission and Anticipated Discharge Date Admission Date: October 04, 2020 Supervising Physician Co-Signing Physician Notes ERICK Supervision Note: I did not personally see or examine the patient today, but I verified all mendoza points of ERICK Medeiros's assessment and plan with the following exceptions/additions: None Subjective Leg pain with standing. Improvement of muscle spasm pain yesterday with zanaflex but didn't realize she had to ask for this. Will try next time she asks for pain medication. Gapapentin causing some grogginess...discussed we can hold this if she would like but she is unsure if this is helpful as she hasn't been doing much ambulating to aggravate it. Eating/drinking no issue. Passing lots of gas but still without BM. Seen by orthopedics this morning and plans for repeat surgery for hardware placement due to compression/instability with standing. Plavix resumed yesterday and continuing through surgery per conversation with Dr. Brice. No fever, chills, chest pain, shortness of breath, abdominal pain, nausea, vomiting at this time. Repeating ESR in AM. Questions/concerns addressed. Review of Systems Review of Systems: All systems reviewed & are unremarkable except as noted in HPI & below Physical Exam Constitutional: well developed, well nourished and cooperative; no acute distress Eyes: + anicteric sclerae and PERRL ENMT: Ears: no hearing impairment Neck: trachea midline, no thyromegaly Respiratory: normal respiratory effort Auscultation: lungs clear to auscultation bilaterally; no crackles, no rales, no rhonchi and no wheezes Cardiovascular: Rate/Rhythm: regular rate and regular rhythm Heart Sounds: normal S1 and normal S2; no murmur Gastrointestinal (Abdomen): Inspection/Auscultation: abdomen normal to inspection Percussion/Palpation: abdomen soft; abdomen nontender, no guarding, abdomen not rigid and no hepatosplenomegaly Musculoskeletal: dressing to lumbar spine c/d/i JUANCHO with scant serosanginous drainage 15-20cc NVI pulses present bilaterally strength equal bilaterally but pain with flexion/extension R>L Skin: no rashes, warm and dry Neurologic: PERRL, EOMI, accommodation nl, no face palsy, no dysarthria Psychiatric: A+Ox3, euthymic affect Results & Data Results & Data ([facility]) Vital Signs (Past 12 Hours) Vital Signs Temp Pulse Resp BP Pulse Ox 10/08/20 05:38 36.9 C 70 16 121/69 93 10/07/20 22:33 37.3 C 77 16 126/67 92 Laboratory Results 10/08/20 10/08/20 10/07/20 Range/Units 08:24 08:24 08:12 WBC 4.67 L (4.8-10.8) K/uL RBC 3.22 L (4.2-5.4) M/uL Hgb 8.7 L (12.0-16.0) g/dL Hct 28.0 L (37-47) % MCV 87.0 (80-100) fL MCH 27.0 (25-34) pg MCHC 31.1 L (32-36) g/dL RDW Std Deviation 46.0 (36.4-46.3) fL RDW Coeff of Kye 14.5 (11.5-14.5) % Plt Count 259 (130-400) K/uL MPV 8.6 (7.4-10.4) fL Sodium 138 (136-145) mmol/L Potassium 4.1 (3.5-5.1) mmol/L Chloride 105 (98-107) mmol/L Carbon Dioxide 26 (21-32) mmol/L Anion Gap 7.0 (3-11) BUN 13 (7-18) mg/dl Creatinine 0.64 (0.6-1.2) mg/dl Est Cr Clr Drug Dosing 108.3 ml/min Est GFR ( Amer) 109.3 ml/min Est GFR (Non-Af Amer) 94.3 ml/min BUN/Creatinine Ratio 19.6 (10-20) Glucose 117 H (70-99) mg/dl Calcium 9.6 (8.5-10.1) mg/dl Total Creatine Kinase 39 (26-192) U/L PG Care Time/CCT Total # of Minutes Spent Total Time Spent with Patient: Total time spent is greater than 50% in coordination of care (as documented) at patient's floor/unit and/or counseling patient: Coding Level of Care Code 25789 Subseq Hosp Care Lvl 3 Diagnoses Infection of lumbar spine M46.26 CAD (coronary artery disease) I25.10 Hypothyroid E03.9 Anemia D64.9
[2020-10-08] MEDS ORDERED: bisacodyL 5 MG TABEC PO ONE (11:14)
[2020-10-08] MEDS ORDERED: bisacodyL 5 MG TABEC PO PRN (11:14)
--- NOTE | 2020-10-08 11:47 | Orthopedic Progress Note ---
Date of Service October 08, 2020 Assessment & Plan (1) Infection of lumbar spine: Admission and Anticipated Discharge Date Admission Date: October 04, 2020 Plan at this time I had a discussion with this patient regarding her clinical course and treatment plan. We will have her continue bed to chair bed to bathroom privileges with assistance. I will plan to take her back to surgery this Wednesday explore the lumbar spine and stabilize her with a fusion from L for to the sacrum with possible iliac bolts. This would provide stabilization across the 5 S1 level where she appears to be getting neural compression with activity. We have tried avoid instrumentation related for infection however I do not think this is going to be possible. Hopefully a week without implants and aggressive antibiotic therapy that she is currently under will be sufficient. Patient stands and agrees. Subjective Patient's back pain is controlled when she is at rest. She is able to tolerate short walks within the room. Anything longer than that she starts to experience significant leg pain. Physical Exam Physical Exam: On exam she is in bed at the time. She has good strength testing. Appears comfortable. Results & Data ([facility]) Vital Signs (Past 12 Hours) Vital Signs Temp Pulse Resp BP Pulse Ox 10/08/20 05:38 36.9 C 70 16 121/69 93
[2020-10-08] MEDS: tiZANidine HCL 4 MG TABLET PO PRN ×2 (11:50→22:20)
[2020-10-08] MEDS ORDERED: MAGNESIUM CITRATE 296 ML/BTL PO STA (18:14)
[2020-10-08] MEDS: DAPTOmycin 500 MG in SYRINGE 0 ML IV SCH (18:59)
[2020-10-08] MEDS: ASPIRIN 81 MG ECTAB PO SCH (20:03)
[2020-10-08] MEDS: ATORVASTATIN 40 MG TAB PO SCH (20:03)
[2020-10-08] MEDS: LEVOTHYROXINE SODIUM 175 MCG TABLET PO SCH (20:04)
[2020-10-08] MEDS: DOCUSATE SODIUM/SENNA 50/8.6MG TAB PO SCH (20:04)
[2020-10-08] MEDS: SERTRALINE HCL 50 MG TABLET PO SCH (20:06)
[2020-10-09] MEDS: oxyCODONE HCL IR 5 MG TAB (IMMEDIATE RELEASE) PO PRN ×4 (04:14→19:50)
[2020-10-09 05:53] LABS: Hematocrit (blood only) 27.4 % (37-47); Hemoglobin 8.7 g/dL (12.0-16.0); Mean Corpuscular Hemoglobin 26.9 pg (25-34); Mean Corpuscular Hgb Conc 31.8 g/dL (32-36); Mean Corpuscular Volume 84.8 fL (80-100); Mean Platelet Volume 8.8 fL (7.4-10.4); Platelet Count 251 K/uL (130-400); RDW Coefficient of Variation 14.4 % (11.5-14.5); RDW Standard Deviation 44.9 fL (36.4-46.3); Red Blood Count 3.23 M/uL (4.2-5.4)
[2020-10-09] MEDS: tiZANidine HCL 4 MG TABLET PO PRN ×2 (06:22→17:46)
[2020-10-09 06:29] LABS: Albumin Level 3.3 gm/dl (3.4-5.0); BUN Creatinine Ratio 23.9 (10-20); Calcium 9.3 mg/dl (8.5-10.1); Creatinine Clr Calc Pharmacy 111.8 ml/min; Est GFR (African American) 110.4 ml/min; Est GFR (Non-African American) 95.3 ml/min; Potassium 3.9 mmol/L (3.5-5.1)
[2020-10-09 06:32] LABS: Albumin Globulin Ratio 0.9 (0.9-2); Bilirubin,Total 0.2 mg/dl (0.2-1); Globulin 3.6 gm/dl (2.5-4.0); Total Protein 6.9 gm/dl (6.4-8.2)
--- NOTE | 2020-10-09 08:21 | Hospitalist Progress Note ---
Date of Service October 09, 2020 Assessment & Plan (1) Infection of lumbar spine: Patient initially diagnosed on 08/01 admission with spinal osteomyelitis, found on culture to be MSSA. Patient was being treated with daptomycin which is being continued on the advice of presumably her outpatient infectious disease specialist. POD # 5 s/p I&D, application of Stimulan beads and hardware removal L3-S1 On Daptomycin -- continued and follows with Dr. Kingsley ID. PICC line RUE Pain control/bowel regimen/PT/OT per primary service Plavix resumed 10/07 per instructions of Cardiology and decreased JUANCHO output --> Iron studies with low iron 22, transferrin 162L, trans %sat 10L --> started on oral BID on 10/07 (she had been taking some at home due to low stores but up to 4x/daily) -- continue supplementation at discharge Hgb improved from 8.3--> 8.7 today, repeat stable (acute on chronic anemia from blood loss from multiple surgeries, IVF dilutional, and possible from abx. +BM Zanaflex added prn sciatica type pain -- had gotten from Dr Brice PA in the past for this issue, but will also check CK given continued on Dapto/Lipitor (wnl) --> Effective and continued Plans repeat OR on Wednesday for placement of hardware. Per surgery, wanted to wait a week for healing prior to performing. Plans for Wednesday currently, will need to be NPO after midnight if so Requested records from Dr Kingsley regarding length of abx and plan for immunosuppressive therapy at discharge. Per d/c summary July, blood cultures from 08/09 NG and to have been continued for 5 weeks from date of discharge to complete course of 6 weeks --> currently on week 8 ESR 35 (improved) Wound cx continues without growth on preliminary -- follow Labs in AM (2) CAD (coronary artery disease): Hx NSTEMI, follows with Dr. Buckley Continued on aspirin. Discussed with Dr Brice - restarted clopidogrel 10/07 but per discussion with RN, possible need for repeat OR and this was held temporarily and discussed with Dr. Brice and he is comfortable with continuing through operative period Continue metoprolol tartrate 25mg PO BID, and atorvastatin 40mg (patient taking statin with daptomycin at home with no myositis therefore ok to continue this here). --CK added to AM labs, wnl She has bumex ordered 1mg prn -- euvolemic on examination and will hold off on giving at this time No CP Continue to monitor (3) Hypothyroid: Last TSH 1.01 August 2020 Continue levothyroxine 175 mcg. (4) Anemia: See above -- low iron Hgb improved on AM labs and stable on repeat. JUANCHO drain removed Started on iron supplementation Continue to monitor Dispo: continued inpatient stay Surgery on Wednesday Thank you very much for the consult, will continue to follow she maintains an inpatient with chart checks tomorrow/sooner for any additional questions/concerns. Admission and Anticipated Discharge Date Admission Date: October 04, 2020 Supervising Physician Co-Signing Physician Notes ERICK Supervision Note: I did not personally see or examine the patient today, but I verified all mendoza points of ERICK Medeiros's assessment and plan with the following exceptions/additions: None Subjective Patient evaluated this morning. pain well controlled with alternating oxycodone and utilization of the zanaflex. She was able to get to bathroom and get washed up today. BM yesterday. Follows with Teetee for ID and noted her current rx through [facility] to Wednesday but she believes she is to continue another cycle. Asked to get information from ID last office visit and fax to our office for review. PICC placed when in July and if continued fr another 6 weeks may need to be exchanged. She states she will be on lifelong suppression per ID. 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 No other issues reported. ESR lowest it has been. OR on Wednesday. Review of Systems Review of Systems: All systems reviewed & are unremarkable except as noted in HPI & below Physical Exam Physical Exam: Well nourished, well developed. Sitting in bed on phone, appears comfortable. NAD MMM trachea midline, no deviation Respiratory effort normal, no cough, no tachypnea, no wheezing Cardiac RRR, no m/r/g MSK dressing c/d/i. NO JUANCHO DRAIN Ext cool, dry Psych AOx3, euthymic Results & Data Results & Data ([facility]) Vital Signs (Past 12 Hours) Vital Signs Temp Pulse Resp BP Pulse Ox 10/09/20 07:18 36.9 C 64 17 124/69 95 10/08/20 22:39 36.9 C 75 20 121/63 93 Laboratory Results 10/09/20 10/09/20 10/09/20 Range/Units 05:28 05:28 05:28 WBC 4.60 L (4.8-10.8) K/uL RBC 3.23 L (4.2-5.4) M/uL Hgb 8.7 L (12.0-16.0) g/dL Hct 27.4 L (37-47) % MCV 84.8 (80-100) fL MCH 26.9 (25-34) pg MCHC 31.8 L (32-36) g/dL RDW Std Deviation 44.9 (36.4-46.3) fL RDW Coeff of Kye 14.4 (11.5-14.5) % Plt Count 251 (130-400) K/uL MPV 8.8 (7.4-10.4) fL ESR 35 H (0-30) mm/hr Sodium 138 (136-145) mmol/L Potassium 3.9 (3.5-5.1) mmol/L Chloride 104 (98-107) mmol/L Carbon Dioxide 27 (21-32) mmol/L Anion Gap 7.0 (3-11) BUN 15 (7-18) mg/dl Creatinine 0.62 (0.6-1.2) mg/dl Est Cr Clr Drug Dosing 111.8 ml/min Est GFR ( Amer) 110.4 ml/min Est GFR (Non-Af Amer) 95.3 ml/min BUN/Creatinine Ratio 23.9 H (10-20) Glucose 118 H (70-99) mg/dl Calcium 9.3 (8.5-10.1) mg/dl Total Bilirubin 0.2 (0.2-1) mg/dl AST 12 L (15-37) U/L ALT 20 (12-78) U/L Alkaline Phosphatase 89 (45-117) U/L Total Protein 6.9 (6.4-8.2) gm/dl Albumin 3.3 L (3.4-5.0) gm/dl Globulin 3.6 (2.5-4.0) gm/dl Albumin/Globulin Ratio 0.9 (0.9-2) 10/08/20 10/08/20 Range/Units 08:24 08:24 WBC 4.67 L (4.8-10.8) K/uL RBC 3.22 L (4.2-5.4) M/uL Hgb 8.7 L (12.0-16.0) g/dL Hct 28.0 L (37-47) % MCV 87.0 (80-100) fL MCH 27.0 (25-34) pg MCHC 31.1 L (32-36) g/dL RDW Std Deviation 46.0 (36.4-46.3) fL RDW Coeff of Kye 14.5 (11.5-14.5) % Plt Count 259 (130-400) K/uL MPV 8.6 (7.4-10.4) fL ESR (0-30) mm/hr Sodium 138 (136-145) mmol/L Potassium 4.1 (3.5-5.1) mmol/L Chloride 105 (98-107) mmol/L Carbon Dioxide 26 (21-32) mmol/L Anion Gap 7.0 (3-11) BUN 13 (7-18) mg/dl Creatinine 0.64 (0.6-1.2) mg/dl Est Cr Clr Drug Dosing 108.3 ml/min Est GFR ( Amer) 109.3 ml/min Est GFR (Non-Af Amer) 94.3 ml/min BUN/Creatinine Ratio 19.6 (10-20) Glucose 117 H (70-99) mg/dl Calcium 9.6 (8.5-10.1) mg/dl Total Bilirubin (0.2-1) mg/dl AST (15-37) U/L ALT (12-78) U/L Alkaline Phosphatase (45-117) U/L Total Protein (6.4-8.2) gm/dl Albumin (3.4-5.0) gm/dl Globulin (2.5-4.0) gm/dl Albumin/Globulin Ratio (0.9-2) PG Care Time/CCT Total # of Minutes Spent Total Time Spent with Patient: Total time spent is greater than 50% in coordination of care (as documented) at patient's floor/unit and/or counseling patient: Coding Level of Care Code 13962 Subseq Hosp Care Lvl 2 Diagnoses Infection of lumbar spine M46.26 CAD (coronary artery disease) I25.10 Hypothyroid E03.9 Anemia D64.9
[2020-10-09] MEDS: CLOPIDOGREL BISULFATE 75 MG TAB PO SCH (09:14)
[2020-10-09] MEDS: GABAPENTIN 300 MG CAP PO SCH (09:14)
[2020-10-09] MEDS: FERROUS SULFATE 325 MG TAB PO SCH ×2 (09:14→17:39)
[2020-10-09] MEDS: METOPROLOL TARTRATE 25 MG TAB PO SCH ×2 (09:15→21:09)
--- NOTE | 2020-10-09 13:06 | Orthopedic Progress Note ---
Date of Service October 09, 2020 Assessment & Plan (1) Infection of lumbar spine: Admission and Anticipated Discharge Date Admission Date: October 04, 2020 This time we are going to continue antibiotics. She can ambulate within the room short distances. We plan for lumbar stabilization Wednesday. Subjective Patient is pain is well controlled. She again struggles with any prolonged standing walking secondary to radicular pain. Physical Exam Physical Exam: On exam she is in bed at this time. Is good strength testing. Appears comfortable. Results & Data ([facility]) Vital Signs (Past 12 Hours) Vital Signs Temp Pulse Resp BP Pulse Ox 10/09/20 07:18 36.9 C 64 17 124/69 95
[2020-10-09] MEDS: DAPTOmycin 500 MG in SYRINGE 0 ML IV SCH (17:38)
[2020-10-09] MEDS: ASPIRIN 81 MG ECTAB PO SCH (21:08)
[2020-10-09] MEDS: LEVOTHYROXINE SODIUM 175 MCG TABLET PO SCH (21:09)
[2020-10-09] MEDS: SERTRALINE HCL 50 MG TABLET PO SCH (21:09)
[2020-10-09] MEDS: DOCUSATE SODIUM/SENNA 50/8.6MG TAB PO SCH (21:09)
[2020-10-10] MEDS: tiZANidine HCL 4 MG TABLET PO PRN ×2 (00:26→12:43)
[2020-10-10] MEDS: oxyCODONE HCL IR 5 MG TAB (IMMEDIATE RELEASE) PO PRN ×2 (05:27→18:39)
[2020-10-10 06:19] LABS: Hematocrit (blood only) 27.4 % (37-47); Hemoglobin 8.6 g/dL (12.0-16.0); Mean Corpuscular Hemoglobin 26.8 pg (25-34); Mean Corpuscular Hgb Conc 31.4 g/dL (32-36); Mean Corpuscular Volume 85.4 fL (80-100); Platelet Count 250 K/uL (130-400); RDW Coefficient of Variation 14.5 % (11.5-14.5); RDW Standard Deviation 45.5 fL (36.4-46.3); Red Blood Count 3.21 M/uL (4.2-5.4); White Blood Count 4.88 K/uL (4.8-10.8)
[2020-10-10 06:55] LABS: BUN Creatinine Ratio 22.9 (10-20); Calcium 9.3 mg/dl (8.5-10.1); Est GFR (African American) 109.9 ml/min; Est GFR (Non-African American) 94.8 ml/min
[2020-10-10] MEDS: FERROUS SULFATE 325 MG TAB PO SCH ×2 (08:02→17:30)
[2020-10-10] MEDS: METOPROLOL TARTRATE 25 MG TAB PO SCH ×2 (08:02→20:39)
[2020-10-10] MEDS: CLOPIDOGREL BISULFATE 75 MG TAB PO SCH (08:02)
[2020-10-10] MEDS: GABAPENTIN 300 MG CAP PO SCH (08:02)
--- NOTE | 2020-10-10 09:20 | Orthopedic Progress Note ---
Date of Service October 10, 2020 Assessment & Plan (1) Infection of lumbar spine: Admission and Anticipated Discharge Date Admission Date: October 04, 2020 I will make her n.p.o. after midnight tonight the plan is for return to or tomorrow explore the incision and stabilize with fusion L5-S1 level with possible iliac bolts. Patient understands and agrees. Subjective Patient's back pain is controlled still struggling with significant sciatica with any weightbearing and sitting. Physical Exam Physical Exam: On exam she is in the bed. She has good strength testing. Results & Data ([facility]) Vital Signs (Past 12 Hours) Vital Signs Temp Pulse Resp BP Pulse Ox 10/10/20 07:25 36.9 C 72 18 122/67 94 10/09/20 22:42 37.2 C 69 20 112/66 95
--- NOTE | 2020-10-10 12:41 | XCELERA ---
[id number]
--- NOTE | 2020-10-10 14:25 | Communication Note ---
Date of Service: October 10, 2020 Chart reviewed. Blood counts stable. Stopped by to see patient shortly, pain controlled. Patient had large BM and holding off on further miralax for now. Tired but thinks combination of muscle relaxer and pain medications but no other complaints. NPO after midnight for hardware in AM. Questions/concerns addressed. Will eval tomorrow after surgery. No bill for today. Will arrange for continued abx for 6-10wks Dapto (hold statin) and will need f/u with Dr. Kingsley. Weekly labs every Wednesday -- CBC, CMP, ESR, CPK
[2020-10-10] MEDS: DAPTOmycin 500 MG in SYRINGE 0 ML IV SCH (17:30)
[2020-10-10] MEDS: DOCUSATE SODIUM/SENNA 50/8.6MG TAB PO SCH (20:35)
[2020-10-10] MEDS: ASPIRIN 81 MG ECTAB PO SCH (20:38)
[2020-10-10] MEDS: SERTRALINE HCL 50 MG TABLET PO SCH (20:39)
[2020-10-10] MEDS: LEVOTHYROXINE SODIUM 175 MCG TABLET PO SCH (20:39)
[2020-10-11] MEDS: tiZANidine HCL 4 MG TABLET PO PRN ×2 (00:05→07:29)
[2020-10-11] MEDS: oxyCODONE HCL IR 5 MG TAB (IMMEDIATE RELEASE) PO PRN ×2 (03:20→07:28)
[2020-10-11] MEDS: GABAPENTIN 300 MG CAP PO SCH (08:41)
[2020-10-11] MEDS: METOPROLOL TARTRATE 25 MG TAB PO SCH ×2 (08:41→20:38)
--- NOTE | 2020-10-11 09:03 | Hospitalist Progress Note ---
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 Patient was being treated with daptomycin which is being continued on the advice of presumably her outpatient infectious disease specialist. POD # 7 s/p I&D, application of Stimulan beads and hardware removal L3-S1 On Daptomycin -- continued and follows with Dr. Kingsley ID. PICC line RUE Pain control/bowel regimen/PT/OT per primary service Plavix resumed 10/07 per instructions of Cardiology and decreased JUANCHO output --> Iron studies with low iron 22, transferrin 162L, trans %sat 10L --> started on oral BID on 10/07 (she had been taking some at home due to low stores but up to 4x/daily) -- continue supplementation at discharge Zanaflex added prn sciatica type pain -- had gotten from Dr Brice PA in the past for this issue, but will also check CK given continued on Dapto/Lipitor (wnl) --> holding statin moving forward per ID recs --> Effective and continued 10/11 POD 0 s/p #1 posterior spinal fusion L5-S1. #2 bilateral open SI joint fusions. #3 placement posterior instrumentation L4-L5 and bilateral iliac bolts. #4 placement infuse collagen sponge, master graft in the bilateral SI joints and posterior lateral gutters L5-S1. with Dr. Brice EBL 1000cc -- acute blood loss anemia from multiple surgeries/IVF and repeat surgery on Plavix currently which is necessary --> Transfused 1u PRBC for hgb 7.9 --> repeat 8.6 Additional unit ordered and on hold. If JUANCHO output significant, repeat labs again this evening and transfuse as needed. No CP/SOB reported Continues on Daptomycin --> rx given to CM for continued abx with weekly labs on Wednesday with results forwarded to Dr. Kingsley Wound cx final no growth Labs in AM (2) CAD (coronary artery disease): Hx NSTEMI, follows with Dr. Buckley EKG c CP No CP/SOB reported Continued on aspirin. - restarted clopidogrel 10/07 due to necessity and per conversation with Dr. Brice continued through operative period (acute blood loss from surgery as above, s/p transfusion 1 u prbc for EBL 1000cc) Continue metoprolol tartrate 25mg PO BID Atorvastatin held as above Continue to hold bumex -- monitor volume status as IVF LR @ 150cc/hr ordered No CP/SOB reported Continue to monitor (3) Hypothyroid: Last TSH 1.01 August 2020 Continue levothyroxine 175 mcg. (4) Anemia: See above -- low iron and started supplementation BID s/p 1 u PRBC repeat h/h Will order repeat h/h for tonight and transfuse additional unit if needed CBC in AM otherwise Dispo: continued inpatient stay Thank you very much for the consult. Hospitalist service to follow along. Admission and Anticipated Discharge Date Admission Date: October 04, 2020 Supervising Physician Co-Signing Physician Notes PA Supervision Note: I did not personally see or examine the patient today, but I verified all mendoza points of ERICK Medeiros's assessment and plan with the following exceptions/additions: None Subjective Patient evaluated this afternoon following surgery. Per OP report, 1000cc blood loss and got 1u PRBC and repeat h/h stable. Dressing reinforced earlier by nursing for bloody on dressing. Discussed blood loss due to plavix but we will continue this and monitor output and blood counts. Feeling well after surgery except some pain to her L hip/thigh but controlled with medications. Strength great to l/e. She believes she is to remain mostly bedrest for today and then increase activity tomorrow. Dilaudid effective at current state for issues. Discussed abx rx given to CM labs to be forwarded to Dr Kingsley's office for continued monitoring. No fever, chills, chest pain, shortness of breath, abdominal pain, nausea, or vomiting reported. Barr remains intact, draining yellow urine. Questions/concerns addressed at this time. Review of Systems Review of Systems: All systems reviewed & are unremarkable except as noted in HPI & below Physical Exam Physical Exam: Well nourished, well developed. Laying in bed, 2L NC, NAD Moist mm trachea without deviation, midline Resp CTAB, no w/c/r, 99% on 2L NC CV: RRR, no m/r/g MSK: dressing to lumbar spine with bloody shadowing on superior aspect of dressing, tender to palpation walker-incisional, JUANCHO output 30cc bloody drainainge. NVI, 5/5 strength dorsiflexion/plantar flexion Ext: cool, dry Psych AOx3 : barr draining yellow urin Results & Data Results & Data ([facility]) Vital Signs (Past 12 Hours) Vital Signs Temp Pulse Resp BP Pulse Ox 10/11/20 08:38 72 124/72 98 10/11/20 07:03 36.6 C 66 17 116/66 97 10/10/20 22:46 37.3 C 65 16 116/64 94 Laboratory Results 10/11/20 10/11/20 10/11/20 Range/Units 14:41 13:26 13:17 Hgb 8.6 L 7.9 L (12.0-16.0) g/dL POC Hgb 7.8 L (12.0-16.0) g/dl Hct 27.0 L 25.2 L (37-47) % POC Hct 23 L (37-47) % POC Sodium 137 (135-144) mmol/L POC Potassium 3.8 (3.3-5.0) mmol/L POC Chloride 102 (101-112) mmol/L POC Total CO2 27 (24-31) mmol/L POC Anion Gap 14.0 L (16-25) mmol/L POC BUN 14 (7-18) mg/dl POC Creatinine 0.6 (0.6-1.3) mg/dl POC Glucose (other) 134 H (70-99) mg/dl POC Ioniz Calcium Salas 1.25 (1.12-1.32) mmol/l Blood Type Antibody Screen Crossmatch 10/10/20 Range/Units 15:59 Hgb (12.0-16.0) g/dL POC Hgb (12.0-16.0) g/dl Hct (37-47) % POC Hct (37-47) % POC Sodium (135-144) mmol/L POC Potassium (3.3-5.0) mmol/L POC Chloride (101-112) mmol/L POC Total CO2 (24-31) mmol/L POC Anion Gap (16-25) mmol/L POC BUN (7-18) mg/dl POC Creatinine (0.6-1.3) mg/dl POC Glucose (other) (70-99) mg/dl POC Ioniz Calcium Salas (1.12-1.32) mmol/l Blood Type A Positive Antibody Screen NEGATIVE Crossmatch See Detail PG Care Time/CCT Total # of Minutes Spent Total Time Spent with Patient: Total time spent is greater than 50% in coordination of care (as documented) at patient's floor/unit and/or counseling patient: Coding Level of Care Code 13004 Subseq Hosp Care Lvl 3 Diagnoses Infection of lumbar spine M46.26 CAD (coronary artery disease) I25.10 Hypothyroid E03.9 Anemia D64.9
[2020-10-11] MEDS: FERROUS SULFATE 325 MG TAB PO SCH ×2 (09:04→18:11)
[2020-10-11] MEDS: CLOPIDOGREL BISULFATE 75 MG TAB PO SCH (09:08)
[2020-10-11] MEDS ORDERED: fentaNYL citrate 100 MCG/2 ML VIAL ONE ×2 (10:10→15:00)
[2020-10-11] MEDS ORDERED: ONDANSETRON INJ 2 MG/ML 2 ML VIAL ONE (10:10)
[2020-10-11] MEDS ORDERED: PROPOFOL IV EMULSION 10 MG/ML 20 ML VIAL IV ONE (10:10)
[2020-10-11] MEDS ORDERED: DEXAMETHASONE SOD INJ 4 MG/ML VIAL ONE (10:10)
[2020-10-11] MEDS ORDERED: GLYCOPYRROLATE 0.2 MG/ML VIAL ONE (10:10)
[2020-10-11] MEDS ORDERED: NEOSTIGMINE METHYLSULFATE 1 MG/ML 10ML VIAL ONE (10:10)
--- NOTE | 2020-10-11 11:15 | Anesthesiology Consultation ---
Date of Service October 11, 2020 Assessment & Plan Chart Review Chart Review: Acceptable Risk for Surgery and Patient NOT seen in Pre Admission Testing Consults Requested none ASA ASA4 Proposed Anesthesia Anesthesia Type: General Anesthesia Line Insertion: Arterial line Risk / Benefits Reviewed With: PT / POA / Parent / Guardian, Accepts Plan and Informed Consent Obtained Additional Comments: covid test negative History Surgery Operation Date: 10/04/20 12:35 Proposed Procedures p Incision and Drainage L2-S1 Hardware Removal - Jairon Brice DO Operation Date: 10/11/20 11:35 Proposed Procedures p L4-S1 Lumbar Decomperssion and Fusion, Possible Illiac Bolts - Jairon Brice DO Height/Weight Height: 5 ft 7 in Weight: 100.75 kg Allergies Allergy/AdvReac Type Severity Reaction Status Date / Time No Known Allergies Allergy Verified 10/04/20 11:36 Medications Home Medications Medication Instructions Recorded Confirmed Last Taken aspirin 81 mg PO PM 03/29/20 10/04/20 10/03/20 22:00 levothyroxine [Synthroid] 175 mcg PO PM 03/29/20 10/04/20 10/03/20 22:00 sertraline 50 mg PO PM 03/29/20 10/04/20 10/03/20 22:00 cetirizine [Zyrtec] 10 mg PO DAILY PRN 04/16/20 10/04/20 10/03/20 22:00 atorvastatin 40 mg PO HS #30 tab 08/12/20 10/04/20 10/03/20 22:00 bumetanide 1 mg PO DIRECTED PRN #30 tab 08/12/20 10/04/20 10/03/20 22:00 clopidogrel 75 mg PO QAM #30 tab 08/12/20 10/04/20 09/30/20 22:00 daptomycin 500 mg IV DAILY #35 ea 08/12/20 10/04/20 10/03/20 09:00 metoprolol tartrate 25 mg PO BID #60 tab 08/12/20 10/04/20 10/04/20 08:00 Active Medications Generic Name Dose Route Start Last Admin Trade Name Freq PRN Reason Stop Dose Admin Acetaminophen 1,000 mg 10/04/20 16:43 10/06/20 23:50 Acetaminophen 500 Mg Tab PO 11/03/20 16:42 1,000 mg Q8H PRN Administration MILD Pain Scale 1,2,3 & Pre PT Aspirin 81 mg 10/04/20 21:00 10/10/20 20:38 Aspirin 81 Mg Ectab PO 11/03/20 20:59 81 mg PM SHADI Administration Atorvastatin Calcium 40 mg 10/04/20 21:00 10/08/20 20:03 Atorvastatin 40 Mg Tab PO 11/03/20 20:59 40 mg HS SHADI Administration Clopidogrel Bisulfate 75 mg 10/07/20 12:00 10/11/20 09:08 Clopidogrel Bisulfate 75 Mg Tab PO 11/06/20 11:59 Not Given QAM SHADI Ferrous Sulfate 325 mg 10/07/20 08:00 10/11/20 09:04 Ferrous Sulfate 325 Mg Tab PO 11/06/20 07:59 Not Given BIDM SHADI Gabapentin 300 mg 10/07/20 05:00 10/11/20 08:41 Gabapentin 300 Mg Cap PO 11/06/20 04:59 300 mg QAM SHADI Administration Heparin Sodium (Beef Lung) 5 ml 10/05/20 00:21 10/09/20 17:38 Heparin 10 Unit/Ml 5 Ml Flush FLUSH 11/04/20 00:20 5 ml PRN PRN Administration Flush Daptomycin 500 mg/ Syringe 10 mls @ 5 mls/min 10/07/20 18:00 10/10/20 17:30 IV 11/18/20 17:59 5 mls/min DAILY@1800 SHADI Administration Protocol Levothyroxine Sodium 175 mcg 10/04/20 21:00 10/10/20 20:39 Levothyroxine Sodium 175 Mcg Tablet PO 11/03/20 20:59 175 mcg PM SHADI Administration Lorazepam 0.5 mg 10/04/20 16:43 10/05/20 17:04 Lorazepam 0.5 Mg Tab PO 11/03/20 16:42 0.5 mg Q8H PRN Administration sedation/anxiety Metoprolol Tartrate 25 mg 10/04/20 21:00 10/11/20 08:41 Metoprolol Tartrate 25 Mg Tab PO 11/03/20 20:59 25 mg BID SHADI Administration Oxycodone HCl 5 - 10 mg 10/04/20 16:43 10/11/20 07:28 Oxycodone Hcl Ir 5 Mg Tab (Immediate Release) PO 10/18/20 16:42 10 mg Q4H PRN Administration Pain & Pre PT Senna/Docusate Sodium 2 tab 10/04/20 21:00 10/10/20 20:35 Docusate Sodium/Senna 50/8.6mg Tab PO 11/03/20 20:59 Not Given HS SHADI Sertraline HCl 50 mg 10/04/20 21:00 10/10/20 20:39 Sertraline Hcl 50 Mg Tablet PO 11/03/20 20:59 50 mg PM SHADI Administration Tizanidine HCl 4 mg 10/07/20 10:52 10/11/20 07:29 Tizanidine Hcl 4 Mg Tablet PO 11/06/20 13:59 4 mg TID PRN Administration muscle spasm, pain NPO Date Last Intake of Fluids: 10/11/20 Time Last Intake of Fluids: 08:40 Last Intake of Fluids Comment: pills with a sip of water Date Last Intake of Solids: 10/10/20 Time Last Intake of Solids: 18:00 Past Medical History Medical History Anemia Anxiety Arthritis Atrial fibrillation Christianne-PCI per cardio records CAD (coronary artery disease) PCI to LAD 08/02/20 Degenerative disc disease Hyperlipidemia Hypertension Hypothyroidism Impaired glucose tolerance Per records Hgb A1C on 08/02/20 was 6.1 Infection BACK INFECTION (PICC LINE IN USE FOR DAILY IV ANTIBIOTICS) Lower extremity edema Spinal stenosis Exercise / Class Metabolic Activity III < 4 Walking/Shop/Light housework Past Family History Family History Other No family history of adverse response to anesthesia Past Surgical History Surgical History Fusion of spine X 2 (04/2008 + 03/2020) History of anesthesia reaction 2008 AFTER BACK SURGERY>SENT TO CARDIAC FLOOR ? DETAILS History of colonoscopy History of herniorrhaphy History of tonsillectomy and adenoidectomy S/P coronary artery stent placement 1 STENT PLACED 07/2020 AT [facility]>FOLLOWS DR. TREVIÑO (REASON FOR PLAVIX) S/P PICC central line placement [place] teeth removed Past Anesthesia History No Hx of Anesthesia Complications and No Family Hx of Anesthesia Complications History of PONV No Hx of PONV and No Hx of Motion Sickness Social History Smoking Status: Never smoker Hx Alcohol Use: Yes Alcohol type: wine alcohol intake frequency: a few times a month substance use type: does not use Physical Exam Vital Signs Last Vital Signs Temp 37.0 C 10/11/20 10:48 Pulse 62 10/11/20 10:48 Resp 18 10/11/20 10:48 BP 122/64 10/11/20 10:48 Pulse Ox 99 10/11/20 10:48 Constitutional + obese ENMT Mouth: no dentition abnormality Thyromental Distance: < 3.5 Finger Breadths Mallampati Class: II Neck normal visual inspection and trachea midline; neck extension not limited Respiratory normal respiratory effort Auscultation: lungs clear to auscultation bilaterally Cardiovascular Rate/Rhythm: regular rate and regular rhythm Heart Sounds: no murmur Vessels: no carotid bruit Musculoskeletal Spine: normal cervical ROM Extremities: extremities normal to inspection Neurologic moves all extremities Motor/Sensory: no sensory deficit Psychiatric Orientation: alert and oriented x 3 Testing Laboratory Results 10/10/20 05:19 10/10/20 05:19 Blood Type A Positive 10/10/20 15:59 Antibody Screen NEGATIVE 10/10/20 15:59 10/04/20 Unknown Gram Stain - Final Back Aerobic and Anaerobic Culture - Final No growth
--- NOTE | 2020-10-11 11:56 | History & Physical Bridge Note ---
Date of Service October 11, 2020 History & Physical Bridge Note I have examined the patient, reviewed the History & Physical and in the interval since the performance of the History & Physical I have noted the following changes of clinical significance: no changes not L5-S1 fusion with possible iliac bolts
[2020-10-11] MEDS ORDERED: MIDAZOLAM HCL 1 MG/ML 2ML VIAL ONE (12:02)
[2020-10-11] MEDS ORDERED: VANCOMYCIN HCL 1000MG/20ML VIAL ONE (12:06)
[2020-10-11] MEDS ORDERED: GENTAMICIN SULFATE 40 MG/ML 2 ML VIAL ONE (12:07)
[2020-10-11] MEDS ORDERED: BUPIVACAINE/EPINEPHRINE 0.5% MPF 1:200,000 30 ML VIAL ONE (12:07)
[2020-10-11] MEDS ORDERED: ALBUMIN HUMAN 5% 12.5 GM/250 ML VIAL IV ONE (12:38)
[2020-10-11] MEDS ORDERED: CISATRACURIUM BESYLATE IV SOLN 2 MG/ML 10 ML VIAL IV ONE (13:05)
[2020-10-11] MEDS ORDERED: SUCCINYLCHOLINE CHLORIDE 20 MG/ML 10 ML VIAL IV ONE (13:05)
[2020-10-11] MEDS ORDERED: PHENYLEPHRINE HCL 10 MG/ML VIAL ONE (13:06)
[2020-10-11] MEDS ORDERED: ePHEDrine sulfate 50 MG/ML AMP ONE (13:06)
[2020-10-11] MEDS ORDERED: FLOSEAL HEMOSTATIC MATRIX 10ML TOP ONE (13:30)
[2020-10-11 13:37] LABS: Hematocrit (blood only) 25.2 % (37-47); Hemoglobin 7.9 g/dL (12.0-16.0)
[2020-10-11 13:48] LABS: iSTAT Creatinine 0.6 mg/dl (0.6-1.3); iSTAT Hemoglobin 7.8 g/dl (12.0-16.0); iSTAT Ionized Calcium 1.25 mmol/l (1.12-1.32); iSTAT Potassium 3.8 mmol/L (3.3-5.0)
--- NOTE | 2020-10-11 14:19 | Fluoroscopy Report ---
FL lumbar spine 2-3V CLINICAL HISTORY: L4-S1 DECOMPRESSION AND FUSION COMPARISON STUDY: None. FLUOROSCOPY TIME: 45 seconds. FINDINGS: 3 fluoroscopic spot images of the lumbar spine demonstrate posterior decompression and fusi on from L4 through the bilateral sacroiliac joints with screws and rods. The hardware appears intact. Gauze material noted at the laminectomy site which is known by the surgeon. IMPRESSION: Fluoroscopy provided for posterior fusion within the lumbosacral spine as described above . ACT 112: Negative or not required by law. Electronically signed by: Arthur Choe M.D. 10/11/2020 2:18 PM
--- NOTE | 2020-10-11 14:21 | Operative Report ---
Post Operative Report Pre & Post Diagnosis Operation Date: 10/04/20 12:35 Pre-Op Diagnosis: Infection of Lumbar Spine Post-Op Diagnosis: Infection of Lumbar Spine Operation Date: 10/11/20 11:35 Pre-Op Diagnosis: Lumbar Spine Infection Post-Op Diagnosis: Lumbar Spine Infection I identified the patient and participated in the time-out.: Yes Procedure Operation Date: 10/04/20 12:35 Actual Procedures p Incision and Drainage, Application of 10cc Stimulan Beads(Not Applicable) - Jairon Brice DO s L2-S1 Hardware Removal,(Not Applicable) - Jairon Brice DO Operation Date: 10/11/20 11:35 Actual Procedures #1 posterior spinal fusion L5-S1. #2 bilateral open SI joint fusions. #3 placement posterior instrumentation L4-L5 and bilateral iliac bolts. #4 placement infuse collagen sponge, master graft in the bilateral SI joints and posterior lateral gutters L5-S1. Surgeon Jairon Brice DO Dredge Boat Engineer None Estimated Blood Loss 1,000 Findings See Below 5 foot 7 weighing over 100 kg with a BMI in excess of 34. The patient's body habitus with 1000 cc of blood loss created significant technical difficulty and adding at least 50% increase to the operative time. Specimens None Indications This is a 65-year-old female presents with spinal infection. After her hardware being removed last week she demonstrated evidence of collapse and instability L5-S1 level. After a week of IV antibiotic as well as local antibiotic we elected to return to surgery and formally fuse the L5-S1 level with instrumentation. Description of Procedure Patient was met with identified informed consent obtained. Patient was then taken to the operative suite underwent an patient placed in a prone position on the [place] table top [place] frame. All bony prominences well-padded eyes inspected to ensure no external pressure placed upon the. This point the lumbar spine was prepped and draped in normal sterile fashion. Sharp dissection with the assistance of Bovie cautery was performed down to and exposing the lumbar spine from L2-S1 including exposure of the bilateral posterior SI joints and medial aspect of the ilium. A large hematoma was identified and evacuated. Explore the fusion mass at L5-S1 noting a paucity of material. Pedicle screws were then placed in L4 and L5 on the right and L5 in the left as well as bilateral iliac bolts. The SI joints were then curetted and burred to subcortical bleeding bone bilaterally as well as the lateral gutters at L5 and the sacral ala. Infuse collagen sponge and master graft was placed in the SI joints and in the posterior lateral gutters. A henry was then locked in the place. 15 round JUANCHO drain was inserted. The incision was closed with 1 Vicryl the fascia 2-0 Vicryl subcutaneously and kris for final skin closure. Steri- Strip sterile dressings placed. Patient will continue PACU stable condition. Please note spinal cord monitoring visualized at the procedure no changes noted. I attest to the content of the Intraoperative Record and any orders documented therein. Any exceptions are noted below.
[2020-10-11 14:51] LABS: Hemoglobin 8.6 g/dL (12.0-16.0)
[2020-10-11] MEDS ORDERED: ONDANSETRON INJ 2 MG/ML 2 ML VIAL IV PRN ×2 (14:58→16:06)
[2020-10-11] MEDS ORDERED: ATROPINE SULFATE 0.1 MG/ML 10ML SYR IV PRN (14:58)
[2020-10-11] MEDS ORDERED: ePHEDrine sulfate 50 MG/ML AMP IV PRN (14:58)
[2020-10-11] MEDS ORDERED: NALOXONE HCL 0.4 MG/1 ML VIAL/CARP IV PRN ×2 (14:58→16:06)
[2020-10-11] MEDS ORDERED: FLUMAZENIL 0.1 MG/1 ML 10 ML VIAL IV PRN (14:58)
[2020-10-11] MEDS ORDERED: LABETALOL HCL IV 5 MG/ML 20ML IV PRN (14:58)
[2020-10-11] MEDS ORDERED: PROMETHAZINE HCL 12.5 MG in SODIUM CHLORIDE 0.9% 50 ML IV PRN ×2 (14:58→16:06)
[2020-10-11] MEDS: fentaNYL citrate 100 MCG/2 ML VIAL IV PRN ×4 (15:01→15:16)
[2020-10-11] MEDS: HYDROmorphone INJ 1 MG/ML SYRINGE IV PRN ×6 (15:23→20:36)
--- NOTE | 2020-10-11 15:52 | Anesthesiology Progress Note ---
Date of Service October 11, 2020 Anesthesia Post Procedure Vital Signs Vital Signs: Temp Pulse Pulse Resp BP Pulse Ox 10/11/20 15:45 64 14 131/70 92 10/11/20 15:35 79 16 111/60 99 10/11/20 15:25 65 19 113/61 98 10/11/20 15:15 67 17 113/62 97 10/11/20 15:05 67 16 113/61 99 10/11/20 14:55 66 11 L 129/63 97 10/11/20 14:45 80 19 131/70 100 10/11/20 14:37 36.2 C L 72 13 117/63 98 10/11/20 10:48 37.0 C 62 18 122/64 99 10/11/20 08:38 72 124/72 98 10/11/20 07:03 36.6 C 66 17 116/66 97 10/10/20 22:46 37.3 C 65 16 116/64 94 10/10/20 20:36 79 144/72 H Pain Intensity Back: Pain Intensity: 3 Transfer of Care Handoff Completed per policy Notes Mental Status: alert / awake / arousable Patient Amnestic to Procedure: Yes Nausea / Vomiting: adequately controlled Pain: adequately controlled Airway Patency, RR, SpO2: stable & adequate BP & HR: stable & adequate Hydration State: stable & adequate Anesthetic Complications: no major complications apparent
[2020-10-11] MEDS ORDERED: ACETAMINOPHEN 1,000 MG/100 ML VIAL IV PRN (16:06)
[2020-10-11] MEDS ORDERED: ALUMINUM/MAGNESIUM SUSP 30 ML UDC PO PRN (16:06)
[2020-10-11] MEDS ORDERED: LORazepam 0.5 MG TAB PO PRN (16:06)
[2020-10-11] MEDS ORDERED: MAGNESIUM HYDROXIDE SUSP 30 ML UDC PO PRN (16:06)
[2020-10-11] MEDS ORDERED: FAMOTIDINE 20 MG TAB PO PRN (16:06)
[2020-10-11] MEDS ORDERED: DO NOT ADMINISTER PNEUMOCOCCAL VACCINE PRN (16:06)
[2020-10-11] MEDS ORDERED: METOCLOPRAMIDE HCL INJ 5 MG/ML 2 ML VIAL IV PRN (16:06)
[2020-10-11] MEDS ORDERED: SOD PHOSPHATE/SOD BIPHOSPHATE ENEMA 132 ML BTL PR PRN (16:06)
[2020-10-11] MEDS ORDERED: hydrOXYzine HCl 25 MG TAB PO PRN (16:06)
[2020-10-11] MEDS ORDERED: ONDANSETRON 4 MG OD TAB PO PRN (16:06)
[2020-10-11] MEDS ORDERED: DO NOT ADMINISTER FLU VACCINE PRN (16:06)
[2020-10-11] MEDS ORDERED: diphenhydrAMINE Capsule 25 MG CAP PO PRN (16:06)
[2020-10-11] MEDS ORDERED: LORazepam 0.5 MG/1 ML VIAL IV PRN (16:06)
[2020-10-11] MEDS ORDERED: ACETAMINOPHEN 500 MG TAB PO PRN (16:06)
[2020-10-11] MEDS: LACTATED RINGER'S 1,000 ML IV SCH (17:19)
[2020-10-11] MEDS: DAPTOmycin 500 MG in SYRINGE 0 ML IV SCH (17:29)
[2020-10-11 19:58] LABS: Hematocrit (blood only) 24.7 % (37-47); Hemoglobin 8.1 g/dL (12.0-16.0); Mean Corpuscular Hemoglobin 27.6 pg (25-34); Mean Corpuscular Hgb Conc 32.8 g/dL (32-36); Mean Corpuscular Volume 84.3 fL (80-100); Mean Platelet Volume 8.8 fL (7.4-10.4); Platelet Count 233 K/uL (130-400); RDW Coefficient of Variation 14.8 % (11.5-14.5); RDW Standard Deviation 45.6 fL (36.4-46.3); Red Blood Count 2.93 M/uL (4.2-5.4); White Blood Count 9.04 K/uL (4.8-10.8)
[2020-10-11] MEDS: ATORVASTATIN 40 MG TAB PO SCH (20:34)
[2020-10-11] MEDS: DOCUSATE SODIUM/SENNA 50/8.6MG TAB PO SCH (20:34)
[2020-10-11] MEDS: ASPIRIN 81 MG ECTAB PO SCH (20:37)
[2020-10-11] MEDS: SERTRALINE HCL 50 MG TABLET PO SCH (20:37)
[2020-10-11] MEDS: LEVOTHYROXINE SODIUM 175 MCG TABLET PO SCH (20:38)
[2020-10-11] MEDS ORDERED: DOCUSATE SODIUM/SENNA 50/8.6MG TAB PO SCH (21:00)
[2020-10-11 23:41] LABS: Hematocrit (blood only) 23.4 % (37-47); Hemoglobin 7.3 g/dL (12.0-16.0); Mean Corpuscular Hgb Conc 31.2 g/dL (32-36); Mean Corpuscular Volume 86.7 fL (80-100); Mean Platelet Volume 8.6 fL (7.4-10.4); Platelet Count 239 K/uL (130-400); RDW Coefficient of Variation 14.9 % (11.5-14.5); RDW Standard Deviation 46.1 fL (36.4-46.3); White Blood Count 6.69 K/uL (4.8-10.8)
[2020-10-12] MEDS: HYDROmorphone INJ 1 MG/ML SYRINGE IV PRN ×7 (00:03→23:34)
[2020-10-12] MEDS: LACTATED RINGER'S 1,000 ML IV SCH (00:03)
[2020-10-12] MEDS ORDERED: SODIUM CHLORIDE 0.9% 250 ML IV PRN ×3 (00:31→15:23)
[2020-10-12] MEDS ORDERED: POLYETHYLENE (MIRALAX) 17 GM PACK PO SCH (06:00)
[2020-10-12 06:41] LABS: Basophils # (auto) 0.01 K/uL (0-0.2); Basophils % (auto) 0.2 %; Hematocrit (blood only) 25.4 % (37-47); Hemoglobin 8.3 g/dL (12.0-16.0); Immature Granulocytes # (auto) 0.02 K/uL (0.00-0.02); Immature Granulocytes % (auto) 0.3 %; Lymphocytes # (auto) 1.55 K/uL (1.2-3.4); Lymphocytes % (auto) 25.7 %; Mean Corpuscular Volume 85.8 fL (80-100); Mean Platelet Volume 8.5 fL (7.4-10.4); Monocytes % (auto) 6.6 %; Neutrophils # (auto) 4.06 K/uL (1.4-6.5); Neutrophils % (auto) 67.2 %; Platelet Count 201 K/uL (130-400); RDW Coefficient of Variation 14.9 % (11.5-14.5); RDW Standard Deviation 46.1 fL (36.4-46.3); Red Blood Count 2.96 M/uL (4.2-5.4); White Blood Count 6.04 K/uL (4.8-10.8)
[2020-10-12 06:51] LABS: Mean Corpuscular Hgb Conc 32.7 g/dL (32-36)
[2020-10-12 07:19] LABS: BUN Creatinine Ratio 21.2 (10-20); Calcium 8.3 mg/dl (8.5-10.1); Est GFR (African American) 109.9 ml/min; Est GFR (Non-African American) 94.8 ml/min; Potassium 3.6 mmol/L (3.5-5.1)
--- NOTE | 2020-10-12 08:29 | Orthopedic Progress Note ---
Date of Service October 12, 2020 Assessment & Plan (1) Infection of lumbar spine: Admission and Anticipated Discharge Date Admission Date: October 04, 2020 I discussed with this patient regarding the construct she is fused from L5 to the pelvis. We must be very cautious with activity. We cannot brisk collapse of the construct. I recommend bed to chair and limit walks to 1-2 laps a day. She is to wear the brace when out of bed. Subjective Patient's back pain is controlled leg pain markedly improved Physical Exam Physical Exam: Patient appears comfortable is good strength testing. Results & Data ([facility]) Vital Signs (Past 12 Hours) Vital Signs Temp Pulse Pulse Pulse Resp BP BP 10/12/20 07:30 37 C 66 18 162/61 H 10/12/20 04:29 36.8 C 65 16 112/65 10/12/20 03:45 37.0 C 70 16 112/62 10/12/20 02:45 37.0 C 64 16 115/62 10/12/20 02:15 37.2 C 72 16 109/61 10/12/20 02:05 37.0 C 68 16 122/68 10/12/20 01:48 36.5 C 71 16 117/68 10/11/20 22:03 36.9 C 92 H 18 112/67 Pulse Ox 10/12/20 07:30 93 10/12/20 04:29 97 10/12/20 03:45 99 10/12/20 02:45 99 10/12/20 02:15 97 10/12/20 02:05 99 10/12/20 01:48 97 10/11/20 22:03 97
--- NOTE | 2020-10-12 09:00 | Hospitalist Progress Note ---
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 Patient was being treated with daptomycin which is being continued on the advice of presumably her outpatient infectious disease specialist. POD # 8 s/p I&D, application of Stimulan beads and hardware removal L3-S1 On Daptomycin -- continued and follows with Dr. Kingsley ID. PICC line RUE Pain control/bowel regimen/PT/OT per primary service Plavix resumed 10/07 per instructions of Cardiology and decreased JUANCHO output --> Iron studies with low iron 22, transferrin 162L, trans %sat 10L --> started on oral BID on 10/07 (she had been taking some at home due to low stores but up to 4x/daily) -- continue supplementation at discharge Zanaflex added prn sciatica type pain -- had gotten from Dr Brice PA in the past for this issue, but will also check CK given continued on Dapto/Lipitor (wnl) --> holding statin moving forward per ID recs --> Effective and continued Continues on Daptomycin --> rx given to CM for continued abx with weekly labs on Wednesday with results forwarded to Dr. Kingsley Wound cx final no growth 10/12 POD 1 s/p #1 posterior spinal fusion L5-S1. #2 bilateral open SI joint fusions. #3 placement posterior instrumentation L4-L5 and bilateral iliac bolts. #4 placement infuse collagen sponge, master graft in the bilateral SI joints and posterior lateral gutters L5-S1. with Dr. Brice EBL 1000cc -- acute blood loss anemia from multiple surgeries/IVF and repeat surgery on Plavix currently which is necessary --> Transfused 1u PRBC for hgb 7.9 along with 500 of albumin post-op--> repeat 8.6 however did have continued bleeding and JUANCHO output 185cc and repeat hgb down to 7.3 last evening and additional 1u PRBC transfused Hgb 8.3 this morning with continued JUANCHO output and will repeat labs this afternoon 14:00, transfuse additional unit for hgb <8 or symptomatic <8.5. No CP/SOB/lightheadedness/dizziness reported Fused from L5 to her pelvis and to be cautious with activity, bed to chair and limiting walks to 1-2/daily along with brace to be worn when out of bed Continue to monitor labs counts, transfuse if needed Labs in AM (2) CAD (coronary artery disease): Hx NSTEMI, follows with Dr. Buckley. Recent stent placed around prior back surgery. Plavix held for surgery, restarted on 10/07 due to necessity after being held and hardware placement done while on Plavix (see above) EKG c CP Continue ASA, Plavix Continue metoprolol tartrate 25mg PO BID Atorvastatin held as above Continue to hold bumex -- monitor volume status as IVF LR @ 150cc/hr ordered post-operatively for volume loss, IVF discontinued this --> If giving another unit PRBC this afternoon, will give dose of bumex as well No CP/SOB reported Continue to monitor (3) Hypothyroid: Last TSH .01 August 2020 Continue levothyroxine 175 mcg. (4) Anemia: See above -- low iron and started supplementation BID s/p 2 u PRBC as above repeat h/h stable but will repeat again this afternoon if JUANCHO output still significant and transfuse if needed Dispo: continued inpatient stay Thank you very much for the consult. Hospitalist service to follow along. Admission and Anticipated Discharge Date Admission Date: October 04, 2020 Supervising Physician Co-Signing Physician Notes PA Supervision Note: I did not personally see or examine the patient today, but I verified all mendoza points of ERICK Medeiros's assessment and plan with the following exceptions/additions: None Subjective Patient seen this morning. Feeling much better. Back/leg symptoms resolved Walked halls this morning and felt good. No BM today but no abdominal discomfort. Dressing changed, JUANCHO output 50cc currently and will need continued monitoring. Eating well, actually ordered a pizza from [employer] yesterday. Discussed repeating blood counts this afternoon, transfuse if needed + Bumex if needed given trace edema. No cp, fever, chills, shortness of breath, lightheadedness, or dizziness when ambulating or at rest. Questions/concerns addressed. Review of Systems Review of Systems: All systems reviewed & are unremarkable except as noted in HPI & below Physical Exam Physical Exam: Well nourished, well developed. Laying in bed, on Room Air. NAD Moist mm trachea without deviation, midline Resp CTAB, no w/c/r, 93 % on Room Air CV: RRR, no m/r/g, trace-1+ edema b/l LE MSK: dressing to lumbar spine with bloody shadowing on superior aspect of dressing within marking from last night, tender to palpation walker-incisional on the L side, JUANCHO output 55cc bloody drainage. NVI, 5/5 strength dorsiflexion/plantar flexion Ext: warm, dry Psych AOx3 : barr draining yellow urine Results & Data Results & Data ([facility]) Vital Signs (Past 12 Hours) Vital Signs Temp Pulse Pulse Pulse Resp BP BP 10/12/20 07:30 37 C 66 18 162/61 H 10/12/20 04:29 36.8 C 65 16 112/65 10/12/20 03:45 37.0 C 70 16 112/62 10/12/20 02:45 37.0 C 64 16 115/62 10/12/20 02:15 37.2 C 72 16 109/61 10/12/20 02:05 37.0 C 68 16 122/68 10/12/20 01:48 36.5 C 71 16 117/68 10/11/20 22:03 36.9 C 92 H 18 112/67 Pulse Ox 10/12/20 07:30 93 10/12/20 04:29 97 10/12/20 03:45 99 10/12/20 02:45 99 10/12/20 02:15 97 10/12/20 02:05 99 10/12/20 01:48 97 10/11/20 22:03 97 Laboratory Results 10/12/20 10/12/20 10/11/20 Range/Units 06:29 06:29 23:23 WBC 6.04 6.69 (4.8-10.8) K/uL RBC 2.96 L 2.70 L (4.2-5.4) M/uL Hgb 8.3 L 7.3 L (12.0-16.0) g/dL POC Hgb (12.0-16.0) g/dl Hct 25.4 L 23.4 L (37-47) % POC Hct (37-47) % MCV 85.8 86.7 (80-100) fL MCH 28.0 27.0 (25-34) pg MCHC 32.7 31.2 L (32-36) g/dL RDW Std Deviation 46.1 46.1 (36.4-46.3) fL RDW Coeff of Kye 14.9 H 14.9 H (11.5-14.5) % Plt Count 201 239 (130-400) K/uL MPV 8.5 8.6 (7.4-10.4) fL Immature Gran % (Auto) 0.3 % Neut % (Auto) 67.2 % Lymph % (Auto) 25.7 % Garza % (Auto) 6.6 % Eos % (Auto) 0.0 % Baso % (Auto) 0.2 % Neut # (Auto) 4.06 (1.4-6.5) K/uL Lymph # (Auto) 1.55 (1.2-3.4) K/uL Garza # (Auto) 0.40 (0.11-0.59) K/uL Eos # (Auto) 0.00 (0-0.5) K/uL Baso # (Auto) 0.01 (0-0.2) K/uL Immature Gran # (Auto) 0.02 (0.00-0.02) K/uL POC Sodium (135-144) mmol/L Sodium 137 (136-145) mmol/L POC Potassium (3.3-5.0) mmol/L Potassium 3.6 (3.5-5.1) mmol/L POC Chloride (101-112) mmol/L Chloride 102 (98-107) mmol/L Carbon Dioxide 26 (21-32) mmol/L POC Total CO2 (24-31) mmol/L Anion Gap 9.0 (3-11) POC Anion Gap (16-25) mmol/L POC BUN (7-18) mg/dl BUN 13 (7-18) mg/dl Creatinine 0.63 (0.6-1.2) mg/dl POC Creatinine (0.6-1.3) mg/dl Est Cr Clr Drug Dosing 110.0 ml/min Est GFR ( Amer) 109.9 ml/min Est GFR (Non-Af Amer) 94.8 ml/min BUN/Creatinine Ratio 21.2 H (10-20) Glucose 174 H (70-99) mg/dl POC Glucose (other) (70-99) mg/dl Calcium 8.3 L (8.5-10.1) mg/dl POC Ioniz Calcium Salas (1.12-1.32) mmol/l Blood Type Antibody Screen Crossmatch 10/11/20 10/11/20 10/11/20 Range/Units 19:40 14:41 13:26 WBC 9.04 (4.8-10.8) K/uL RBC 2.93 L (4.2-5.4) M/uL Hgb 8.1 L 8.6 L 7.9 L (12.0-16.0) g/dL POC Hgb (12.0-16.0) g/dl Hct 24.7 L 27.0 L 25.2 L (37-47) % POC Hct (37-47) % MCV 84.3 (80-100) fL MCH 27.6 (25-34) pg MCHC 32.8 (32-36) g/dL RDW Std Deviation 45.6 (36.4-46.3) fL RDW Coeff of Kye 14.8 H (11.5-14.5) % Plt Count 233 (130-400) K/uL MPV 8.8 (7.4-10.4) fL Immature Gran % (Auto) % Neut % (Auto) % Lymph % (Auto) % Garza % (Auto) % Eos % (Auto) % Baso % (Auto) % Neut # (Auto) (1.4-6.5) K/uL Lymph # (Auto) (1.2-3.4) K/uL Garza # (Auto) (0.11-0.59) K/uL Eos # (Auto) (0-0.5) K/uL Baso # (Auto) (0-0.2) K/uL Immature Gran # (Auto) (0.00-0.02) K/uL POC Sodium (135-144) mmol/L Sodium (136-145) mmol/L POC Potassium (3.3-5.0) mmol/L Potassium (3.5-5.1) mmol/L POC Chloride (101-112) mmol/L Chloride (98-107) mmol/L Carbon Dioxide (21-32) mmol/L POC Total CO2 (24-31) mmol/L Anion Gap (3-11) POC Anion Gap (16-25) mmol/L POC BUN (7-18) mg/dl BUN (7-18) mg/dl Creatinine (0.6-1.2) mg/dl POC Creatinine (0.6-1.3) mg/dl Est Cr Clr Drug Dosing ml/min Est GFR ( Amer) ml/min Est GFR (Non-Af Amer) ml/min BUN/Creatinine Ratio (10-20) Glucose (70-99) mg/dl POC Glucose (other) (70-99) mg/dl Calcium (8.5-10.1) mg/dl POC Ioniz Calcium Salas (1.12-1.32) mmol/l Blood Type Antibody Screen Crossmatch 10/11/20 10/10/20 Range/Units 13:17 15:59 WBC (4.8-10.8) K/uL RBC (4.2-5.4) M/uL Hgb (12.0-16.0) g/dL POC Hgb 7.8 L (12.0-16.0) g/dl Hct (37-47) % POC Hct 23 L (37-47) % MCV (80-100) fL MCH (25-34) pg MCHC (32-36) g/dL RDW Std Deviation (36.4-46.3) fL RDW Coeff of Kye (11.5-14.5) % Plt Count (130-400) K/uL MPV (7.4-10.4) fL Immature Gran % (Auto) % Neut % (Auto) % Lymph % (Auto) % Garza % (Auto) % Eos % (Auto) % Baso % (Auto) % Neut # (Auto) (1.4-6.5) K/uL Lymph # (Auto) (1.2-3.4) K/uL Garza # (Auto) (0.11-0.59) K/uL Eos # (Auto) (0-0.5) K/uL Baso # (Auto) (0-0.2) K/uL Immature Gran # (Auto) (0.00-0.02) K/uL POC Sodium 137 (135-144) mmol/L Sodium (136-145) mmol/L POC Potassium 3.8 (3.3-5.0) mmol/L Potassium (3.5-5.1) mmol/L POC Chloride 102 (101-112) mmol/L Chloride (98-107) mmol/L Carbon Dioxide (21-32) mmol/L POC Total CO2 27 (24-31) mmol/L Anion Gap (3-11) POC Anion Gap 14.0 L (16-25) mmol/L POC BUN 14 (7-18) mg/dl BUN (7-18) mg/dl Creatinine (0.6-1.2) mg/dl POC Creatinine 0.6 (0.6-1.3) mg/dl Est Cr Clr Drug Dosing ml/min Est GFR ( Amer) ml/min Est GFR (Non-Af Amer) ml/min BUN/Creatinine Ratio (10-20) Glucose (70-99) mg/dl POC Glucose (other) 134 H (70-99) mg/dl Calcium (8.5-10.1) mg/dl POC Ioniz Calcium Salas 1.25 (1.12-1.32) mmol/l Blood Type A Positive Antibody Screen NEGATIVE Crossmatch See Detail PG Care Time/CCT Total # of Minutes Spent Total Time Spent with Patient: Total time spent is greater than 50% in coordination of care (as documented) at patient's floor/unit and/or counseling patient: Coding Level of Care Code 14907 Subseq Hosp Care Lvl 3 Diagnoses Infection of lumbar spine M46.26 CAD (coronary artery disease) I25.10 Hypothyroid E03.9 Anemia D64.9
[2020-10-12] MEDS: FERROUS SULFATE 325 MG TAB PO SCH ×2 (09:25→18:28)
[2020-10-12] MEDS: GABAPENTIN 300 MG CAP PO SCH (09:25)
[2020-10-12] MEDS: METOPROLOL TARTRATE 25 MG TAB PO SCH ×2 (09:25→20:36)
[2020-10-12] MEDS: CLOPIDOGREL BISULFATE 75 MG TAB PO SCH (09:25)
--- NOTE | 2020-10-12 12:31 | Hospitalist Progress Note ---
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 Patient was being treated with daptomycin which is being continued on the advice of presumably her outpatient infectious disease specialist. POD # 8 s/p I&D, application of Stimulan beads and hardware removal L3-S1 On Daptomycin -- continued and follows with Dr. Kingsley ID. PICC line RUE Pain control/bowel regimen/PT/OT per primary service Plavix resumed 10/07 per instructions of Cardiology and decreased JUANCHO output --> Iron studies with low iron 22, transferrin 162L, trans %sat 10L --> started on oral BID on 10/07 (she had been taking some at home due to low stores but up to 4x/daily) -- continue supplementation at discharge Zanaflex added prn sciatica type pain -- had gotten from Dr Brice PA in the past for this issue, but will also check CK given continued on Dapto/Lipitor (wnl) --> holding statin moving forward per ID recs --> Effective and continued Continues on Daptomycin --> rx given to CM for continued abx with weekly labs on Wednesday with results forwarded to Dr. Kingsley Wound cx final no growth 10/12 POD 1 s/p #1 posterior spinal fusion L5-S1. #2 bilateral open SI joint fusions. #3 placement posterior instrumentation L4-L5 and bilateral iliac bolts. #4 placement infuse collagen sponge, master graft in the bilateral SI joints and posterior lateral gutters L5-S1. with Dr. Brice EBL 1000cc -- acute blood loss anemia from multiple surgeries/IVF and repeat surgery on Plavix currently which is necessary --> Transfused 1u PRBC for hgb 7.9 along with 500 of albumin post-op--> repeat 8.6 however did have continued bleeding and JUANCHO output 185cc and repeat hgb down to 7.3 last evening and additional 1u PRBC transfused Hgb 8.3 this morning with continued JUANCHO output and will repeat labs this afternoon 14:00, transfuse additional unit for hgb <8 or symptomatic <8.5. No CP/SOB/lightheadedness/dizziness reported Fused from L5 to her pelvis and to be cautious with activity, bed to chair and limiting walks to 1-2/daily along with brace to be worn when out of bed Continue to monitor labs counts, transfuse if needed Labs in AM (2) CAD (coronary artery disease): Hx NSTEMI, follows with Dr. Buckley. Recent stent placed around prior back surgery. Plavix held for surgery, restarted on 10/07 due to necessity after being held and hardware placement done while on Plavix (see above) EKG c CP Continue ASA, Plavix Continue metoprolol tartrate 25mg PO BID Atorvastatin held as above Continue to hold bumex -- monitor volume status as IVF LR @ 150cc/hr ordered post-operatively for volume loss, IVF discontinued this --> If giving another unit PRBC this afternoon, will give dose of bumex as well No CP/SOB reported Continue to monitor (3) Hypothyroid: Last TSH .01 August 2020 Continue levothyroxine 175 mcg. (4) Anemia: See above -- low iron and started supplementation BID s/p 2 u PRBC as above repeat h/h stable but will repeat again this afternoon if JUANCHO output still significant and transfuse if needed Dispo: continued inpatient stay Thank you very much for the consult. Hospitalist service to follow along. Admission and Anticipated Discharge Date Admission Date: October 04, 2020 Subjective Evaluated this morning. Back/leg pain resolved. Walked the halls this morning without symptoms. Pain controlled with ordered medications. Dressing changed overnight. Got total of 2u PRBC but discussed repeating labs this afternoon and additional with bumex if needed. No fever, chills, chest pain, shortness of breath, headache, lightheadedness, dizziness, abdominal pain, nausea or vomiting. Review of Systems Review of Systems: All systems reviewed & are unremarkable except as noted in HPI & below Physical Exam Physical Exam: Well nourished, well developed. Laying in bed, on Room Air. NAD Moist mm trachea without deviation, midline Resp CTAB, no w/c/r, 93 % on Room Air CV: RRR, no m/r/g, trace-1+ edema b/l LE MSK: dressing to lumbar spine with bloody shadowing on superior aspect of dressing within marking from last night, tender to palpation walker-incisional on the L side, JUANCHO output 55cc bloody drainage. NVI, 5/5 strength dorsiflexion/plantar flexion Ext: warm, dry Psych AOx3 : barr draining yellow urine Results & Data Results & Data ([facility]) Vital Signs (Past 12 Hours) Vital Signs Temp Pulse Pulse Resp BP BP Pulse Ox 10/12/20 07:30 37 C 66 18 162/61 H 93 10/12/20 04:29 36.8 C 65 16 112/65 97 10/12/20 03:45 37.0 C 70 16 112/62 99 10/12/20 02:45 37.0 C 64 16 115/62 99 10/12/20 02:15 37.2 C 72 16 109/61 97 10/12/20 02:05 37.0 C 68 16 122/68 99 10/12/20 01:48 36.5 C 71 16 117/68 97 PG Care Time/CCT Total # of Minutes Spent Total Time Spent with Patient: Total time spent is greater than 50% in coordination of care (as documented) at patient's floor/unit and/or counseling patient: Coding Diagnoses Infection of lumbar spine M46.26 CAD (coronary artery disease) I25.10 Hypothyroid E03.9 Anemia D64.9
[2020-10-12 15:11] LABS: Hematocrit (blood only) 24.5 % (37-47); Hemoglobin 7.8 g/dL (12.0-16.0); Mean Corpuscular Hgb Conc 31.8 g/dL (32-36); Mean Corpuscular Volume 87.8 fL (80-100); Mean Platelet Volume 8.5 fL (7.4-10.4); Platelet Count 204 K/uL (130-400); RDW Coefficient of Variation 14.8 % (11.5-14.5); RDW Standard Deviation 47.2 fL (36.4-46.3); Red Blood Count 2.79 M/uL (4.2-5.4); White Blood Count 5.76 K/uL (4.8-10.8)
[2020-10-12 15:30] LABS: BUN Creatinine Ratio 18.3 (10-20); Calcium 8.5 mg/dl (8.5-10.1); Est GFR (African American) 94.6 ml/min; Est GFR (Non-African American) 81.6 ml/min; Potassium 3.7 mmol/L (3.5-5.1)
[2020-10-12] MEDS ORDERED: BUMETANIDE 1 MG in SYRINGE 0 ML IV ONE (15:45)
[2020-10-12] MEDS: ACETAMINOPHEN 500 MG TAB PO PRN (19:41)
[2020-10-12] MEDS: SERTRALINE HCL 50 MG TABLET PO SCH (20:35)
[2020-10-12] MEDS: LEVOTHYROXINE SODIUM 175 MCG TABLET PO SCH (20:35)
[2020-10-12] MEDS: ATORVASTATIN 40 MG TAB PO SCH (20:36)
[2020-10-12] MEDS: ASPIRIN 81 MG ECTAB PO SCH (20:36)
[2020-10-12] MEDS: DOCUSATE SODIUM/SENNA 50/8.6MG TAB PO SCH (20:36)
[2020-10-12] MEDS: DAPTOmycin 500 MG in SYRINGE 0 ML IV SCH (20:38)
[2020-10-12 20:56] LABS: Hematocrit (blood only) 26.5 % (37-47); Hemoglobin 8.5 g/dL (12.0-16.0); Mean Corpuscular Hemoglobin 28.1 pg (25-34); Mean Corpuscular Hgb Conc 32.1 g/dL (32-36); Mean Corpuscular Volume 87.5 fL (80-100); Mean Platelet Volume 8.7 fL (7.4-10.4); Platelet Count 199 K/uL (130-400); RDW Coefficient of Variation 15.1 % (11.5-14.5); RDW Standard Deviation 47.9 fL (36.4-46.3); Red Blood Count 3.03 M/uL (4.2-5.4); White Blood Count 6.04 K/uL (4.8-10.8)
[2020-10-13] MEDS: HYDROmorphone INJ 1 MG/ML SYRINGE IV PRN ×4 (04:55→18:06)
[2020-10-13 06:26] LABS: Hematocrit (blood only) 29.1 % (37-47); Hemoglobin 9.3 g/dL (12.0-16.0); Mean Corpuscular Hemoglobin 27.9 pg (25-34); Mean Corpuscular Volume 87.4 fL (80-100); Mean Platelet Volume 9.1 fL (7.4-10.4); Platelet Count 224 K/uL (130-400); RDW Coefficient of Variation 15.3 % (11.5-14.5); RDW Standard Deviation 48.6 fL (36.4-46.3); Red Blood Count 3.33 M/uL (4.2-5.4); White Blood Count 5.93 K/uL (4.8-10.8)
[2020-10-13 07:00] LABS: BUN Creatinine Ratio 24.5 (10-20); Calcium 8.7 mg/dl (8.5-10.1); Creatinine Clr Calc Pharmacy 111.8 ml/min; Est GFR (African American) 110.4 ml/min; Est GFR (Non-African American) 95.3 ml/min; Potassium 4.1 mmol/L (3.5-5.1)
[2020-10-13] MEDS: GABAPENTIN 300 MG CAP PO SCH (08:35)
[2020-10-13] MEDS: CLOPIDOGREL BISULFATE 75 MG TAB PO SCH (08:35)
[2020-10-13] MEDS: METOPROLOL TARTRATE 25 MG TAB PO SCH ×2 (08:35→20:04)
[2020-10-13] MEDS: FERROUS SULFATE 325 MG TAB PO SCH ×2 (08:35→18:44)
--- NOTE | 2020-10-13 09:08 | Hospitalist Progress Note ---
Date of Service October 13, 2020 Assessment & Plan (1) Infection of lumbar spine: Patient initially diagnosed on 08/01 admission with spinal osteomyelitis, found on culture to be MSSA. Patient was being treated with daptomycin which is being continued on the advice of presumably her outpatient infectious disease specialist. POD # 9 s/p I&D, application of Stimulan beads and hardware removal L3-S1 On Daptomycin (follows with Staincatracho, PICC to RUE) Plavix resumed 10/07 per disc with cardio and Dr Brice Wound cx FINAL NO GROWTH Needed additional surgery for stability and required hardware placement on Wednesday 10/11 PT/OT/pain control/bowel regimen/DVT proph per surgery -- did add zanaflex -- continued for now as needed 10/13 POD 2 s/p #1 posterior spinal fusion L5-S1. #2 bilateral open SI joint fusions. #3 placement posterior instrumentation L4-L5 and bilateral iliac bolts. #4 placement infuse collagen sponge, master graft in the bilateral SI joints and posterior lateral gutters L5-S1. with Dr. Brice EBL 1000cc s/p 3 u PRBC (+albumin 500 walker-operatively) -- third unit last evening for hgb <8 H/h stable today 9.3/29.1 No cp/sob reported JUANCHO output slowing CBC in AM Additional 1u PRBC on hold if needed Fused from L5 to her pelvis and to be cautious with activity, bed to chair and limiting walks to 1-2/daily along with brace to be worn when out of bed Continue to monitor labs counts, transfuse if needed Iron Deficiency Anemia/Acute blood loss anemia from multiple surgeries/IVF and repeat surgery on Plavix currently which is necessary --> Iron studies with low iron 22, transferrin 162L, trans %sat 10L --> started on oral BID on 10/07 (she had been taking some at home due to low stores but up to 4x/daily) -- continue supplementation at discharge Labs in AM (2) CAD (coronary artery disease): Hx NSTEMI, follows with Dr. Buckley. Recent stent placed around prior back surgery. Plavix held for surgery, restarted on 10/07 due to necessity after being held and hardware placement done while on Plavix (see above) EKG c CP Continue ASA, Plavix Continue metoprolol tartrate 25mg PO BID Atorvastatin held as above Bumex as needed No CP/SOB reported Continue to monitor (3) Hypothyroid: Last TSH 1.01 August 2020 Continue levothyroxine 175 mcg. (4) Anemia: See above -- low iron and started supplementation BID s/p 3 u PRBC as above repeat h/h stable Dispo: continued inpatient stay Thank you very much for the consult. Hospitalist service to follow along. Rx to CM for abx and weekly labs. Hold Statin at d/c while on Dapto. Already has RUE PICC line in place and follow up with Dr. Kingsley ID Admission and Anticipated Discharge Date Admission Date: October 04, 2020 Supervising Physician Co-Signing Physician Notes PA Supervision Note: I did not personally see or examine the patient today, but I verified all mendoza points of ERICK Medeiros's assessment and plan with the following exceptions/additions: None Subjective Patient evaluated this morning. Pain controlled with ordered medications. States she feels the best today compared to even after her prior surgeries. Passing more gas but no BM. Has been up out of bed and stood without recurrence of symptoms like in days prior to surgery. JUANCHO output decreased and she cant remember the last time it was emptied. Pushing lots of oral fluids -- she is used to drinking lots of water daily. Blood counts stable. Hopeful for possible discharge tomorrow. Rx given to CM for continued antibiotics as well as weekly labs to be drawn on Tuesdays and results to Dr Kingsley and Dr. Brice. No fever, chills, chest pain, shortness of breath. Had some shoulder discomfort this morning, trop negative, resolved. Chambers remains in place but believes to be removed today. Questions answered at this time. Review of Systems Review of Systems: All systems reviewed & are unremarkable except as noted in HPI & below Physical Exam Physical Exam: WD/WD, NAD Anicteric sclerae trachea midline, no deviation Resp: CTAB, no w/c/r CV: RRR, no m/r/g, no edema GI: +BS throughout, soft, non-tender MSK/Ext: dressing to lumbar spine c/d/i, NVI pulses palpable, equal strength Skin: warm, dry, PICC to RUE Psych: AOx3, euthymic Results & Data Results & Data ([facility]) Vital Signs (Past 12 Hours) Vital Signs Temp Pulse Pulse Resp BP Pulse Ox 10/13/20 06:56 37.2 C 61 18 147/61 H 93 10/12/20 22:49 37.1 C 62 16 112/61 95 Laboratory Results 10/13/20 10/13/20 10/12/20 Range/Units 05:48 05:48 20:45 WBC 5.93 6.04 (4.8-10.8) K/uL RBC 3.33 L 3.03 L (4.2-5.4) M/uL Hgb 9.3 L 8.5 L (12.0-16.0) g/dL Hct 29.1 L 26.5 L (37-47) % MCV 87.4 87.5 (80-100) fL MCH 27.9 28.1 (25-34) pg MCHC 32.0 32.1 (32-36) g/dL RDW Std Deviation 48.6 H 47.9 H (36.4-46.3) fL RDW Coeff of Kye 15.3 H 15.1 H (11.5-14.5) % Plt Count 224 199 (130-400) K/uL MPV 9.1 8.7 (7.4-10.4) fL Sodium 139 (136-145) mmol/L Potassium 4.1 (3.5-5.1) mmol/L Chloride 104 (98-107) mmol/L Carbon Dioxide 30 (21-32) mmol/L Anion Gap 5.0 (3-11) BUN 15 (7-18) mg/dl Creatinine 0.62 (0.6-1.2) mg/dl Est Cr Clr Drug Dosing 111.8 ml/min Est GFR ( Amer) 110.4 ml/min Est GFR (Non-Af Amer) 95.3 ml/min BUN/Creatinine Ratio 24.5 H (10-20) Glucose 112 H (70-99) mg/dl Calcium 8.7 (8.5-10.1) mg/dl Blood Type Antibody Screen Crossmatch 10/12/20 10/12/20 10/10/20 Range/Units 14:56 14:56 15:59 WBC 5.76 (4.8-10.8) K/uL RBC 2.79 L (4.2-5.4) M/uL Hgb 7.8 L (12.0-16.0) g/dL Hct 24.5 L (37-47) % MCV 87.8 (80-100) fL MCH 28.0 (25-34) pg MCHC 31.8 L (32-36) g/dL RDW Std Deviation 47.2 H (36.4-46.3) fL RDW Coeff of Kye 14.8 H (11.5-14.5) % Plt Count 204 (130-400) K/uL MPV 8.5 (7.4-10.4) fL Sodium 140 (136-145) mmol/L Potassium 3.7 (3.5-5.1) mmol/L Chloride 107 (98-107) mmol/L Carbon Dioxide 30 (21-32) mmol/L Anion Gap 3.0 (3-11) BUN 14 (7-18) mg/dl Creatinine 0.77 (0.6-1.2) mg/dl Est Cr Clr Drug Dosing 90.0 ml/min Est GFR ( Amer) 94.6 ml/min Est GFR (Non-Af Amer) 81.6 ml/min BUN/Creatinine Ratio 18.3 (10-20) Glucose 112 H (70-99) mg/dl Calcium 8.5 (8.5-10.1) mg/dl Blood Type A Positive Antibody Screen NEGATIVE Crossmatch See Detail PG Care Time/CCT Total # of Minutes Spent Total Time Spent with Patient: Total time spent is greater than 50% in coordination of care (as documented) at patient's floor/unit and/or counseling patient: Coding Level of Care Code 52440 Subseq Hosp Care Lvl 3 Diagnoses Infection of lumbar spine M46.26 CAD (coronary artery disease) I25.10 Hypothyroid E03.9 Anemia D64.9
--- NOTE | 2020-10-13 09:59 | Orthopedic Progress Note ---
Date of Service October 13, 2020 Assessment & Plan (1) Infection of lumbar spine: Admission and Anticipated Discharge Date Admission Date: October 04, 2020 This time going to continue to request that she undergo very light activity. She may walk 2-3 laps a day. Otherwise she is to sit or lie supine. Possible plan for DC home tomorrow with her drain in place. Subjective Patient's back and leg pain is well controlled. She is tolerating short distances of walking. She is using her brace and walker as requested. Physical Exam Physical Exam: On exam she is standing in the room. She is excellent posture. She is good strength testing. She appears comfortable. Results & Data ([facility]) Vital Signs (Past 12 Hours) Vital Signs Temp Pulse Pulse Resp BP Pulse Ox 10/13/20 06:56 37.2 C 61 18 147/61 H 93 10/12/20 22:49 37.1 C 62 16 112/61 95
[2020-10-13] MEDS ORDERED: bisacodyL 10 MG SUPP PR PRN (14:27)
[2020-10-13] MEDS: DAPTOmycin 500 MG in SYRINGE 0 ML IV SCH (17:58)
[2020-10-13] MEDS: ASPIRIN 81 MG ECTAB PO SCH (20:04)
[2020-10-13] MEDS: DOCUSATE SODIUM/SENNA 50/8.6MG TAB PO SCH (20:04)
[2020-10-13] MEDS: LEVOTHYROXINE SODIUM 175 MCG TABLET PO SCH (20:04)
[2020-10-13] MEDS: SERTRALINE HCL 50 MG TABLET PO SCH (20:04)
[2020-10-13] MEDS: ATORVASTATIN 40 MG TAB PO SCH (20:04)
[2020-10-14] MEDS: oxyCODONE HCL IR 5 MG TAB (IMMEDIATE RELEASE) PO PRN ×3 (00:41→13:43)
[2020-10-14] MEDS: tiZANidine HCL 4 MG TABLET PO PRN ×2 (00:41→09:05)
[2020-10-14 08:35] LABS: Hematocrit (blood only) 30.9 % (37-47); Mean Corpuscular Hemoglobin 27.9 pg (25-34); Mean Corpuscular Hgb Conc 32.4 g/dL (32-36); Mean Corpuscular Volume 86.1 fL (80-100); Mean Platelet Volume 8.4 fL (7.4-10.4); Platelet Count 207 K/uL (130-400); RDW Coefficient of Variation 15.1 % (11.5-14.5); RDW Standard Deviation 47.2 fL (36.4-46.3); Red Blood Count 3.59 M/uL (4.2-5.4); White Blood Count 5.51 K/uL (4.8-10.8)
[2020-10-14] MEDS: GABAPENTIN 300 MG CAP PO SCH (08:51)
[2020-10-14] MEDS: FERROUS SULFATE 325 MG TAB PO SCH (08:51)
[2020-10-14] MEDS: CLOPIDOGREL BISULFATE 75 MG TAB PO SCH (08:51)
[2020-10-14] MEDS: METOPROLOL TARTRATE 25 MG TAB PO SCH (08:51)
--- NOTE | 2020-10-14 10:20 | Discharge Summary ---
Date of Service October 14, 2020 Admission HPI Per Admitting Provider This is a 65-year-old female well-known to me presents with evidence of loosening of instrumentation and continued infection and is here for I&D lumbar spine with removal of instrumentation. Principal Diagnosis Lumbar spine infection Discharge Data Allergies Allergy/AdvReac Type Severity Reaction Status Date / Time No Known Allergies Allergy Verified 10/04/20 11:36 Consultations 10/04/20 16:43 Consult Hospitalist Routine Procedures Performed Operation Date: 10/04/20 12:35 Actual Procedures p Incision and Drainage, Application of 10cc Stimulan Beads(Not Applicable) - Jairon Brice DO s L2-S1 Hardware Removal,(Not Applicable) - Jairon Brice DO Operation Date: 10/11/20 11:35 Actual Procedures p L4-S1 Lumbar Decomperssion and Fusion, with Illiac Bolts(Not Applicable) - Jairon Brice DO Ordered Studies 10/04/20 12:35 FL lumbar spine 2-3V Routine 10/07/20 08:21 CT lumbar spine wo con Stat 10/11/20 11:35 FL lumbar spine 2-3V Routine Hospital Course (1) Infection of lumbar spine: Patient was admitted to the hospital underwent removal of instrumentation I&D lumbar spine. Antibiotic beads were placed. Patient was observed for the next several days in the hospital. Pain was improving however on postop day 2 she began experiencing right groin left lower extremity sciatica. CAT scan was obtained there was concern that there was further collapse of L5-S1 disc base subsequently waited 7 days before taking her back to the OR reinserting instrumentation extending across the L5-S1 disc space. She tolerates well sec ond orthopedic floor postoperatively. After this procedure her leg symptoms have resolved she underwent very light activity per my instruction. JUANCHO drain working properly. Hematocrit improving daily. Subsequently she was discharged home with strict orders to use a walker for ambulation as well as her brace when out of bed. She is not lift more than 5 pounds. Patient understands and agrees. For details from the chart for further review. Total Time Total Time Spent Total Time Spent (In Minutes): 20 minutes Discharge Plan Discharge Items Patient Disposition: Home - Self-Care Reason For Visit: Low Back Pain Discharge Diagnosis: Lumbar spine infection Activity: As commented below Non-emergency contact: Primary Care Provider Call non-emergency contact if: you have any medication questions Follow-up/Referrals: Ricardo Howard MD [Primary Care Provider] - Diet: Regular Addtl Attending Provider Instructions: ACTIVITY RECOMMENDATIONS: SELF CARE INSTRUCTIONS AFTER THORACIC/LUMBAR FUSIONS 1. You may walk to your tolerance. It is good exercise for your legs and back. Expect some back and intermittent leg aches and pains. 2. You may perform "counter-top" level activities (make a sandwich, laura with a project, etc.). 3. No bending or lifting of more than 10 pounds or back twisting of any nature (roll like a log when turning in bed). 4. You may ride in a car for 20-30 minutes at a time. No driving until after your first visit with your doctor. 5. Frequent changes of position and restricting sitting to 30 minutes at a time will help limit the amount of back spasms and stiffness you may experience. 6. You may discontinue the use of ambulatory aids (cane, crutches, etc.) once your strength and confidence allow. 7. You may casing flusher the shower and let water strike your incision when you arrive home at least once daily. Do not take a tub bath, sit in a hot tub or go into a swimming pool until after your first recheck in the office. SPECIAL CARE INSTRUCTIONS: VERY IMPORTANT TO READ AND REVIEW A. Your surgical incision has been closed with a cosmetic suture under the skin that will dissolve in about 6 weeks. In 14 days, you can use a pair of clean scissors and cut the suture that is left outside of the skin at the ends of your incision. 1. The small skin tapes can be removed 7 days after surgery if they have not fallen off by that point. 2. You may keep the wound open to air as much as possible to promote healing after post-op day number 5 unless told otherwise by your doctor. 3. If you think the wound looks like it is becoming infected (redness or worsening drainage) and/or you are experiencing fever, chill or worsening back pain and muscle spasms, contact the office so that we may evaluate you as soon as possible. B. Complications are uncommon, but please contact us if you have any signs or symptoms of: 1. wound infection (fever higher than 102.5 degrees F, redness, separation of wound, drainage, or increasing pain from the incision) 2. blood clots in legs (pain, swelling, redness and warmth in legs) 3. urinary tract infection (fever higher than 102.5 degrees F, burning upon urination or increased frequency of urination) 4. nerve problems (inability to walk on your toes or heels, numbness, loss of bowel or bladder control) 5. any other symptoms that concern you C. Please call the office at if you have any concerns or questions about your operation or recovery. D. No smoking! Smoking drastically decreases the chance of a solid fusion. E. Do not take any anti-inflammatory medications (Indocin, Advil, Motrin, Aspirin, Naprosyn, etc.) as these may inhibit the chance of a solid fusion. Tylenol is okay to take for pain. MANAGING PAIN AFTER SPINAL SURGERY 1. Narcotic medication is intended for short-term use and will be provided for surgical pain. Surgical pain usually lasts for a period of 4-6 weeks. Narcotic medication includes Percocet, Vicodin, Darvocet, Tylenol #3 or Lortab. 2. Longer-term pain is more appropriately treated with non-narcotic medication such as Tylenol ES. 3. Muscle spasm is not appropriately treated with narcotics. Muscle relaxers such as Soma, Flexeril or Skelaxin can be used along with Tylenol ES. 4. Remember that we all live with some "aches and pains". This is not unusual or uncommon after an injury or as we get older. a. Back pain is expected and may include muscle spasms for 4 to 6 weeks after surgery. The pain should gradually improve. If the pain worsens for no apparent reason, please contact the office. b. Intermittent leg pain may also be experienced and should not be concerned about unless it worsens for no apparent reason. If so, please contact the office. 5. We will provide appropriate medication within the normal guidelines of their prescribed use. We will also be very cautious and aware of potential abuse and extended duration of patients' medication needs. a. Pain medications are for your comfort and to assist with sleep and rest so that the tissue can heal. They are not provided in order to return to normal activity and should not be used through the day. To do so or worsening pain at night can result from ongoing tissue damage and development of tolerance to the prescribed medicine. 6. Please allow 2-3 days to process refills. Prescriptions will not be mailed but must be picked up at the office. FOLLOW UP VISIT: Keep your scheduled follow-up appointment. Any questions, please call the office at . Pending Studies at Discharge: No Stand-Alone Forms: My [facility], Smoking Cessation Medications and DC Order Prescriptions: New oxycodone 5 mg tablet 5 mg PO Q6H PRN (Reason: pain, severe) Qty: 30 RF: 0 tramadol 50 mg tablet 50 mg PO Q6H PRN (Reason: pain, moderate) Qty: 30 RF: 0 Continued levothyroxine [Synthroid] 175 mcg tablet 175 mcg PO PM RF: 0 aspirin 81 mg Tablet,Delayed Release (Dr/Ec) 81 mg PO PM RF: 0 sertraline 50 mg tablet 50 mg PO PM RF: 0 cetirizine [Zyrtec] 10 mg Tablet 10 mg PO DAILY PRN (Reason: allergies) RF: 0 clopidogrel 75 mg Tablet 75 mg PO QAM Qty: 30 RF: 5 atorvastatin 40 mg Tablet 40 mg PO HS Qty: 30 RF: 5 metoprolol tartrate 25 mg Tablet 25 mg PO BID Qty: 60 RF: 5 daptomycin 500 mg recon soln 500 mg IV DAILY Qty: 35 RF: 0 bumetanide 1 mg tablet 1 mg PO DIRECTED PRN (Reason: swelling) Qty: 30 RF: 0 Discharge Orders: Discharge Order (Routine); Ordered 10/14/20 Ordered By: Jairon Brice Admission Data Admit Date/Time: 10/04/20 15:34 Attending Provider: Jairon Brice Admit Provider: Jairon Brice Primary Care Provider: Ricardo Howard Other Providers: [facility],Home [facility] ; Sudheer Jiménez ; Juve Zacarias
[2020-10-14] MEDS: DAPTOmycin 500 MG in SYRINGE 0 ML IV SCH (15:12)
--- NOTE | 2020-10-14 15:51 | Hospitalist Progress Note ---
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 - Patient was being treated with daptomycin which is being continued on the advice of presumably her outpatient infectious disease specialist. - S/p #1 posterior spinal fusion L5-S1. #2 bilateral open SI joint fusions. #3 placement posterior instrumentation L4-L5 and bilateral iliac bolts. #4 placement infuse collagen sponge, master graft in the bilateral SI joints and posterior lateral gutters L5-S1. with Dr. Brice on 10/11/2020. - Discharged with JUANCHO drain. Given daptomycin prior to discharge. Discussed with CM re: arranging home abx tomorrow. (2) CAD (coronary artery disease): Hx NSTEMI, follows with Dr. Buckley. Recent stent placed around prior back s urgery. Plavix held for surgery, restarted on 10/07 due to necessity after being held and hardware placement done while on Plavix (see above) - Continue ASA, Plavix - Continue metoprolol tartrate 25mg PO BID - Atorvastatin held as above (for LFTs while on daptomycin) (3) Hypothyroid: Last TSH 1.01 August 2020 Continue levothyroxine 175 mcg. (4) Anemia: See above -- low iron and started supplementation BID s/p 3 u PRBC as above repeat h/h stable Admission and Anticipated Discharge Date Admission Date: October 04, 2020 Subjective Doing well today. No objective fever. Back is painful, but tolerable. Reports no fevers/chills, chest pain, shortness of breath, abdominal pain, nausea, or vomiting. Physical Exam Constitutional: WD/WN, vitals as above Eyes: EOM intact bilaterally; no conjunctival abnormality ENMT: external ear and nose normal, oropharynx normal Neck: trachea midline, no thyromegaly normal visual inspection Respiratory: normal respiratory effort, lungs clear to auscultation no respiratory distress Cardiovascular: RRR, no murmur, no edema Gastrointestinal (Abdomen): Inspection/Auscultation: abdomen normal to inspection; abdomen not distended Musculoskeletal: no cyanosis or clubbing, extremities motor strength 5/5 Skin: no rashes, warm and dry Neurologic: moves all extremities and awake Psychiatric: Orientation: alert, oriented to person and cooperative Results & Data Results & Data ([facility]) Vital Signs (Past 12 Hours) Vital Signs Temp Pulse Pulse Pulse Resp BP Pulse Ox 10/14/20 14:34 37.1 C 77 62 70 17 132/73 90 10/14/20 07:18 37.1 C 70 17 132/73 90 PG Care Time/CCT Total # of Minutes Spent Total Time Spent with Patient: Total time spent is greater than 50% in coordination of care (as documented) at patient's floor/unit and/or counseling patient: Coding Level of Care Code 78376 Subseq Hosp Care Lvl 2 Diagnoses Infection of lumbar spine M46.26 CAD (coronary artery disease) I25.10 Hypothyroid E03.9 Anemia D64.9
== END 2020-10-14 16:24 | disposition home health service (06) | DRG 457 ==
LOC: ASU 11:05 → 3E 15:34